=== PATIENT | male | born 1955 | race Caucasian/White ===

== ENCOUNTER 2021-10-17 08:17 | Outpatient (CLI) | payer OTHER, SELFPAY ==
[2021-10-17 12:11] LABS: Chloride* 107 mmol/L (96-114)
[2021-10-17 12:12] LABS: Albumin* 4.2 g/dL (3.3-5.0); Creatinine Urine 236.2 mg/dL
[2021-10-17 12:13] LABS: Sodium* 137 mmol/L (135-149)
[2021-10-17 12:15] LABS: Alkaline Phosphatase* 124 U/L (40-150); Aspartate Amino Transferase* 25 U/L (12-35); Bilirubin Total* 0.5 mg/dL (0.1-1.5); Blood Urea Nitrogen* 38 mg/dL (7-30); Carbon Dioxide* 22 mmol/L (20-32); Cholesterol* 171 mg/dL (90-199); Creatinine* 1.9 mg/dL (0.5-1.5); Estimated Glomerular Filt Rate 38 ml/min; Glucose* 172 mg/dL (60-115); Total Protein* 7.1 g/dL (6.0-8.3)
[2021-10-17 12:16] LABS: Alanine Aminotransferase* 24 U/L (4-50); Calcium* 9.3 mg/dL (8.4-10.6); HDL Cholesterol* 30 mg/dL (>=40); LDL Cholesterol Calculated 95 mg/dL (<100); Triglycerides* 229 mg/dL (40-149)
[2021-10-17 12:36] LABS: Microalbumin Creatinine Ratio 170 mg/g (0-30); Microalbumin Urine 41 mg/dL
[2021-10-17 12:47] LABS: PSA Screen* 0.58 ng/mL (0.10-4.00)
[2021-10-17 13:16] LABS: Potassium* 7.1 mmol/L (3.6-5.1)
[2021-10-17 15:16] LABS: Potassium* 6.3 mmol/L (3.6-5.1)
== END 2021-10-17 08:18 | disposition home or self-care (01) ==
PROVIDERS: Family Medicine; PCP Internal Medicine; Visit Provider Internal Medicine
DX: E11.9 Type 2 diabetes mellitus without complications (principal); E87.5 Hyperkalemia; I10 Essential (primary) hypertension; N18.9 Chronic kidney disease, unspecified; Z12.5 Encounter for screening for malignant neoplasm of prostate; Z13.9 Encounter for screening, unspecified
CPT/HCPCS: 80053; 80061; 82043; 82570; 84132; 84153

== ENCOUNTER 2021-10-18 14:21 | Outpatient (CLI) | payer OTHER, SELFPAY ==
[2021-10-18 17:59] LABS: PSA Screen* 0.57 ng/mL (0.10-4.00)
[2021-10-22 03:38] LABS: C-Peptide, Serum or Plasma 9.3 ng/mL (0.5-3.3)
== END 2021-10-18 14:22 | disposition home or self-care (01) ==
PROVIDERS: PCP Internal Medicine; Visit Provider Family Medicine
DX: E11.65 Type 2 diabetes mellitus with hyperglycemia (principal); N18.9 Chronic kidney disease, unspecified; E87.5 Hyperkalemia; Z12.5 Encounter for screening for malignant neoplasm of prostate; E11.40 Type 2 diabetes mellitus with diabetic neuropathy, unspecified; Z79.4 Long term (current) use of insulin; Z79.84 Long term (current) use of oral hypoglycemic drugs; I12.9 Hypertensive chronic kidney disease with stage 1 through stage 4 chronic kidney disease, or unspecified chronic kidney disease; E11.22 Type 2 diabetes mellitus with diabetic chronic kidney disease; E11.319 Type 2 diabetes mellitus with unspecified diabetic retinopathy without macular edema
CPT/HCPCS: 84153; 84681

== ENCOUNTER 2021-10-23 13:32 | Outpatient (CLI) | payer MEDICARE, SELFPAY ==
[2021-10-23 16:38] LABS: Chloride* 111 mmol/L (96-114); Sodium* 141 mmol/L (135-149)
[2021-10-23 16:41] LABS: Creatinine* 1.8 mg/dL (0.5-1.5); Estimated Glomerular Filt Rate 41 ml/min
[2021-10-23 16:42] LABS: Blood Urea Nitrogen* 42 mg/dL (7-30); Calcium* 9.5 mg/dL (8.4-10.6); Carbon Dioxide* 24 mmol/L (20-32); Glucose* 115 mg/dL (60-115)
[2021-10-23 17:52] LABS: Potassium* 6.5 mmol/L (3.6-5.1)
== END 2021-10-23 13:33 | disposition home or self-care (01) ==
LOC: NFLDREF 13:33
PROVIDERS: PCP Internal Medicine; Visit Provider Internal Medicine
DX: Z00.00 Encounter for general adult medical examination without abnormal findings (principal); E13.9 Other specified diabetes mellitus without complications; N18.9 Chronic kidney disease, unspecified; E87.5 Hyperkalemia; I10 Essential (primary) hypertension; E78.5 Hyperlipidemia, unspecified
CPT/HCPCS: 80048

== ENCOUNTER 2021-12-04 13:23 | Outpatient (CLI) | payer OTHER, SELFPAY ==
--- OUTSIDE RECORDS SUMMARY | 2021-12-04 13:26 | XMS_ITS | Encounter Summary ---
:1955 Author Organization [facility] Address [address] [address] Support Name Relationship Address Phone Andria Stephens Unavailable Unavailable 03/19 Pt Decline Unavailable Unavailable Unavailable Care Team Providers Name Role Phone Anoop Adam MD Primary Care Provider Reason for Visit Reason Comments Prior Authorization For Medication Encounter Details Date Type Department Care Team Description 06/08/2018 Telephone [facility] Found, No Pcp, Prior Authorization For Medicine [address] Medication [address] [place] [address] Social History Tobacco Use Types Packs/Day Years Used Date Smoking Tobacco: Never Smokeless Tobacco: Never Alcohol Use Standard Drinks/Week Comments No 0 (1 standard drink = 0.6 oz pure alcoho l) Sex Assigned at Date Recorded Not on file documented as of this encounter Nursing Notes Nuria Lay RN - 06/19/2018 10:19 AM CDT Closing encounter Ita Estevez RN - 06/09/2018 9:55 AM CDT Yes, patient is taking 1.8mg daily 27ml for 90day supply (9 pens for 90day supply) OT Nuria Lay RN - 06/08/2018 9:51 AM CDT [facility] calling to follow up on PA for Victoza. They report medication was approved for 6 pens/45 days or 12 pens for 90 days. Advised appears patient is taking 1.8mL daily which would be 3 pens monthly/9 pens for 90 days, so should be sufficient. They state that it appears new PA may have been submitted for larger quantity - routing to endocrinology DA to resubmit if needing quantity larger than 12 pens for 90 days. documented in this encounter Plan of Treatment Not on filedocumented as of this encounter Visit Diagnoses Not on filedocumented in this encounter Care Teams Chief Compliance Officer Relationship Specialty Start Date End Date Anoop Adam MD PCP - General 03/03/181999 [place] [address] documented as of this encounter
--- OUTSIDE RECORDS SUMMARY | 2021-12-04 13:26 | XMS_ITS | Encounter Summary ---
:1955 Author Organization [facility] Address [address], [place] [address] Support Name Relationship Address Phone Andria Stephens Unavailable Unavailable 03/19 Pt Decline Unavailable Unavailable Unavailable Care Team Providers Name Role Phone Needs Pcp, Assignment Primary Care Provider Reason for Visit Reason Comments Medication Questions Encounter Details Date Type Department Care Team Description 11/04/2017 Telephone [facility] [address], Med ication Questions Endocrinology PA-C [address] [place] [address] [phone] (Wo rk) Social History Tobacco Use Types Packs/Day Years Used Date Smoking Tobacco: Never Smokeless Tobacco: Never Alcohol Use Standard Drinks/Week Comments No 0 (1 standard drink = 0.6 oz pure alcoho l) Sex Assigned at Date Recorded Not on file documented as of this encounter Nursing Notes Jessie Santiago RN - 11/04/2017 3:55 PM CDT Called Pt. And Left detailed VM regarding message below. Left call back number if Pt. Has any further questions or concerns. Jessie Santiago RN - 11/04/2017 3:27 PM CDT Pt.calling requesting specific dosing on his B6, B12, and D. Pt. States he buys over the counter andthrew bottle away and now is unsure of what to purchase. Unable to locate dosage in previous visits. Please advise, thank you. documented in this encounter Plan of Treatment Not on filedocumented as of this encounter Visit Diagnoses Not on filedocumented in this encounter Care Teams Shrink Pit Operator Relationship Specialty Start Date End Date Needs Pcp, Assignment PCP - General 05/20/17 03/02/18 [place] [address] documented as of this encounter
--- OUTSIDE RECORDS SUMMARY | 2021-12-04 13:26 | XMS_ITS | Encounter Summary ---
:1955 Author Organization [facility] Address [address], [place] [address] Support Name Relationship Address Phone Andria Stephens Unavailable Unavailable 03/19 Pt Decline Unavailable Unavailable Unavailable Care Team Providers Name Role Phone Needs Pcp, Assignment Primary Care Provider Reason for Visit Reason Comments Follow-up DM2 Encounter Details Date Type Department Care Team Description 01/12/2018 Office Visit Shama Ramirez Type 2 diab etes mellitus with proliferative retinopathy, with long-term current use of insulin, macular edema presence unspecified, unspecified laterality, unspecified proliferative retinopathy* (HRC) (Primary Dx); Endocrinology M, MBBS Essential hypertension; [address] Dyslipidemia; [place] [address] BLVD Vitamin D deficiency; [phone] [place], [place] Need for p rophylactic vaccination and inoculation against influenza [id number] Social History Tobacco Use Types Packs/Day Years Used Date Smoking Tobacco: Never Smokeless Tobacco: Never Alcohol Use Standard Drinks/Week Comments No 0 (1 standard drink = 0.6 oz pure alcoho l) Sex Assigned at Date Recorded Not on file documented as of this encounter Last Filed Vital Signs Vital Sign Reading Time Taken Comments Blood Pressure 114/60 01/12/2018 10:45 AM CDT Pulse 60 01/12/2018 10:45 AM CDT Temperature - - Respiratory Rate - - Oxygen Saturation - - Inhaled Oxygen Concentration - - Weight 84.8 kg (187 lb) 01/12/2018 10:45 AM CDT Height 188 cm (6' 2) 01/12/2018 10:45 AM CDT Body Mass Index 24.01 01/12/2018 10:45 AM CDT documented in this encounter Progress Notes Marivel Ya RN - 01/12/2018 10:45 AM CDT Images from the original note were not included. Shama Sutton MBBS - 01/12/2018 10:45 AM CDT [facility] Department of Endocrinology, Diabetes and Metabolism Clinic Note Name: Rolf Heaton Date: 05/20/2017 Cc: Follow up for diabetes management. He came with his Andria. HPI: Rolf Heaton is a 62 y.o. male #1 T2DM: Diagnosed at age of 50, on insulin since February/2017, historically with poor control. He is currently using metformin 1000 mg In the AM and 100 mg in the PM, insulin Glargine 30 units QHS, he stopped the Victoza 2 weeks ago due to nausea and vomiting. He is having diarrhea from metformin. He is feeling better, nausea and vomiting has resolved. He checks his FSBG once daily in the AM and that is running in the 150-175 range, A1C today was 6.6%. He has painful neuropathy on the right foot. Vitamin B12, B6 and D were low, he is on replacement hethinks the vitamins are causing the nausea. Eye exam from 05/2017 showed retinopathy and he following up with opthalmology. He takes lisinopril 20 mg daily, BP today was 114/60. He takes ASA 81 mg daily and simvastatin 20 mg QHS. He has a family history of insulin requiring DM in his brother and mother. ROS: A 3 point ROS was done, and is negative unless specified otherwise in the HPI. Medications: medication list was reviewed and updated on the EMR. PMHx: Past Medical History: Diagnosis Date ??? Diabetes mellitus type II, controlled (HRC) ??? Dyslipidemia (HRC) 05/20/2017 ??? Essential hypertension (HRC) 05/20/2017 FHx: No family history on file. SHx: Social History Substance Use Topics ??? Smoking status: Never Smoker ??? Smokeless tobacco: Never Used ??? Alcohol use No Physical Examination: Vitals: BP 114/60 (BP Location: Left Arm, BP Cuff Size: Adult Regular) Pulse 60 Ht 6' 2 (1.88 m) Wt 187 lb (84.8 kg) BMI 24.01 kg/m2 General: The patient is alert and oriented, no acute distress. Labs: Reviewed and summarized in the HPI. Assessment and Plan: Rolf Heaton is a 62 y.o. male: #1 T2DM: better controlled, complicated by neuropathy and retinopathy. A1C 6.4%. Counseled him about diet and exercise. Change metformin to ER metformin 1 gm BID. Continue glargine insulin 30 units QHS. Restart Victoza 0.6 mg daily, report response in 1 week, if tolerated that, increase that back to 1.2 mg daily, if not tolerated, consider long acting GLP-1a. RTC in 3 months with Francy. #2 Peripheral neuropathy: Stop all vitamins for now, restart vitamin D1000 units daily after he is back on Victoza. #3 HTN: controlled, continue lisinopril. #4 Dyslipidemia: Continue ASA and Simvastatin. DENISE Otto Irrigation Installation Specialist documented in this encounter Plan of Treatment Not on filedocumented as of this encounter Procedures Procedure Name Priority Date/Time Associated Diagnosis Comme nts POCT GLYCOSYLATED Routine 01/12/2018 10:42 Type 2 diabetes Res ults for this HEMOGLOBIN (HGB A1C) AM CDT mellitus with proced ure are in proliferative the results retinopathy, with section. long-term current use of insulin, macular edema presence unspecified, unspecified laterality, unspecified proliferative retinopathy* (HR C) Essential hypertension Dyslipidemia Vitamin D deficiency documented in this encounter Results (ABNORMAL) POCT glycosylated hemoglobin (Hb A1C) (01/12/2018 10:42 AM CDT) P athologist Signature Hemoglobin A1C, 6.6 (A) 4 - 5.6 % PN POCT POC Cartridge Lot# [id number] PN POCT Specimen (Source) Anatomical Collection Method Collection Time Re ceived Time Location / / Volume Laterality Blood specimen 01/12/2018 10:42 (specimen) AM CDT Shama WALKER PN POINT OF CARE TESTS Performing Organization Address City/State/ZIP Code Phon e Number POCT PN POCT documented in this encounter Visit Diagnoses Diagnosis Type 2 diabetes mellitus with proliferat yin retinopathy, with long-term current use of insulin, macular edema presence unspe cified, unspecified laterality, unspecified proliferative retinopathy* (HRC) - Prima ry Essential hypertension (HRC) Unspecified essential hypertension Dyslipidemia (HRC) Other and unspecified hyperlipidemia Vitamin D deficiency (HRC) Unspecified vitamin D deficiency Need for prophylactic vaccination and in oculation against influenza documented in this encounter Care Teams State Archivist Relationship Specialty Start Date End Date Needs Pcp, Assignment PCP - General 05/20/17 03/02/18 [place] [address] documented as of this encounter
--- OUTSIDE RECORDS SUMMARY | 2021-12-04 13:26 | XMS_ITS | Encounter Summary ---
:1955 Author Organization [employer] Address [address], [place] [address] Support Name Relationship Address Phone Andria Stephens Unavailable Unavailable 03/19 Pt Decline Unavailable Unavailable Unavailable Care Team Providers Name Role Phone Needs Pcp, Assignment Primary Care Provider Reason for Visit Reason Comments Diabetes Encounter Details Date Type Department Care Team Description 07/22/2017 Office Visit Eric Shama Sutton Controlled type 2 diabetes mellitus with proliferative retinopathy of both eyes, with long-term current use of insulin, macular edema presence unspecified, unspecified proliferative retinopathy* (HRC) (Primary Dx); Endocrinology M, MBBS Vitamin D deficiency; [address] Vitamin B6 deficiency; [place] [address] BLVD Vitamin B12 deficiency; [phone] [place], [place] Essential hypertension; [address] Dyslipidemia; [phone] Controlled type 2 diabetes with neuropathy (HRC) (Work) Social History Tobacco Use Types Packs/Day Years Used Date Smoking Tobacco: Never Smokeless Tobacco: Never Alcohol Use Standard Drinks/Week Comments No 0 (1 standard drink = 0.6 oz pure alcoho l) Sex Assigned at Date Recorded Not on file documented as of this encounter Last Filed Vital Signs Vital Sign Reading Time Taken Comments Blood Pressure 108/64 07/22/2017 11:38 AM CDT Pulse 72 07/22/2017 11:38 AM CDT Temperature - - Respiratory Rate - - Oxygen Saturation - - Inhaled Oxygen Concentration - - Weight 84.2 kg (185 lb 11.2 oz) 07/22/2017 11:38 AM CDT Height 188 cm (6' 2) 07/22/2017 11:38 AM CDT Body Mass Index 23.84 07/22/2017 11:38 AM CDT documented in this encounter Progress Notes Shama Sutton MBBS - 07/22/2017 11:45 AM CDT [facility] Department of Endocrinology, Diabetes and Metabolism Clinic [...] in the PM, insulin Glargine 30 units QHS and victoza 1.2 mg daily. He is physically active and he tries to limit carbohydrate intake. Tolerating Victoza well. He checks his FSBG once daily in the AM and that is running in the 103-160 range, A1C today was 7% (down from 9.6%). He has painful neuropathy on the right foot. Vitamin B12, B6 and D were low, he is on replacement but do not feel better. Eye exam from 05/2017 showed retinopathy and he following up with opthalmology. He takes lisinopril 20 mg daily, BP today was 108/64. He takes ASA 81 mg daily and [...] Alcohol use No Physical Examination: Vitals: BP 108/64 (BP Location: Left Arm, BP Cuff Size: Adult Large) Pulse 72 Ht 6' 2 (1.88 m) Wt 185 lb 11.2 oz (84.2 kg) BMI 23.84 kg/m2 General: The patient is alert and oriented, no acute distress. Labs: Reviewed and summarized in the HPI. Assessment and Plan: Rolf Heaton is a 62 y.o. male: #1 T2DM: better controlled, complicated by neuropathy and retinopathy. A1C 7%. Counseled him about diet and exercise. Continue metformin to 1 gm BID. Continue glargine insulin 30 units QHS. Increase Victoza to 1.8 mg daily. RTC in 2 months. #2 Peripheral neuropathy: Have vitamin B12, vitamin B6 and vitamin D deficiency. Improve DM control. Continue current supplements, repeat levels today. #3 HTN: controlled, continue lisinopril. #4 Dyslipidemia: Continue ASA and Simvastatin. DENISE Otto General Maintenance Mechanic documented in this encounter Plan of Treatment Not on filedocumented as of this encounter Procedures Procedure Name Priority Date/Time Associated Comments Diagnosis POCT GLYCOSYLATED Routine 07/22/2017 3:14 PM Vitamin D Resu lts for this HEMOGLOBIN (HGB A1C) CDT deficiency procedure are in Vitamin B6 the results deficiency section. Vitamin B12 deficiency documented in this encounter Results (ABNORMAL) POCT glycosylated hemoglobin (Hb A1C) (07/22/2017 3:14 PM CDT) P athologist Signature Hemoglobin A1C, 7.0 (A) 4 - 5.6 % PN POCT POC Cartridge Lot# [id number] PN POCT Specimen (Source) Anatomical Collection Method Collection Time Re ceived Time Location / / Volume Laterality Blood specimen 07/22/2017 3:14 PM (specimen) CDT Shama WALKER PN POINT OF CARE TESTS Performing Organization Address City/State/ZIP Code Phon e Number POCT PN POCT (ABNORMAL) Vitamin B6 (8Hr Fast Recommended) (07/22/2017 12:28 PM CDT) P athologist Signature Vitamin B6 239.4 (H) 20.0 - PN SOFT 125.0 nmol/L Comment: INTERPRETIVE INFORMATION: Vitamin B6 (Py ridoxal 5-Phosphate) Pyridoxal 5'-phosphate measured in a spe cimen collected following an 8-hour or overnight fast ac curately indicates vitamin B6 nutritional status. Non-fasti ng specimen concentration reflects recent vitamin in take. Test developed and characteristics deter mined by [facility]. See Compliance Statement B : [employer] Performed by [facility], [address] [place] [id number] [email or web address], Yosi Cabral MD - Lab . Director Specimen Anatomical Collection Method Collection Time Receive d Time (Source) Location / / Volume Laterality 07/22/2017 12:28 07/22/2017 3:48 PM CDT PM CDT Narrative PN SOFT - 07/24/2017 4:56 PM CDT Performed at [facility] [address] [place] [address] CLIA number [id number] Shama KINNEY LAB_1 Performing Organization Address [facility] Phon e Number PN SOFT [address] [place] [address] Vitamin B-12 (07/22/2017 12:28 PM CDT) athologist Signature Vitamin B12 511 213 - 816 PN SOFT pg/dL Specimen Anatomical Collection Method Collection Time Receive d Time (Source) Location / / Volume Laterality 07/22/2017 12:28 07/22/2017 3:41 PM CDT PM CDT Narrative PN SOFT - 07/22/2017 5:48 PM CDT Performed at [facility] [address] [place] [address] CLIA number [id number] Shama WALKER LAB_1 Performing Organization Address [facility] Phon e Number PN SOFT [address] [place] [address] Vitamin D (In house) (07/22/2017 12:28 PM CDT) athologist Signature Vitamin D 25 Oh 34 20 - 80 PN SOFT ng/mL Comment: Deficiency = <20 Adequate ??= 20-29 Preferred = 30-50 Uncertain safety = 51-80 High = >80 Specimen Anatomical Collection Method Collection Time Receive d Time (Source) Location / / Volume Laterality 07/22/2017 12:28 07/22/2017 3:41 PM CDT PM CDT Narrative KARLEY MAE - 07/22/2017 5:11 PM CDT Performed at [facility], [address] [place] [address] CLIA number [id number] Shama WALKER LAB_1 Performing Organization Address City/State/ZIP Code Phon e Number PN CARMELITA [address] [place] [address] documented in this encounter Visit Diagnoses Diagnosis Controlled type 2 diabetes mellitus with proliferative retinopathy of both eyes, with long-term current use of insulin, macula r edema presence unspecified, unspecified proliferative retinopathy* (HRC) - Prima ry Vitamin D deficiency (HRC) Unspecified vitamin D deficiency Vitamin B6 deficiency (HRC) Vitamin B6 deficiency Vitamin B12 deficiency (HRC) Other B-complex deficiencies Essential hypertension (HRC) Unspecified essential hypertension Dyslipidemia (HRC) Other and unspecified hyperlipidemia Vitamin D deficiency (HRC) Unspecified vitamin D deficiency Vitamin B6 deficiency (HRC) Vitamin B6 deficiency Vitamin B12 deficiency (HRC) Other B-complex deficiencies documented in this encounter Care Teams Golf Club Manager Relationship Specialty Start Date End Date Needs Pcp, Assignment PCP - General 05/20/17 03/02/18 [place] [address] documented as of this encounter
--- OUTSIDE RECORDS SUMMARY | 2021-12-04 13:26 | XMS_ITS | Encounter Summary ---
:1955 Author Organization [facility] Address [address] [place] [address] Support Name Relationship Address Phone Andria Stephens Unavailable Unavailable 03/19 Pt Decline Unavailable Unavailable Unavailable Care Team Providers Name Role Phone Anoop Adam MD Primary Care Provider Reason for Visit Reason Onset Date Comments Refill 08/12/2019 insulin pen needle ( BD PEN NEEDLE DARSHANA U/F) 32G X 4 MM Encounter Details Date Type Department Care Team Description 08/12/[address] [facility] [address], Re fill (insulin pen Endocrinology MBBS needle (BD PEN NEEDLE [address] [facility] [address] U/F) 32G X 4 MM) [place] [address] [phone] Social History Tobacco Use Types Packs/Day Years Used Date Smoking Tobacco: Never Smokeless Tobacco: Never Alcohol Use Standard Drinks/Week Comments No 0 (1 standard drink = 0.6 oz pure alcoho l) Sex Assigned at Date Recorded Not on file documented as of this encounter Nursing Notes Suki Barragan, RN - 08/17/2019 4:11 PM CDT Requested Prescriptions Refused Prescriptions Disp Refills ??? insulin pen needle (BD PEN NEEDLE DARSHANA U/F) 32G X 4 MM 1 Each 3 Sig: Inject 1 Each subcutaneously two times a day. Refused By: SUKI BARRAGAN Reason for Refusal: Patient no longer under Provider care Nataly Valentino - 08/17/2019 10:41 AM CDT Pt said that Dr Luciano would like pt to see PCP. Prescription should go thru his PCP and not Endo. Kary Hathaway RN - 08/15/2019 10:34 AM CDT Pt is due for a follow up appt. Please call and assist in scheduling an appt. Route back to nursing once appt is made. Interface, Out [employer] [facility] Prov Query - 08/12/2019 11:42 AM CDT insulin pen needle (BD PEN NEEDLE DARSHANA U/F) 32G X 4 MM Endocrinology: Diabetes Non-DME Supplies -> Refill x 12 months, qty: 1, refills: 3 (maximum allowed) Last qualifying visit: 01/12/2018 (in [facility]) Next scheduled visit: None Last ordered by MIA SUTTON M: 03/08/2018 (522 days ago) QTY: 200, Refills: 3, Sig: inject 1 each subcutaneously two times a day. (unchanged) Powered by [employer], Reference: [id number], 08/12/2019 11:42:15 AM CDT, Pool: ENDO PN REFILL ([id number]) Suki Barragan, RN - 08/12/2019 11:41 AM CDT Images from the original note were not included. documented in this encounter Plan of Treatment Not on filedocumented as of this encounter Visit Diagnoses Not on filedocumented in this encounter Care Teams Dimensional Inspector Relationship Specialty Start Date End Date Anoop Adam MD PCP - General 03/03/181999 [place] [address] documented as of this encounter
--- OUTSIDE RECORDS SUMMARY | 2021-12-04 13:26 | XMS_ITS | Encounter Summary ---
:1955 Author Organization [employer] Address [address], [place] [address] Support Name Relationship Address Phone Andria Stephens Unavailable Unavailable 03/19 Pt Decline Unavailable Unavailable Unavailable Care Team Providers Name Role Phone Needs Pcp, Assignment Primary Care Provider Reason for Visit Reason Onset Date Comments Refill 05/25/2017 Encounter Details Date Type Department Care Team Description 05/25/2017 Refill [facility] [address] MBBS Refill Endocrinology [address] [place] [address] [place] [address] [phone] Social History Tobacco Use Types Packs/Day Years Used Date Smoking Tobacco: Never Smokeless Tobacco: Never Alcohol Use Standard Drinks/Week Comments No 0 (1 standard drink = 0.6 oz pure alcoho l) Sex Assigned at Date Recorded Not on file documented as of this encounter Nursing Notes Kary Hathaway RN - 05/25/2017 1:58 PM CST Pharmacy updated on this. Will fill rx. Shama Brady MBBS - 05/25/2017 1:40 PM CST Victoza is a daily medication and they are wrong. No change in prescription needed. They need to be notified about that. Kary Sy RN - 05/25/2017 1:30 PM CST Requested Prescriptions Pending Prescriptions Disp Refills ??? liraglutide (,,VICTOZA) 18 MG/3ML SOPN injection 6 mL 6 Si.6 mg each week for 1 week, then 1.2 mg each week after that. Pharmacy calling about the rx they received. States that it was sent as give daily for 1 week and then increase. Per the pharmacy, this is a weekly injection only. They are requesting a new updated rx to reflect this. Please review and sign pending rx if approved. ER PACKER documented in this encounter Plan of Treatment Not on filedocumented as of this encounter Visit Diagnoses Not on filedocumented in this encounter Care Teams Collections Professional Relationship Specialty Start Date End Date Needs Pcp, Assignment PCP - General 05/20/17 03/02/18 [place] [address] documented as of this encounter
--- OUTSIDE RECORDS SUMMARY | 2021-12-04 13:26 | XMS_ITS | Encounter Summary ---
:1955 Author Organization [facility] Address [address] [address] Support Name Relationship Address Phone Andria Stephens Unavailable Unavailable 03/19 Pt Decline Unavailable Unavailable Unavailable Care Team Providers Name Role Phone Anoop Adam MD Primary Care Provider Reason for Visit Reason Onset Date Comments Refill 03/08/2018 Encounter Details Date Type Department Care Team Description 03/08/[address] [facility] [address] MBBS Refill Endocrinology [address] [place] [address] [place] [address] [phone] Social History Tobacco Use Types Packs/Day Years Used Date Smoking Tobacco: Never Smokeless Tobacco: Never Alcohol Use Standard Drinks/Week Comments No 0 (1 standard drink = 0.6 oz pure alcoho l) Sex Assigned at Date Recorded Not on file documented as of this encounter Nursing Notes Kary Hathaway RN - 03/08/2018 1:24 PM CST Renewed medication per medication refill protocol. Requested Prescriptions Signed Prescriptions Disp Refills ??? insulin pen needle (BD PEN NEEDLE DARSHANA U/F) 32G X 4 MM 200 Each 3 Sig: Inject 1 Each subcutaneously two times a day. Authorizing Provider: MIA SUTTON Ordering User: KARY HATHAWAY LV: 01/12/18 FV: 04/27/18 MAN documented in this encounter Plan of Treatment Not on filedocumented as of this encounter Visit Diagnoses Not on filedocumented in this encounter Care Teams Director Of Analytics Relationship Specialty Start Date End Date Anoop Adam MD PCP - General 03/03/181999 [place] [address] documented as of this encounter
--- OUTSIDE RECORDS SUMMARY | 2021-12-04 13:26 | XMS_ITS | Encounter Summary ---
:1955 Author Organization [facility] Address [address], [place] [address] Support Name Relationship Address Phone Andria Stephens Unavailable Unavailable 03/19 Pt Decline Unavailable Unavailable Unavailable Care Team Providers Name Role Phone Needs Pcp, Assignment Primary Care Provider Reason for Visit Reason Comments Medication Questions Encounter Details Date Type Department Care Team Description 12/21/2017 Telephone [facility] [address] Co dication Questions Endocrinology [facility] [address] [place] [address] [phone] Social History Tobacco Use Types Packs/Day Years Used Date Smoking Tobacco: Never Smokeless Tobacco: Never Alcohol Use Standard Drinks/Week Comments No 0 (1 standard drink = 0.6 oz pure alcoho l) Sex Assigned at Date Recorded Not on file documented as of this encounter Nursing Notes Jessie Santiago RN - 12/21/2017 1:59 PM CDT Called Pt. And relayed message below. Patient verbalized understanding, is agreeable with plan, and no further questions. Shama Sutton MBBS - 12/21/2017 1:36 PM CDT He can stop the vitamin B until nausea has resolved. Jessie Santiago RN - 12/21/2017 1:27 PM CDT Called Pt. And relayed message below. Pt. Clarified that he was having symptoms as stated below on Vitamin B. Not vitamin D. Please advise if Vit B OTC is appropriate. Thank you! Shama Sutton MBBS - 12/21/2017 12:36 PM CDT He can be off Victoza until nausea goes away then restart taking only 0.6 mg daily once the nausea resolves. He can try OTC chewable vitamin D (Viactive) taking 2 tabs daily. Jessie Santiago RN - 12/21/2017 10:52 AM CDT Pt. Calling stating that he stopped taking Victoza two days ago due to persistent nausea even after decreasing dose to 1.2 mg for 10 days. Pt. States that he is having electrical shock in his right big toe. Pt. States he Vit. D had decreased this pain, however, he had to stop the Vit. D two weeks ago due to persistent emesis related to Vit D. Consumption. Pt. States he does take the Vit. D with food and still had episodes of emesis. Please advise on medication recommendations. Thank you! documented in this encounter Plan of Treatment Not on filedocumented as of this encounter Visit Diagnoses Not on filedocumented in this encounter Care Teams Optical Lab Technician Relationship Specialty Start Date End Date Needs Pcp, Assignment PCP - General 05/20/17 03/02/18 [place] [address] documented as of this encounter
--- OUTSIDE RECORDS SUMMARY | 2021-12-04 13:26 | XMS_ITS | Clinical Summary ---
:1955 Author Organization [employer] Address [address], [place] [address] Support Name Relationship Address Phone Andria Stephens Unavailable Unavailable 03/19 Pt Decline Unavailable Unavailable Unavailable Care Team Providers Name Role Phone Anoop Adam MD Primary Care Provider Source Comments You are receiving this document as you are listed as the primary care provider,follow-up provider, or the patient has been referred to you for consultation.This is in compliance with the Medicare and Medicaid EHR Incentive Program,which states Providers who transition their patient to another setting of careor provider of care or refers their patient to another provider of care shouldprovide summarycare record for each transition of care or referral. [employer] Allergies No known active allergies Medications Medication Sig Dispensed Refills Start Date End Date Status aspirin 81 MG Take 81 mg by mouth 0 Active tabletIndications: daily. DM type 2, uncontrolled, with neuropathy, Essential hypertension (HRC), Dyslipidemia (HRC), Vitamin D deficiency (HRC) naproxen sodium Take 220 mg by mouth 0 Active (ANAPROX) 220 MG two times a day with tabletIndications: meals. DM type 2, uncontrolled, with neuropathy, Essential hypertension (HRC), Dyslipidemia (HRC), Vitamin D deficiency (HRC) simvastatin (ZOCOR) Take 20 mg by mouth 0 Active 20 MG daily at bedtime. tabletIndications: DM type 2, uncontrolled, with neuropathy, Essential hypertension (HRC), Dyslipidemia (HRC), Vitamin D deficiency (HRC) lisinopril Take 20 mg by mouth 0 Active (ZESTRIL) 20 MG daily. tabletIndications: DM type 2, uncontrolled, with neuropathy, Essential hypertension (HRC), Dyslipidemia (HRC), Vitamin D deficiency (HRC) blood glucose (ONE Use to test daily. 0 Active TOUCH TEST STRIPS) Use as directed. test Pharmacy dispense stripIndications: brand based on DM type 2, insurance. uncontrolled, with neuropathy, Essential hypertension (HRC), Dyslipidemia (HRC), Vitamin D deficiency (HRC) insulin glargine Inject 30 Units 30 mL 3 05/22/2017 Active (LANTUS) 100 subcutaneously every UNIT/ML evening. Pharmacy injectionIndication may substitute s: DM type 2, Basaglar as needed uncontrolled, with based on insurance neuropathy, Essential hypertension (HRC), Dyslipidemia (HRC), Vitamin D deficiency (HRC) liraglutide 1.8 mg daily 27 mL 3 01/12/2018 Acti ve (,,VICTOZA) 18 MG/3ML SOPN injectionIndication s: Type 2 diabetes mellitus with proliferative retinopathy, with long-term current use of insulin, macular edema presence unspecified, unspecified laterality, unspecified proliferative retinopathy* (HRC), Essential hypertension (HRC), Dyslipidemia (HRC), Vitamin D deficiency (HRC) metFORMIN XR Take 2 Tablets by 360 Tablet 3 01/12/2018 Active (GLUCOPHAGE XR) 500 mouth two times a MG 24 hour release day. tabletIndications: Type 2 diabetes mellitus with proliferative retinopathy, with long-term current use of insulin, macular edema presence unspecified, unspecified laterality, unspecified proliferative retinopathy* (HRC), Essential hypertension (HRC), Dyslipidemia (HRC), Vitamin D deficiency (HRC) insulin pen needle Inject 1 Each 200 Each 3 03/08/2018 Active (BD PEN NEEDLE DARSHANA subcutaneously two U/F) 32G X 4 MM times a day. Active Problems Problem Noted Date Controlled type 2 diabetes mellitus with proliferative retinopathy of both 07/22/2017 eyes, with long-term current use of insulin Type 2 diabetes mellitus with proliferative retinopath y, with long-term 07/22/2017 current use of insulin Essential hypertension 05/20/2017 Dyslipidemia 05/20/2017 Vitamin D deficiency 05/20/2017 Resolved Problems Problem Noted Date Resolved Date DM type 2, uncontrolled, with neuropathy 05/20/2017 07/22/2017 Immunizations Name Administration Dates Next Due Influenza IIV4 (Quadrivalent) 0.5mL (23295) 01/12/2018 Social History Tobacco Use Types Packs/Day Years Used Date Smoking Tobacco: Never Smokeless Tobacco: Never Alcohol Use Standard Drinks/Week Comments No 0 (1 standard drink = 0.6 oz pure alcoho l) Sex Assigned at Date Recorded Not on file Last Filed Vital Signs Vital Sign Reading [...] Mass Index 24.01 01/12/2018 10:45 AM CDT Plan of Treatment Health Maintenance Due Date Last Done Comments Colon Cancer Screening Plan 1955 Due Diabetes: Eye Exam 1955 Diabetes: Foot Exam 1955 Diabetes: Lipid Panel 1955 Diabetes: Urine 1955 Microalbumin Hep C Screening (Preventive 1955 Services) COVID-19 Vaccine (#1) 1955 Adult Preventive Visit 1973 Pneumococcal 65+ Yrs (2 - 01/04/2011 01/04/2010 PCV) Zoster/Shingles (2 of 3) 06/12/2016 04/17/2016 Diabetes: HGBA1C 04/14/2018 01/12/2018, 09/23/2017, 07/22/2017, Additional history exists Diabetes: Creatinine 05/20/2018 05/20/2017 DTaP/Tdap/Td (2 - Tdap) 12/08/2019 12/07/2009 Influenza (#1) 2021 03/01/2020, 03/11/2019, 01/12/2018, Additional history exists HepA Aged Out No longer eligib le based on patient 's age to complete this topic HepB Aged Out No longer eligib le based on patient 's age to complete this topic Hib Aged Out No longer eligib le based on patient 's age to complete this topic IPV (Polio) Aged Out No longer eligib le based on patient 's age to complete this topic MCV4 Aged Out No longer eligib le based on patient 's age to complete this topic Care Teams Field Representative/Health Education Relationship Specialty Start Date End Date Anoop Adam MD PCP - General 03/03/181999 [place] [address]
--- OUTSIDE RECORDS SUMMARY | 2021-12-04 13:26 | XMS_ITS | Encounter Summary ---
:1955 Author Organization [facility] Address [address] [address] Support Name Relationship Address Phone Andria Stephens Unavailable Unavailable 03/19 Pt Decline Unavailable Unavailable Unavailable Care Team Providers Name Role Phone Needs Pcp, Assignment Primary Care Provider Encounter Details Date Type Department Care Team Description 08/10/2017 Notes/Orders [facility] [address], Endocrinology DENISE [address] [place] [address] [place] [address] [phone] Social History Tobacco Use Types Packs/Day Years Used Date Smoking Tobacco: Never Smokeless Tobacco: Never Alcohol Use Standard Drinks/Week Comments No 0 (1 standard drink = 0.6 oz pure alcoho l) Sex Assigned at Date Recorded Not on file documented as of this encounter Progress Notes Shama Sutton MBBS - 08/10/2017 7:38 AM CDT Unread message: The vitamin B6 is up, B12 and D are normal. You can reduce the vitamin B6 to once weekly, continue vitamin D and B12 the same. Interface, In Conv Problem List - 08/10/2017 7:38 AM CDT Acute Otitis Media; Unspecified otitis media documented in this encounter Plan of Treatment Not on filedocumented as of this encounter Visit Diagnoses Not on filedocumented in this encounter Care Teams Telephone Maintainer Relationship Specialty Start Date End Date Needs Pcp, Assignment PCP - General 05/20/17 03/02/18 [place] [address] documented as of this encounter
--- OUTSIDE RECORDS SUMMARY | 2021-12-04 13:26 | XMS_ITS | Encounter Summary ---
:1955 Author Organization [employer] Address [address] [place] [address] Support Name Relationship Address Phone Andria Stephens Unavailable Unavailable 03/19 Pt Decline Unavailable Unavailable Unavailable Care Team Providers Name Role Phone Needs Pcp, Assignment Primary Care Provider Reason for Visit Reason Comments Diabetes Encounter Details Date Type Department Care Team Description 05/20/2017 Initial Consult Shama Ramirez DM type 2, uncontrolled, with neuropathy (HRC) (Primary Dx); Endocrinology DENISE Fox Essential hypertension; [address] [address] [address] ROSA ZAYAS Dyslipidemia; [place] [address] [address] Vitamin D deficiency [phone] [place], [place] [address] Social History Tobacco Use Types Packs/Day Years Used Date Smoking Tobacco: Never Smokeless Tobacco: Never Alcohol Use Standard Drinks/Week Comments No 0 (1 standard drink = 0.6 oz pure alcoho l) Sex Assigned at Date Recorded Not on file documented as of this encounter Last Filed Vital Signs Vital Sign Reading Time Taken Comments Blood Pressure 112/58 05/20/2017 11:34 AM BLEACHING SUPERVISOR Pulse 76 05/20/2017 11:34 AM BLEACHING SUPERVISOR Temperature - - Respiratory Rate - - Oxygen Saturation - - Inhaled Oxygen Concentration - - Weight 89.8 kg (198 lb) 05/20/2017 11:34 AM BLEACHING SUPERVISOR Height 188 cm (6' 2) 05/20/2017 11:34 AM BLEACHING SUPERVISOR Body Mass Index 25.42 05/20/2017 11:34 AM BLEACHING SUPERVISOR documented in this encounter Progress Notes Shama Sutton MBBS - 05/20/2017 11:30 AM CST Ana Rosa Zaays [facility] Department of Endocrinology, Diabetes and Metabolism Clinic Note Name: Rolf Heaton Date: 05/20/2017 Cc: The patient was referred for diabetes management. He came with his Andria. HPI: Rolf Heaton is a 62 y.o. male #1 T2DM: Diagnosed at age of 50, on insulin since February/2017, historically with poor control. He is currently using metformin 1000 mg In the AM and 1500 mg in the PM, glyburide 5 mg BID and insulin Lantus 22 units QHS. He is physically active and he tried to limit carbohydrate intake. He checks his FSBG once daily in the AM and that is running in the 200-280 range, A1C today was 9.6%. He has painful neuropathy on the right foot. Eye exam from 01/2016 was reported with no DM changes. He takes lisinopril 20 mg daily, BP today was 112/58. He takes ASA 81 mg daily and simvastatin 20 mg QHS. He has a family history of insulin requiring DM in his brother and mother. ROS: A 10 point ROS was done, and is negative unless specified otherwise in the HPI. Medications: medication list was reviewed and updated on the EMR. PMHx: Past Medical History: Diagnosis Date ??? Dyslipidemia (HRC) 05/20/2017 ??? Essential hypertension (HRC) 05/20/2017 ??? Vitamin D deficiency (HRC) 05/20/2017 FHx: No family history on file. SHx: Social History Substance Use Topics ??? Smoking status: Never Smoker ??? Smokeless tobacco: Never Used ??? Alcohol use No Physical Examination: Vitals: BP 112/58 Pulse 76 Ht 6' 2 (1.88 m) Wt 198 lb (89.8 kg) BMI 25.42 kg/m2 General: The patient is alert and oriented, no acute distress. Lower extremity: No visible ulcers, no signs of infection, normal temperature and normal dorsalis pedis and posterior tibial pulses. Has impaired vibration sensation Labs: Reviewed and summarized in the HPI. Assessment and Plan: Rolf Heaton is a 62 y.o. male: #1 DM: This is mostly from T2DM or ELROY, uncontrolled, complicated by neuropathy. Counseled the patient about the importance of DM control. Counseled him about diet and exercise. I recommend checking his Cpeptide and SOILA, and if this suggests GERRY, then I would recommend changing him to MDI insulin regimen, otherwise, we can introduce GLP1 analogue to his regimen. Meanwhile, he can stop the glyburide, and reduce the metformin to 1 gm BID and increase the insulin to 30 units QHS. Further recommendations will be made once these results are back. RTC in 2 months. #2 Peripheral neuropathy: Check TSH, vitamin B12, vitamin B6 and vitamin D. Improve DM control. #3 HTN: controlled, continue lisinopril. #4 Dyslipidemia: Continue ASA and Simvastatin. I have spent 60 minutes with the patient, >50% was spent on counseling. DENISE Otto Director Of Marketing [employer] CHING SUPERVISOR documented in this encounter Plan of Treatment Not on filedocumented as of this encounter Procedures Procedure Name Priority Date/Time Associated Comments Diagnosis POCT GLYCOSYLATED Routine 05/20/2017 3:35 PM DM type 2, Resu lts for this HEMOGLOBIN (HGB A1C) BLEACHING SUPERVISOR uncontrolled, with p rocedure are in neuropathy (HRC) the results Essential section. hypertension Dyslipidemia Vitamin D deficiency documented in this encounter Results (ABNORMAL) POCT glycosylated hemoglobin (Hb A1C) (05/20/2017 3:35 PM BLEACHING SUPERVISOR) P athologist Signature Hemoglobin A1C, 9.6 (A) 4 - 5.6 % PN POCT POC Cartridge Lot# [id number] PN POCT Specimen (Source) Anatomical Collection Method Collection Time Re ceived Time Location / / Volume Laterality Blood specimen 05/20/2017 3:35 PM (specimen) BLEACHING SUPERVISOR Shama WALKER PN POINT OF CARE TESTS Performing Organization Address City/State/ZIP Code Phon e Number POCT PN POCT (ABNORMAL) Vitamin D (In house) (05/20/2017 12:29 PM BLEACHING SUPERVISOR) P athologist Signature Vitamin D 25 Oh 18 (L) 20 - 80 PN SOFT ng/mL Comment: Deficiency = <20 Adequate ??= 20-29 Preferred = 30-50 Uncertain safety = 51-80 High = >80 Specimen Anatomical Collection Method Collection Time Receive d Time (Source) Location / / Volume Laterality 05/20/2017 12:29 05/20/2017 3:50 PM BLEACHING SUPERVISOR PM BLEACHING SUPERVISOR Narrative PN SOFT - 05/20/2017 6:25 PM BLEACHING SUPERVISOR Performed at [facility] [address] [place] [address] CLIA number [id number] Shama Sutton DENISE LAB_1 Performing Organization Address City/[facility]/ZIP Code Phon e Number PN SOFT [address] [place] [address] (ABNORMAL) Vitamin B6 (8Hr Fast Recommended) (05/20/2017 12:29 PM BLEACHING SUPERVISOR) athologist Signature Vitamin B6 19.4 (L) 20.0 - PN SOFT 125.0 nmol/L Comment: INTERPRETIVE INFORMATION: Vitamin B6 (Py ridoxal 5-Phosphate) Pyridoxal 5'-phosphate measured in a spe cimen collected following an 8-hour or overnight fast ac curately indicates vitamin B6 nutritional status. Non-fasti ng specimen concentration reflects recent vitamin in take. Test developed and characteristics deter mined by [facility]. See Compliance Statement B : [employer] Performed by [facility], [address] [place] [id number] www.[employer], Yosi Cabral MD - Lab . Director Specimen Anatomical Collection Method Collection Time Receive d Time (Source) Location / / Volume Laterality 05/20/2017 12:29 05/20/2017 3:49 PM BLEACHING SUPERVISOR PM BLEACHING SUPERVISOR Narrative PN SOFT - 05/23/2017 12:33 AM BLEACHING SUPERVISOR Performed at [facility] [address] [place] [address] CLIA number [id number] Shama Jorgeavi WALKER LAB_1 Performing Organization Address City/[facility]/ZIP Code Phon e Number PN SOFT [address] [place] [address] (ABNORMAL) Vitamin B-12 (05/20/2017 12:29 PM BLEACHING SUPERVISOR) athologist Signature Vitamin B12 168 (L) 213 - 816 PN SOFT pg/dL Specimen Anatomical Collection Method Collection Time Receive d Time (Source) Location / / Volume Laterality 05/20/2017 12:29 05/20/2017 3:50 PM BLEACHING SUPERVISOR PM BLEACHING SUPERVISOR Narrative PN SOFT - 05/20/2017 6:56 PM BLEACHING SUPERVISOR Performed at [facility] [address] [place] [address] CLIA number [id number] Shama Sutton NIRMAL LAB_1 Performing Organization Address [facility] Phon e Number PN SOFT [address] [place] [address] (ABNORMAL) C-Peptide, Serum (05/20/2017 12:29 PM BLEACHING SUPERVISOR) P athologist Signature C-Peptide 5.4 (H) 0.8 - 3.5 PN SOFT ng/mL Comment: INTERPRETIVE INFORMATION: C-Peptide, Ser um or Plasma Reference Interval applies to fasting sp ecimens. To convert to nmol/L, multiply by 0.33 Performed by [facility], [address] [place] [id number] www.[employer], Yosi Cabral MD - Lab . Director Specimen Anatomical Collection Method Collection Time Receive d Time (Source) Location / / Volume Laterality 05/20/2017 12:29 05/20/2017 3:50 PM BLEACHING SUPERVISOR PM BLEACHING SUPERVISOR Narrative PN SOFT - 05/21/2017 5:14 PM BLEACHING SUPERVISOR Performed at [facility] [address] [place] [address] CLIA number [id number] Shama Samal WALKER LAB_1 Performing Organization Address [facility] Phon e Number PN SOFT [address] [place] [address] (ABNORMAL) Glucose (05/20/2017 12:29 PM BLEACHING SUPERVISOR) athologist Signature Lab Glucose 183 (H) 70 - 100 PN SOFT mg/dL Comment: The stated glucose range is for the fast ing state. Non-fasting glucose range is 70-180 mg/d L Specimen Anatomical Collection Method Collection Time Receive d Time (Source) Location / / Volume Laterality 05/20/2017 12:29 05/20/2017 PM BLEACHING SUPERVISOR 12:29 PM BLEACHING SUPERVISOR Narrative PN SOFT - 05/20/2017 2:39 PM BLEACHING SUPERVISOR Performed at [facility], [address] [place] [address] CLIA number [id number] Shama Miltonmike [facility] LAB_1 Performing Organization Address [facility] Phon e Number PN SOFT [address] [place] [address] Glutamic Acid Decarboxylase Antibody (05/20/2017 12:29 PM BLEACHING SUPERVISOR) Analysis Performed At [facility] Time Signature Glutamic Acid <5.0 0.0 - 5.0 PN SOFT Decarboxylase IU/mL Antibody Comment: INTERPRETIVE INFORMATION: ??Glutamic Aci d Decarboxylase Antibody A value greater than 5.0 Kronus Units/mL is considered positive for Glutamic Acid Decarboxylase Antibody (SOILA Ab). Kronus units are arbitrary. Kronus Units = U/mL. This assay is intended for the semi-quantitative de termination of the SOILA Ab in human serum. Results should be interpreted within the context of clinical symptoms. Performed by [facility], [address] [place] [id number] www.[employer], Yosi Cabral MD - Lab . Director Specimen Anatomical Collection Method Collection Time Receive d Time (Source) Location / / Volume Laterality 05/20/2017 12:29 05/20/2017 3:50 PM BLEACHING SUPERVISOR PM BLEACHING SUPERVISOR Narrative PN SOFT - 05/22/2017 7:09 PM BLEACHING SUPERVISOR Performed at [facility] [address] [place] [address] CLIA number [id number] Shama Fox Lesley [facility] LAB_1 Performing Organization Address [facility] Phon e Number PN SOFT [address] [place] [address] [phone] TSH (05/20/2017 12:29 PM BLEACHING SUPERVISOR) P athologist Signature Thyroid 1.51 0.30 - PN SOFT Stimulating 4.50 Hormone uIU/mL Specimen Anatomical Collection Method Collection Time Receive d Time (Source) Location / / Volume Laterality 05/20/2017 12:29 05/20/2017 3:50 PM BLEACHING SUPERVISOR PM BLEACHING SUPERVISOR Narrative PN SOFT - 05/20/2017 5:12 PM BLEACHING SUPERVISOR Performed at [facility], [address] [place] [address] CLIA number [id number] Shama Fox Lesley WALKER LAB_1 Performing Organization Address [facility] Phon e Number PN SOFT [address] [place] [address] (ABNORMAL) Creatinine (05/20/2017 12:29 PM BLEACHING SUPERVISOR) Analysis Performed At [facility] Time Signature Creatinine 1.20 (H) 0.73 - PN SOFT Serum 1.18 mg/dL Est GFR >60 >60 PN SOFT Am mL/min/1.7 3m2 Est GFR Non-Afr >60 >60 PN SOFT Am mL/min/1.7 3m2 Comment: Normal>60, moderate decrease 30 - 59, se ian decrease 15 - 29, renal failure <15 mL/min/1.73 m2 NOTE: ??Choose the eGFR result above sophia ropriate for the race of the patient. Specimen Anatomical Collection Method Collection Time Receive d Time (Source) Location / / Volume Laterality 05/20/2017 12:29 05/20/2017 PM BLEACHING SUPERVISOR 12:29 PM BLEACHING SUPERVISOR Narrative PN SOFT - 05/20/2017 2:39 PM BLEACHING SUPERVISOR Performed at [facility], [address] [place], [place] [id number] CLIA number [id number] Shama Fox Lesley WALKER LAB_1 Performing Organization Address [facility] Phon e Number PN SOFT [address] [place] [address] documented in this encounter Visit Diagnoses Diagnosis DM type 2, uncontrolled, with neuropathy - Primary Type II or unspecified type diabetes pennie litus with neurological manifestations, uncontrolled Essential hypertension (HRC) Unspecified essential hypertension Dyslipidemia (HRC) Other and unspecified hyperlipidemia Vitamin D deficiency (HRC) Unspecified vitamin D deficiency DM type 2, uncontrolled, with neuropathy Type II or unspecified type diabetes pennie litus with neurological manifestations, uncontrolled Essential hypertension (HRC) Unspecified essential hypertension Dyslipidemia (HRC) Other and unspecified hyperlipidemia Vitamin D deficiency (HRC) Unspecified vitamin D deficiency documented in this encounter Care Teams Paper Bags Sewing Machine Operator Relationship Specialty Start Date End Date Needs Pcp, Assignment PCP - General 05/20/17 03/02/18 [place] [address] documented as of this encounter
--- OUTSIDE RECORDS SUMMARY | 2021-12-04 13:26 | XMS_ITS | Encounter Summary ---
:1955 Author Organization [employer] Address [address] [address] Support Name Relationship Address Phone Andria Stephens Unavailable Unavailable 03/19 Pt Decline Unavailable Unavailable Unavailable Care Team Providers Name Role Phone Needs Pcp, Assignment Primary Care Provider Encounter Details Date Type Department Care Team Description 05/25/2017 Notes/Orders [facility] [address] Shama Sutton, Endocrinology MBBS [address] [place] [facility] [address] [place] [address] [place] [address] [phone] Social History Tobacco Use Types Packs/Day Years Used Date Smoking Tobacco: Never Smokeless Tobacco: Never Alcohol Use Standard Drinks/Week Comments No 0 (1 standard drink = 0.6 oz pure alcoho l) Sex Assigned at Date Recorded Not on file documented as of this encounter Progress Notes Shama Sutton MBBS - 05/25/2017 1:07 PM CST Labs are back and it shows: #1 He has type 2 diabetes and his pancrease is working. #2 Vitamin B12, B6 and D were low.. I recommend: #1 Start Victoza 0.6 mg daily for 1 week then 1.2 mg daily after that, this is a non insulin injection to stimulate his pancrease to work better so it can reduce the post meals levels. Continue using insulin Lantus at 30 units QHS, and continue metformin 1000 mg BID. Continue to hold off on using the glyburide. The Victoza might reduce his appetite and cause nausea and that is why we are starting low and slow. I want him to check glucose levels 2 times daily and report the numbers to me in 2 weeks, earlier ifhad low glucose level (<70). #2 Start Vitamin B12 1000 mcg daily (over the counter). #3 Start Vitamin B6 100 mg daily (OTC). #4 Start vitamin D3 2000 units daily (OTC). DENISE Otto GER STRATE[employer]IC MARKETING Wang Chatman - 05/25/2017 1:07 PM CST Called patient, no answer. Left message to call back. GER [employer]ETING Ita Estevez, LEO - 05/25/2017 1:07 PM CST Pt called back and relayed info below. Patient verbalized understanding, is agreeable with plan, andno further questions. GER [employer]ATE[employer] MARKETING documented in this encounter Plan of Treatment Not on filedocumented as of this encounter Visit Diagnoses Not on filedocumented in this encounter Care Teams Care Management Associate Relationship Specialty Start Date End Date Needs Pcp, Assignment PCP - General 05/20/17 03/02/18 [place] [address] documented as of this encounter
--- OUTSIDE RECORDS SUMMARY | 2021-12-04 13:26 | XMS_ITS | Encounter Summary ---
:1955 Author Organization [facility] Address [address] [place] [address] Support Name Relationship Address Phone Andria Stephens Unavailable Unavailable 03/19 Pt Decline Unavailable Unavailable Unavailable Care Team Providers Name Role Phone Anoop Adam MD Primary Care Provider Reason for Visit Reason Onset Date Comments Refill 05/10/2020 insulin pen needle ( BD PEN NEEDLE DARSHANA U/F) 32G X 4 MM Encounter Details Date Type Department Care Team Description 05/10/2020 Refill [facility] [address] Mia Sutton, Re fill (insulin pen Endocrinology MBBS needle (BD PEN NEEDLE [address] [place] [address] U/F) 32G X 4 MM) [facility] [place] [address] [phone] Social History Tobacco Use Types Packs/Day Years Used Date Smoking Tobacco: Never Smokeless Tobacco: Never Alcohol Use Standard Drinks/Week Comments No 0 (1 standard drink = 0.6 oz pure alcoho l) Sex Assigned at Date Recorded Not on file documented as of this encounter Nursing Notes Kary Hathaway, RN - 05/14/2020 7:39 AM CST Requested Prescriptions Refused Prescriptions Disp Refills ??? insulin pen needle (BD PEN NEEDLE DARSHANA U/F) 32G X 4 MM 200 Each Sig: Inject 1 Each subcutaneously two times a day. Refused By: KARY HATHAWAY Reason for Refusal: Patient Needs An Appointment EMS REQUIREMENTS PLANNER Interface, Out Surescripts Prov Query - 05/10/2020 12:45 PM CST insulin pen needle (BD PEN NEEDLE DARSHANA U/F) 32G X 4 MM Endocrinology: Diabetes Non-DME Supplies -> The most recent order on 02/26/2020. -> A qualifying visit was not found within the last 2 years. Last qualifying visit: None Next scheduled visit: None Last ordered by MIA SUTTON M: 03/08/2018 (794 days ago) QTY: 200, Refills: 3, Sig: inject 1 each subcutaneously two times a day. (unchanged) Powered by [employer], Reference: [id number], 05/10/2020 12:45:05 PM SYSTEMS REQUIREMENTS PLANNER, Pool: ENDO PN NURSING TEAM 1 ([id number]) EMS REQUIREMENTS PLANNER documented in this encounter Plan of Treatment Not on filedocumented as of this encounter Visit Diagnoses Not on filedocumented in this encounter Care Teams Ultimate Hoops Trainer Relationship Specialty Start Date End Date Anoop Adam MD PCP - General 03/03/181999 [place] [address] documented as of this encounter
--- OUTSIDE RECORDS SUMMARY | 2021-12-04 13:26 | XMS_ITS | Encounter Summary ---
:1955 Author Organization [facility] Address [address], [place] [address] Support Name Relationship Address Phone Andria Stephens Unavailable Unavailable 03/19 Pt Decline Unavailable Unavailable Unavailable Care Team Providers Name Role Phone Needs Pcp, Assignment Primary Care Provider Reason for Visit Reason Comments Appt. Needed Faxed referral rec from Dr.G uma Marcano from [facility] Dx: DM2 Encounter Details Date Type Department Care Team Description 03/19/2017 Telephone [facility] 3800 Nurse, [id number] End Appt. Needed (Faxed Endocrinology 3800 [facility] referral rec from [address] [facility] [address]Gail Marcano from [facility]. [facility] Dx: DM2) [place] [address] [id number] Social History Tobacco Use Types Packs/Day Years Used Date Smoking Tobacco: Never Assessed Sex Assigned at Date Recorded Not on file documented as of this encounter Nursing Notes Ghulam Abdalla - 03/19/2017 3:15 PM CST Faxed referral rec from Dr.Gail Marcano from [facility] Dx: DM2 UTER PROJECT MANAGER documented in this encounter Plan of Treatment Not on filedocumented as of this encounter Visit Diagnoses Not on filedocumented in this encounter Care Teams Assistant Shift Supervisor Relationship Specialty Start Date End Date Needs Pcp, Assignment PCP - General 05/20/17 03/02/18 [place], [place] [address] documented as of this encounter
--- OUTSIDE RECORDS SUMMARY | 2021-12-04 13:26 | XMS_ITS | Encounter Summary ---
:1955 Author Organization [employer] Address [address] [address] Support Name Relationship Address Phone Andria Stephens Unavailable Unavailable 03/19 Pt Decline Unavailable Unavailable Unavailable Care Team Providers Name Role Phone Needs Pcp, Assignment Primary Care Provider Encounter Details Date Type Department Care Team Description 07/22/2017 Lab Visit [facility] Vitamin D deficiency; [address] [employer] Vitamin B6 deficiency; [place] [address] Vitamin B12 deficiency [phone] Social History Tobacco Use Types Packs/Day Years Used Date Smoking Tobacco: Never Smokeless Tobacco: Never Alcohol Use Standard Drinks/Week Comments No 0 (1 standard drink = 0.6 oz pure alcoho l) Sex Assigned at Date Recorded Not on file documented as of this encounter Plan of Treatment Not on filedocumented as of this encounter Procedures Procedure Name Priority Date/Time Associated Diagnosis Comme nts VITAMIN B6 (8HR Routine 07/22/2017 12:28 PM Vitamin D de ficiency Results for this FAST RECOMMENDED) CDT Vitamin B6 procedure are in deficiency the results Vitamin B12 section. deficiency VITAMIN D Routine 07/22/2017 12:28 PM Vitamin D de ficiency Results for this 25-HYDROXY, TOTAL CDT Vitamin B6 procedure are in deficiency the results Vitamin B12 section. deficiency VITAMIN B12 ONLY Routine 07/22/2017 12:28 PM Vitamin D d eficiency Results for this CDT Vitamin B6 procedure are i n deficiency the results Vitamin B12 section. deficiency documented in this encounter Results (ABNORMAL) Vitamin B6 (8Hr Fast Recommended) (07/22/2017 [...] Test developed and characteristics deter mined by [facility]. See Compliance Statement B : [facility] Performed by [facility], [address] [place] [id number] [email or web address], Yosi Cabral MD - Lab . Director Specimen Anatomical Collection Method Collection Time Receive d Time (Source) Location / / Volume Laterality 07/22/2017 12:28 07/22/2017 3:48 PM CDT PM CDT Narrative PN SOFT - 07/24/2017 4:56 PM CDT Performed at [facility] [address] [place] [address] CLIA number [id number] Shama Sutton [facility] Performing Organization Address City/[facility]/ZIP Code Phon e Number PN SOFT [address] [place] [address] Vitamin B-12 (07/22/2017 12:28 PM CDT) athologist Signature Vitamin B12 [phone] PN SOFT pg/dL Specimen Anatomical Collection Method Collection Time Receive d Time (Source) Location / / Volume Laterality 07/22/2017 12:28 07/22/2017 3:41 PM CDT PM CDT Narrative PN SOFT - 07/22/2017 5:48 PM CDT Performed at [place] [address] [place] [address] CLIA number [id number] Shama Fox Lesley [facility] Performing Organization Address [facility] Phon e Number PN SOFT [address] [place] [address] Vitamin D (In house) (07/22/2017 12:28 PM [...] PM CDT Narrative PN SOFT - 07/22/2017 5:11 PM CDT Performed at [facility], [address] [place] [address] CLIA number [id number] Shama [facility] Performing Organization Address City/State/ZIP Code Phon e Number PN SOFT [address] [place] [address] [phone] documented in this encounter Visit Diagnoses Diagnosis Vitamin D deficiency (HRC) Unspecified vitamin D deficiency Vitamin B6 deficiency (HRC) Vitamin B6 deficiency Vitamin B12 deficiency (HRC) Other B-complex deficiencies documented in this encounter Care Teams Er Registrar Relationship Specialty Start Date End Date Needs Pcp, Assignment PCP - General 05/20/17 03/02/18 [place] [address] documented as of this encounter
--- OUTSIDE RECORDS SUMMARY | 2021-12-04 13:26 | XMS_ITS | Encounter Summary ---
:1955 Author Organization [email or web address] Address [address] [address] Support Name Relationship Address Phone Andria Stephens Unavailable Unavailable 03/19 Pt Decline Unavailable Unavailable Unavailable Care Team Providers Name Role Phone Needs Pcp, Assignment Primary Care Provider Reason for Visit Reason Comments Medication Side Effects Encounter Details Date Type Department Care Team Description 10/26/[address] [facility] [address] Shama Sutton, Ca dication Side Endocrinology MBBS Effects [address] [facility] [address] [facility] [place] [address] [phone] Social History Tobacco Use Types Packs/Day Years Used Date Smoking Tobacco: Never Smokeless Tobacco: Never Alcohol Use Standard Drinks/Week Comments No 0 (1 standard drink = 0.6 oz pure alcoho l) Sex Assigned at Date Recorded Not on file documented as of this encounter Nursing Notes Shakira Gill, LEO - 10/27/2017 3:51 PM CDT Pt called back, relayed note below. He understands, has been on the 1.8 mg dose so he intends to reduce down to the 1.2 mg for now and notify out office how it is working per plan below. Has no further questions at this time. Ita Estevez RN - 10/27/2017 3:47 PM CDT Called patient left a message on voice mail to call back Francy Boyd - 10/27/2017 3:39 PM CDT I would recommend decreasing to the lower dose. Is that the 1.2 mg or the 0.6 mg? We can have him onthe highest dose that he can tolerate and can adjust the insulin dose as needed. BG targets are: 70-120 fasting and pre-meal, 70-180 2 hour post meal, so if he is running outside of that on the lower dose, please ask him to call and report BGs and I will recommend insulin changes. We can consider trying an alternate medication from the victoza class at next visit. Thanks! Jessie Santiago RN - 10/27/2017 3:14 PM CDT Pt. Calling requesting further recommendation, regarding note below. Francy, Please advise thank you! Harpal Van, LEO - 10/26/2017 11:35 AM CDT Pt calling to say is on victoza 1.8 Over last month is very nauseated and has vomiting. Chandler better at lower dose, wonders if he should reduced dose or get anti nausea medication. Pt at home #, can leave message documented in this encounter Plan of Treatment Not on filedocumented as of this encounter Visit Diagnoses Not on filedocumented in this encounter Care Teams Solar Design Engineer Relationship Specialty Start Date End Date Needs Pcp, Assignment PCP - General 05/20/17 03/02/18 [place] [address] documented as of this encounter
--- OUTSIDE RECORDS SUMMARY | 2021-12-04 13:26 | XMS_ITS | Encounter Summary ---
:1955 Author Organization [employer] Address [address], [place] [address] Support Name Relationship Address Phone Andria Stephens Unavailable Unavailable 03/19 Pt Decline Unavailable Unavailable Unavailable Care Team Providers Name Role Phone Needs Pcp, Assignment Primary Care Provider Reason for Visit Reason Onset Date Comments Refill 05/22/2017 Encounter Details Date Type Department Care Team Description 05/22/2017 Refill [facility] [address] Magaly Sutton MBBS Refill Endocrinology [address] [place] [address] [place] [address] [phone] Social History Tobacco Use Types Packs/Day Years Used Date Smoking Tobacco: Never Smokeless Tobacco: Never Alcohol Use Standard Drinks/Week Comments No 0 (1 standard drink = 0.6 oz pure alcoho l) Sex Assigned at Date Recorded Not on file documented as of this encounter Nursing Notes Suki Knight RN - 05/22/2017 9:37 AM CST Pharmacy calling and stated per pt, saw you 05/20 and Lantus was supposed to be sent to pharmacy, unable to send per protocol as rx is entered as historical Please review and sign if appropriate. Requested Prescriptions Pending Prescriptions Disp Refills ??? insulin glargine (LANTUS) 100 UNIT/ML injection 30 mL 3 Sig: Inject 22 Units subcutaneously every evening. Pharmacy may substitute Basaglar as needed basedon insurance L CONSULTANT documented in this encounter Plan of Treatment Not on filedocumented as of this encounter Visit Diagnoses Diagnosis DM type 2, uncontrolled, with neuropathy Type II or unspecified type diabetes pennie litus with neurological manifestations, uncontrolled Essential hypertension (HRC) Unspecified essential hypertension Dyslipidemia (HRC) Other and unspecified hyperlipidemia Vitamin D deficiency (HRC) Unspecified vitamin D deficiency documented in this encounter Care Teams Gamewell Operator Relationship Specialty Start Date End Date Needs Pcp, Assignment PCP - General 05/20/17 03/02/18 [place] [address] documented as of this encounter
--- OUTSIDE RECORDS SUMMARY | 2021-12-04 13:26 | XMS_ITS | Encounter Summary ---
:1955 Author Organization [facility] Address [address], [place] [address] Support Name Relationship Address Phone Andria Stephens Unavailable Unavailable 03/19 Pt Decline Unavailable Unavailable Unavailable Care Team Providers Name Role Phone Needs Pcp, Assignment Primary Care Provider Encounter Details Date Type Department Care Team Description 05/20/2017 Lab Visit Eric [facility] y DM type 2, uncontrolled, wit h neuropathy (HRC); [address] Essential hypertension; [place] [address] Dyslipidemia; [phone] Vitamin D defic iency Social History Tobacco Use Types Packs/Day Years Used Date Smoking Tobacco: Never Smokeless Tobacco: Never Alcohol Use Standard Drinks/Week Comments No 0 (1 standard drink = 0.6 oz pure alcoho l) Sex Assigned at Date Recorded Not on file documented as of this encounter Plan of Treatment Not on filedocumented as of this encounter Procedures Procedure Name Priority Date/Time Associated Comments Diagnosis VITAMIN B6 (8HR FAST Routine 05/20/2017 12:29 DM type 2, Res ults for this RECOMMENDED) PM CONDOMINIUM MANAGER uncontrolled, with procedure are in neuropathy (HRC) the results Essential section. hypertension Dyslipidemia Vitamin D deficiency GLUTAMIC ACID Routine 05/20/2017 12:29 DM type 2, Results fo r this DECARBOXYLASE ANTIBODY PM CONDOMINIUM MANAGER uncontrolled, with procedure are in neuropathy (HRC) the results Essential section. hypertension Dyslipidemia Vitamin D deficiency C-PEPTIDE, SERUM Routine 05/20/2017 12:29 DM type 2, Results for this PM CONDOMINIUM MANAGER uncontrolled, with procedure are in neuropathy (HRC) the results Essential section. hypertension Dyslipidemia Vitamin D deficiency VITAMIN D 25-HYDROXY, Routine 05/20/2017 12:29 DM type 2, Re sults for this TOTAL PM CONDOMINIUM MANAGER uncontrolled, with procedure are in neuropathy (HRC) the results Essential section. hypertension Dyslipidemia Vitamin D deficiency CREATININE / GFR Routine 05/20/2017 12:29 DM type 2, Results for this PM CONDOMINIUM MANAGER uncontrolled, with procedure are in neuropathy (HRC) the results Essential section. hypertension Dyslipidemia Vitamin D deficiency TSH, SENSITIVE Routine 05/20/2017 12:29 DM type 2, Results f or this PM CONDOMINIUM MANAGER uncontrolled, with procedure are in neuropathy (HRC) the results Essential section. hypertension Dyslipidemia Vitamin D deficiency VITAMIN B12 ONLY Routine 05/20/2017 12:29 DM type 2, Results for this PM CONDOMINIUM MANAGER uncontrolled, with procedure are in neuropathy (HRC) the results Essential section. hypertension Dyslipidemia Vitamin D deficiency GLUCOSE - FASTING > 8 Routine 05/20/2017 12:29 DM type 2, Re sults for this HRS FASTING PM CONDOMINIUM MANAGER uncontrolled, with procedure are in neuropathy (HRC) the results Essential section. hypertension Dyslipidemia Vitamin D deficiency documented in this encounter Results (ABNORMAL) Vitamin D (In house) (05/20/2017 12:29 PM CONDOMINIUM MANAGER) athologist Signature Vitamin D 25 Oh 18 (L) 20 - 80 PN SOFT ng/mL Comment: Deficiency = <20 Adequate ??= 20-29 Preferred = 30-50 Uncertain safety = 51-80 High = >80 Specimen Anatomical Collection Method Collection Time Receive d Time (Source) Location / / Volume Laterality 05/20/2017 12:29 05/20/2017 3:50 PM CONDOMINIUM MANAGER PM CONDOMINIUM MANAGER Narrative PN SOFT - 05/20/2017 6:25 PM CONDOMINIUM MANAGER Performed at [facility] [address] [place] [address] CLIA number [id number] Shama [facility]_1 Performing Organization Address City/State/ZIP Code Phon e Number PN SOFT [address] [place] [address] (ABNORMAL) Vitamin B6 (8Hr Fast Recommended) (05/20/2017 12:29 PM CONDOMINIUM MANAGER) athologist Signature Vitamin B6 19.4 (L) 20.0 - PN SOFT 125.0 nmol/L Comment: INTERPRETIVE INFORMATION: Vitamin B6 (Py ridoxal 5-Phosphate) Pyridoxal 5'-phosphate measured in a spe cimen collected following an 8-hour or overnight fast ac curately indicates vitamin B6 nutritional status. Non-fasti ng specimen concentration reflects recent vitamin in take. Test developed and characteristics deter mined by [facility]. See Compliance Statement B : [employer]/[facility] Performed by [facility], [address] [place] [id number] www.[employer], Yosi Cbaral MD - Lab . Director Specimen Anatomical Collection Method Collection Time Receive d Time (Source) Location / / Volume Laterality 05/20/2017 12:29 05/20/2017 3:49 PM CONDOMINIUM MANAGER PM CONDOMINIUM MANAGER Narrative PN SOFT - 05/23/2017 12:33 AM CONDOMINIUM MANAGER Performed at [facility] [address] [address] CLIA number [id number] Shama Fox Lesley K[facility]_1 Performing Organization Address City/[facility] Phon e Number PN SOFT [address] [place] [address] (ABNORMAL) Vitamin B-12 (05/20/2017 12:29 PM CONDOMINIUM MANAGER) athologist Signature Vitamin B12 168 (L) 213 - 816 PN SOFT pg/dL Specimen Anatomical Collection Method Collection Time Receive d Time (Source) Location / / Volume Laterality 05/20/2017 12:29 05/20/2017 3:50 PM CONDOMINIUM MANAGER PM CONDOMINIUM MANAGER Narrative PN SOFT - 05/20/2017 6:56 PM CONDOMINIUM MANAGER Performed at [address] [address] CLIA number [id number] Shama Fox Lesley [facility] Performing Organization Address [facility] Phon e Number PN SOFT [address] [place] [address] (ABNORMAL) C-Peptide, Serum (05/20/2017 12:29 PM CONDOMINIUM MANAGER) athologist Signature C-Peptide 5.4 (H) 0.8 - 3.5 PN SOFT ng/mL Comment: INTERPRETIVE INFORMATION: C-Peptide, Ser um or Plasma Reference Interval applies to fasting sp ecimens. To convert to nmol/L, multiply by 0.33 Performed by [facility], [address] [place] [id number] www.[employer], Yosi Cabral MD - Lab . Director Specimen Anatomical Collection Method Collection Time Receive d Time (Source) Location / / Volume Laterality 05/20/2017 12:29 05/20/2017 3:50 PM CONDOMINIUM MANAGER PM CONDOMINIUM MANAGER Narrative PN SOFT - 05/21/2017 5:14 PM CONDOMINIUM MANAGER Performed at [facility] [address] [place] [address] CLIA number [id number] Shama Sutton [facility] Performing Organization Address City/[facility]/ZIP Code Phon e Number PN SOFT [address] [place] [address] (ABNORMAL) Glucose (05/20/2017 12:29 PM CONDOMINIUM MANAGER) athologist Signature Lab Glucose 183 (H) 70 - 100 PN SOFT mg/dL Comment: The stated glucose range is for the fast ing state. Non-fasting glucose range is 70-180 mg/d L Specimen Anatomical Collection Method Collection Time Receive d Time (Source) Location / / Volume Laterality 05/20/2017 12:29 05/20/2017 PM CONDOMINIUM MANAGER 12:29 PM CONDOMINIUM MANAGER Narrative PN SOFT - 05/20/2017 2:39 PM CONDOMINIUM MANAGER Performed at [facility], [address] [place] [address] CLIA number [id number] Shama Sutton [facility] Performing Organization Address [facility] Phon e Number PN SOFT [address] [place] [address] Glutamic Acid Decarboxylase Antibody (05/20/2017 12:29 PM CONDOMINIUM MANAGER) Analysis Performed At Patho logist Time Signature [...] the context of clinical symptoms. Performed by [facility], [address] [place] [address] www.[employer], Yosi Cabral MD - Lab . Director Specimen Anatomical Collection Method Collection Time Receive d Time (Source) Location / / Volume Laterality 05/20/2017 12:29 05/20/2017 3:50 PM CONDOMINIUM MANAGER PM CONDOMINIUM MANAGER Narrative PN SOFT - 05/22/2017 7:09 PM CONDOMINIUM MANAGER Performed at [facility] [address] [place] [address] CLIA number [id number] Shama Fox Lesley [facility]_1 Performing Organization Address [facility] Phon e Number PN SOFT [address] [place] [address] TSH (05/20/2017 12:29 PM CONDOMINIUM MANAGER) athologist Signature Thyroid 1.51 0.30 - PN SOFT Stimulating 4.50 Hormone uIU/mL Specimen Anatomical Collection Method Collection Time Receive d Time (Source) Location / / Volume Laterality 05/20/2017 12:29 05/20/2017 3:50 PM CONDOMINIUM MANAGER PM CONDOMINIUM MANAGER Narrative PN SOFT - 05/20/2017 5:12 PM CONDOMINIUM MANAGER Performed at [address] [address] CLIA number [id number] Shama Fox Lesley [facility] Performing Organization Address [facility] Phon e Number PN SOFT [address] [place] [address] (ABNORMAL) Creatinine (05/20/2017 12:29 PM CONDOMINIUM MANAGER) Analysis Performed At Patho logist Time Signature Creatinine 1.20 (H) 0.73 - [...] / Volume Laterality 05/20/2017 12:29 05/20/2017 PM CONDOMINIUM MANAGER 12:29 PM CONDOMINIUM MANAGER Narrative PN SOFT - 05/20/2017 2:39 PM CONDOMINIUM MANAGER Performed at [facility], [address] [place] [address] CLIA number [id number] Shama WALKER [facility]_1 Performing Organization Address City/State/ZIP Code Phon e Number PN CARMELITA [address] [place] [address] documented in this encounter Visit Diagnoses Diagnosis DM type 2, uncontrolled, with neuropathy Type II or unspecified type diabetes pennie litus with neurological manifestations, uncontrolled Essential hypertension (HRC) Unspecified essential hypertension Dyslipidemia (HRC) Other and unspecified hyperlipidemia Vitamin D deficiency (HRC) Unspecified vitamin D deficiency documented in this encounter Care Teams Screen Stretcher Relationship Specialty Start Date End Date Needs Pcp, Assignment PCP - General 05/20/17 03/02/18 [place] [address] documented as of this encounter
--- OUTSIDE RECORDS SUMMARY | 2021-12-04 13:26 | XMS_ITS | Encounter Summary ---
:1955 Author Organization [facility] Address [address], [place] [address] Support Name Relationship Address Phone Andria Stephens Unavailable Unavailable 03/19 Pt Decline Unavailable Unavailable Unavailable Care Team Providers Name Role Phone Anoop Adam MD Primary Care Provider Reason for Visit Reason Comments MEDICATION REACTION Encounter Details Date Type Department Care Team Description 01/22/2018 Telephone [facility] [address] [place] DICATION REACTION Endocrinology MBBS [address] [facility] [address] [place] [address] [phone] Social History Tobacco Use Types Packs/Day Years Used Date Smoking Tobacco: Never Smokeless Tobacco: Never Alcohol Use Standard Drinks/Week Comments No 0 (1 standard drink = 0.6 oz pure alcoho l) Sex Assigned at Date Recorded Not on file documented as of this encounter Nursing Notes Ita Estevez RN - 03/24/2018 9:17 AM CST Talked to patient via phone and relayed info below. .Patient verbalized understanding, is agreeable with plan, and no further questions. [facility] Shama Sutton MBBS - 03/24/2018 9:06 AM CST Lets increase the Lantus to 40 units QHS and work on the diet part, keep Victoza the same. [facility] Ita Estevez RN - 03/24/2018 8:59 AM CST Patient called and reported that his BGs are averaging around 200s. Yesterday it was 237 but he saidbecause it was the holidays. Patient did not have meter/'records with him. Lantus 35 units HS Victoza 1.2 mg daily Shakira Munoz RN - 02/08/2018 9:53 AM CST Called pt, agrees to plan of Lantus 35 units HS. Reports he went up to Victoza 1.2 mg dose this weekend and tolerating well. He agrees to call back in one week with BGs. Shama Brady MBBS - 02/07/2018 4:35 PM CST Increase insulin Lantus to 35 units QHS and report again in 1 week. Suki Del Angel RN - 02/05/2018 2:54 PM CST Called pt and he agrees to plan. Pt states his BS has been in the 200's in the am since stopping metformin, wanting to know how to proceed. Please advise Shama Brady MBBS - 02/05/2018 10:56 AM CST Keep the dose the he could tolerate (0.6 mg daily). Suki Del Angle RN - 02/05/2018 10:36 AM CST Pt calling back, states he kept having symptoms (nausea, vomiting, and diarrhea) so he stopped both medications. He then started taking Victoza 0.6 mg daily and symptoms have since improved. He is continuing the 0.6 mg dose for now. Pt can be reached at [phone], Ok to . [facility] Marivel Ya RN - 01/25/2018 9:44 AM CDT Pt returned call, gave him the recommendations below. Pt agreeable to trying Metformin 1 daily and increasing Victoza. Ita Estevez RN - 01/25/2018 9:29 AM CDT Called patient left a message on voice mail to call back Shama Sutton MBBS - 01/24/2018 2:58 PM CDT He can try 1 tablet of metformin daily only, if he had tried that, then he can DC taking it. Is tolerating the Victoza at 0.6 daily, if he is, then increase that to 1.2 mg daily. Ita Estevez RN - 01/22/2018 11:05 AM CDT Patient called and reported that his metformin prescription was changed to extended release to checkif diarrhea would improve. He reports that he has tried extended release now for about a week but diarrhea is the same. Patient is discontinuing medication today. Last visit 01/12/18 future visit 04/27/[address] is not in the office today. documented in this encounter Plan of Treatment Not on filedocumented as of this encounter Visit Diagnoses Not on filedocumented in this encounter Care Teams Consumer Banker Relationship Specialty Start Date End Date Anoop Adam MD PCP - General 03/03/181999 [place] [address] documented as of this encounter
--- OUTSIDE RECORDS SUMMARY | 2021-12-04 13:26 | XMS_ITS | Encounter Summary ---
:1955 Author Organization [facility] Address [address], [place] [address] Support Name Relationship Address Phone Andria Stephens Unavailable Unavailable 03/19 Pt Decline Unavailable Unavailable Unavailable Care Team Providers Name Role Phone Anoop Adam MD Primary Care Provider Reason for Visit Reason Comments Clinician Finder Team Encounter Details Date Type Department Care Team Description 03/03/[address] [facility] [address] [facility] Pcp, Clinician Finder Team Family Medicine Assignment [address] [facility] [place] [address] [phone] Social History Tobacco Use Types Packs/Day Years [...] on filedocumented in this encounter Care Teams Freelance Art Director Relationship Specialty Start Date End Date Anoop Adam MD PCP - General 03/03/181999 [place] [address] documented as of this encounter
--- OUTSIDE RECORDS SUMMARY | 2021-12-04 13:26 | XMS_ITS | Encounter Summary ---
:1955 Author Organization [facility] Address [address] [place] [address] Support Name Relationship Address Phone Andria Stephens Unavailable Unavailable 03/19 Pt Decline Unavailable Unavailable Unavailable Care Team Providers Name Role Phone Needs Pcp, Assignment Primary Care Provider Reason for Visit Reason Comments Diabetes Encounter Details Date Type Department Care Team Description 09/23/2017 Office Visit Francy Ramirez Type 2 diabe danitza mellitus with proliferative retinopathy, with long-term current use of insulin, macular edema presence unspecified, unspecified laterality, unspecified proliferative retinopathy* ([facility]) (Primary Dx); Endocrinology L, PA-C Essential hypertension; [address] Dyslipidemia; [place], [place] [id number] [place] [address] Vitamin D deficiency; [phone] [address] Vitamin B6 deficiency; [phone] Vitamin B12 def iciency (Work) Social History Tobacco Use Types Packs/Day Years Used Date Smoking Tobacco: Never Smokeless Tobacco: Never Alcohol Use Standard Drinks/Week Comments No 0 (1 standard drink = 0.6 oz pure alcoho l) Sex Assigned at Date Recorded Not on file documented as of this encounter Last Filed Vital Signs Vital Sign Reading Time Taken Comments Blood Pressure 124/60 09/23/2017 10:13 AM CDT Pulse 72 09/23/2017 10:13 AM CDT Temperature - - Respiratory Rate - - Oxygen Saturation - - Inhaled Oxygen Concentration - - Weight 80.4 kg (177 lb 3.2 oz) 09/23/2017 10:13 AM CDT Height 188 cm (6' 2) 09/23/2017 10:13 AM CDT Body Mass Index 22.75 09/23/2017 10:13 AM CDT documented in this encounter Patient Instructions Patient InstructionsFrancy Boyd - 09/23/2017 10:00 AM CDT Your A1c today is: 6.4% - this is at goal! Instructions: 1) No change in diabetes meds 2) Focus on balanced diet - small meals through the day is fine. Call if feeling appetite is too suppressed or losing too much weight 3) Decrease B6 to once weekly, continue B12 and vit D as you are 4) BG targets: 70-120 fasting and pre-meal, 70-180 2 hour post meal. Call with out of target numbersbetween visits. Follow up in [address] Luciano. If you need to schedule or have questions about your appointment, please call [phone]. If you have medical questions or concerns, please contact the triage nurse at [phone]. Thanks for visiting today! documented in this encounter Progress Notes Francy Boyd - 09/23/2017 10:00 AM CDT Images from the original note were not included. [facility]: [address] [place] [address] Clinic: [address] [place] [address] [phone], Nurse Line: [phone] Diabetes Progress Note September 23, 2017 Subjective: Chief complaint: Rolf Heaton is a 62 y.o. male here for management of type 2 diabetes. Diagnosed: age 50, on insulin since 02/2017 Complications: neuropathy, proliferative diabetic retinopathy Co-morbidites/Pertinent past medical history: hypertension, hyperlipidemia Last visit: 07/22/[address] Sutton HPI: Today's A1c: 6.4% Last A1c: 7% in 06/2017 Blood glucose data: Tests infrequently- 5 times in past 2 weeks, average 157, range 128-192. No low symptoms, lowest number they recall is 103. ROS: Tolerating victoza without nausea, vomiting, diarrhea. Noticeable appetite suppression. He is not sick when eating, but just doesn't have the hunger drive he used to. Tends to be drawn to processed foods, doesn't eat much fruits/veggies. He is losing weight, BMI in the normal range. Mostly eats one meal a day, which isn't new, with munching through the day. Neuropathy in foot (always was just inright foot) has resolved. Has had some bleeding in the back of the eye, following closely with opthalmology. Social Hx: to Adnria, who is with him today. No tobacco. Current Medications: 1. Lantus 30 u qhs 2. Victoza 1.8 mg daily 3. Metformin 1 g bid 4. B6, B12 and Vit D daily (did not get note to decrease B6 dose) 5. Aspirin 81 mg 6. Lisinopril 20 mg 7. Simvastatin 20 mg All medications reviewed and updated in Epic today. Last foot exam: 04/2017 Last eye exam: 05/2017 Objective: Physical Exam: BP 124/60 (BP Location: Right Arm, BP Cuff Size: Adult Large) Pulse 72 Ht 6' 2 (1.88 m) Wt 177 lb 3.2 oz (80.4 kg) BMI 22.75 kg/m2, Estimated body mass index is 22.75 kg/(m^2) as calculated from the following: Height as of this encounter: 6' 2 (1.88 m). Weight as of this encounter: 177 lb 3.2 oz (80.4 kg). General: NAD. Further physical exam deferred for time spent in counseling. Labs: See below for recent lab results. Labs were reviewed and any labs due were placed on order. Assessment: 1. Type 2 diabetes, good control 2. Hypertension, BP in target on medications 3. Hyperlipidemia, on statin 4. Neuropathy, resolved on vitamin supplementation Plan: Medical decision making: No change in medications. He will monitor closely for it he is losing more weight, we might have to decrease the victoza and increase insulin if hyperglycemia occurs. Discussedimportance of balanced diet, can eat hailey meals through the day. Advised decrease in B6. Continue other medications. Written patient instruction: 1) No change in diabetes meds 2) Focus on balanced diet - small meals through the day is fine. Call if feeling appetite is too suppressed or losing too much weight 3) Decrease B6 to once weekly, continue B12 and vit D as you are 4) BG targets: 70-120 fasting and pre-meal, 70-180 2 hour post meal. Call with out of target numbersbetween visits. Follow up in [address] Philippe Provided triage nurse line and asked patient to call with any questions or concerns. Spent 25 minutes with the patient in review of the diagnoses, treatment plan, potential outcomes andside effects of medications indicated. Answered questions in detail. Greater than 50% of time was spent counseling the patient. Francy Boyd PA-C Adult Endocrinology Labs: Creatinine Serum Date Value Ref Range Status 05/20/2017 1.20 (H) 0.73 - 1.18 mg/dL Final Est GFR Am Date Value Ref Range Status 05/20/2017 >60 >60 mL/min/1.73m2 Final Est GFR Non-Afr Am Date Value Ref Range Status 05/20/2017 >60 >60 mL/min/1.73m2 Final Comment: Normal>60, moderate decrease 30 - 59, severe decrease 15 - 29, renal failure <15 mL/min/1.73 m2 NOTE: Choose the eGFR result above appropriate for the race of the patient. No results found for: UMICROALB, UMALP, UMICROALBUM No results found for: POTASSIUM, POCK, K, K No results found for: SODIUM, SODIUM, SODIUM, SODIUM No results found for: CHOL, CHOL, HDL, TRI, TRIGPOC, LDL, LDLPOC No results found for: AST, ALT Thyroid Stimulating Hormone Date Value Ref Range Status 05/20/2017 1.51 0.30 - 4.50 uIU/mL Final PMHx: Past Medical History: Diagnosis Date ??? Diabetes mellitus type II, controlled (HRC) ??? Dyslipidemia (HRC) 05/20/2017 ??? Essential hypertension (HRC) 05/20/2017 No past surgical history on file. No Known Allergies FHx: No family history on file. documented in this encounter Plan of Treatment Not on filedocumented as of this encounter Procedures Procedure Name Priority Date/Time Associated Diagnosis Comme nts POCT GLYCOSYLATED Routine 09/23/2017 10:29 Type 2 diabetes Res ults for this HEMOGLOBIN (HGB A1C) AM CDT mellitus with proced ure are in proliferative the results retinopathy, with section. long-term current use of insulin, macular edema presence unspecified, unspecified laterality, unspecified proliferative retinopathy* (HRC) documented in this encounter Results (ABNORMAL) POCT glycosylated hemoglobin (Hb A1C) (09/23/2017 10:29 AM CDT) P athologist Signature Hemoglobin A1C, 6.4 (A) 4 - 5.6 % PN POCT POC Cartridge Lot# [id number] PN POCT Specimen (Source) Anatomical Collection Method Collection Time Re ceived Time Location / / Volume Laterality Blood specimen 09/23/2017 10:29 (specimen) AM CDT Francy Boyd PA-C PN POINT OF CARE TESTS Performing Organization [...] deficiencies documented in this encounter Care Teams Recovery Engineer Relationship Specialty Start Date End Date Needs Pcp, Assignment PCP - General 05/20/17 03/02/18 [place] [address] documented as of this encounter
[2021-12-04 15:18] LABS: Chloride* 107 mmol/L (96-114); Sodium* 138 mmol/L (135-149)
[2021-12-04 15:21] LABS: Blood Urea Nitrogen* 43 mg/dL (7-30); Carbon Dioxide* 21 mmol/L (20-32); Creatinine* 1.9 mg/dL (0.5-1.5); Estimated Glomerular Filt Rate 38 ml/min; Glucose* 159 mg/dL (60-115)
[2021-12-04 15:43] LABS: Potassium* 6.9 mmol/L (3.6-5.1)
== END 2021-12-04 13:24 | disposition home or self-care (01) ==
LOC: NFLDREF 13:24
PROVIDERS: PCP Internal Medicine; Visit Provider Internal Medicine
DX: E87.5 Hyperkalemia (principal); E11.40 Type 2 diabetes mellitus with diabetic neuropathy, unspecified
CPT/HCPCS: 80048

== ENCOUNTER 2021-12-06 07:47 | Outpatient (CLI) | payer OTHER, SELFPAY ==
--- OUTSIDE RECORDS SUMMARY | 2021-12-06 07:50 | XMS_ITS | Encounter Summary ---
:1955 Author [facility] Address [address] [address] Support Name Relationship Address Phone Andria Stephens Unavailable Unavailable 03/19 Pt Decline Unavailable Unavailable Unavailable Care Team Providers Name Role Phone Needs Pcp, Assignment Primary Care Provider Reason for Visit Reason Comments Medication Questions Encounter Details Date Type Department Care Team Description 11/04/2017 Telephone [facility] [address] Francy Boyd, Med ication Questions Endocrinology PA-C [address] [place] [address] [phone] (Wo rk) Social History Tobacco Use Types [...] on filedocumented in this encounter Care Teams Network Intelligence Analyst Relationship Specialty Start Date End Date Needs Pcp, Assignment PCP - General 05/20/17 03/02/18 [place] [address] documented as of this encounter
--- OUTSIDE RECORDS SUMMARY | 2021-12-06 07:50 | XMS_ITS | Encounter Summary ---
:1955 Author Organization [facility] Address [address], [place] [address] Support Name Relationship Address Phone Andria Stephens Unavailable Unavailable 03/19 Pt Decline Unavailable Unavailable Unavailable Care Team Providers Name Role Phone Anoop Adam MD Primary Care Provider Reason for Visit Reason Comments Prior Authorization For Medication Encounter Details Date Type Department Care Team Description 06/08/2018 Telephone [facility] Found, No Pcp, Prior Authorization For Medicine [address] Medication [address] [place] [address] Social History Tobacco Use Types Packs/Day Years [...] on filedocumented in this encounter Care Teams Explosion Welder Relationship Specialty Start Date End Date Anoop Adam MD PCP - General 03/03/181999 [place] [address] documented as of this encounter
--- OUTSIDE RECORDS SUMMARY | 2021-12-06 07:50 | XMS_ITS | Encounter Summary ---
:1955 Author Organization [employer] Address [address], [place] [address] Support Name Relationship Address Phone Andria Stephens Unavailable Unavailable 03/19 Pt Decline Unavailable Unavailable Unavailable Care Team Providers Name Role Phone Needs Pcp, Assignment Primary Care Provider Reason for Visit Reason Onset Date Comments Refill 05/25/2017 Encounter Details Date Type Department Care Team Description 05/25/2017 Refill [facility] [address] MBBS Refill Endocrinology [address] [address] [place] [address] [phone] Social History Tobacco Use Types Packs/Day Years [...] review and sign pending rx if approved. SPA MANAGER documented in this encounter Plan of Treatment Not on filedocumented as of this encounter Visit Diagnoses Not on filedocumented in this encounter Care Teams Office Machine Embossograph Operator Relationship Specialty Start Date End Date Needs Pcp, Assignment PCP - General 05/20/17 03/02/18 [place] [address] documented as of this encounter
--- OUTSIDE RECORDS SUMMARY | 2021-12-06 07:50 | XMS_ITS | Encounter Summary ---
:1955 Author Organization [employer] Address [address] [address] Support Name Relationship Address Phone Andria Stephens Unavailable Unavailable 03/19 Pt Decline Unavailable Unavailable Unavailable Care Team Providers Name Role Phone Needs Pcp, Assignment Primary Care Provider Encounter Details Date Type Department Care Team Description 05/20/2017 Lab Visit [facility] DM type 2, uncontrolled, wit h neuropathy (HRC); [address] Essential hypertension; [place] [address] Dyslipidemia; [phone] Vitamin D defic iency Social History Tobacco [...] 2, Res ults for this RECOMMENDED) PM GASTROENTEROLOGY TEACHER uncontrolled, with procedure are in neuropathy (HRC) the results Essential section. hypertension Dyslipidemia Vitamin D deficiency GLUTAMIC ACID Routine 05/20/2017 12:29 DM type 2, Results fo r this DECARBOXYLASE ANTIBODY PM GASTROENTEROLOGY TEACHER uncontrolled, with procedure are in neuropathy (HRC) the results Essential section. hypertension Dyslipidemia Vitamin D deficiency C-PEPTIDE, SERUM Routine 05/20/2017 12:29 DM type 2, Results for this PM GASTROENTEROLOGY TEACHER uncontrolled, with procedure are in neuropathy (HRC) the results Essential section. hypertension Dyslipidemia Vitamin D deficiency VITAMIN D 25-HYDROXY, Routine 05/20/2017 12:29 DM type 2, Re sults for this TOTAL PM GASTROENTEROLOGY TEACHER uncontrolled, with procedure are in neuropathy (HRC) the results Essential section. hypertension Dyslipidemia Vitamin D deficiency CREATININE / GFR Routine 05/20/2017 12:29 DM type 2, Results for this PM GASTROENTEROLOGY TEACHER uncontrolled, with procedure are in neuropathy (HRC) the results Essential section. hypertension Dyslipidemia Vitamin D deficiency TSH, SENSITIVE Routine 05/20/2017 12:29 DM type 2, Results f or this PM GASTROENTEROLOGY TEACHER uncontrolled, with procedure are in neuropathy (HRC) the results Essential section. hypertension Dyslipidemia Vitamin D deficiency VITAMIN B12 ONLY Routine 05/20/2017 12:29 DM type 2, Results for this PM GASTROENTEROLOGY TEACHER uncontrolled, with procedure are in neuropathy (HRC) the results Essential section. hypertension Dyslipidemia Vitamin D deficiency GLUCOSE - FASTING > 8 Routine 05/20/2017 12:29 DM type 2, Re sults for this HRS FASTING PM GASTROENTEROLOGY TEACHER uncontrolled, with procedure are in neuropathy (HRC) the results Essential section. hypertension Dyslipidemia Vitamin D deficiency documented in this encounter Results (ABNORMAL) Vitamin D (In house) (05/20/2017 12:29 PM GASTROENTEROLOGY TEACHER) athologist Signature Vitamin D 25 Oh 18 (L) 20 - 80 PN SOFT ng/mL Comment: Deficiency = <20 Adequate ??= 20-29 Preferred = 30-50 Uncertain safety = 51-80 High = >80 Specimen Anatomical Collection Method Collection Time Receive d Time (Source) Location / / Volume Laterality 05/20/2017 12:29 05/20/2017 3:50 PM GASTROENTEROLOGY TEACHER PM GASTROENTEROLOGY TEACHER Narrative PN SOFT - 05/20/2017 6:25 PM GASTROENTEROLOGY TEACHER Performed at [facility] [address] [place] [address] CLIA number [id number] Shama WALKER LAB_1 Performing Organization Address City/State/ZIP Code Phon e Number PN SOFT [address] [place] [address] [phone] (ABNORMAL) Vitamin B6 (8Hr Fast Recommended) (05/20/2017 12:29 PM GASTROENTEROLOGY TEACHER) athologist Signature Vitamin B6 19.4 (L) 20.0 - PN SOFT 125.0 nmol/L Comment: INTERPRETIVE INFORMATION: Vitamin B6 (Py ridoxal 5-Phosphate) Pyridoxal 5'-phosphate measured in a spe cimen collected following an 8-hour or overnight fast ac curately indicates vitamin B6 nutritional status. Non-fasti ng specimen concentration reflects recent vitamin in take. Test developed and characteristics deter mined by [facility]. See Compliance Statement B : [employer]/CS Performed by [facility], [address] [place] [address] [email or web address], Yosi Cabral MD - Lab . Director Specimen Anatomical Collection Method Collection Time Receive d Time (Source) Location / / Volume Laterality 05/20/2017 12:29 05/20/2017 3:49 PM GASTROENTEROLOGY TEACHER PM GASTROENTEROLOGY TEACHER Narrative PN SOFT - 05/23/2017 12:33 AM GASTROENTEROLOGY TEACHER Performed at [facility] [address] [address] CLIA number [id number] Shama Fox Lesley [facility]_1 Performing Organization Address City/[facility] Phon e Number PN SOFT [address] [place] [address] (ABNORMAL) Vitamin B-12 (05/20/2017 12:29 PM GASTROENTEROLOGY TEACHER) athologist Signature Vitamin B12 168 (L) 213 - 816 PN SOFT pg/dL Specimen Anatomical Collection Method Collection Time Receive d Time (Source) Location / / Volume Laterality 05/20/2017 12:29 05/20/2017 3:50 PM GASTROENTEROLOGY TEACHER PM GASTROENTEROLOGY TEACHER Narrative PN SOFT - 05/20/2017 6:56 PM GASTROENTEROLOGY TEACHER Performed at [address] [address] CLIA number [id number] Shama Fox Lesley [facility]_1 Performing Organization Address [facility] Phon e Number PN SOFT [address] [place] [address] (ABNORMAL) C-Peptide, Serum (05/20/2017 12:29 PM GASTROENTEROLOGY TEACHER) athologist Signature C-Peptide 5.4 (H) 0.8 - 3.5 PN SOFT ng/mL Comment: INTERPRETIVE INFORMATION: C-Peptide, Ser um or Plasma Reference Interval applies to fasting sp ecimens. To convert to nmol/L, multiply by 0.33 Performed by [facility], [address] [place] [address] [email or web address], Yosi Cabral MD - Lab . Director Specimen Anatomical Collection Method Collection Time Receive d Time (Source) Location / / Volume Laterality 05/20/2017 12:29 05/20/2017 3:50 PM GASTROENTEROLOGY TEACHER PM GASTROENTEROLOGY TEACHER Narrative PN SOFT - 05/21/2017 5:14 PM GASTROENTEROLOGY TEACHER Performed at [facility] [address] [place] [address] CLIA number [id number] Shama Sutton [facility]_1 Performing Organization Address City/[facility]/ZIP Code Phon e Number PN SOFT [address] [place] [address] (ABNORMAL) Glucose (05/20/2017 12:29 PM GASTROENTEROLOGY TEACHER) athologist Signature Lab Glucose 183 (H) 70 - 100 PN SOFT mg/dL Comment: The stated glucose range is for the fast ing state. Non-fasting glucose range is 70-180 mg/d L Specimen Anatomical Collection Method Collection Time Receive d Time (Source) Location / / Volume Laterality 05/20/2017 12:29 05/20/2017 PM GASTROENTEROLOGY TEACHER 12:29 PM GASTROENTEROLOGY TEACHER Narrative PN SOFT - 05/20/2017 2:39 PM GASTROENTEROLOGY TEACHER Performed at [facility], [address] [place] [address] CLIA number [id number] Shama Sutton [facility]_1 Performing Organization Address [facility] Phon e Number PN SOFT [address] [place] [address] Glutamic Acid Decarboxylase Antibody (05/20/2017 12:29 PM GASTROENTEROLOGY TEACHER) Analysis Performed At Patho logist Time Signature [...] the context of clinical symptoms. Performed by [facility], [address] [place] [address] [email or web address], Yosi Cabrla MD - Lab . Director Specimen Anatomical Collection Method Collection Time Receive d Time (Source) Location / / Volume Laterality 05/20/2017 12:29 05/20/2017 3:50 PM GASTROENTEROLOGY TEACHER PM GASTROENTEROLOGY TEACHER Narrative PN SOFT - 05/22/2017 7:09 PM GASTROENTEROLOGY TEACHER Performed at [facility] [address] [place] [address] CLIA number [id number] Shama Fox Lesley [facility]_1 Performing Organization Address [facility] Phon e Number PN SOFT [address] [place] [address] TSH (05/20/2017 12:29 PM GASTROENTEROLOGY TEACHER) athologist Signature Thyroid 1.51 0.30 - PN SOFT Stimulating 4.50 Hormone uIU/mL Specimen Anatomical Collection Method Collection Time Receive d Time (Source) Location / / Volume Laterality 05/20/2017 12:29 05/20/2017 3:50 PM GASTROENTEROLOGY TEACHER PM GASTROENTEROLOGY TEACHER Narrative PN SOFT - 05/20/2017 5:12 PM GASTROENTEROLOGY TEACHER Performed at [address] [address] CLIA number [id number] Shama Fox Lesley [facility]_1 Performing Organization Address [facility] Phon e Number PN SOFT [address] [place] [address] (ABNORMAL) Creatinine (05/20/2017 12:29 PM GASTROENTEROLOGY TEACHER) Analysis Performed At Patho logist Time Signature [...] / Volume Laterality 05/20/2017 12:29 05/20/2017 PM GASTROENTEROLOGY TEACHER 12:29 PM GASTROENTEROLOGY TEACHER Narrative PN SOFT - 05/20/2017 2:39 PM GASTROENTEROLOGY TEACHER Performed at [facility], [address] [place] [address] CLIA number [id number] Shama WALKER LAB_1 Performing Organization Address City/State/ZIP Code Phon e Number PN CARMELITA [address] [place] [address] documented in this encounter Visit Diagnoses Diagnosis DM type 2, uncontrolled, with neuropathy Type II or unspecified type diabetes pennie litus with neurological manifestations, uncontrolled Essential hypertension (HRC) Unspecified essential hypertension Dyslipidemia (HRC) Other and unspecified hyperlipidemia Vitamin D deficiency (HRC) Unspecified vitamin D deficiency documented in this encounter Care Teams Cemetery Warden Relationship Specialty Start Date End Date Needs Pcp, Assignment PCP - General 05/20/17 03/02/18 [place] [address] documented as of this encounter
--- OUTSIDE RECORDS SUMMARY | 2021-12-06 07:50 | XMS_ITS | Encounter Summary ---
:1955 Author Organization [employer] Address [address], [place] [address] Support Name Relationship Address Phone Andria Stephens [...] (Primary Dx); Endocrinology M, MBBS Essential hypertension; [address] [place] [address] Dyslipidemia; [place] [address] BLVD Vitamin D deficiency; [phone] [place], [place] Need for p rophylactic vaccination and inoculation against influenza [id number] Social History Tobacco Use Types Packs/Day Years [...] Sutton MBBS - 01/12/2018 10:45 AM CDT [facility] Department of Endocrinology, Diabetes and Metabolism Clinic [...] Dyslipidemia: Continue ASA and Simvastatin. DENISE Otto Resource Development Manager documented in this encounter Plan of Treatment [...] influenza documented in this encounter Care Teams E Business Consultant Relationship Specialty Start Date End Date Needs Pcp, Assignment PCP - General 05/20/17 03/02/18 [place] [address] documented as of this encounter
--- OUTSIDE RECORDS SUMMARY | 2021-12-06 07:50 | XMS_ITS | Encounter Summary ---
:1955 Author Organization [employer] Address [address], [place] [address] Support Name Relationship Address Phone Andria Stephens Unavailable Unavailable 03/19 Pt Decline Unavailable Unavailable Unavailable Care Team Providers Name Role Phone Needs Pcp, Assignment Primary Care Provider Encounter Details Date Type Department Care Team Description 07/22/2017 Lab Visit [facility] Vitamin D deficiency; [address] Vitamin B6 deficiency; [place] [address] Vitamin B12 deficiency [phone] Social History Tobacco Use Types Packs/Day Years [...] Test developed and characteristics deter mined by [employer]. See Compliance Statement B : [employer]/CS Performed by [facility], [address] [place] [address] [email or web address], Yosi Cabral MD - Lab . Director Specimen Anatomical Collection Method Collection Time Receive d Time (Source) Location / / Volume Laterality 07/22/2017 12:28 07/22/2017 3:48 PM CDT PM CDT Narrative PN SOFT - 07/24/2017 4:56 PM CDT Performed at [facility] [address] [place] [address] CLIA number [id number] Shama Sutton [facility] Performing Organization Address City/[facility]/ZIP Code Phon e Number PN SOFT [address] [place] [address] Vitamin B-12 (07/22/2017 12:28 PM CDT) athologist Signature Vitamin B12 511 213 - 816 PN SOFT pg/dL Specimen Anatomical Collection Method Collection Time Receive d Time (Source) Location / / Volume Laterality 07/22/2017 12:28 07/22/2017 3:41 PM CDT PM CDT Narrative PN SOFT - 07/22/2017 5:48 PM CDT Performed at [place] [address] [place] [address] CLIA number [id number] Shama Fox Lesley [facility] Performing Organization Address [facility] Phon e Number PN SOFT [address] [place] [address] Vitamin D (In house) (07/22/2017 12:28 PM [...] - 07/22/2017 5:11 PM CDT Performed at [facility], [address] [place] [address] CLIA number [id number] Shama WALKER LAB_1 Performing Organization Address City/State/ZIP Code Phon e Number PN SOFT [address] [place] [address] [phone] documented in this encounter Visit Diagnoses Diagnosis Vitamin D deficiency (HRC) Unspecified vitamin D deficiency Vitamin B6 deficiency (HRC) Vitamin B6 deficiency Vitamin B12 deficiency (HRC) Other B-complex deficiencies documented in this encounter Care Teams Chemical Processor Relationship Specialty Start Date End Date Needs Pcp, Assignment PCP - General 05/20/17 03/02/18 [place] [address] documented as of this encounter
--- OUTSIDE RECORDS SUMMARY | 2021-12-06 07:50 | XMS_ITS | Encounter Summary ---
:1955 Author Organization [facility] Address [address], [place] [address] Support Name Relationship Address Phone Andria Stephens Unavailable Unavailable 03/19 Pt Decline Unavailable Unavailable Unavailable Care Team Providers Name Role Phone Anoop Adam MD Primary Care Provider Reason for Visit Reason Comments Clinician Finder Team Encounter Details Date Type Department Care Team Description 03/03/2018 Telephone [facility] [address] [facility] Pcp, Clinician Finder Team Family Medicine Assignment [address] [facility] [place] [address] [phone] Social History Tobacco Use Types Packs/Day Years [...] on filedocumented in this encounter Care Teams Candy Separator Enrobing Relationship Specialty Start Date End Date Anoop Adam MD PCP - General 03/03/181999 [place] [address] documented as of this encounter
--- OUTSIDE RECORDS SUMMARY | 2021-12-06 07:50 | XMS_ITS | Encounter Summary ---
:1955 Author Organization [facility] Address [address], [place] [address] Support Name Relationship Address Phone Andria Stephens Unavailable Unavailable 03/19 Pt Decline Unavailable Unavailable Unavailable Care Team Providers Name Role Phone Anoop Adam MD Primary Care Provider Reason for Visit Reason Onset Date Comments Refill 03/08/2018 Encounter Details Date Type Department Care Team Description 03/08/2018 Refill [facility] [address] MBBS Refill Endocrinology [address] [place] [address] [place] [address] [phone] Social History Tobacco Use Types Packs/Day Years [...] User: KARY HATHAWAY LV: 01/12/18 FV: 04/27/18 ER CHAINSTITCH documented in this encounter Plan of Treatment Not on filedocumented as of this encounter Visit Diagnoses Not on filedocumented in this encounter Care Teams Ceramics Technician Relationship Specialty Start Date End Date Anoop Adam MD PCP - General 03/03/181999 [place] [address] documented as of this encounter
--- OUTSIDE RECORDS SUMMARY | 2021-12-06 07:50 | XMS_ITS | Encounter Summary ---
:1955 Author Organization [facility] Address [address] [address] Support Name Relationship Address Phone Andria Stephens Unavailable Unavailable 03/19 Pt Decline Unavailable Unavailable Unavailable Care Team Providers Name Role Phone Needs Pcp, Assignment Primary Care Provider Encounter Details Date Type Department Care Team Description 08/10/2017 Notes/Orders [facility] [address], Endocrinology DENISE [address] [place] [address] [place] [address] [phone] Social History Tobacco Use Types Packs/Day Years [...] on filedocumented in this encounter Care Teams Rate Marker Relationship Specialty Start Date End Date Needs Pcp, Assignment PCP - General 05/20/17 03/02/18 [place] [address] documented as of this encounter
--- OUTSIDE RECORDS SUMMARY | 2021-12-06 07:50 | XMS_ITS | Encounter Summary ---
:1955 Author Organization [employer] Address [address], [place] [address] Support Name Relationship Address Phone Andria Stephens Unavailable Unavailable 03/19 Pt Decline Unavailable Unavailable Unavailable Care Team Providers Name Role Phone Anoop Adam MD Primary Care Provider Reason for Visit Reason Comments MEDICATION REACTION Encounter Details Date Type Department Care Team Description 01/22/2018 Telephone [facility] [address] [place] DICATION REACTION Endocrinology MBBS [address] [facility] [address] [place] [address] [phone] Social History Tobacco Use Types Packs/Day Years [...] agreeable with plan, and no further questions. NTORY CONTROL CLERK Shama Sutton MBBS - 03/24/2018 9:06 AM CST Lets increase the Lantus to 40 units QHS and work on the diet part, keep Victoza the same. NTORY CONTROL CLERK Ita Estevez RN - 03/24/2018 8:59 AM [...] could tolerate (0.6 mg daily). Suki Del Angel RN - 02/05/2018 10:36 AM CST Pt calling back, states he kept having symptoms (nausea, vomiting, and diarrhea) so he stopped both medications. He then started taking Victoza 0.6 mg daily and symptoms have since improved. He is continuing the 0.6 mg dose for now. Pt can be reached at [phone], Ok to . NTORY CONTROL CLERK Marivel Ya RN - 01/25/2018 9:44 AM [...] on filedocumented in this encounter Care Teams Address Change Clerk Relationship Specialty Start Date End Date Anoop Adam MD PCP - General 03/03/181999 [place] [address] documented as of this encounter
--- OUTSIDE RECORDS SUMMARY | 2021-12-06 07:50 | XMS_ITS | Encounter Summary ---
:1955 Author Organization [employer] Address [address] [address] Support Name Relationship Address Phone Andria Stephens Unavailable Unavailable 03/19 Pt Decline Unavailable Unavailable Unavailable Care Team Providers Name Role Phone Needs Pcp, Assignment Primary Care Provider Reason for Visit Reason Onset Date Comments Refill 05/22/2017 Encounter Details Date Type Department Care Team Description 05/22/2017 Refill [facility] [address] MBBS Refill Endocrinology [address] [place] [address] [place] [address] [phone] Social History Tobacco Use Types Packs/Day Years [...] may substitute Basaglar as needed basedon insurance OTION SPECIALIST documented in this encounter Plan of Treatment Not on filedocumented as of this encounter Visit Diagnoses Diagnosis DM type 2, uncontrolled, with neuropathy Type II or unspecified type diabetes pennie litus with neurological manifestations, uncontrolled Essential hypertension (HRC) Unspecified essential hypertension Dyslipidemia (HRC) Other and unspecified hyperlipidemia Vitamin D deficiency (HRC) Unspecified vitamin D deficiency documented in this encounter Care Teams Loom Fixer Helper Relationship Specialty Start Date End Date Needs Pcp, Assignment PCP - General 05/20/17 03/02/18 [place] [address] documented as of this encounter
--- OUTSIDE RECORDS SUMMARY | 2021-12-06 07:50 | XMS_ITS | Encounter Summary ---
:1955 Author Organization [facility] Address [address], [place] [address] Support Name Relationship Address Phone Andria Stephens Unavailable Unavailable 03/19 Pt Decline Unavailable Unavailable Unavailable Care Team Providers Name Role Phone Needs Pcp, Assignment Primary Care Provider Reason for Visit Reason Comments Medication Questions Encounter Details Date Type Department Care Team Description 12/21/2017 Telephone [facility] [address] Md dication Questions Endocrinology [facility] [address] [place] [id number] [facility] [place] [address] [phone] Social History Tobacco Use Types Packs/Day Years [...] on filedocumented in this encounter Care Teams A And P Mechanic Relationship Specialty Start Date End Date Needs Pcp, Assignment PCP - General 05/20/17 03/02/18 [place] [address] documented as of this encounter
--- OUTSIDE RECORDS SUMMARY | 2021-12-06 07:50 | XMS_ITS | Encounter Summary ---
:1955 Author Organization [facility] Address [address], [place] [address] Support Name Relationship Address Phone Andria Stephens Unavailable Unavailable 03/19 Pt Decline Unavailable Unavailable Unavailable Care Team Providers Name Role Phone Needs Pcp, Assignment Primary Care Provider Reason for Visit Reason Comments Appt. Needed Faxed referral rec from Dr.G uma Marcano from [facility] Dx: DM2 Encounter Details Date Type Department Care Team Description 03/19/2017 Telephone [facility] 3800 Nurse, P3800 End Appt. Needed (Faxed Endocrinology 3800 [facility] referral rec from [address] [facility] [address]Gail Marcano from [facility]. [facility] Dx: DM2) [place] [address] [phone] Social History Tobacco Use Types Packs/Day Years Used Date Smoking Tobacco: Never Assessed Sex Assigned at Date Recorded Not on file documented as of this encounter Nursing Notes Ghulam Abdalla - 03/19/2017 3:15 PM CST Faxed referral rec from Dr.Gail Marcano from [facility] Dx: DM2 [employer] MANAGEMENT documented in this encounter Plan of Treatment Not on filedocumented as of this encounter Visit Diagnoses Not on filedocumented in this encounter Care Teams Cartographic Designer Relationship Specialty Start Date End Date Needs Pcp, Assignment PCP - General 05/20/17 03/02/18 [place], [place] 9[address] documented as of this encounter
--- OUTSIDE RECORDS SUMMARY | 2021-12-06 07:50 | XMS_ITS | Encounter Summary ---
:1955 Author Organization [facility] Address [address] [place] [address] Support Name Relationship Address Phone Andria Stephens Unavailable Unavailable 03/19 Pt Decline Unavailable Unavailable Unavailable Care Team Providers Name Role Phone Anoop Adam MD Primary Care Provider Reason for Visit Reason Onset Date Comments Refill 08/12/2019 insulin pen needle ( BD PEN NEEDLE DARSHANA U/F) 32G X 4 MM Encounter Details Date Type Department Care Team Description 08/12/2019 Refill [facility] 38[address] Mia Sutton, Re fill (insulin pen Endocrinology MBBS needle (BD PEN NEEDLE [address] [place] [address] [place] U/F) 32G X 4 MM) [place] [address] [phone] Social History Tobacco Use Types Packs/Day Years [...] nursing once appt is made. Interface, Out Cordium Links Prov Query - 08/12/2019 11:42 AM CDT [...] two times a day. (unchanged) Powered by [employer], Reference: [id number], 08/12/2019 11:42:15 AM CDT, Pool: ENDO PN REFILL ([id number]) Suki Barragan, RN - 08/12/2019 11:41 AM CDT Images from the original note were not included. documented in this encounter Plan of Treatment Not on filedocumented as of this encounter Visit Diagnoses Not on filedocumented in this encounter Care Teams Blanket Winder Helper Relationship Specialty Start Date End Date Anoop Adam MD PCP - General 03/03/181999 [place] [address] documented as of this encounter
--- OUTSIDE RECORDS SUMMARY | 2021-12-06 07:50 | XMS_ITS | Encounter Summary ---
:1955 Author Organization [employer] Address [address] [address] Support Name Relationship Address Phone Andria Stephens Unavailable Unavailable 03/19 Pt Decline Unavailable Unavailable Unavailable Care Team Providers Name Role Phone Needs Pcp, Assignment Primary Care Provider Reason for Visit Reason Comments Medication Side Effects Encounter Details Date Type Department Care Team Description 10/26/2017 Telephone [facility] [address] Shama [address], [place] dication Side Endocrinology MBBS Effects 3800 [facility] [address] [place] [address] [phone] Social History Tobacco Use Types Packs/Day Years [...] month is very nauseated and has vomiting. [place] better at lower dose, wonders if he should reduced dose or get anti nausea medication. Pt at home #, can leave message documented in this encounter Plan of Treatment Not on filedocumented as of this encounter Visit Diagnoses Not on filedocumented in this encounter Care Teams Culture Manager Relationship Specialty Start Date End Date Needs Pcp, Assignment PCP - General 05/20/17 03/02/18 [place] [address] documented as of this encounter
--- OUTSIDE RECORDS SUMMARY | 2021-12-06 07:50 | XMS_ITS | Encounter Summary ---
:1955 Author Organization [employer] Address [address] [place] [address] Support Name Relationship Address Phone Andria Stephens Unavailable Unavailable 03/19 Pt Decline Unavailable Unavailable Unavailable Care Team Providers Name Role Phone Needs Pcp, Assignment Primary Care Provider Reason for Visit Reason Comments Diabetes Encounter Details Date Type Department Care Team Description 05/20/2017 Initial Consult Shama Ramirez DM type 2, uncontrolled, with neuropathy (HRC) (Primary Dx); Endocrinology DENISE Fox Essential hypertension; [address] [address] [address] ROS[address] ZAYAS Dyslipidemia; [place] [address] BLVD Vitamin D deficiency [phone] [place], [place] [address] Social History Tobacco Use Types Packs/Day Years Used Date Smoking Tobacco: Never Smokeless Tobacco: Never Alcohol Use Standard Drinks/Week Comments No 0 (1 standard drink = 0.6 oz pure alcoho l) Sex Assigned at Date Recorded Not on file documented as of this encounter Last Filed Vital Signs Vital Sign Reading Time Taken Comments Blood Pressure 112/58 05/20/2017 11:34 AM MERCHANDISING STOCK ASSOCIATE Pulse 76 05/20/2017 11:34 AM MERCHANDISING STOCK ASSOCIATE Temperature - - Respiratory Rate - - Oxygen Saturation - - Inhaled Oxygen Concentration - - Weight 89.8 kg (198 lb) 05/20/2017 11:34 AM MERCHANDISING STOCK ASSOCIATE Height 188 cm (6' 2) 05/20/2017 11:34 AM MERCHANDISING STOCK ASSOCIATE Body Mass Index 25.42 05/20/2017 11:34 AM MERCHANDISING STOCK ASSOCIATE documented in this encounter Progress Notes Shama Sutton MBBS - 05/20/2017 11:30 AM CST Ana Rosa Zayas [facility] Department of Endocrinology, Diabetes and [...] >50% was spent on counseling. DENISE Otto Tree Girdler HANDISING STOCK ASSOCIATE documented in this encounter Plan of Treatment Not on filedocumented as of this encounter Procedures Procedure Name Priority Date/Time Associated Comments Diagnosis POCT GLYCOSYLATED Routine 05/20/2017 3:35 PM DM type 2, Resu lts for this HEMOGLOBIN (HGB A1C) MERCHANDISING STOCK ASSOCIATE uncontrolled, with p rocedure are in neuropathy (HRC) the results Essential section. hypertension Dyslipidemia Vitamin D deficiency documented in this encounter Results (ABNORMAL) POCT glycosylated hemoglobin (Hb A1C) (05/20/2017 3:35 PM MERCHANDISING STOCK ASSOCIATE) P athologist Signature Hemoglobin A1C, 9.6 (A) 4 - 5.6 % PN POCT POC Cartridge Lot# [id number] PN POCT Specimen (Source) Anatomical Collection Method Collection Time Re ceived Time Location / / Volume Laterality Blood specimen 05/20/2017 3:35 PM (specimen) MERCHANDISING STOCK ASSOCIATE Shama WALKER PN POINT OF CARE TESTS Performing Organization Address City/State/ZIP Code Phon e Number POCT PN POCT (ABNORMAL) Vitamin D (In house) (05/20/2017 12:29 PM MERCHANDISING STOCK ASSOCIATE) P athologist Signature Vitamin D 25 Oh 18 (L) 20 - 80 PN SOFT ng/mL Comment: Deficiency = <20 Adequate ??= 20-29 Preferred = 30-50 Uncertain safety = 51-80 High = >80 Specimen Anatomical Collection Method Collection Time Receive d Time (Source) Location / / Volume Laterality 05/20/2017 12:29 05/20/2017 3:50 PM MERCHANDISING STOCK ASSOCIATE PM MERCHANDISING STOCK ASSOCIATE Narrative PN SOFT - 05/20/2017 6:25 PM MERCHANDISING STOCK ASSOCIATE Performed at [facility] [address] [place] [address] CLIA number [id number] Shama Sutton DENISE LAB_1 Performing Organization Address City/[facility]/ZIP Code Phon e Number PN SOFT [address] [place] [address] (ABNORMAL) Vitamin B6 (8Hr Fast Recommended) (05/20/2017 12:29 PM MERCHANDISING STOCK ASSOCIATE) athologist Signature Vitamin B6 19.4 (L) 20.0 - PN SOFT 125.0 nmol/L Comment: INTERPRETIVE INFORMATION: Vitamin B6 (Py ridoxal 5-Phosphate) Pyridoxal 5'-phosphate measured in a spe cimen collected following an 8-hour or overnight fast ac curately indicates vitamin B6 nutritional status. Non-fasti ng specimen concentration reflects recent vitamin in take. Test developed and characteristics deter mined by [facility]. See Compliance Statement B : [employer]/CS Performed by [facility], [address] [place] [id number] [email or web address], Yosi Cabral MD - Lab . Director Specimen Anatomical Collection Method Collection Time Receive d Time (Source) Location / / Volume Laterality 05/20/2017 12:29 05/20/2017 3:49 PM MERCHANDISING STOCK ASSOCIATE PM MERCHANDISING STOCK ASSOCIATE Narrative PN SOFT - 05/23/2017 12:33 AM MERCHANDISING STOCK ASSOCIATE Performed at [facility] [address] [place] [address] CLIA number [id number] Shama Jorgeavi WALKER LAB_1 Performing Organization Address City/[facility]/ZIP Code Phon e Number PN SOFT [address] [place] [address] (ABNORMAL) Vitamin B-12 (05/20/2017 12:29 PM MERCHANDISING STOCK ASSOCIATE) athologist Signature Vitamin B12 168 (L) 213 - 816 PN SOFT pg/dL Specimen Anatomical Collection Method Collection Time Receive d Time (Source) Location / / Volume Laterality 05/20/2017 12:29 05/20/2017 3:50 PM MERCHANDISING STOCK ASSOCIATE PM MERCHANDISING STOCK ASSOCIATE Narrative PN SOFT - 05/20/2017 6:56 PM MERCHANDISING STOCK ASSOCIATE Performed at [facility] [address] [place] [address] CLIA number [id number] Shama Sutton NIRMAL LAB_1 Performing Organization Address [facility] Phon e Number PN SOFT [address] [place] [address] (ABNORMAL) C-Peptide, Serum (05/20/2017 12:29 PM MERCHANDISING STOCK ASSOCIATE) P athologist Signature C-Peptide 5.4 (H) 0.8 - 3.5 PN SOFT ng/mL Comment: INTERPRETIVE INFORMATION: C-Peptide, Ser um or Plasma Reference Interval applies to fasting sp ecimens. To convert to nmol/L, multiply by 0.33 Performed by [facility], [address] [place] [id number] [email or web address], Yosi Cabral MD - Lab . Director Specimen Anatomical Collection Method Collection Time Receive d Time (Source) Location / / Volume Laterality 05/20/2017 12:29 05/20/2017 3:50 PM MERCHANDISING STOCK ASSOCIATE PM MERCHANDISING STOCK ASSOCIATE Narrative PN SOFT - 05/21/2017 5:14 PM MERCHANDISING STOCK ASSOCIATE Performed at [facility] [address] [place] [address] CLIA number [id number] Shama Samal WALKER LAB_1 Performing Organization Address [facility] Phon e Number PN SOFT [address] [place] [address] (ABNORMAL) Glucose (05/20/2017 12:29 PM MERCHANDISING STOCK ASSOCIATE) athologist Signature Lab Glucose 183 (H) 70 - 100 PN SOFT mg/dL Comment: The stated glucose range is for the fast ing state. Non-fasting glucose range is 70-180 mg/d L Specimen Anatomical Collection Method Collection Time Receive d Time (Source) Location / / Volume Laterality 05/20/2017 12:29 05/20/2017 PM MERCHANDISING STOCK ASSOCIATE 12:29 PM MERCHANDISING STOCK ASSOCIATE Narrative PN SOFT - 05/20/2017 2:39 PM MERCHANDISING STOCK ASSOCIATE Performed at [facility], [address] [place] [address] CLIA number [id number] Shama Miltonmike [facility] LAB_1 Performing Organization Address [facility] Phon e Number PN SOFT [address] [place] [address] Glutamic Acid Decarboxylase Antibody (05/20/2017 12:29 PM MERCHANDISING STOCK ASSOCIATE) Analysis Performed At Patho logist Time Signature [...] the context of clinical symptoms. Performed by [facility], [address] [place] [address] [email or web address], Yosi Cabral MD - Lab . Director Specimen Anatomical Collection Method Collection Time Receive d Time (Source) Location / / Volume Laterality 05/20/2017 12:29 05/20/2017 3:50 PM MERCHANDISING STOCK ASSOCIATE PM MERCHANDISING STOCK ASSOCIATE Narrative PN SOFT - 05/22/2017 7:09 PM MERCHANDISING STOCK ASSOCIATE Performed at [facility] [address] [place] [address] CLIA number [id number] Shama Fox Lesley [facility] LAB_1 Performing Organization Address [facility] Phon e Number PN SOFT [address] [place] [address] TSH (05/20/2017 12:29 PM MERCHANDISING STOCK ASSOCIATE) P athologist Signature Thyroid 1.51 0.30 - PN SOFT Stimulating 4.50 Hormone uIU/mL Specimen Anatomical Collection Method Collection Time Receive d Time (Source) Location / / Volume Laterality 05/20/2017 12:29 05/20/2017 3:50 PM MERCHANDISING STOCK ASSOCIATE PM MERCHANDISING STOCK ASSOCIATE Narrative PN SOFT - 05/20/2017 5:12 PM MERCHANDISING STOCK ASSOCIATE Performed at [facility], [address] [place] [address] CLIA number [id number] Shama Fox Lesley WALKER LAB_1 Performing Organization Address [facility] Phon e Number PN SOFT [address] [place] [address] [phone] (ABNORMAL) Creatinine (05/20/2017 12:29 PM MERCHANDISING STOCK ASSOCIATE) Analysis Performed At [facility] Time Signature Creatinine 1.20 (H) 0.73 - [...] / Volume Laterality 05/20/2017 12:29 05/20/2017 PM MERCHANDISING STOCK ASSOCIATE 12:29 PM MERCHANDISING STOCK ASSOCIATE Narrative PN SOFT - 05/20/2017 2:39 PM MERCHANDISING STOCK ASSOCIATE Performed at [facility], [address] [place], [place] [id number] CLIA number [id number] Shama Fox Lesley WALKER LAB_1 Performing Organization Address [facility] Phon e Number PN SOFT [address] [place] [address] [phone] documented in this encounter Visit Diagnoses Diagnosis [...] deficiency documented in this encounter Care Teams Business Performance Manager Relationship Specialty Start Date End Date Needs Pcp, Assignment PCP - General 05/20/17 03/02/18 [place] [address] documented as of this encounter
--- OUTSIDE RECORDS SUMMARY | 2021-12-06 07:50 | XMS_ITS | Clinical Summary ---
:1955 Author Organization [facility] Address [address], [place] [address] Support Name Relationship Address Phone Andria Stephens [...] for each transition of care or referral. [facility] Allergies No known active allergies Medications Medication [...] Dates Next Due Influenza IIV4 (Quadrivalent) 0.5mL (99011) 01/12/2018 Social History Tobacco Use Types Packs/Day [...] age to complete this topic Care Teams Model Artists' Relationship Specialty Start Date End Date Anoop Adam MD PCP - General 03/03/181999 [place] [address]
--- OUTSIDE RECORDS SUMMARY | 2021-12-06 07:50 | XMS_ITS | Encounter Summary ---
:1955 Author Organization [facility] Address [address] [place] [address] Support Name Relationship Address Phone Andria Stephens Unavailable Unavailable 03/19 Pt Decline Unavailable Unavailable Unavailable Care Team Providers Name Role Phone Anoop Adam MD Primary Care Provider Reason for Visit Reason Onset Date Comments Refill 05/10/2020 insulin pen needle ( BD PEN NEEDLE DARSHANA U/F) 32G X 4 MM Encounter Details Date Type Department Care Team Description 05/10/2020 Refill [facility] [address], Re fill (insulin pen Endocrinology MBBS needle (BD PEN NEEDLE [address] [place] [address] U/F) 32G X 4 MM) [facility] [place] [address] [phone] Social History Tobacco Use Types Packs/Day Years [...] Reason for Refusal: Patient Needs An Appointment RVATION AGENT Interface, Out Surescripts Prov Query - 05/10/2020 [...] two times a day. (unchanged) Powered by [employer], Reference: [id number], 05/10/2020 12:45:05 PM RESERVATION AGENT, Pool: ENDO PN NURSING TEAM 1 ([id number]) RVATION AGENT documented in this encounter Plan of Treatment Not on filedocumented as of this encounter Visit Diagnoses Not on filedocumented in this encounter Care Teams Tire Maintenance Technician Relationship Specialty Start Date End Date Anoop Adam MD PCP - General 03/03/181999 [place] [address] documented as of this encounter
--- OUTSIDE RECORDS SUMMARY | 2021-12-06 07:50 | XMS_ITS | Encounter Summary ---
:1955 Author Organization [employer] Address [address] [place] [address] Support Name Relationship Address Phone Andria Stephens [...] presence unspecified, unspecified laterality, unspecified proliferative retinopathy* ([facility]) (Primary Dx); Endocrinology L, PA-C Essential hypertension; [address] Dyslipidemia; [place], [place] [address] [place] [address] Vitamin D deficiency; [phone] Vitamin B6 deficiency; [phone] Vitamin B12 def iciency (Work) Social History [...] have questions about your appointment, please call [phone]. If you have medical questions or concerns, please contact the triage nurse at [phone]. Thanks for visiting today! documented in this encounter Progress Notes Francy Boyd - 09/23/2017 10:00 AM CDT Images from the original note were not included. [facility]: [address] [place] [address] Clinic: [address] [place] [address] [phone], Nurse Line: [phone] Diabetes Progress Note September 23, 2017 Subjective: [...] following closely with opthalmology. Social Hx: to Andria, who is with him today. No tobacco. [...] deficiencies documented in this encounter Care Teams Bulk System Operator Relationship Specialty Start Date End Date Needs Pcp, Assignment PCP - General 05/20/17 03/02/18 [place] [address] documented as of this encounter
--- OUTSIDE RECORDS SUMMARY | 2021-12-06 07:50 | XMS_ITS | Encounter Summary ---
:1955 Author Organization [employer] Address [address] [address] Support Name Relationship Address Phone Andria Stephens Unavailable Unavailable 03/19 Pt Decline Unavailable Unavailable Unavailable Care Team Providers Name Role Phone Needs Pcp, Assignment Primary Care Provider Encounter Details Date Type Department Care Team Description 05/25/2017 Notes/Orders [facility] [address], Endocrinology MBBS [address] [place] [facility] [address] [place] [address] [place] [address] [phone] Social History Tobacco Use Types Packs/Day Years [...] D3 2000 units daily (OTC). DENISE Otto NDARY EDUCATION PROFESSOR Wang Chatman - 05/25/2017 1:07 PM CST Called patient, no answer. Left message to call back. NDARY EDUCATION PROFESSOR Ita Estevez, LEO - 05/25/2017 1:07 PM CST Pt called back and relayed info below. Patient verbalized understanding, is agreeable with plan, andno further questions. NDARY EDUCATION PROFESSOR documented in this encounter Plan of Treatment Not on filedocumented as of this encounter Visit Diagnoses Not on filedocumented in this encounter Care Teams Manager Operational Relationship Specialty Start Date End Date Needs Pcp, Assignment PCP - General 05/20/17 03/02/18 [place] [address] documented as of this encounter
--- OUTSIDE RECORDS SUMMARY | 2021-12-06 07:50 | XMS_ITS | Encounter Summary ---
:1955 Author Organization [employer] Address [address] [address] Support Name Relationship Address Phone Andria Stephens [...] Dx); Endocrinology M, MBBS Vitamin D deficiency; [address] Vitamin B6 deficiency; [place] [address] BLVD Vitamin B12 deficiency; [phone] [place], [place] Essential hypertension; [address] Dyslipidemia; [phone] Controlled type 2 diabetes with neuropathy (HRC) [...] Sutton MBBS - 07/22/2017 11:45 AM CDT [facility] Department of Endocrinology, Diabetes and Metabolism [...] Dyslipidemia: Continue ASA and Simvastatin. DENISE Otto Writing Manager documented in this encounter Plan of [...] Test developed and characteristics deter mined by [facility]. See Compliance Statement B : [facility]/CS Performed by [facility], [address] [place] [address] www.[email or web address], Yosi Cabral MD - Lab . Director Specimen Anatomical Collection Method Collection Time Receive d Time (Source) Location / / Volume Laterality 07/22/2017 12:28 07/22/2017 3:48 PM CDT PM CDT Narrative PN SOFT - 07/24/2017 4:56 PM CDT Performed at [facility] [address] [place] [address] CLIA number [id number] Shama KINNEY LAB_1 Performing Organization Address [facility] Phon e Number PN SOFT [address] [place] [address] Vitamin B-12 (07/22/2017 12:28 PM CDT) athologist Signature Vitamin B12 511 213 - 816 PN SOFT pg/dL Specimen Anatomical Collection Method Collection Time Receive d Time (Source) Location / / Volume Laterality 07/22/2017 12:28 07/22/2017 3:41 PM CDT PM CDT Narrative PN SOFT - 07/22/2017 5:48 PM CDT Performed at [facility] [address] [place] [address] CLIA number [id number] Shama WALKER LAB_1 Performing Organization Address [facility] Phon e Number PN SOFT [address] [place] [address] Vitamin D (In house) (07/22/2017 12:28 PM [...] - 07/22/2017 5:11 PM CDT Performed at [facility], [address] [place] [address] CLIA number [id number] Shama WALKER LAB_1 Performing Organization Address City/State/ZIP Code Phon e Number PN CARMELITA [address] [place] [address] documented in this encounter Visit Diagnoses Diagnosis [...] deficiencies documented in this encounter Care Teams Acquisition Specialist Relationship Specialty Start Date End Date Needs Pcp, Assignment PCP - General 05/20/17 03/02/18 [place] [address] documented as of this encounter
[2021-12-06 08:38] LABS: Chloride* 105 mmol/L (96-114)
[2021-12-06 08:39] LABS: Albumin* 4.6 g/dL (3.3-5.0); Sodium* 139 mmol/L (135-149)
[2021-12-06 08:42] LABS: Alanine Aminotransferase* 19 U/L (4-50); Alkaline Phosphatase* 104 U/L (40-150); Aspartate Amino Transferase* 23 U/L (12-35); Bilirubin Total* 0.5 mg/dL (0.1-1.5); Blood Urea Nitrogen* 43 mg/dL (7-30); Calcium* 9.2 mg/dL (8.4-10.6); Carbon Dioxide* 24 mmol/L (20-32); Creatinine* 2.1 mg/dL (0.5-1.5); Estimated Glomerular Filt Rate 34 ml/min; Glucose* 162 mg/dL (60-115); Total Protein* 7.6 g/dL (6.0-8.3)
[2021-12-06 08:45] LABS: Potassium* 6.6 mmol/L (3.6-5.1)
== END 2021-12-06 07:48 | disposition home or self-care (01) ==
LOC: NFLDREF 07:48
PROVIDERS: PCP Internal Medicine; Visit Provider Internal Medicine
DX: E87.5 Hyperkalemia (principal)
CPT/HCPCS: 80053

== ENCOUNTER 2021-12-17 13:30 | Outpatient (CLI) | payer OTHER, SELFPAY ==
--- OUTSIDE RECORDS SUMMARY | 2021-12-27 10:14 | XMS_ITS | Encounter Summary ---
:1955 Author Organization [facility] Address [address], [place] [address] Support Name Relationship Address Phone Andria Stephens Unavailable Unavailable 03/19 Pt Decline Unavailable Unavailable Unavailable Care Team Providers Name Role Phone Anoop Adam MD Primary Care Provider Reason for Visit Reason Comments Clinician Finder Team Encounter Details Date Type Department Care Team Description 03/03/2018 Telephone [facility] [address] [facility] Pcp, Clinician Finder Team Family Medicine Assignment [address] [facility] [place] [address] [phone] Social History Tobacco Use Types Packs/Day Years [...] on filedocumented in this encounter Care Teams Vein Access Technician Relationship Specialty Start Date End Date Anoop Adam MD PCP - General 03/03/181999 [place] [address] documented as of this encounter
--- OUTSIDE RECORDS SUMMARY | 2021-12-27 10:14 | XMS_ITS | Encounter Summary ---
:1955 Author Organization [facility] Address [address] [place] [address] Support Name Relationship Address Phone Andria Stephens Unavailable Unavailable 03/19 Pt Decline Unavailable Unavailable Unavailable Care Team Providers Name Role Phone Anoop Adam MD Primary Care Provider Reason for Visit Reason Onset Date Comments Refill 05/10/2020 insulin pen needle ( BD PEN NEEDLE DARSHANA U/F) 32G X 4 MM Encounter Details Date Type Department Care Team Description 05/10/2020 Refill [facility] [address], Re fill (insulin pen Endocrinology MBBS needle (BD PEN NEEDLE [address] U/F) 32G X 4 MM) [facility] [place] [address] [phone] Social History Tobacco Use Types Packs/Day Years [...] Reason for Refusal: Patient Needs An Appointment K HOLDER Interface, Out Surescripts Prov Query - 05/10/2020 [...] two times a day. (unchanged) Powered by [employer] Reference: [id number], 05/10/2020 12:45:05 PM STOCK HOLDER, Pool: ENDO PN NURSING TEAM 1 ([id number]) K HOLDER documented in this encounter Plan of Treatment Not on filedocumented as of this encounter Visit Diagnoses Not on filedocumented in this encounter Care Teams Commanding Officer Homicide Squad Relationship Specialty Start Date End Date Anoop Adam MD PCP - General 03/03/18[address] [place] [address] documented as of this encounter
--- OUTSIDE RECORDS SUMMARY | 2021-12-27 10:14 | XMS_ITS | Clinical Summary ---
:1955 Author Organization [employer] Address [address] [address] Support Name Relationship Address Phone Andria Stephens [...] for each transition of care or referral. [facility] Allergies No known active allergies Medications Medication [...] Dates Next Due Influenza IIV4 (Quadrivalent) 0.5mL (11206) 01/12/2018 Social History Tobacco Use Types Packs/Day [...] age to complete this topic Care Teams Broodmare Barn Groom Relationship Specialty Start Date End Date Anoop Adam MD PCP - General 03/03/181999 [place] [address]
--- OUTSIDE RECORDS SUMMARY | 2021-12-27 10:14 | XMS_ITS | Encounter Summary ---
:1955 Author Organization [facility] Address [address], [place] [address] Support Name Relationship Address Phone Andria Stephens Unavailable Unavailable 03/19 Pt Decline Unavailable Unavailable Unavailable Care Team Providers Name Role Phone Anoop Adam MD Primary Care Provider Reason for Visit Reason Onset Date Comments Refill 03/08/2018 Encounter Details Date Type Department Care Team Description 03/08/2018 Refill [facility] [address] MBBS Refill Endocrinology [address] [place] [address] [place] [address] [phone] Social History Tobacco Use Types Packs/Day Years [...] User: KARY HATHAWAY LV: 01/12/18 FV: 04/27/18 E BUSINESS PROJECT MANAGER documented in this encounter Plan of Treatment Not on filedocumented as of this encounter Visit Diagnoses Not on filedocumented in this encounter Care Teams Seismic Engineer Relationship Specialty Start Date End Date Anoop Adam MD PCP - General 03/03/181999 [place] [address] documented as of this encounter
--- OUTSIDE RECORDS SUMMARY | 2021-12-27 10:14 | XMS_ITS | Encounter Summary ---
:1955 Author Organization [facility] Address [address], [place] [address] Support Name Relationship Address Phone Andria Stephens Unavailable Unavailable 03/19 Pt Decline Unavailable Unavailable Unavailable Care Team Providers Name Role Phone Needs Pcp, Assignment Primary Care Provider Reason for Visit Reason Comments Medication Questions Encounter Details Date Type Department Care Team Description 12/21/2017 Telephone [facility] [address] [place] dication Questions Endocrinology [facility] [address] [facility] [place] [address] [phone] Social History Tobacco Use Types Packs/Day Years [...] on filedocumented in this encounter Care Teams Licensed Pharmacist Relationship Specialty Start Date End Date Needs Pcp, Assignment PCP - General 05/20/17 03/02/18 [place] [address] documented as of this encounter
--- OUTSIDE RECORDS SUMMARY | 2021-12-27 10:14 | XMS_ITS | Encounter Summary ---
:1955 Author Organization [employer] Address [address], [place] [address] Support Name Relationship Address Phone Andria Stephens Unavailable Unavailable 03/19 Pt Decline Unavailable Unavailable Unavailable Care Team Providers Name Role Phone Anoop Adam MD Primary Care Provider Reason for Visit Reason Comments MEDICATION REACTION Encounter Details Date Type Department Care Team Description 01/22/2018 Telephone [facility] [address] PA DICATION REACTION Endocrinology MBBS [address] [facility] [address] [place] [address] [phone] Social History Tobacco Use Types Packs/Day Years [...] agreeable with plan, and no further questions. NG DEALER Shama Sutton MBBS - 03/24/2018 9:06 AM CST Lets increase the Lantus to 40 units QHS and work on the diet part, keep Victoza the same. NG DEALER Ita Estevez RN - 03/24/2018 8:59 AM [...] for now. Pt can be reached at [phone], Ok to . NG DEALER Marivel Ya RN - 01/25/2018 9:44 AM [...] on filedocumented in this encounter Care Teams Hat Block Maker Relationship Specialty Start Date End Date Anoop Adam MD PCP - General 03/03/181999 [place] [address] documented as of this encounter
--- OUTSIDE RECORDS SUMMARY | 2021-12-27 10:14 | XMS_ITS | Encounter Summary ---
:1955 Author Organization [facility] Address [address] [place] [address] Support Name Relationship Address Phone Andria Stephens Unavailable Unavailable 03/19 Pt Decline Unavailable Unavailable Unavailable Care Team Providers Name Role Phone Anoop Adam MD Primary Care Provider Reason for Visit Reason Onset Date Comments Refill 08/12/2019 insulin pen needle ( BD PEN NEEDLE DARSHANA U/F) 32G X 4 MM Encounter Details Date Type Department Care Team Description 08/12/2019 Refill [facility] [address], Re fill (insulin pen Endocrinology MBBS needle (BD PEN NEEDLE [address] U/F) 32G X 4 MM) [place] [address] [phone] Social History Tobacco Use Types Packs/Day Years [...] nursing once appt is made. Interface, Out Operax Prov Query - 08/12/2019 11:42 AM CDT [...] two times a day. (unchanged) Powered by [employer], Reference: [id number], 08/12/2019 11:42:15 AM CDT, Pool: ENDO PN REFILL ([id number]) Suki Barragan, RN - 08/12/2019 11:41 AM CDT Images from the original note were not included. documented in this encounter Plan of Treatment Not on filedocumented as of this encounter Visit Diagnoses Not on filedocumented in this encounter Care Teams Plastic Sheeting Cutter Relationship Specialty Start Date End Date Anoop Adam MD PCP - General 03/03/181999 [place] [address] documented as of this encounter
--- OUTSIDE RECORDS SUMMARY | 2021-12-27 10:15 | XMS_ITS | Encounter Summary ---
:1955 Author Organization [employer] Address [address] [place] [address] Support Name Relationship Address Phone Andria Stephens Unavailable Unavailable 03/19 Pt Decline Unavailable Unavailable Unavailable Care Team Providers Name Role Phone Needs Pcp, Assignment Primary Care Provider Reason for Visit Reason Comments Diabetes Encounter Details Date Type Department Care Team Description 05/20/2017 Initial Consult Shama Ramirez DM type 2, uncontrolled, with neuropathy (HRC) (Primary Dx); Endocrinology DENISE Fox Essential hypertension; [address] [address] ANA ROSA ZAYAS Dyslipidemia; [place] [address] [address]VD Vitamin D deficiency [phone] [place], [place] [address] Social History Tobacco Use Types Packs/Day Years Used Date Smoking Tobacco: Never Smokeless Tobacco: Never Alcohol Use Standard Drinks/Week Comments No 0 (1 standard drink = 0.6 oz pure alcoho l) Sex Assigned at Date Recorded Not on file documented as of this encounter Last Filed Vital Signs Vital Sign Reading Time Taken Comments Blood Pressure 112/58 05/20/2017 11:34 AM PAINTER BARREL Pulse 76 05/20/2017 11:34 AM PAINTER BARREL Temperature - - Respiratory Rate - - Oxygen Saturation - - Inhaled Oxygen Concentration - - Weight 89.8 kg (198 lb) 05/20/2017 11:34 AM PAINTER BARREL Height 188 cm (6' 2) 05/20/2017 11:34 AM PAINTER BARREL Body Mass Index 25.42 05/20/2017 11:34 AM PAINTER BARREL documented in this encounter Progress Notes Shama Sutton MBBS - 05/20/2017 11:30 AM CST Ana Rosa Zayas [facility] Department of Endocrinology, Diabetes and Metabolism [...] >50% was spent on counseling. DENISE Otto Circuit Clerk TER BARREL documented in this encounter Plan of Treatment Not on filedocumented as of this encounter Procedures Procedure Name Priority Date/Time Associated Comments Diagnosis POCT GLYCOSYLATED Routine 05/20/2017 3:35 PM DM type 2, Resu lts for this HEMOGLOBIN (HGB A1C) PAINTER BARREL uncontrolled, with p rocedure are in neuropathy (HRC) the results Essential section. hypertension Dyslipidemia Vitamin D deficiency documented in this encounter Results (ABNORMAL) POCT glycosylated hemoglobin (Hb A1C) (05/20/2017 3:35 PM PAINTER BARREL) P athologist Signature Hemoglobin A1C, 9.6 (A) 4 - 5.6 % PN POCT POC Cartridge Lot# [id number] PN POCT Specimen (Source) Anatomical Collection Method Collection Time Re ceived Time Location / / Volume Laterality Blood specimen 05/20/2017 3:35 PM (specimen) PAINTER BARREL Shama WALKER PN POINT OF CARE TESTS Performing Organization Address City/State/ZIP Code Phon e Number POCT PN POCT (ABNORMAL) Vitamin D (In house) (05/20/2017 12:29 PM PAINTER BARREL) P athologist Signature Vitamin D 25 Oh 18 (L) 20 - 80 PN SOFT ng/mL Comment: Deficiency = <20 Adequate ??= 20-29 Preferred = 30-50 Uncertain safety = 51-80 High = >80 Specimen Anatomical Collection Method Collection Time Receive d Time (Source) Location / / Volume Laterality 05/20/2017 12:29 05/20/2017 3:50 PM PAINTER BARREL PM PAINTER BARREL Narrative PN SOFT - 05/20/2017 6:25 PM PAINTER BARREL Performed at [facility] [address] [place] [address] CLIA number [id number] Shama Sutton DENISE LAB_1 Performing Organization Address City/[facility]/ZIP Code Phon e Number PN SOFT [address] [place] [address] (ABNORMAL) Vitamin B6 (8Hr Fast Recommended) (05/20/2017 12:29 PM PAINTER BARREL) athologist Signature Vitamin B6 19.4 (L) 20.0 - PN SOFT 125.0 nmol/L Comment: INTERPRETIVE INFORMATION: Vitamin B6 (Py ridoxal 5-Phosphate) Pyridoxal 5'-phosphate measured in a spe cimen collected following an 8-hour or overnight fast ac curately indicates vitamin B6 nutritional status. Non-fasti ng specimen concentration reflects recent vitamin in take. Test developed and characteristics deter mined by [email or web address]. See Compliance Statement B : Bl[facility]/CS Performed by [email or web address], [address] [place] [address] www.[email or web address], Yosi Cabral MD - Lab . Director Specimen Anatomical Collection Method Collection Time Receive d Time (Source) Location / / Volume Laterality 05/20/2017 12:29 05/20/2017 3:49 PM PAINTER BARREL PM PAINTER BARREL Narrative PN SOFT - 05/23/2017 12:33 AM PAINTER BARREL Performed at [email or web address] [address] [place] [address] CLIA number [id number] Shama Jorgeavi WALKER LAB_1 Performing Organization Address City/[facility]/ZIP Code Phon e Number PN SOFT [address] [place] [address] (ABNORMAL) Vitamin B-12 (05/20/2017 12:29 PM PAINTER BARREL) athologist Signature Vitamin B12 168 (L) 213 - 816 PN SOFT pg/dL Specimen Anatomical Collection Method Collection Time Receive d Time (Source) Location / / Volume Laterality 05/20/2017 12:29 05/20/2017 3:50 PM PAINTER BARREL PM PAINTER BARREL Narrative PN SOFT - 05/20/2017 6:56 PM PAINTER BARREL Performed at [facility] [address] [place] [address] CLIA number [id number] Shama Sutton NIRMAL LAB_1 Performing Organization Address [facility] Phon e Number PN SOFT [address] [place] [address] (ABNORMAL) C-Peptide, Serum (05/20/2017 12:29 PM PAINTER BARREL) P athologist Signature C-Peptide 5.4 (H) 0.8 - 3.5 PN SOFT ng/mL Comment: INTERPRETIVE INFORMATION: C-Peptide, Ser um or Plasma Reference Interval applies to fasting sp ecimens. To convert to nmol/L, multiply by 0.33 Performed by [email or web address], [address] [place] [address] www.[facility], Yosi Cabral MD - Lab . Director Specimen Anatomical Collection Method Collection Time Receive d Time (Source) Location / / Volume Laterality 05/20/2017 12:29 05/20/2017 3:50 PM PAINTER BARREL PM PAINTER BARREL Narrative PN SOFT - 05/21/2017 5:14 PM PAINTER BARREL Performed at [email or web address] [address] [place] [address] CLIA number [id number] Shama Samal WALKER LAB_1 Performing Organization Address [facility] Phon e Number PN SOFT [address] [place] [address] (ABNORMAL) Glucose (05/20/2017 12:29 PM PAINTER BARREL) athologist Signature Lab Glucose 183 (H) 70 - 100 PN SOFT mg/dL Comment: The stated glucose range is for the fast ing state. Non-fasting glucose range is 70-180 mg/d L Specimen Anatomical Collection Method Collection Time Receive d Time (Source) Location / / Volume Laterality 05/20/2017 12:29 05/20/2017 PM PAINTER BARREL 12:29 PM PAINTER BARREL Narrative PN SOFT - 05/20/2017 2:39 PM PAINTER BARREL Performed at [facility]3], [address] [place] [address] CLIA number [id number] Shama Miltonmike [facility] LAB_1 Performing Organization Address [facility] Phon e Number PN SOFT [address] [place] [address] Glutamic Acid Decarboxylase Antibody (05/20/2017 12:29 PM PAINTER BARREL) Analysis Performed At Patho logist Time Signature [...] the context of clinical symptoms. Performed by [email or web address], [address] [place] [address] www.[facility], Yosi Cabral MD - Lab . Director Specimen Anatomical Collection Method Collection Time Receive d Time (Source) Location / / Volume Laterality 05/20/2017 12:29 05/20/2017 3:50 PM PAINTER BARREL PM PAINTER BARREL Narrative PN SOFT - 05/22/2017 7:09 PM PAINTER BARREL Performed at [email or web address] [address] [place] [address] CLIA number [id number] Shama Fox Lesley [facility] LAB_1 Performing Organization Address [facility] Phon e Number PN SOFT [address] [place] [address] TSH (05/20/2017 12:29 PM PAINTER BARREL) P athologist Signature Thyroid 1.51 0.30 - PN SOFT Stimulating 4.50 Hormone uIU/mL Specimen Anatomical Collection Method Collection Time Receive d Time (Source) Location / / Volume Laterality 05/20/2017 12:29 05/20/2017 3:50 PM PAINTER BARREL PM PAINTER BARREL Narrative PN SOFT - 05/20/2017 5:12 PM PAINTER BARREL Performed at [facility], [address] [place] [address] CLIA number [id number] Shama Fox Lesley WALKER LAB_1 Performing Organization Address [facility] Phon e Number PN SOFT [address] [place] [address] (ABNORMAL) Creatinine (05/20/2017 12:29 PM PAINTER BARREL) Analysis Performed At [facility] Time Signature Creatinine 1.20 (H) 0.73 [...] / Volume Laterality 05/20/2017 12:29 05/20/2017 PM PAINTER BARREL 12:29 PM PAINTER BARREL Narrative PN SOFT - 05/20/2017 2:39 PM PAINTER BARREL Performed at [facility]3], [address] [place], [place] [id number] CLIA number [id number] Shama Fox Lesley WALKER LAB_1 Performing Organization Address [facility] Phon e Number PN SOFT [address] [place] [address] documented in this encounter Visit Diagnoses Diagnosis [...] deficiency documented in this encounter Care Teams Pre Sales Architect Relationship Specialty Start Date End Date Needs Pcp, Assignment PCP - General 05/20/17 03/02/18 [place] [address] documented as of this encounter
--- OUTSIDE RECORDS SUMMARY | 2021-12-27 10:15 | XMS_ITS | Encounter Summary ---
:1955 Author Organization [facility] Address [address] [place] [address] Care Team Providers Name Role Phone Unavailable Primary Care Provider Unavailable Reason for Visit Appointment Request (Routine) - Closed Specialty Diagnoses / Procedures Referred By Contact Refer red To Contact Nephrology and Anoop Adam Hypertension M.D. [address] [place] [address] Referral ID Status Reason Start Date Expiration Date Visits Requ ested Visits Authorized [id number] Closed 12/06/2021 12/06/2022 1 Encounter Details Date Type Department Care Team Description 12/10/2021 External Outreach Division of Kleber Gallardo, Linda franco (Primary Dx); Nephrology and Albert Ramírez, Chronic Kidne y Disease (CKD), Stage 3b Glomerular Filtration Rate (GFR) 30 To 44 (HCC); Hypertension in Ph.D. Hypertension Essential Primary [place], [place] [address] [facility] [address] [place] [address] [phone] Social History Tobacco Use Types Packs/Day Years [...] Gallardo M.D., Ph.D. CT CT Job ID: [id number]/[id number] documented in this encounter Plan of Treatment Not on filedocumented as of this encounter Visit Diagnoses Diagnosis Hyperkalemia - Primary Chronic Kidney Disease (CKD), Stage 3b G lomerular Filtration Rate (GFR) 30 To 44 (HCC) Hypertension Essential Primary documented in this encounter
--- OUTSIDE RECORDS SUMMARY | 2021-12-27 10:15 | XMS_ITS | Clinical Summary ---
:1955 Author Organization [facility] Address [address] [place] [address] Care Team Providers Name Role Phone Unavailable Primary Care Provider Unavailable Source Comments Patient records contain information from all sites at [facility]. For routine questions regarding patient records, call [phone] during business hours, M-F 8:00 AM - 5:00 PM Central Time. Record requests for emergency care only can be directed to [phone] at any time.[facility] Medications Medication Sig Dispensed Refills Start Date End Date Status furosemide (LASIX) Take 1 90 tablet 3 12/10/2021 Active 20 mg tablet tablet (20 3 mg total) by mouth daily. amLODIPine Take 1 90 tablet 3 12/27/2021 Active (NORVASC) 10 mg tablet (10 3 tablet mg total) by mouth daily. sodium zirconium Take 10 g by 12 packet 11 12/27/2021 Active cyclosilicate mouth 3 3 (LOKELMA) 10 gram (three) powder in packet times a packet week. sodium zirconium Take 10 g by 30 [...] Reorder) tablet mg total) by mouth daily. sodium zirconium Take 10 g by 30 packet 11 12/10/2021 Discontinued cyclosilicate mouth daily. 2 (Re order) (LOKELMA) 10 gram powder in packet packet amLODIPine Take 1 90 tablet 3 12/12/2021 Disconti nued (NORVASC) 2.5 mg tablet (2.5 2 ( Reorder) tablet mg total) by mouth daily. amLODIPine Take 1 90 tablet 3 12/18/2021 Disconti nued (NORVASC) 5 mg tablet (5 mg 2 (R eorder) tablet total) by mouth daily. Encounters Date Type Specialty Care Team Description 12/27/2021 Clinical Nephrology and Kleber Communication Hypertension Desiree Gallardo M.D., Ph.D. 12/27/2021 Orders Only Nephrology and Kleber Hypertension Desiree Gallardo M.D., Ph.D. 12/18/2021 Orders Only Nephrology and Kleber Hypertension [...] Dates Phone Addre ss Type Group [employer] ARE FOR [id number] 2020-Present [phone] [address] [place] [address] ([place]) [address] [address]
--- OUTSIDE RECORDS SUMMARY | 2021-12-27 10:15 | XMS_ITS | Encounter Summary ---
:1955 Author Organization [employer] Address [address], [place] [address] Support Name Relationship Address Phone Andria Stephens Unavailable Unavailable 03/19 Pt Decline Unavailable Unavailable Unavailable Care Team Providers Name Role Phone Needs Pcp, Assignment Primary Care Provider Reason for Visit Reason Onset Date Comments Refill 05/22/2017 Encounter Details Date Type Department Care Team Description 05/22/[address] [facility] [address] Magaly Sutton MBBS Refill Endocrinology [address] [place] [address] [place] [address] [phone] Social History Tobacco Use Types Packs/Day Years [...] may substitute Basaglar as needed basedon insurance AL TECHNICIAN documented in this encounter Plan of Treatment Not on filedocumented as of this encounter Visit Diagnoses Diagnosis DM type 2, uncontrolled, with neuropathy Type II or unspecified type diabetes pennie litus with neurological manifestations, uncontrolled Essential hypertension (HRC) Unspecified essential hypertension Dyslipidemia (HRC) Other and unspecified hyperlipidemia Vitamin D deficiency (HRC) Unspecified vitamin D deficiency documented in this encounter Care Teams Carbide Operator Relationship Specialty Start Date End Date Needs Pcp, Assignment PCP - General 05/20/17 03/02/18 [place] [address] documented as of this encounter
--- OUTSIDE RECORDS SUMMARY | 2021-12-27 10:15 | XMS_ITS | Encounter Summary ---
:1955 Author Organization [employer] Address [address], [place] [address] Support Name Relationship Address Phone Andria Stephens Unavailable Unavailable 03/19 Pt Decline Unavailable Unavailable Unavailable Care Team Providers Name Role Phone Needs Pcp, Assignment Primary Care Provider Reason for Visit Reason Comments Medication Side Effects Encounter Details Date Type Department Care Team Description 10/26/2017 Telephone [facility] [address] Shama Sutton, [place] dication Side Endocrinology MBBS Effects [address] [facility] [address] [facility] [place] [address] [phone] Social History Tobacco Use Types Packs/Day Years [...] month is very nauseated and has vomiting. Kanona better at lower dose, wonders if he should reduced dose or get anti nausea medication. Pt at home #, can leave message documented in this encounter Plan of Treatment Not on filedocumented as of this encounter Visit Diagnoses Not on filedocumented in this encounter Care Teams Launderer Hand Relationship Specialty Start Date End Date Needs Pcp, Assignment PCP - General 05/20/17 03/02/18 [place] [address] documented as of this encounter
--- OUTSIDE RECORDS SUMMARY | 2021-12-27 10:15 | XMS_ITS | Encounter Summary ---
:1955 Author Organization [employer] Address [address], [place] [address] Support Name Relationship Address Phone Andria Stephens Unavailable Unavailable 03/19 Pt Decline Unavailable Unavailable Unavailable Care Team Providers Name Role Phone Needs Pcp, Assignment Primary Care Provider Encounter Details Date Type Department Care Team Description 05/25/2017 Notes/Orders [facility] [address] Shama Sutton, Endocrinology MBBS [address] [place] [facility] [facility] [address] [place] [address] [place] [address] [phone] Social History Tobacco Use Types Packs/Day Years [...] D3 2000 units daily (OTC). DENISE Otto ICES DELIVERY DRIVER Wang Chatman - 05/25/2017 1:07 PM CST Called patient, no answer. Left message to call back. ICES DELIVERY DRIVER Ita Estevez, LEO - 05/25/2017 1:07 PM CST Pt called back and relayed info below. Patient verbalized understanding, is agreeable with plan, andno further questions. ICES DELIVERY DRIVER documented in this encounter Plan of Treatment Not on filedocumented as of this encounter Visit Diagnoses Not on filedocumented in this encounter Care Teams Health Policy Nurse Relationship Specialty Start Date End Date Needs Pcp, Assignment PCP - General 05/20/17 03/02/18 [place] [address] documented as of this encounter
--- OUTSIDE RECORDS SUMMARY | 2021-12-27 10:15 | XMS_ITS | Encounter Summary ---
:1955 Author Organization [facility] Address [address], [place] [address] Support Name Relationship Address Phone Andria Stephens Unavailable Unavailable 03/19 Pt Decline Unavailable Unavailable Unavailable Care Team Providers Name Role Phone Needs Pcp, Assignment Primary Care Provider Reason for Visit Reason Comments Appt. Needed Faxed referral rec from Dr.G uma Marcano from [facility] Dx: DM2 Encounter Details Date Type Department Care Team Description 03/19/2017 Telephone [facility] 3800 Nurse, [id number] End Appt. Needed (Faxed Endocrinology 38[address] [facility] referral rec from [address] [facility] [address]Gail Marcano from [facility] Dx: DM2) [place] [id number] Social History Tobacco Use Types Packs/Day Years Used Date Smoking Tobacco: Never Assessed Sex Assigned at Date Recorded Not on file documented as of this encounter Nursing Notes Ghulam Abdalla - 03/19/2017 3:15 PM CST Faxed referral rec from Dr.Gail Marcano from [facility] Dx: DM2 ESSIVE MUSIC THERAPIST documented in this encounter Plan of Treatment Not on filedocumented as of this encounter Visit Diagnoses Not on filedocumented in this encounter Care Teams Hiv Cts Specialist Relationship Specialty Start Date End Date Needs Pcp, Assignment PCP - General 05/20/17 03/02/18 [place], [place] [address] documented as of this encounter
--- OUTSIDE RECORDS SUMMARY | 2021-12-27 10:15 | XMS_ITS | Encounter Summary ---
:1955 Author Organization [employer] Address [address], [place] [address] Support Name Relationship Address Phone Andria Stephens Unavailable Unavailable 03/19 Pt Decline Unavailable Unavailable Unavailable Care Team Providers Name Role Phone Needs Pcp, Assignment Primary Care Provider Reason for Visit Reason Onset Date Comments Refill 05/25/2017 Encounter Details Date Type Department Care Team Description 05/25/2017 Refill [facility] [address] Magaly Sutton MBBS Refill Endocrinology [address] [place] [address] [place] [address] [phone] Social History Tobacco Use Types Packs/Day Years [...] review and sign pending rx if approved. MATIC PAD MAKING MACHINE OPERATOR documented in this encounter Plan of Treatment Not on filedocumented as of this encounter Visit Diagnoses Not on filedocumented in this encounter Care Teams Claim Review Medical Director Relationship Specialty Start Date End Date Needs Pcp, Assignment PCP - General 05/20/17 03/02/18 [place] [address] documented as of this encounter
--- OUTSIDE RECORDS SUMMARY | 2021-12-27 10:15 | XMS_ITS | Encounter Summary ---
:[address] [facility] Address [address], [place] [address] Support Name Relationship Address Phone Andria Stephens Unavailable Unavailable 03/19 Pt Decline Unavailable Unavailable Unavailable Care Team Providers Name Role Phone Needs Pcp, Assignment Primary Care Provider Encounter Details Date Type Department Care Team Description 08/10/2017 Notes/Orders [facility] [address] Shama Sutton, Endocrinology DENISE [address] [place] [address] [place] [address] [phone] Social History Tobacco Use Types Packs/Day Years [...] on filedocumented in this encounter Care Teams Real Estate Executive Assistant Relationship Specialty Start Date End Date Needs Pcp, Assignment PCP - General 05/20/17 03/02/18 [place] [address] documented as of this encounter
--- OUTSIDE RECORDS SUMMARY | 2021-12-27 10:15 | XMS_ITS | Encounter Summary ---
:1955 Author Organization [facility] Address [address] [place] [address] Care Team Providers Name Role Phone Unavailable Primary Care Provider Unavailable Encounter Details Date Type Department Care Team Description 12/27/2021 Orders Only Division of Nephrology and Desiree Vann, Hypertension in [place], Ph.D. [address] [place] [address] [phone] (Wo rk) Social History Tobacco Use Types Packs/Day Years Used Date Smoking Tobacco: Never Assessed Sex Assigned at Date Recorded Not on file documented as of this encounter Plan of Treatment Not on filedocumented as of this encounter Visit Diagnoses Not on filedocumented in this encounter
--- OUTSIDE RECORDS SUMMARY | 2021-12-27 10:15 | XMS_ITS | Encounter Summary ---
:1955 Author Organization [employer] Address [address] [address] Support Name Relationship Address Phone Andria Stephens Unavailable Unavailable 03/19 Pt Decline Unavailable Unavailable Unavailable Care Team Providers Name Role Phone Needs Pcp, Assignment Primary Care Provider Encounter Details Date Type Department Care Team Description 07/22/2017 Lab Visit [facility] Vitamin D deficiency; [address] [address] Vitamin B6 deficiency; [place] [address] Vitamin B12 deficiency [phone] Social History Tobacco Use Types Packs/Day Years [...] Test developed and characteristics deter mined by [employer]. See Compliance Statement B : [employer]/CS Performed by [employer], [address] [place] [address] www.[employer], Yosi Cabral MD - Lab . Director Specimen Anatomical Collection Method Collection Time Receive d Time (Source) Location / / Volume Laterality 07/22/2017 12:28 07/22/2017 3:48 PM CDT PM CDT Narrative PN SOFT - 07/24/2017 4:56 PM CDT Performed at [employer] [address] [place] [address] CLIA number [id number] Shama Sutton [facility] Performing Organization Address City/[facility]/ZIP Code Phon e Number PN SOFT [address] [place] [address] Vitamin B-12 (07/22/2017 12:28 PM CDT) athologist Signature Vitamin B12 511 213 - 816 PN SOFT pg/dL Specimen Anatomical Collection Method Collection Time Receive d Time (Source) Location / / Volume Laterality 07/22/2017 12:28 07/22/2017 3:41 PM CDT PM CDT Narrative PN SOFT - 07/22/2017 5:48 PM CDT Performed at [facility] [address] [place] [address] CLIA number [id number] Shama Fox Lesley [facility] Performing Organization Address [facility] Phon e Number PN SOFT [address] [place] [address] Vitamin D (In house) (07/22/2017 12:28 PM [...] - 07/22/2017 5:11 PM CDT Performed at [facility], [address] [place] [address] CLIA number [id number] Shama WALKER LAB_1 Performing Organization Address City/State/ZIP Code Phon e Number PN SOFT [address] [place] [address] documented in this encounter Visit Diagnoses Diagnosis Vitamin D deficiency (HRC) Unspecified vitamin D deficiency Vitamin B6 deficiency (HRC) Vitamin B6 deficiency Vitamin B12 deficiency (HRC) Other B-complex deficiencies documented in this encounter Care Teams Traveling Phlebotomist Relationship Specialty Start Date End Date Needs Pcp, Assignment PCP - General 05/20/17 03/02/18 [place] [address] documented as of this encounter
--- OUTSIDE RECORDS SUMMARY | 2021-12-27 10:15 | XMS_ITS | Encounter Summary ---
:1955 Author Organization [employer] Address [address] [address] Support Name Relationship Address Phone Andria Stephens Unavailable Unavailable 03/19 Pt Decline Unavailable Unavailable Unavailable Care Team Providers Name Role Phone Needs Pcp, Assignment Primary Care Provider Encounter Details Date Type Department Care Team Description 05/20/2017 Lab Visit [facility] DM type 2, uncontrolled, wit h neuropathy (HRC); [address] [address] Essential hypertension; [place] [address] Dyslipidemia; [phone] Vitamin D defic iency Social History Tobacco [...] 2, Res ults for this RECOMMENDED) PM AIRPLANE PATROL PILOT uncontrolled, with procedure are in neuropathy (HRC) the results Essential section. hypertension Dyslipidemia Vitamin D deficiency GLUTAMIC ACID Routine 05/20/2017 12:29 DM type 2, Results fo r this DECARBOXYLASE ANTIBODY PM AIRPLANE PATROL PILOT uncontrolled, with procedure are in neuropathy (HRC) the results Essential section. hypertension Dyslipidemia Vitamin D deficiency C-PEPTIDE, SERUM Routine 05/20/2017 12:29 DM type 2, Results for this PM AIRPLANE PATROL PILOT uncontrolled, with procedure are in neuropathy (HRC) the results Essential section. hypertension Dyslipidemia Vitamin D deficiency VITAMIN D 25-HYDROXY, Routine 05/20/2017 12:29 DM type 2, Re sults for this TOTAL PM AIRPLANE PATROL PILOT uncontrolled, with procedure are in neuropathy (HRC) the results Essential section. hypertension Dyslipidemia Vitamin D deficiency CREATININE / GFR Routine 05/20/2017 12:29 DM type 2, Results for this PM AIRPLANE PATROL PILOT uncontrolled, with procedure are in neuropathy (HRC) the results Essential section. hypertension Dyslipidemia Vitamin D deficiency TSH, SENSITIVE Routine 05/20/2017 12:29 DM type 2, Results f or this PM AIRPLANE PATROL PILOT uncontrolled, with procedure are in neuropathy (HRC) the results Essential section. hypertension Dyslipidemia Vitamin D deficiency VITAMIN B12 ONLY Routine 05/20/2017 12:29 DM type 2, Results for this PM AIRPLANE PATROL PILOT uncontrolled, with procedure are in neuropathy (HRC) the results Essential section. hypertension Dyslipidemia Vitamin D deficiency GLUCOSE - FASTING > 8 Routine 05/20/2017 12:29 DM type 2, Re sults for this HRS FASTING PM AIRPLANE PATROL PILOT uncontrolled, with procedure are in neuropathy (HRC) the results Essential section. hypertension Dyslipidemia Vitamin D deficiency documented in this encounter Results (ABNORMAL) Vitamin D (In house) (05/20/2017 12:29 PM AIRPLANE PATROL PILOT) athologist Signature Vitamin D 25 Oh 18 (L) 20 - 80 PN SOFT ng/mL Comment: Deficiency = <20 Adequate ??= 20-29 Preferred = 30-50 Uncertain safety = 51-80 High = >80 Specimen Anatomical Collection Method Collection Time Receive d Time (Source) Location / / Volume Laterality 05/20/2017 12:29 05/20/2017 3:50 PM AIRPLANE PATROL PILOT PM AIRPLANE PATROL PILOT Narrative PN SOFT - 05/20/2017 6:25 PM AIRPLANE PATROL PILOT Performed at [facility] [address] [place] [address] CLIA number [id number] Shama WALKER [facility]_1 Performing Organization Address City/State/ZIP Code Phon e Number PN SOFT [address] [place] [address] (ABNORMAL) Vitamin B6 (8Hr Fast Recommended) (05/20/2017 12:29 PM AIRPLANE PATROL PILOT) athologist Signature Vitamin B6 19.4 (L) 20.0 - PN SOFT 125.0 nmol/L Comment: INTERPRETIVE INFORMATION: Vitamin B6 (Py ridoxal 5-Phosphate) Pyridoxal 5'-phosphate measured in a spe cimen collected following an 8-hour or overnight fast ac curately indicates vitamin B6 nutritional status. Non-fasti ng specimen concentration reflects recent vitamin in take. Test developed and characteristics deter mined by [employer]. See Compliance Statement B : [employer]/CS Performed by [employer], [address] [place] [address] [email or web address], Yosi Cabral MD - Lab . Director Specimen Anatomical Collection Method Collection Time Receive d Time (Source) Location / / Volume Laterality 05/20/2017 12:29 05/20/2017 3:49 PM AIRPLANE PATROL PILOT PM AIRPLANE PATROL PILOT Narrative PN SOFT - 05/23/2017 12:33 AM AIRPLANE PATROL PILOT Performed at [facility] [address] [address] CLIA number [id number] Shama Fox Lesley [facility]_1 Performing Organization Address City/[facility] Phon e Number PN SOFT [address] [place] [address] (ABNORMAL) Vitamin B-12 (05/20/2017 12:29 PM AIRPLANE PATROL PILOT) athologist Signature Vitamin B12 168 (L) 213 - 816 PN SOFT pg/dL Specimen Anatomical Collection Method Collection Time Receive d Time (Source) Location / / Volume Laterality 05/20/2017 12:29 05/20/2017 3:50 PM AIRPLANE PATROL PILOT PM AIRPLANE PATROL PILOT Narrative PN SOFT - 05/20/2017 6:56 PM AIRPLANE PATROL PILOT Performed at [address] [address] CLIA number [id number] Shama Fox Lesley [facility]_1 Performing Organization Address [facility] Phon e Number PN SOFT [address] [place] [address] (ABNORMAL) C-Peptide, Serum (05/20/2017 12:29 PM AIRPLANE PATROL PILOT) athologist Signature C-Peptide 5.4 (H) 0.8 - 3.5 PN SOFT ng/mL Comment: INTERPRETIVE INFORMATION: C-Peptide, Ser um or Plasma Reference Interval applies to fasting sp ecimens. To convert to nmol/L, multiply by 0.33 Performed by [employer], [address] [place] [address] [email or web address], Yosi Cabral MD - Lab . Director Specimen Anatomical Collection Method Collection Time Receive d Time (Source) Location / / Volume Laterality 05/20/2017 12:29 05/20/2017 3:50 PM AIRPLANE PATROL PILOT PM AIRPLANE PATROL PILOT Narrative PN SOFT - 05/21/2017 5:14 PM AIRPLANE PATROL PILOT Performed at [facility] [address] [place] [address] CLIA number [id number] Shama Sutton [facility]_1 Performing Organization Address City/[facility]/ZIP Code Phon e Number PN SOFT [address] [place] [address] (ABNORMAL) Glucose (05/20/2017 12:29 PM AIRPLANE PATROL PILOT) athologist Signature Lab Glucose 183 (H) 70 - 100 PN SOFT mg/dL Comment: The stated glucose range is for the fast ing state. Non-fasting glucose range is 70-180 mg/d L Specimen Anatomical Collection Method Collection Time Receive d Time (Source) Location / / Volume Laterality 05/20/2017 12:29 05/20/2017 PM AIRPLANE PATROL PILOT 12:29 PM AIRPLANE PATROL PILOT Narrative PN SOFT - 05/20/2017 2:39 PM AIRPLANE PATROL PILOT Performed at [facility], [address] [place] [address] CLIA number [id number] Shama Sutton [facility]_1 Performing Organization Address [facility] Phon e Number PN SOFT [address] [place] [address] Glutamic Acid Decarboxylase Antibody (05/20/2017 12:29 PM AIRPLANE PATROL PILOT) Analysis Performed At Patho logist Time Signature [...] the context of clinical symptoms. Performed by [employer], [address] [place] [address] [email or web address], Yosi Cabral MD - Lab . Director Specimen Anatomical Collection Method Collection Time Receive d Time (Source) Location / / Volume Laterality 05/20/2017 12:29 05/20/2017 3:50 PM AIRPLANE PATROL PILOT PM AIRPLANE PATROL PILOT Narrative PN SOFT - 05/22/2017 7:09 PM AIRPLANE PATROL PILOT Performed at [facility] [address] [place] [address] CLIA number [id number] Shama Fox Lesley [facility]_1 Performing Organization Address [facility] Phon e Number PN SOFT [address] [place] [address] TSH (05/20/2017 12:29 PM AIRPLANE PATROL PILOT) athologist Signature Thyroid 1.51 0.30 - PN SOFT Stimulating 4.50 Hormone uIU/mL Specimen Anatomical Collection Method Collection Time Receive d Time (Source) Location / / Volume Laterality 05/20/2017 12:29 05/20/2017 3:50 PM AIRPLANE PATROL PILOT PM AIRPLANE PATROL PILOT Narrative PN SOFT - 05/20/2017 5:12 PM AIRPLANE PATROL PILOT Performed at [address] [address] CLIA number [id number] Shama Fox Lesley [facility]_1 Performing Organization Address [facility] Phon e Number PN SOFT [address] [place] [address] (ABNORMAL) Creatinine (05/20/2017 12:29 PM AIRPLANE PATROL PILOT) Analysis Performed At Patho logist Time Signature [...] / Volume Laterality 05/20/2017 12:29 05/20/2017 PM AIRPLANE PATROL PILOT 12:29 PM AIRPLANE PATROL PILOT Narrative PN SOFT - 05/20/2017 2:39 PM AIRPLANE PATROL PILOT Performed at [facility], [address] [place] [address] CLIA number [id number] Shama WALKER LAB_1 Performing Organization Address City/State/ZIP Code Phon e Number PN CARMELITA [address] [place] [address] documented in this encounter Visit Diagnoses Diagnosis DM type 2, uncontrolled, with neuropathy Type II or unspecified type diabetes pennie litus with neurological manifestations, uncontrolled Essential hypertension (HRC) Unspecified essential hypertension Dyslipidemia (HRC) Other and unspecified hyperlipidemia Vitamin D deficiency (HRC) Unspecified vitamin D deficiency documented in this encounter Care Teams Executor Of Estate Relationship Specialty Start Date End Date Needs Pcp, Assignment PCP - General 05/20/17 03/02/18 [place] [address] documented as of this encounter
--- OUTSIDE RECORDS SUMMARY | 2021-12-27 10:15 | XMS_ITS | Encounter Summary ---
:1955 Author Organization [facility] Address [address] [place] [address] Care Team Providers Name Role Phone Unavailable Primary Care Provider Unavailable Encounter Details Date Type Department Care Team Description 12/27/2021 Clinical Communication Division of Nephrology Kleber Gallardo, and Hypertension in Albert Ramírez, [place], [place] Ph.D. [address] [facility] [address] [place] [address] [phone] Social History Tobacco Use Types Packs/Day Years Used Date Smoking Tobacco: Never Assessed Sex Assigned at Date Recorded Not on file documented as of this encounter Miscellaneous Notes Telephone Encounter - Desiree Phillips M.D., Ph.D. - 12/27/2021 8:47 AM CDT I have contacted patient regarding his lab test done on 12/25/2021. His K+ is 3.9, he has been on lokelma 10 g every other day. He took Lokelma prior to drawing blood for lab test. I have asked him to decrease it to 3 times per week (Thursday, Thursday, Thursday). I have asked him tocontinue on a low potassium diet. His BP is in the 160s/80s. I will increase amlodipine to 10 mg daily. He continues on lasix 20 mg daily. We will recheck labs in 2 weeks. Carmen Gallardo M.D., Ph.D. documented in this encounter Plan of Treatment Not on filedocumented as of this encounter Visit Diagnoses Not on filedocumented in this encounter
--- OUTSIDE RECORDS SUMMARY | 2021-12-27 10:15 | XMS_ITS | Encounter Summary ---
:1955 Author Organization [facility] Address [address] [address] Support Name Relationship Address Phone Andria Stephens Unavailable Unavailable 03/19 Pt Decline Unavailable Unavailable Unavailable Care Team Providers Name Role Phone Needs Pcp, Assignment Primary Care Provider Reason for Visit Reason Comments Medication Questions Encounter Details Date Type Department Care Team Description 11/04/2017 Telephone [facility] [address] Francy Boyd, Med ication Questions Endocrinology PA-C [address] [place] [address] [phone] (Wo rk) Social History Tobacco Use Types [...] on filedocumented in this encounter Care Teams Utility Plant Operative Relationship Specialty Start Date End Date Needs Pcp, Assignment PCP - General 05/20/17 03/02/18 [place] [address] documented as of this encounter
--- OUTSIDE RECORDS SUMMARY | 2021-12-27 10:15 | XMS_ITS | Encounter Summary ---
:1955 Author Organization [employer] Address [address] [place] [address] Support Name Relationship Address Phone Andria Stephens [...] presence unspecified, unspecified laterality, unspecified proliferative retinopathy* ([facility]) (Primary Dx); Endocrinology L, PA-C Essential hypertension; [address] Dyslipidemia; [place], [place] [address] [place] [address] Vitamin D deficiency; [phone] [address] Vitamin B6 deficiency; [phone] Vitamin B12 def iciency (Work) Social History [...] have questions about your appointment, please call [phone]. If you have medical questions or concerns, please contact the triage nurse at [phone]. Thanks for visiting today! documented in this encounter Progress Notes Francy Boyd - 09/23/2017 10:00 AM CDT Images from the original note were not included. [facility]: [address] [place] [address] Clinic: [address] [place] [address] [phone], Nurse Line: [phone] Diabetes Progress Note September 23, 2017 Subjective: [...] deficiencies documented in this encounter Care Teams Transfusion Nurse Relationship Specialty Start Date End Date Needs Pcp, Assignment PCP - General 05/20/17 03/02/18 [place] [address] documented as of this encounter
--- OUTSIDE RECORDS SUMMARY | 2021-12-27 10:15 | XMS_ITS | Encounter Summary ---
:1955 Author Organization [facility] Address [address] [place] [address] Care Team Providers Name Role Phone Unavailable Primary Care Provider Unavailable Encounter Details Date Type Department Care Team Description 12/18/2021 Orders Only Division of Nephrology and Desiree Vann, Hypertension in [place], Ph.D. [address] [place] [address] [phone] (Wo rk) Social History Tobacco Use Types Packs/Day Years Used Date Smoking Tobacco: Never Assessed Sex Assigned at Date Recorded Not on file documented as of this encounter Plan of Treatment Not on filedocumented as of this encounter Visit Diagnoses Not on filedocumented in this encounter
== END 2021-12-17 13:31 | disposition home or self-care (01) ==
LOC: NFLDREF 12-27 10:07
PROVIDERS: PCP Internal Medicine; Visit Provider Internal Medicine Nephrology
DX: N18.9 Chronic kidney disease, unspecified (principal); N25.89 Other disorders resulting from impaired renal tubular function; E11.9 Type 2 diabetes mellitus without complications
CPT/HCPCS: 80069; 87086

== ENCOUNTER 2021-12-25 14:49 | Outpatient (CLI) | payer OTHER, SELFPAY ==
--- OUTSIDE RECORDS SUMMARY | 2021-12-25 13:31 | XMS_ITS | Clinical Summary ---
:1955 Author Organization [facility] Address [address], [place] [address] Support Name Relationship Address Phone Andria Stephens [...] for each transition of care or referral. [facility] Allergies No known active allergies Medications Medication [...] Dates Next Due Influenza IIV4 (Quadrivalent) 0.5mL (26281) 01/12/2018 Social History Tobacco Use Types Packs/Day [...] Microalbumin Hep C Screening (Preventive 1955 Services) PSA Screening Discussion 1955 COVID-19 Vaccine (#1) 1955 Adult Preventive Visit [...] age to complete this topic Care Teams Mother Repairer Relationship Specialty Start Date End Date Anoop Adam MD PCP - General 03/03/181999 [place] [address]
--- OUTSIDE RECORDS SUMMARY | 2021-12-25 13:31 | XMS_ITS | Encounter Summary ---
:1955 Author Organization [facility] Address [address], [place] [address] Support Name Relationship Address Phone Andria Stephens Unavailable Unavailable 03/19 Pt Decline Unavailable Unavailable Unavailable Care Team Providers Name Role Phone Anoop Adam MD Primary Care Provider Reason for Visit Reason Onset Date Comments Refill 03/08/2018 Encounter Details Date Type Department Care Team Description 03/08/[address] [facility] [address] MBBS Refill Endocrinology [address] [facility] [place] [address] [place] [address] [phone] Social History Tobacco Use Types Packs/Day Years [...] User: KARY HATHAWAY LV: 01/12/18 FV: 04/27/18 RVISOR VENEER documented in this encounter Plan of Treatment Not on filedocumented as of this encounter Visit Diagnoses Not on filedocumented in this encounter Care Teams Teleservices Representative Relationship Specialty Start Date End Date Anoop Adam MD PCP - General 03/03/181999 [place] [address] documented as of this encounter
--- OUTSIDE RECORDS SUMMARY | 2021-12-25 13:31 | XMS_ITS | Encounter Summary ---
:1955 Author Organization [facility] Address [address], [place] [address] Support Name Relationship Address Phone Andria Stephens Unavailable Unavailable 03/19 Pt Decline Unavailable Unavailable Unavailable Care Team Providers Name Role Phone Needs Pcp, Assignment Primary Care Provider Encounter Details Date Type Department Care Team Description 07/22/2017 Lab Visit [facility] Vitamin D deficiency; [address] [employer] Vitamin B6 deficiency; [place] [address] Vitamin B12 deficiency [phone] Social History Tobacco Use Types Packs/Day Years [...] Test developed and characteristics deter mined by [facility]. See Compliance Statement B : [facility]/CS Performed by [facility], [address] [place] [id number] [email or web address], Yosi Cabral MD - Lab . Director Specimen Anatomical Collection Method Collection Time Receive d Time (Source) Location / / Volume Laterality 07/22/2017 12:28 07/22/2017 3:48 PM CDT PM CDT Narrative PN SOFT - 07/24/2017 4:56 PM CDT Performed at [facility] [address] [place] [address] CLIA number [id number] Shama Sutton [facility] Performing Organization Address City/[facility]/ZIP Code Phon e Number PN SOFT [address] [place] [address] Vitamin B-12 (07/22/2017 12:28 PM CDT) athologist Signature Vitamin B12 [phone] PN SOFT pg/dL Specimen Anatomical Collection Method Collection Time Receive d Time (Source) Location / / Volume Laterality 07/22/2017 12:28 07/22/2017 3:41 PM CDT PM CDT Narrative PN SOFT - 07/22/2017 5:48 PM CDT Performed at [place] [address] [place] [address] CLIA number [id number] Shama Fox Lesley [facility] Performing Organization Address [facility] Phon e Number PN SOFT [address] [place] [address] Vitamin D (In house) (07/22/2017 12:28 PM [...] - 07/22/2017 5:11 PM CDT Performed at [facility], [address] [place] [address] CLIA number [id number] Shama [facility] Performing Organization Address City/State/ZIP Code Phon e Number PN SOFT [address] [place] [address] [phone] documented in this encounter Visit Diagnoses Diagnosis Vitamin D deficiency (HRC) Unspecified vitamin D deficiency Vitamin B6 deficiency (HRC) Vitamin B6 deficiency Vitamin B12 deficiency (HRC) Other B-complex deficiencies documented in this encounter Care Teams Plateman Relationship Specialty Start Date End Date Needs Pcp, Assignment PCP - General 05/20/17 03/02/18 [place] [address] documented as of this encounter
--- OUTSIDE RECORDS SUMMARY | 2021-12-25 13:31 | XMS_ITS | Encounter Summary ---
:1955 Author Organization [facility] Address [address], [place] [address] Support Name Relationship Address Phone Andria Stephens Unavailable Unavailable 03/19 Pt Decline Unavailable Unavailable Unavailable Care Team Providers Name Role Phone Needs Pcp, Assignment Primary Care Provider Reason for Visit Reason Onset Date Comments Refill 05/22/2017 Encounter Details Date Type Department Care Team Description 05/22/2017 Refill [facility] [address] MBBS Refill Endocrinology [address] [place] [address] [place] [address] [phone] Social History Tobacco Use Types Packs/Day Years [...] may substitute Basaglar as needed basedon insurance RER SYRUP MACHINE documented in this encounter Plan of Treatment Not on filedocumented as of this encounter Visit Diagnoses Diagnosis DM type 2, uncontrolled, with neuropathy Type II or unspecified type diabetes pennie litus with neurological manifestations, uncontrolled Essential hypertension (HRC) Unspecified essential hypertension Dyslipidemia (HRC) Other and unspecified hyperlipidemia Vitamin D deficiency (HRC) Unspecified vitamin D deficiency documented in this encounter Care Teams Multimedia Producer Relationship Specialty Start Date End Date Needs Pcp, Assignment PCP - General 05/20/17 03/02/18 [place] [address] documented as of this encounter
--- OUTSIDE RECORDS SUMMARY | 2021-12-25 13:31 | XMS_ITS | Encounter Summary ---
:1955 Author Organization [facility] Address [address] [place] [address] Support Name Relationship Address Phone Andria Stephens [...] presence unspecified, unspecified laterality, unspecified proliferative retinopathy* ([facility]) (Primary Dx); Endocrinology L, PA-C Essential hypertension; [address] Dyslipidemia; [place], [place] [id number] [place] [address] Vitamin D deficiency; [phone] Vitamin B6 deficiency; [phone] Vitamin B12 def iciency (Work) Social History [...] have questions about your appointment, please call [phone]. If you have medical questions or concerns, please contact the triage nurse at [phone]. Thanks for visiting today! documented in this encounter Progress Notes Francy Boyd - 09/23/2017 10:00 AM CDT Images from the original note were not included. [facility]: [address] [place] [address] Clinic: [address] [place] [address] [phone], Nurse Line: [phone] Diabetes Progress Note September 23, 2017 Subjective: [...] deficiencies documented in this encounter Care Teams Die Repairer Forging Relationship Specialty Start Date End Date Needs Pcp, Assignment PCP - General 05/20/17 03/02/18 [place] [address] documented as of this encounter
--- OUTSIDE RECORDS SUMMARY | 2021-12-25 13:31 | XMS_ITS | Encounter Summary ---
:1955 Author Organization [facility] Address [address] [place] [address] Support Name Relationship Address Phone Andria Stephens Unavailable Unavailable 03/19 Pt Decline Unavailable Unavailable Unavailable Care Team Providers Name Role Phone Anoop Adam MD Primary Care Provider Reason for Visit Reason Onset Date Comments Refill 08/12/2019 insulin pen needle ( BD PEN NEEDLE DARSHANA U/F) 32G X 4 MM Encounter Details Date Type Department Care Team Description 08/12/2019 Refill [facility] [address], Re fill (insulin pen Endocrinology MBBS needle (BD PEN NEEDLE [address] [place] [address] U/F) 32G X 4 MM) [place] [address] [phone] Social History Tobacco Use Types Packs/Day Years [...] nursing once appt is made. Interface, Out Cigital Prov Query - 08/12/2019 11:42 AM CDT [...] two times a day. (unchanged) Powered by [employer], Reference: [id number], 08/12/2019 11:42:15 AM CDT, Pool: ENDO PN REFILL ([id number]) Suki Barragan, RN - 08/12/2019 11:41 AM CDT Images from the original note were not included. documented in this encounter Plan of Treatment Not on filedocumented as of this encounter Visit Diagnoses Not on filedocumented in this encounter Care Teams Filler Wiper Relationship Specialty Start Date End Date Anoop Adam MD PCP - General 03/03/181999 [place] [address] documented as of this encounter
--- OUTSIDE RECORDS SUMMARY | 2021-12-25 13:31 | XMS_ITS | Encounter Summary ---
:1955 Author Organization [facility] Address [address] [place] [address] Support Name Relationship Address Phone Andria Stephens Unavailable Unavailable 03/19 Pt Decline Unavailable Unavailable Unavailable Care Team Providers Name Role Phone Anoop Adam MD Primary Care Provider Reason for Visit Reason Onset Date Comments Refill 05/10/2020 insulin pen needle ( BD PEN NEEDLE DARSHANA U/F) 32G X 4 MM Encounter Details Date Type Department Care Team Description 05/10/2020 Refill [facility] [address], Re fill (insulin pen Endocrinology MBBS needle (BD PEN NEEDLE [address] [place] [address] [place] U/F) 32G X 4 MM) [place] [address] [phone] Social History Tobacco Use Types Packs/Day Years [...] Reason for Refusal: Patient Needs An Appointment ENERGY RATER Interface, Out Surescripts Prov Query - 05/10/2020 [...] two times a day. (unchanged) Powered by [employer], Reference: [id number], 05/10/2020 12:45:05 PM HOME ENERGY RATER, Pool: ENDO PN NURSING TEAM 1 ([id number]) ENERGY RATER documented in this encounter Plan of Treatment Not on filedocumented as of this encounter Visit Diagnoses Not on filedocumented in this encounter Care Teams Shuffle Board Operator Relationship Specialty Start Date End Date Anoop Adam MD PCP - General 03/03/181999 [place] [address] documented as of this encounter
--- OUTSIDE RECORDS SUMMARY | 2021-12-25 13:31 | XMS_ITS | Encounter Summary ---
:1955 Author Organization [facility] Address [address], [place] [address] Support Name Relationship Address Phone Andria Stephens Unavailable Unavailable 03/19 Pt Decline Unavailable Unavailable Unavailable Care Team Providers Name Role Phone Anoop Adam MD Primary Care Provider Reason for Visit Reason Comments Clinician Finder Team Encounter Details Date Type Department Care Team Description 03/03/2018 Telephone [facility] [address] [facility] Pcp, Clinician Finder Team Family Medicine Assignment [address] [facility] [place] [address] [phone] Social History Tobacco Use Types Packs/Day Years [...] on filedocumented in this encounter Care Teams Wellfield Technician Relationship Specialty Start Date End Date Anoop Adam MD PCP - General 03/03/181999 [place] [address] documented as of this encounter
--- OUTSIDE RECORDS SUMMARY | 2021-12-25 13:31 | XMS_ITS | Encounter Summary ---
:1955 Author Organization [facility] Address [address], [place] [address] Support Name Relationship Address Phone Andria Stephens Unavailable Unavailable 03/19 Pt Decline Unavailable Unavailable Unavailable Care Team Providers Name Role Phone Needs Pcp, Assignment Primary Care Provider Reason for Visit Reason Comments Medication Questions Encounter Details Date Type Department Care Team Description 11/04/2017 Telephone [facility] [address] Francy Boyd, Med ication Questions Endocrinology PA-C [address] [place] [address] [phone] (Wo rk) Social History Tobacco Use Types [...] on filedocumented in this encounter Care Teams Concrete Block Layer Relationship Specialty Start Date End Date Needs Pcp, Assignment PCP - General 05/20/17 03/02/18 [place] [address] documented as of this encounter
--- OUTSIDE RECORDS SUMMARY | 2021-12-25 13:31 | XMS_ITS | Encounter Summary ---
:1955 Author Organization [facility] Address [address] [address] Support Name Relationship Address Phone Andria Stephens Unavailable Unavailable 03/19 Pt Decline Unavailable Unavailable Unavailable Care Team Providers Name Role Phone Needs Pcp, Assignment Primary Care Provider Reason for Visit Reason Onset Date Comments Refill 05/25/2017 Encounter Details Date Type Department Care Team Description 05/25/2017 Refill [facility] [address] MBBS Refill Endocrinology [address] [place] [address] [place] [address] [phone] Social History Tobacco Use Types Packs/Day Years [...] review and sign pending rx if approved. 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
--- OUTSIDE RECORDS SUMMARY | 2021-12-25 13:31 | XMS_ITS | Encounter Summary ---
:1955 Author Organization [facility] Address [address] [address] Support Name Relationship Address Phone Andria Stephens Unavailable Unavailable 03/19 Pt Decline Unavailable Unavailable Unavailable Care Team Providers Name Role Phone Needs Pcp, Assignment Primary Care Provider Reason for Visit Reason Comments Medication Questions Encounter Details Date Type Department Care Team Description 12/21/2017 Telephone [facility] [address] Pr dication Questions Endocrinology [facility] [address] [place] [address] [facility] [place] [address] [phone] Social History Tobacco Use Types Packs/Day Years [...] on filedocumented in this encounter Care Teams Station Tender Relationship Specialty Start Date End Date Needs Pcp, Assignment PCP - General 05/20/17 03/02/18 [place] [address] documented as of this encounter
--- OUTSIDE RECORDS SUMMARY | 2021-12-25 13:31 | XMS_ITS | Encounter Summary ---
:1955 Author Organization [facility] Address [address] [address] Support Name Relationship Address Phone Andria Stephens Unavailable Unavailable 03/19 Pt Decline Unavailable Unavailable Unavailable Care Team Providers Name Role Phone Anoop Adam MD Primary Care Provider Reason for Visit Reason Comments MEDICATION REACTION Encounter Details Date Type Department Care Team Description 01/22/2018 Telephone [facility] [address] [place] DICATION REACTION Endocrinology MBBS [address] [facility] [address] [place] [address] [phone] Social History Tobacco Use Types Packs/Day Years [...] agreeable with plan, and no further questions. MOTIVE PRODUCTION WORKER Shama Sutton MBBS - 03/24/2018 9:06 AM CST Lets increase the Lantus to 40 units QHS and work on the diet part, keep Victoza the same. MOTIVE PRODUCTION WORKER Ita Estevez RN - 03/24/2018 8:59 AM [...] for now. Pt can be reached at [phone], Ok to . MOTIVE PRODUCTION WORKER Marivel Ya RN - 01/25/2018 9:44 AM [...] on filedocumented in this encounter Care Teams Cigar Maker Relationship Specialty Start Date End Date Anoop Adam MD PCP - General 03/03/181999 [place] [address] documented as of this encounter
--- OUTSIDE RECORDS SUMMARY | 2021-12-25 13:31 | XMS_ITS | Encounter Summary ---
:1955 Author Organization [facility] Address [address], [place] [address] Support Name Relationship Address Phone Andria Stephens Unavailable Unavailable 03/19 Pt Decline Unavailable Unavailable Unavailable Care Team Providers Name Role Phone Needs Pcp, Assignment Primary Care Provider Encounter Details Date Type Department Care Team Description 08/10/2017 Notes/Orders [facility] [address], Endocrinology [place] [address] [place] [address] [place] [address] [place] [address] [phone] Social History Tobacco Use Types Packs/Day Years [...] on filedocumented in this encounter Care Teams Backend Tester Relationship Specialty Start Date End Date Needs Pcp, Assignment PCP - General 05/20/17 03/02/18 [place] [address] documented as of this encounter
--- OUTSIDE RECORDS SUMMARY | 2021-12-25 13:31 | XMS_ITS | Encounter Summary ---
:1955 Author Organization [facility] Address [address] [address] Support Name Relationship Address Phone Andria Stephens Unavailable Unavailable 03/19 Pt Decline Unavailable Unavailable Unavailable Care Team Providers Name Role Phone Needs Pcp, Assignment Primary Care Provider Reason for Visit Reason Comments Medication Side Effects Encounter Details Date Type Department Care Team Description 10/26/2017 Telephone [facility] [address], Pr dication Side Endocrinology MBBS Effects [address] [facility] [address] [facility] [place] [address] [phone] Social History Tobacco Use Types Packs/Day Years [...] month is very nauseated and has vomiting. [place] better at lower dose, wonders if he should reduced dose or get anti nausea medication. Pt at home #, can leave message documented in this encounter Plan of Treatment Not on filedocumented as of this encounter Visit Diagnoses Not on filedocumented in this encounter Care Teams Seconds Grader Relationship Specialty Start Date End Date Needs Pcp, Assignment PCP - General 05/20/17 03/02/18 [place] [address] documented as of this encounter
--- OUTSIDE RECORDS SUMMARY | 2021-12-25 13:31 | XMS_ITS | Encounter Summary ---
:1955 Author Organization [facility] Address [address], [place] [address] Support Name Relationship Address Phone Andria Stephens Unavailable Unavailable 03/19 Pt Decline Unavailable Unavailable Unavailable Care Team Providers Name Role Phone Needs Pcp, Assignment Primary Care Provider Encounter Details Date Type Department Care Team Description 05/20/2017 Lab Visit Eric Laborator y DM type 2, uncontrolled, wit h neuropathy (HRC); [address] [address] Essential hypertension; [place] [address] Dyslipidemia; [phone] Vitamin D defic iency Social History Tobacco [...] 2, Res ults for this RECOMMENDED) PM BIODIESEL PRODUCTION ASSOCIATE uncontrolled, with procedure are in neuropathy (HRC) the results Essential section. hypertension Dyslipidemia Vitamin D deficiency GLUTAMIC ACID Routine 05/20/2017 12:29 DM type 2, Results fo r this DECARBOXYLASE ANTIBODY PM BIODIESEL PRODUCTION ASSOCIATE uncontrolled, with procedure are in neuropathy (HRC) the results Essential section. hypertension Dyslipidemia Vitamin D deficiency C-PEPTIDE, SERUM Routine 05/20/2017 12:29 DM type 2, Results for this PM BIODIESEL PRODUCTION ASSOCIATE uncontrolled, with procedure are in neuropathy (HRC) the results Essential section. hypertension Dyslipidemia Vitamin D deficiency VITAMIN D 25-HYDROXY, Routine 05/20/2017 12:29 DM type 2, Re sults for this TOTAL PM BIODIESEL PRODUCTION ASSOCIATE uncontrolled, with procedure are in neuropathy (HRC) the results Essential section. hypertension Dyslipidemia Vitamin D deficiency CREATININE / GFR Routine 05/20/2017 12:29 DM type 2, Results for this PM BIODIESEL PRODUCTION ASSOCIATE uncontrolled, with procedure are in neuropathy (HRC) the results Essential section. hypertension Dyslipidemia Vitamin D deficiency TSH, SENSITIVE Routine 05/20/2017 12:29 DM type 2, Results f or this PM BIODIESEL PRODUCTION ASSOCIATE uncontrolled, with procedure are in neuropathy (HRC) the results Essential section. hypertension Dyslipidemia Vitamin D deficiency VITAMIN B12 ONLY Routine 05/20/2017 12:29 DM type 2, Results for this PM BIODIESEL PRODUCTION ASSOCIATE uncontrolled, with procedure are in neuropathy (HRC) the results Essential section. hypertension Dyslipidemia Vitamin D deficiency GLUCOSE - FASTING > 8 Routine 05/20/2017 12:29 DM type 2, Re sults for this HRS FASTING PM BIODIESEL PRODUCTION ASSOCIATE uncontrolled, with procedure are in neuropathy (HRC) the results Essential section. hypertension Dyslipidemia Vitamin D deficiency documented in this encounter Results (ABNORMAL) Vitamin D (In house) (05/20/2017 12:29 PM BIODIESEL PRODUCTION ASSOCIATE) athologist Signature Vitamin D 25 Oh 18 (L) 20 - 80 PN SOFT ng/mL Comment: Deficiency = <20 Adequate ??= 20-29 Preferred = 30-50 Uncertain safety = 51-80 High = >80 Specimen Anatomical Collection Method Collection Time Receive d Time (Source) Location / / Volume Laterality 05/20/2017 12:29 05/20/2017 3:50 PM BIODIESEL PRODUCTION ASSOCIATE PM BIODIESEL PRODUCTION ASSOCIATE Narrative PN SOFT - 05/20/2017 6:25 PM BIODIESEL PRODUCTION ASSOCIATE Performed at [facility] [address] [place] [address] CLIA number [id number] [facility]_1 Performing Organization Address City/State/ZIP Code Phon e Number PN SOFT [address] [place] [address] [phone] (ABNORMAL) Vitamin B6 (8Hr Fast Recommended) (05/20/2017 12:29 PM BIODIESEL PRODUCTION ASSOCIATE) athologist Signature Vitamin B6 19.4 (L) 20.0 - PN SOFT 125.0 nmol/L Comment: INTERPRETIVE INFORMATION: Vitamin B6 (Py ridoxal 5-Phosphate) Pyridoxal 5'-phosphate measured in a spe cimen collected following an 8-hour or overnight fast ac curately indicates vitamin B6 nutritional status. Non-fasti ng specimen concentration reflects recent vitamin in take. Test developed and characteristics deter mined by [facility]. See Compliance Statement B : [facility]/CS Performed by [facility], [address] [place] [address] [email or web address], Yosi Cabral MD - Lab . Director Specimen Anatomical Collection Method Collection Time Receive d Time (Source) Location / / Volume Laterality 05/20/2017 12:29 05/20/2017 3:49 PM BIODIESEL PRODUCTION ASSOCIATE PM BIODIESEL PRODUCTION ASSOCIATE Narrative PN SOFT - 05/23/2017 12:33 AM BIODIESEL PRODUCTION ASSOCIATE Performed at [facility] [address] [address] CLIA number [id number] Shama Fox Lesley [facility]_1 Performing Organization Address City/[facility] Phon e Number PN SOFT [address] [place] [address] (ABNORMAL) Vitamin B-12 (05/20/2017 12:29 PM BIODIESEL PRODUCTION ASSOCIATE) athologist Signature Vitamin B12 168 (L) 213 - 816 PN SOFT pg/dL Specimen Anatomical Collection Method Collection Time Receive d Time (Source) Location / / Volume Laterality 05/20/2017 12:29 05/20/2017 3:50 PM BIODIESEL PRODUCTION ASSOCIATE PM BIODIESEL PRODUCTION ASSOCIATE Narrative PN SOFT - 05/20/2017 6:56 PM BIODIESEL PRODUCTION ASSOCIATE Performed at [address] [address] CLIA number [id number] Shama Fox Lesley [facility] LAB_1 Performing Organization Address [facility] Phon e Number PN SOFT [address] [place] [address] (ABNORMAL) C-Peptide, Serum (05/20/2017 12:29 PM BIODIESEL PRODUCTION ASSOCIATE) athologist Signature C-Peptide 5.4 (H) 0.8 - 3.5 PN SOFT ng/mL Comment: INTERPRETIVE INFORMATION: C-Peptide, Ser um or Plasma Reference Interval applies to fasting sp ecimens. To convert to nmol/L, multiply by 0.33 Performed by [facility], [address] [place] [address] [email or web address], Yosi Cabral MD - Lab . Director Specimen Anatomical Collection Method Collection Time Receive d Time (Source) Location / / Volume Laterality 05/20/2017 12:29 05/20/2017 3:50 PM BIODIESEL PRODUCTION ASSOCIATE PM BIODIESEL PRODUCTION ASSOCIATE Narrative PN SOFT - 05/21/2017 5:14 PM BIODIESEL PRODUCTION ASSOCIATE Performed at [facility] [address] [place] [address] CLIA number [id number] Shama Sutton [facility] LAB_1 Performing Organization Address City/[facility]/ZIP Code Phon e Number PN SOFT [address] [place] [address] (ABNORMAL) Glucose (05/20/2017 12:29 PM BIODIESEL PRODUCTION ASSOCIATE) athologist Signature Lab Glucose 183 (H) 70 - 100 PN SOFT mg/dL Comment: The stated glucose range is for the fast ing state. Non-fasting glucose range is 70-180 mg/d L Specimen Anatomical Collection Method Collection Time Receive d Time (Source) Location / / Volume Laterality 05/20/2017 12:29 05/20/2017 PM BIODIESEL PRODUCTION ASSOCIATE 12:29 PM BIODIESEL PRODUCTION ASSOCIATE Narrative PN SOFT - 05/20/2017 2:39 PM BIODIESEL PRODUCTION ASSOCIATE Performed at [facility], [address] [place] [address] CLIA number [id number] Shama Sutton [facility] LAB_1 Performing Organization Address [facility] Phon e Number PN SOFT [address] [place] [address] Glutamic Acid Decarboxylase Antibody (05/20/2017 12:29 PM BIODIESEL PRODUCTION ASSOCIATE) Analysis Performed At Patho logist Time [...] the context of clinical symptoms. Performed by [facility], [address] [place] [address] [email or web address], Yosi Cabral MD - Lab . Director Specimen Anatomical Collection Method Collection Time Receive d Time (Source) Location / / Volume Laterality 05/20/2017 12:29 05/20/2017 3:50 PM BIODIESEL PRODUCTION ASSOCIATE PM BIODIESEL PRODUCTION ASSOCIATE Narrative PN SOFT - 05/22/2017 7:09 PM BIODIESEL PRODUCTION ASSOCIATE Performed at [facility] [address] [place] [address] CLIA number [id number] Shama Fox Lesley [facility]_1 Performing Organization Address [facility] Phon e Number PN SOFT [address] [place] [address] TSH (05/20/2017 12:29 PM BIODIESEL PRODUCTION ASSOCIATE) athologist Signature Thyroid 1.51 0.30 - PN SOFT Stimulating 4.50 Hormone uIU/mL Specimen Anatomical Collection Method Collection Time Receive d Time (Source) Location / / Volume Laterality 05/20/2017 12:29 05/20/2017 3:50 PM BIODIESEL PRODUCTION ASSOCIATE PM BIODIESEL PRODUCTION ASSOCIATE Narrative PN SOFT - 05/20/2017 5:12 PM BIODIESEL PRODUCTION ASSOCIATE Performed at [address] [address] CLIA number [id number] Shama Fox Lesley [facility] LAB_1 Performing Organization Address [facility] Phon e Number PN SOFT [address] [place] [address] (ABNORMAL) Creatinine (05/20/2017 12:29 PM BIODIESEL PRODUCTION ASSOCIATE) Analysis Performed At Patho logist Time [...] / Volume Laterality 05/20/2017 12:29 05/20/2017 PM BIODIESEL PRODUCTION ASSOCIATE 12:29 PM BIODIESEL PRODUCTION ASSOCIATE Narrative PN SOFT - 05/20/2017 2:39 PM BIODIESEL PRODUCTION ASSOCIATE Performed at [facility], [address] [place] [address] CLIA number [id number] [facility]_1 Performing Organization Address City/State/ZIP Code Phon e Number PN CARMELITA [address] [place] [address] documented in this encounter Visit Diagnoses Diagnosis DM type 2, uncontrolled, with neuropathy Type II or unspecified type diabetes pennie litus with neurological manifestations, uncontrolled Essential hypertension (HRC) Unspecified essential hypertension Dyslipidemia (HRC) Other and unspecified hyperlipidemia Vitamin D deficiency (HRC) Unspecified vitamin D deficiency documented in this encounter Care Teams Credit Underwriter Relationship Specialty Start Date End Date Needs Pcp, Assignment PCP - General 05/20/17 03/02/18 [place] [address] documented as of this encounter
--- OUTSIDE RECORDS SUMMARY | 2021-12-25 13:31 | XMS_ITS | Encounter Summary ---
:1955 Author Organization [facility] Address [address], [place] [address] Support Name Relationship Address Phone Andria Stephens [...] Dx); Endocrinology M, MBBS Vitamin D deficiency; [address] Vitamin B6 deficiency; [place] [address] BLVD Vitamin B12 deficiency; [phone] [place], [place] Essential hypertension; [address] Dyslipidemia; [phone] Controlled type 2 diabetes with neuropathy (HRC) [...] Sutton MBBS - 07/22/2017 11:45 AM CDT [facility] Department of Endocrinology, Diabetes and [...] in the HPI. Assessment and Plan: Rolf Haeton is a 62 y.o. male: #1 T2DM: [...] Dyslipidemia: Continue ASA and Simvastatin. DENISE Otto Hatch Supervisor documented in this encounter Plan of Treatment [...] Test developed and characteristics deter mined by [facility]. See Compliance Statement B : [facility]/CS Performed by [facility], [address] [place] [address] [email or web address], Yosi Cabral MD - Lab . Director Specimen Anatomical Collection Method Collection Time Receive d Time (Source) Location / / Volume Laterality 07/22/2017 12:28 07/22/2017 3:48 PM CDT PM CDT Narrative PN SOFT - 07/24/2017 4:56 PM CDT Performed at [facility] [address] [place] [address] CLIA number [id number] Shama KINNEY [facility]_1 Performing Organization Address [facility] Phon e Number PN SOFT [address] [place] [address] Vitamin B-12 (07/22/2017 12:28 PM CDT) athologist Signature Vitamin B12 511 213 - 816 PN SOFT pg/dL Specimen Anatomical Collection Method Collection Time Receive d Time (Source) Location / / Volume Laterality 07/22/2017 12:28 07/22/2017 3:41 PM CDT PM CDT Narrative PN SOFT - 07/22/2017 5:48 PM CDT Performed at [facility] [address] [place] [address] CLIA number [id number] Sh[facility]_1 Performing Organization Address [facility] Phon e Number PN SOFT [address] [place] [address] Vitamin D (In house) (07/22/2017 12:28 PM [...] - 07/22/2017 5:11 PM CDT Performed at [facility], [address] [place] [address] CLIA number [id number] Sh[facility] WALK[facility]_1 Performing Organization Address City/State/ZIP Code Phon e Number PN CARMELITA [address] [place] [address] documented in this encounter Visit Diagnoses Diagnosis [...] deficiencies documented in this encounter Care Teams Mock Up Assembler Relationship Specialty Start Date End Date Needs Pcp, Assignment PCP - General 05/20/17 03/02/18 [place] [address] documented as of this encounter
--- OUTSIDE RECORDS SUMMARY | 2021-12-25 13:32 | XMS_ITS | Clinical Summary ---
:1955 Author Organization [facility] Address [address] [place] [address] Care Team Providers Name Role Phone Unavailable Primary Care Provider Unavailable Source Comments Patient records contain information from all sites at [facility]. For routine questions regarding patient records, call [phone] during business hours, M-F 8:00 AM - 5:00 PM Central Time. Record requests for emergency care only can be directed to [phone] at any time.[facility] Medications Medication Sig Dispensed Refills Start Date End Date Status furosemide (LASIX) Take 1 90 tablet 3 12/10/2021 Active 20 mg tablet tablet (20 3 mg total) by mouth daily. sodium zirconium Take 10 g by 30 packet 11 12/10/2021 Active cyclosilicate mouth daily. 3 (LOKELMA) 10 gram powder in packet packet amLODIPine Take 1 90 tablet 3 12/18/2021 Active (NORVASC) 5 mg tablet (5 mg 3 tablet total) by mouth daily. sodium zirconium Take 10 g by 30 packet 11 12/10/2021 Discontinued cyclosilicate mouth daily. 2 (Re order) (LOKELMA) 10 gram powder in packet packet furosemide (LASIX) Take 1 90 tablet 3 12/10/2021 Discontinued 20 mg tablet tablet (20 2 (Reord er) mg total) by mouth daily. amLODIPine Take 1 90 tablet 3 12/10/2021 Disconti nued (NORVASC) 2.5 mg tablet (2.5 2 ( Reorder) tablet mg total) by mouth daily. amLODIPine Take 1 90 tablet 3 12/12/2021 Disconti nued (NORVASC) 2.5 mg tablet (2.5 2 ( Reorder) tablet mg total) by mouth daily. Encounters Date Type Specialty Care Team Description 12/18/2021 Orders Only Nephrology and [place] Hypertension Desiree Gallardo M.D., Ph.D. 12/18/2021 Clinical Nephrology and Kle[place] Abnormal Pota ssium Communication Hypertension Desiree Gallardo M.D., Ph.D. 12/10/2021 External Outreach Nephrology and Kleber Hyperkal emia (Primary Dx); Hypertension Desiree Gallardo, Chronic Kidne y Disease (CKD), Stage 3b Glomerular Filtration Rate (GFR) 30 To 44 (HCC); Albert, Ph.D. Hypertension Es sential Primary from Last 3 Months Social History Tobacco Use Types Packs/Day Years Used Date Smoking Tobacco: Never Assessed Sex Assigned at Date Recorded Not on file Plan of Treatment Health Maintenance Due Date Last Done Comments CT Colonography 1955 Cologuard 1955 Colonoscopy 1955 Colorectal Cancer Screening 1955 Creatinine Level 1955 FIT 1955 Fasting Glucose for Diabetes 1955 Screening Hepatitis C Screening 1955 Potassium Level 1955 Sodium Level 1955 Pneumococcal vaccine (65+ years) 01/04/2011 01/04/2010 (2 - PCV) Zoster Vaccines (2 of 3) 06/12/2016 04/17/2016 DTaP,Tdap,and Td Vaccines (2 - Td 12/08/2019 12/07/2009 or Tdap) COVID-19 Vaccine (4 - Booster for 03/29/2021 02/01/2021, , Pfizer series) 06/12/2020 Depression Screening (Annual 03/30/2021 PHQ-2) Fall Risk Screen (Annual) 03/30/2021 Influenza Vaccine (#1) 2021 02/13/2021, 03/01/2020, 03/11/2019, Additional history exists Insurance Payer Benefit Plan / Subscriber ID Effective Dates Phone Addre ss Type Group UCARE UCARE FOR [id number] 2020-Present [phone] [address] [place] [address] ([place]) [address] [address]
--- OUTSIDE RECORDS SUMMARY | 2021-12-25 13:32 | XMS_ITS | Encounter Summary ---
:1955 Author Organization [facility] Address [address] [place] [address] Care Team Providers Name Role Phone Unavailable Primary Care Provider Unavailable Reason for Visit Reason Comments Abnormal Potassium Encounter Details Date Type Department Care Team Description 12/18/2021 Clinical Division of [facility] Communication Nephrology and Desiree Gallardo, Hypertension in [place] Ph.D. [place], [place] [address] [facility] [address] [place] [address] [phone] Social History Tobacco Use Types Packs/Day Years Used Date Smoking Tobacco: Never Assessed Sex Assigned at Date Recorded Not on file documented as of this encounter Miscellaneous Notes Telephone Encounter - Desiree Phillips M.D., Ph.D. - 12/18/2021 3:55 PM CDT I have reviewed labs from today and called patient with results. His potassium has normalized, and it is down to 4.1. I have asked him to change his frequency of lokelma to every other day. We will repeat labs in 1 week. Patient to discontinue taking lasix. He will increase amlodipine to 5 mg daily. Carmen Gallardo M.D., Ph.D. Telephone Encounter - AraceliSharita - 12/18/2021 3:42 PM CDT Caller is: patient Preferred Communication Method: [phone] Reason for call: Lab/Test Results: What results are they looking for? potassium When was the test completed? Dec 17 Where was the testing completed? [facility] Patient is wondering what the potassium was and if any recommendations? documented in this encounter Plan of Treatment Not on filedocumented as of this encounter Visit Diagnoses Not on filedocumented in this encounter
--- OUTSIDE RECORDS SUMMARY | 2021-12-25 13:32 | XMS_ITS | Encounter Summary ---
:1955 Author [facility] Address [address] [address] Support Name Relationship Address Phone Andria Stephens Unavailable Unavailable 03/19 Pt Decline Unavailable Unavailable Unavailable Care Team Providers Name Role Phone Needs Pcp, Assignment Primary Care Provider Reason for Visit Reason Comments Appt. Needed Faxed referral rec from Dr.G uma Marcano from [facility] Dx: DM2 Encounter Details Date Type Department Care Team Description 03/19/2017 Telephone [facility] [address] Nurse, [id number] End Appt. Needed (Faxed Endocrinology [address] [facility] referral rec from [address] [facility] [address]Gail Marcano from [facility]. 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
--- OUTSIDE RECORDS SUMMARY | 2021-12-25 13:32 | XMS_ITS | Encounter Summary ---
:1955 Author Organization [employer] Address [address] [place] [address] Support Name Relationship Address Phone Andria Stephens Unavailable Unavailable 03/19 Pt Decline Unavailable Unavailable Unavailable Care Team Providers Name Role Phone Needs Pcp, Assignment Primary Care Provider Reason for Visit Reason Comments Diabetes Encounter Details Date Type Department Care Team Description 05/20/2017 Initial Consult Shama Ramirez DM type 2, uncontrolled, with neuropathy (HRC) (Primary Dx); Endocrinology DENISE Fox Essential hypertension; [address] [address] ANA ROSA ZAYAS Dyslipidemia; [place] [address] BLVD Vitamin D deficiency [phone] [place], [place] [address] Social History Tobacco Use Types Packs/Day Years Used Date Smoking Tobacco: Never Smokeless Tobacco: Never Alcohol Use Standard Drinks/Week Comments No 0 (1 standard drink = 0.6 oz pure alcoho l) Sex Assigned at Date Recorded Not on file documented as of this encounter Last Filed Vital Signs Vital Sign Reading Time Taken Comments Blood Pressure 112/58 05/20/2017 11:34 AM TAX APPRAISER Pulse 76 05/20/2017 11:34 AM TAX APPRAISER Temperature - - Respiratory Rate - - Oxygen Saturation - - Inhaled Oxygen Concentration - - Weight 89.8 kg (198 lb) 05/20/2017 11:34 AM TAX APPRAISER Height 188 cm (6' 2) 05/20/2017 11:34 AM TAX APPRAISER Body Mass Index 25.42 05/20/2017 11:34 AM TAX APPRAISER documented in this encounter Progress Notes Shama Sutton MBBS - 05/20/2017 11:30 AM CST Ana Rosa Zayas [facility] Department of Endocrinology, Diabetes and Metabolism Clinic [...] >50% was spent on counseling. DENISE Otto Chisel Trimmer APPRAISER documented in this encounter Plan of Treatment Not on filedocumented as of this encounter Procedures Procedure Name Priority Date/Time Associated Comments Diagnosis POCT GLYCOSYLATED Routine 05/20/2017 3:35 PM DM type 2, Resu lts for this HEMOGLOBIN (HGB A1C) TAX APPRAISER uncontrolled, with p rocedure are in neuropathy (HRC) the results Essential section. hypertension Dyslipidemia Vitamin D deficiency documented in this encounter Results (ABNORMAL) POCT glycosylated hemoglobin (Hb A1C) (05/20/2017 3:35 PM TAX APPRAISER) P athologist Signature Hemoglobin A1C, 9.6 (A) 4 - 5.6 % PN POCT POC Cartridge Lot# [id number] PN POCT Specimen (Source) Anatomical Collection Method Collection Time Re ceived Time Location / / Volume Laterality Blood specimen 05/20/2017 3:35 PM (specimen) TAX APPRAISER Shama WALKER PN POINT OF CARE TESTS Performing Organization Address City/State/ZIP Code Phon e Number POCT PN POCT (ABNORMAL) Vitamin D (In house) (05/20/2017 12:29 PM TAX APPRAISER) P athologist Signature Vitamin D 25 Oh 18 (L) 20 - 80 PN SOFT ng/mL Comment: Deficiency = <20 Adequate ??= 20-29 Preferred = 30-50 Uncertain safety = 51-80 High = >80 Specimen Anatomical Collection Method Collection Time Receive d Time (Source) Location / / Volume Laterality 05/20/2017 12:29 05/20/2017 3:50 PM TAX APPRAISER PM TAX APPRAISER Narrative PN SOFT - 05/20/2017 6:25 PM TAX APPRAISER Performed at [facility] [address] [place] [address] CLIA number [id number] Shama Sutton DENISE LAB_1 Performing Organization Address City/[facility]/ZIP Code Phon e Number PN SOFT [address] [place] [address] (ABNORMAL) Vitamin B6 (8Hr Fast Recommended) (05/20/2017 12:29 PM TAX APPRAISER) athologist Signature Vitamin B6 19.4 (L) 20.0 - PN SOFT 125.0 nmol/L Comment: INTERPRETIVE INFORMATION: Vitamin B6 (Py ridoxal 5-Phosphate) Pyridoxal 5'-phosphate measured in a spe cimen collected following an 8-hour or overnight fast ac curately indicates vitamin B6 nutritional status. Non-fasti ng specimen concentration reflects recent vitamin in take. Test developed and characteristics deter mined by [employer]. See Compliance Statement B : [facility] Performed by [employer], [address] [place] [address] www.[facility], Yosi Cabral MD - Lab . Director Specimen Anatomical Collection Method Collection Time Receive d Time (Source) Location / / Volume Laterality 05/20/2017 12:29 05/20/2017 3:49 PM TAX APPRAISER PM TAX APPRAISER Narrative PN SOFT - 05/23/2017 12:33 AM TAX APPRAISER Performed at [facility] [facility] [address] [place] [address] CLIA number [id number] Shama Jorgeavi WALKER LAB_1 Performing Organization Address City/[facility]/ZIP Code Phon e Number PN SOFT [address] [place] [address] (ABNORMAL) Vitamin B-12 (05/20/2017 12:29 PM TAX APPRAISER) athologist Signature Vitamin B12 168 (L) 213 - 816 PN SOFT pg/dL Specimen Anatomical Collection Method Collection Time Receive d Time (Source) Location / / Volume Laterality 05/20/2017 12:29 05/20/2017 3:50 PM TAX APPRAISER PM TAX APPRAISER Narrative PN SOFT - 05/20/2017 6:56 PM TAX APPRAISER Performed at [facility] [address] [place] [address] CLIA number [id number] Shama Sutton NIRMAL LAB_1 Performing Organization Address [facility] Phon e Number PN SOFT [address] [place] [address] (ABNORMAL) C-Peptide, Serum (05/20/2017 12:29 PM TAX APPRAISER) P athologist Signature C-Peptide 5.4 (H) 0.8 - 3.5 PN SOFT ng/mL Comment: INTERPRETIVE INFORMATION: C-Peptide, Ser um or Plasma Reference Interval applies to fasting sp ecimens. To convert to nmol/L, multiply by 0.33 Performed by [employer], [address] [place] [address] www.[facility], Yosi Cabral MD - Lab . Director Specimen Anatomical Collection Method Collection Time Receive d Time (Source) Location / / Volume Laterality 05/20/2017 12:29 05/20/2017 3:50 PM TAX APPRAISER PM TAX APPRAISER Narrative PN SOFT - 05/21/2017 5:14 PM TAX APPRAISER Performed at [facility] [facility] [address] [place] [address] CLIA number [id number] Shama Samal WALKER LAB_1 Performing Organization Address [facility] Phon e Number PN SOFT [address] [place] [address] (ABNORMAL) Glucose (05/20/2017 12:29 PM TAX APPRAISER) athologist Signature Lab Glucose 183 (H) 70 - 100 PN SOFT mg/dL Comment: The stated glucose range is for the fast ing state. Non-fasting glucose range is 70-180 mg/d L Specimen Anatomical Collection Method Collection Time Receive d Time (Source) Location / / Volume Laterality 05/20/2017 12:29 05/20/2017 PM TAX APPRAISER 12:29 PM TAX APPRAISER Narrative PN SOFT - 05/20/2017 2:39 PM TAX APPRAISER Performed at [facility], [address] [place] [address] CLIA number [id number] Shama [place]mike [facility]_1 Performing Organization Address [facility] Phon e Number PN SOFT [address] [place] [address] Glutamic Acid Decarboxylase Antibody (05/20/2017 12:29 PM TAX APPRAISER) Analysis Performed At Patho logist Time Signature [...] the context of clinical symptoms. Performed by [employer], [address] [place] [address] www.[facility], Yosi Cabral MD - Lab . Director Specimen Anatomical Collection Method Collection Time Receive d Time (Source) Location / / Volume Laterality 05/20/2017 12:29 05/20/2017 3:50 PM TAX APPRAISER PM TAX APPRAISER Narrative PN SOFT - 05/22/2017 7:09 PM TAX APPRAISER Performed at [facility] [facility] [address] [place] [address] CLIA number [id number] Shama Fox Lesley [facility]_1 Performing Organization Address [facility] Phon e Number PN SOFT [address] [place] [address] TSH (05/20/2017 12:29 PM TAX APPRAISER) P athologist Signature Thyroid 1.51 0.30 - PN SOFT Stimulating 4.50 Hormone uIU/mL Specimen Anatomical Collection Method Collection Time Receive d Time (Source) Location / / Volume Laterality 05/20/2017 12:29 05/20/2017 3:50 PM TAX APPRAISER PM TAX APPRAISER Narrative PN SOFT - 05/20/2017 5:12 PM TAX APPRAISER Performed at [facility], [address] [place] [address] CLIA number [id number] Shama Fox Leslye WALKER LAB_1 Performing Organization Address [facility] Phon e Number PN SOFT [address] [place] [address] [phone] (ABNORMAL) Creatinine (05/20/2017 12:29 PM TAX APPRAISER) Analysis Performed At [facility] Time Signature Creatinine 1.20 (H) 0.73 [...] / Volume Laterality 05/20/2017 12:29 05/20/2017 PM TAX APPRAISER 12:29 PM TAX APPRAISER Narrative PN SOFT - 05/20/2017 2:39 PM TAX APPRAISER Performed at [facility], [address] [place], [place] [address] CLIA number [id number] Shama Fox Lesley WALKER LAB_1 Performing Organization Address [facility] Phon e Number PN SOFT [address] [place] [address] documented in this encounter Visit Diagnoses Diagnosis [...] deficiency documented in this encounter Care Teams Employment Assistant Relationship Specialty Start Date End Date Needs Pcp, Assignment PCP - General 05/20/17 03/02/18 [place] [address] documented as of this encounter
--- OUTSIDE RECORDS SUMMARY | 2021-12-25 13:32 | XMS_ITS | Encounter Summary ---
:1955 Author Organization [facility] Address [address] [place] [address] Care Team Providers Name Role Phone Unavailable Primary Care Provider Unavailable Reason for Visit Appointment Request (Routine) - Closed Specialty Diagnoses / Procedures Referred By Contact Refer red To Contact Nephrology and Anoop Adam Hypertension M.D. [address] [place] [address] Referral ID Status Reason Start Date Expiration Date Visits Requ ested Visits Authorized [id number] Closed 12/06/2021 12/06/2022 1 Encounter Details Date Type Department Care Team Description 12/10/2021 External Outreach Division of Kleber Gallardo, Linda franco (Primary Dx); Nephrology and Albert Ramírez, Chronic Kidne y Disease (CKD), Stage 3b Glomerular Filtration Rate (GFR) 30 To 44 (HCC); Hypertension in Ph.D. Hypertension Essential Primary [place], [place] [address] [facility] [address] [place] [address] [phone] Social History Tobacco Use Types Packs/Day Years Used Date Smoking Tobacco: Never Assessed Sex Assigned at Date Recorded Not on file documented as of this encounter Consult Notes Desiree Phillips M.D., Ph.D. - 12/10/2021 2:00 PM CDT Referring Provider: Anoop Adam M.D. SUBJECTIVE REASON FOR CONSULT CKD and hyperkalemia management. HISTORY OF PRESENT ILLNESS Mr. Heaton is a 66-year-old gentleman with long-standing history of diabetes diagnosed about 10-12 years ago, originally treated with metformin. More recently this has been discontinued due to his CKD. He is currently managing it with insulin. He has been found to have hyperkalemia as high as 7.1. At that time his lisinopril was discontinued (he was taking lisinopril 20 mg on a daily basis). He was also recommended to start Lasix every other day. He had close monitoring of his potassium, and it is currently down to 6.6. He follows a low salt diet. He checks his blood pressure regularly at home, and it has been ranging in the 140s/70s. He has beenrecommended to limit his fruits and vegetables intake, especially those on foods that have a high content in potassium. Due to his diabetes, his diet has become very restrictive. He usually does not drink plenty of fluids. He used to drink Gatorade. Overall, he feels well and does not have any current concerns. Patient has not noticed any lightheadedness, dizziness, vision changes, diaphoresis, chest pain, difficulty breathing, or edema. Patient has not noticed any changes in urinary habits. No hesitancy to urinate, no difficulty to urinate. Past Surgical History: Procedure Laterality Date OTHER CONVERTED SHX (SEE COMMENT) N/A 08/13/1995 >Bilateral partial vasectomy in the office Active Home Medications Medication Sig Taking amLODIPine (NORVASC) 2.5 mg tablet Take 1 tablet (2.5 mg total) by mouth daily. furosemide (LASIX) 20 mg tablet Take 1 tablet (20 mg total) by mouth daily. sodium zirconium cyclosilicate (LOKELMA) 10 gram powder in packet packet Take 10 g by mouth daily. Social History Tobacco Use Smoking status: Not on file Smokeless tobacco: Not on file Substance Use Topics Alcohol use: Not on file No family history on file. REVIEW OF SYSTEMS All other systems were reviewed and are negative, rest as per HPI. OBJECTIVE VITAL SIGNS Blood pressure 132/64. Pulse 81. PHYSICAL EXAMINATION General: No acute distress, breathing comfortably. Heart: Regular rate and rhythm. No murmurs, rubs or gallops. Respiratory: Regular inspiratory effort. No wheezes, no rhonchi. Abdomen: Soft, not tender, not distended. Present bowel sounds. Extremities: Full range of motion. Normal gait. No edema in lower extremities Neuro: No focal deficits. Alert and oriented X 4. Skin: Warm. No rashes. Psych: Answers questions appropriately. No signs of anxiety or depression noted. DIAGNOSTICS Labs: I have reviewed available labs in detail with patient. ASSESSMENT / PLAN #1 CKD stage 3 in the setting of diabetes #2 Hypertension management #3 Hyperkalemia management The patient was referred to Nephrology for evaluation of his hyperkalemia. 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 His potassium is trending down slowly. However, it remains elevated. Recentlyhe has increased his insulin use by 5 units, and he continues on a sliding scale for short-acting insulin. He is on Lasix 20 mg every other day. I will add Lokelma 10 g daily for a week and continue tocheck his laboratory workup monitoring on a weekly basis. Once potassium has reached normal levels, we may decrease the use of Lokelma to every other day. I will see him back in 1 month for further evaluation. CKD is likely associated with long-standing diabetes and hypertension. We discussed about the importance of controlling his blood pressure. He will continue on treatment with Lasix, and I will add amlodipine 5 mg daily to his current regimen for blood pressure control as his lisinopril continues to be held. BP goal is systolic readings between 100-130 mmHg and diastolic readings between 60-80 mmHg. I have recommended patient to check BP regularly at home, to keep a record of blood pressure readings. If BPis still not at goal, medications should be adjusted. We discussed about salt intake and our recommendation to limit sodium intake, to less than 2000 mg per day. Carmen Gallardo M.D., Ph.D. CT CT Job ID: [id number]/brandon documented in this encounter Plan of Treatment Not on filedocumented as of this encounter Visit Diagnoses Diagnosis Hyperkalemia - Primary Chronic Kidney Disease (CKD), Stage 3b G lomerular Filtration Rate (GFR) 30 To 44 (HCC) Hypertension Essential Primary documented in this encounter
[2021-12-25 16:09] LABS: Albumin* 4.1 g/dL (3.3-5.0); Chloride* 102 mmol/L (96-114); Sodium* 138 mmol/L (135-149)
[2021-12-25 16:10] LABS: Potassium* 3.9 mmol/L (3.6-5.1)
[2021-12-25 16:12] LABS: Carbon Dioxide* 26 mmol/L (20-32); Creatinine* 1.5 mg/dL (0.5-1.5); Estimated Glomerular Filt Rate 51 ml/min
[2021-12-25 16:13] LABS: Blood Urea Nitrogen* 37 mg/dL (7-30); Calcium* 8.7 mg/dL (8.4-10.6); Glucose* 162 mg/dL (60-115); Phosphorus* 3.5 mg/dL (2.5-4.5)
[2021-12-25 16:30] LABS: Creatinine Urine 74.5 mg/dL
[2021-12-25 18:02] LABS: Microalbumin Creatinine Ratio 510 mg/g (0-30); Microalbumin Urine 38 mg/dL
== END 2021-12-25 14:50 | disposition home or self-care (01) ==
PROVIDERS: PCP Internal Medicine; Visit Provider Internal Medicine Nephrology
DX: E87.5 Hyperkalemia (principal); I10 Essential (primary) hypertension; N18.9 Chronic kidney disease, unspecified
CPT/HCPCS: 80069; 82043; 82570

== ENCOUNTER 2022-01-09 08:58 | Outpatient (CLI) | payer MEDICARE, SELFPAY ==
--- OUTSIDE RECORDS SUMMARY | 2022-01-09 09:01 | XMS_ITS | Encounter Summary ---
:1955 Author Organization [facility] Address [address], [place] [address] Support Name Relationship Address Phone Andria Stephens Unavailable Unavailable 03/19 Pt Decline Unavailable Unavailable Unavailable Care Team Providers Name Role Phone Anoop Adam MD Primary Care Provider Reason for Visit Reason Comments Clinician Finder Team Encounter Details Date Type Department Care Team Description 03/03/2018 Telephone [facility] [address] [facility] Pcp, Clinician Finder Team Family Medicine Assignment [address] [facility] [place] [address] [phone] Social History Tobacco Use Types Packs/Day Years [...] on filedocumented in this encounter Care Teams Record Clerk Salesperson Relationship Specialty Start Date End Date Anoop Adam MD PCP - General 03/03/181999 [place] [address] documented as of this encounter
--- OUTSIDE RECORDS SUMMARY | 2022-01-09 09:01 | XMS_ITS | Encounter Summary ---
:1955 Author Organization [employer] Address [address], [place] [address] Support Name Relationship Address Phone Andria Stephens Unavailable Unavailable 03/19 Pt Decline Unavailable Unavailable Unavailable Care Team Providers Name Role Phone Needs Pcp, Assignment Primary Care Provider Reason for Visit Reason Onset Date Comments Refill 05/22/2017 Encounter Details Date Type Department Care Team Description 05/22/2017 Refill [facility] [address] Magaly Sutton MBBS Refill Endocrinology [address] [place] [address] [place] [address] [phone] Social History Tobacco Use Types Packs/Day Years [...] may substitute Basaglar as needed basedon insurance F LIBRARIAN [place] OR DEPARTMENT documented in this encounter Plan of Treatment Not on filedocumented as of this encounter Visit Diagnoses Diagnosis DM type 2, uncontrolled, with neuropathy Type II or unspecified type diabetes pennie litus with neurological manifestations, uncontrolled Essential hypertension (HRC) Unspecified essential hypertension Dyslipidemia (HRC) Other and unspecified hyperlipidemia Vitamin D deficiency (HRC) Unspecified vitamin D deficiency documented in this encounter Care Teams Peanut Picker Relationship Specialty Start Date End Date Needs Pcp, Assignment PCP - General 05/20/17 03/02/18 [place] [address] documented as of this encounter
--- OUTSIDE RECORDS SUMMARY | 2022-01-09 09:01 | XMS_ITS | Encounter Summary ---
:1955 Author Organization [facility] Address [address], [place] [address] Support Name Relationship Address Phone Andria Stephens Unavailable Unavailable 03/19 Pt Decline Unavailable Unavailable Unavailable Care Team Providers Name Role Phone Needs Pcp, Assignment Primary Care Provider Reason for Visit Reason Comments Medication Questions Encounter Details Date Type Department Care Team Description 12/21/2017 Telephone [facility] [address] Shama Sutton Dc dication Questions Endocrinology [facility] [address] [place] [place] [address] [phone] Social History Tobacco Use Types Packs/Day Years [...] on filedocumented in this encounter Care Teams Gas Station Supervisor Relationship Specialty Start Date End Date Needs Pcp, Assignment PCP - General 05/20/17 03/02/18 [place] [address] documented as of this encounter
--- OUTSIDE RECORDS SUMMARY | 2022-01-09 09:01 | XMS_ITS | Encounter Summary ---
:1955 Author Organization [employer] Address [address], [place] [address] Support Name Relationship Address Phone Andria Stephens Unavailable Unavailable 03/19 Pt Decline Unavailable Unavailable Unavailable Care Team Providers Name Role Phone Needs Pcp, Assignment Primary Care Provider Reason for Visit Reason Onset Date Comments Refill 05/25/2017 Encounter Details Date Type Department Care Team Description 05/25/2017 Refill [facility] [address] Magaly Sutton MBBS Refill Endocrinology [address] [address] [place] [address] [phone] Social History Tobacco Use Types Packs/Day Years [...] review and sign pending rx if approved. ING MANAGER documented in this encounter Plan of Treatment Not on filedocumented as of this encounter Visit Diagnoses Not on filedocumented in this encounter Care Teams Electrical And Instrument Engineer Relationship Specialty Start Date End Date Needs Pcp, Assignment PCP - General 05/20/17 03/02/18 [place] [address] documented as of this encounter
--- OUTSIDE RECORDS SUMMARY | 2022-01-09 09:01 | XMS_ITS | Encounter Summary ---
:1955 Author Organization [facility] Address [address] [address] Support Name Relationship Address Phone Andria Stephens Unavailable Unavailable 03/19 Pt Decline Unavailable Unavailable Unavailable Care Team Providers Name Role Phone Needs Pcp, Assignment Primary Care Provider Reason for Visit Reason Comments Appt. Needed Faxed referral rec from Dr.G uma Marcano from [facility] Dx: DM2 Encounter Details Date Type Department Care Team Description 03/19/2017 Telephone [facility] 3800 Nurse, P3800 End Appt. Needed (Faxed Endocrinology 3800 [facility] referral rec from [address] [facility] [address]Gail Marcano from [facility] Dx: DM2) [place] [id number] Social History Tobacco Use Types Packs/Day Years Used Date Smoking Tobacco: Never Assessed Sex Assigned at Date Recorded Not on file documented as of this encounter Nursing Notes Ghulam Abdalla - 03/19/2017 3:15 PM CST Faxed referral rec from Dr.Gail Marcano from [facility] Dx: DM2 GE SAW OPERATOR documented in this encounter Plan of Treatment Not on filedocumented as of this encounter Visit Diagnoses Not on filedocumented in this encounter Care Teams Portable Router Operator Relationship Specialty Start Date End Date Needs Pcp, Assignment PCP - General 05/20/17 03/02/18 [place], [place] [address] documented as of this encounter
--- OUTSIDE RECORDS SUMMARY | 2022-01-09 09:01 | XMS_ITS | Encounter Summary ---
:1955 Author Organization [facility] Address [address] [place] [address] Care Team Providers Name Role Phone Unavailable Primary Care Provider Unavailable Encounter Details Date Type Department Care Team Description 12/27/2021 Orders Only Division of Nephrology and Desiree Vann, [place], Ph.D. [address] [place] [address] [phone] (Wo rk) Social History Tobacco Use Types Packs/Day Years Used Date Smoking Tobacco: Never Assessed Sex Assigned at Date Recorded Not on file documented as of this encounter Plan of Treatment Not on filedocumented as of this encounter Visit Diagnoses Not on filedocumented in this encounter
--- OUTSIDE RECORDS SUMMARY | 2022-01-09 09:01 | XMS_ITS | Encounter Summary ---
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 Department of Endocrinology, Diabetes and Metabolism [...] Dyslipidemia: Continue ASA and Simvastatin. DENISE Otto Voice Instructor documented in this encounter Plan of Treatment [...] Test developed and characteristics deter mined by [facility]. See Compliance Statement B : [employer]/CS Performed by [facility], [address] [place] [address] [email or web address], Yosi Cabral MD - Lab . Director Specimen Anatomical Collection Method Collection Time Receive d Time (Source) Location / / Volume Laterality 07/22/2017 12:28 07/22/2017 3:48 PM CDT PM CDT Narrative PN SOFT - 07/24/2017 4:56 PM CDT Performed at [facility] [address] [place] [address] CLIA number [id number] Shama KINNEY LAB_1 Performing Organization Address [facility] Phon e Number PN SOFT [address] [place] [address] Vitamin B-12 (07/22/2017 12:28 PM CDT) athologist Signature Vitamin B12 511 213 - 816 PN SOFT pg/dL Specimen Anatomical Collection Method Collection Time Receive d Time (Source) Location / / Volume Laterality 07/22/2017 12:28 07/22/2017 3:41 PM CDT PM CDT Narrative PN SOFT - 07/22/2017 5:48 PM CDT Performed at [facility] [address] [place] [address] CLIA number [id number] Shama WALKER LAB_1 Performing Organization Address [facility] Phon e Number PN SOFT [address] [place] [address] Vitamin D (In house) (07/22/2017 12:28 PM [...] - 07/22/2017 5:11 PM CDT Performed at [facility], [address] [place] [address] CLIA number [id number] Shama WALKER LAB_1 Performing Organization Address City/State/ZIP Code Phon e Number PN CARMELITA [address] [place] [address] documented in this encounter Visit Diagnoses Diagnosis [...] documented in this encounter Care Teams Die Keeper Relationship Specialty Start Date End Date Needs Pcp, Assignment PCP - General 05/20/17 03/02/18 [place] [address] documented as of this encounter
--- OUTSIDE RECORDS SUMMARY | 2022-01-09 09:01 | XMS_ITS | Encounter Summary ---
:1955 Author Organization [employer] Address [address], [place] [address] Support Name Relationship Address Phone Andria Stephens Unavailable Unavailable 03/19 Pt Decline Unavailable Unavailable Unavailable Care Team Providers Name Role Phone Needs Pcp, Assignment Primary Care Provider Reason for Visit Reason Comments Medication Side Effects Encounter Details Date Type Department Care Team Description 10/26/2017 Telephone [facility] [address] Shama Sutton, [place] dication Side Endocrinology MBBS Effects [address] [facility] [address] [facility] [address] [phone] Social History Tobacco Use Types Packs/Day Years [...] month is very nauseated and has vomiting. [place] better at lower dose, wonders if he should reduced dose or get anti nausea medication. Pt at home #, can leave message documented in this encounter Plan of Treatment Not on filedocumented as of this encounter Visit Diagnoses Not on filedocumented in this encounter Care Teams Shipper Relationship Specialty Start Date End Date Needs Pcp, Assignment PCP - General 05/20/17 03/02/18 [place] [address] documented as of this encounter
--- OUTSIDE RECORDS SUMMARY | 2022-01-09 09:01 | XMS_ITS | Encounter Summary ---
:1955 Author Organization [employer] Address [address], [place] [address] Support Name Relationship Address Phone Andria Stephens Unavailable Unavailable 03/19 Pt Decline Unavailable Unavailable Unavailable Care Team Providers Name Role Phone Needs Pcp, Assignment Primary Care Provider Encounter Details Date Type Department Care Team Description 05/20/2017 Lab Visit [facility] DM type 2, uncontrolled, wit h neuropathy (HRC); [address] [facility] Essential hypertension; [place] [address] Dyslipidemia; [phone] Vitamin D defic iency Social History Tobacco [...] 2, Res ults for this RECOMMENDED) PM ELECTRONIC PREPRESS OPERATOR uncontrolled, with procedure are in neuropathy (HRC) the results Essential section. hypertension Dyslipidemia Vitamin D deficiency GLUTAMIC ACID Routine 05/20/2017 12:29 DM type 2, Results fo r this DECARBOXYLASE ANTIBODY PM ELECTRONIC PREPRESS OPERATOR uncontrolled, with procedure are in neuropathy (HRC) the results Essential section. hypertension Dyslipidemia Vitamin D deficiency C-PEPTIDE, SERUM Routine 05/20/2017 12:29 DM type 2, Results for this PM ELECTRONIC PREPRESS OPERATOR uncontrolled, with procedure are in neuropathy (HRC) the results Essential section. hypertension Dyslipidemia Vitamin D deficiency VITAMIN D 25-HYDROXY, Routine 05/20/2017 12:29 DM type 2, Re sults for this TOTAL PM ELECTRONIC PREPRESS OPERATOR uncontrolled, with procedure are in neuropathy (HRC) the results Essential section. hypertension Dyslipidemia Vitamin D deficiency CREATININE / GFR Routine 05/20/2017 12:29 DM type 2, Results for this PM ELECTRONIC PREPRESS OPERATOR uncontrolled, with procedure are in neuropathy (HRC) the results Essential section. hypertension Dyslipidemia Vitamin D deficiency TSH, SENSITIVE Routine 05/20/2017 12:29 DM type 2, Results f or this PM ELECTRONIC PREPRESS OPERATOR uncontrolled, with procedure are in neuropathy (HRC) the results Essential section. hypertension Dyslipidemia Vitamin D deficiency VITAMIN B12 ONLY Routine 05/20/2017 12:29 DM type 2, Results for this PM ELECTRONIC PREPRESS OPERATOR uncontrolled, with procedure are in neuropathy (HRC) the results Essential section. hypertension Dyslipidemia Vitamin D deficiency GLUCOSE - FASTING > 8 Routine 05/20/2017 12:29 DM type 2, Re sults for this HRS FASTING PM ELECTRONIC PREPRESS OPERATOR uncontrolled, with procedure are in neuropathy (HRC) the results Essential section. hypertension Dyslipidemia Vitamin D deficiency documented in this encounter Results (ABNORMAL) Vitamin D (In house) (05/20/2017 12:29 PM ELECTRONIC PREPRESS OPERATOR) athologist Signature Vitamin D 25 Oh 18 (L) 20 - 80 PN SOFT ng/mL Comment: Deficiency = <20 Adequate ??= 20-29 Preferred = 30-50 Uncertain safety = 51-80 High = >80 Specimen Anatomical Collection Method Collection Time Receive d Time (Source) Location / / Volume Laterality 05/20/2017 12:29 05/20/2017 3:50 PM ELECTRONIC PREPRESS OPERATOR PM ELECTRONIC PREPRESS OPERATOR Narrative PN SOFT - 05/20/2017 6:25 PM ELECTRONIC PREPRESS OPERATOR Performed at [facility] [address] [place] [address] CLIA number [id number] Shama WALKER LAB_1 Performing Organization Address City/State/ZIP Code Phon e Number PN SOFT [address] [place] [address] (ABNORMAL) Vitamin B6 (8Hr Fast Recommended) (05/20/2017 12:29 PM ELECTRONIC PREPRESS OPERATOR) athologist Signature Vitamin B6 19.4 (L) 20.0 - PN SOFT 125.0 nmol/L Comment: INTERPRETIVE INFORMATION: Vitamin B6 (Py ridoxal 5-Phosphate) Pyridoxal 5'-phosphate measured in a spe cimen collected following an 8-hour or overnight fast ac curately indicates vitamin B6 nutritional status. Non-fasti ng specimen concentration reflects recent vitamin in take. Test developed and characteristics deter mined by [facility]. See Compliance Statement B : [email or web address]/CS Performed by [facility], [address] [place] [address] [email or web address], Yosi Cabral MD - Lab . Director Specimen Anatomical Collection Method Collection Time Receive d Time (Source) Location / / Volume Laterality 05/20/2017 12:29 05/20/2017 3:49 PM ELECTRONIC PREPRESS OPERATOR PM ELECTRONIC PREPRESS OPERATOR Narrative PN SOFT - 05/23/2017 12:33 AM ELECTRONIC PREPRESS OPERATOR Performed at [facility] [address] [address] CLIA number [id number] Shama Fox Lesley KINNEY LAB_1 Performing Organization Address City/[facility] Phon e Number PN SOFT [address] [place] [address] (ABNORMAL) Vitamin B-12 (05/20/2017 12:29 PM ELECTRONIC PREPRESS OPERATOR) athologist Signature Vitamin B12 168 (L) 213 - 816 PN SOFT pg/dL Specimen Anatomical Collection Method Collection Time Receive d Time (Source) Location / / Volume Laterality 05/20/2017 12:29 05/20/2017 3:50 PM ELECTRONIC PREPRESS OPERATOR PM ELECTRONIC PREPRESS OPERATOR Narrative PN SOFT - 05/20/2017 6:56 PM ELECTRONIC PREPRESS OPERATOR Performed at [address] [address] CLIA number [id number] Shama Fox Lesley [facility]_1 Performing Organization Address [facility] Phon e Number PN SOFT [address] [place] [address] (ABNORMAL) C-Peptide, Serum (05/20/2017 12:29 PM ELECTRONIC PREPRESS OPERATOR) athologist Signature C-Peptide 5.4 (H) 0.8 - 3.5 PN SOFT ng/mL Comment: INTERPRETIVE INFORMATION: C-Peptide, Ser um or Plasma Reference Interval applies to fasting sp ecimens. To convert to nmol/L, multiply by 0.33 Performed by [facility], [address] [place] [id number] [email or web address], Yosi Cabral MD - Lab . Director Specimen Anatomical Collection Method Collection Time Receive d Time (Source) Location / / Volume Laterality 05/20/2017 12:29 05/20/2017 3:50 PM ELECTRONIC PREPRESS OPERATOR PM ELECTRONIC PREPRESS OPERATOR Narrative PN SOFT - 05/21/2017 5:14 PM ELECTRONIC PREPRESS OPERATOR Performed at [facility] [address] [place] [address] CLIA number [id number] Shama Sutton [facility]_1 Performing Organization Address City/[facility]/ZIP Code Phon e Number PN SOFT [address] [place] [address] (ABNORMAL) Glucose (05/20/2017 12:29 PM ELECTRONIC PREPRESS OPERATOR) athologist Signature Lab Glucose 183 (H) 70 - 100 PN SOFT mg/dL Comment: The stated glucose range is for the fast ing state. Non-fasting glucose range is 70-180 mg/d L Specimen Anatomical Collection Method Collection Time Receive d Time (Source) Location / / Volume Laterality 05/20/2017 12:29 05/20/2017 PM ELECTRONIC PREPRESS OPERATOR 12:29 PM ELECTRONIC PREPRESS OPERATOR Narrative PN SOFT - 05/20/2017 2:39 PM ELECTRONIC PREPRESS OPERATOR Performed at [facility], [address] [place] [address] CLIA number [id number] Shama Sutton [facility]_1 Performing Organization Address [facility] Phon e Number PN SOFT [address] [place] [address] Glutamic Acid Decarboxylase Antibody (05/20/2017 12:29 PM ELECTRONIC PREPRESS OPERATOR) Analysis Performed At Patho logist Time Signature [...] the context of clinical symptoms. Performed by [facility], [address] [place] [address] [email or web address], Yosi Cabral MD - Lab . Director Specimen Anatomical Collection Method Collection Time Receive d Time (Source) Location / / Volume Laterality 05/20/2017 12:29 05/20/2017 3:50 PM ELECTRONIC PREPRESS OPERATOR PM ELECTRONIC PREPRESS OPERATOR Narrative PN SOFT - 05/22/2017 7:09 PM ELECTRONIC PREPRESS OPERATOR Performed at [facility] [address] [place] [address] CLIA number [id number] Shama Fox Lesley KINNEY LAB_1 Performing Organization Address [facility] Phon e Number PN SOFT [address] [place] [address] TSH (05/20/2017 12:29 PM ELECTRONIC PREPRESS OPERATOR) athologist Signature Thyroid 1.51 0.30 - PN SOFT Stimulating 4.50 Hormone uIU/mL Specimen Anatomical Collection Method Collection Time Receive d Time (Source) Location / / Volume Laterality 05/20/2017 12:29 05/20/2017 3:50 PM ELECTRONIC PREPRESS OPERATOR PM ELECTRONIC PREPRESS OPERATOR Narrative PN SOFT - 05/20/2017 5:12 PM ELECTRONIC PREPRESS OPERATOR Performed at [address] [address] CLIA number [id number] Shama Fox Lesley [facility]_1 Performing Organization Address [facility] Phon e Number PN SOFT [address] [place] [address] (ABNORMAL) Creatinine (05/20/2017 12:29 PM ELECTRONIC PREPRESS OPERATOR) Analysis Performed At Patho logist Time Signature [...] / Volume Laterality 05/20/2017 12:29 05/20/2017 PM ELECTRONIC PREPRESS OPERATOR 12:29 PM ELECTRONIC PREPRESS OPERATOR Narrative PN SOFT - 05/20/2017 2:39 PM ELECTRONIC PREPRESS OPERATOR Performed at [facility], [address] [place] [address] CLIA number [id number] Shama WALKER LAB_1 Performing Organization Address City/State/ZIP Code Phon e Number PN CARMELITA [address] [place] [address] [phone] documented in this encounter Visit Diagnoses Diagnosis DM type 2, uncontrolled, with neuropathy Type II or unspecified type diabetes pennie litus with neurological manifestations, uncontrolled Essential hypertension (HRC) Unspecified essential hypertension Dyslipidemia (HRC) Other and unspecified hyperlipidemia Vitamin D deficiency (HRC) Unspecified vitamin D deficiency documented in this encounter Care Teams A And P Mechanic Relationship Specialty Start Date End Date Needs Pcp, Assignment PCP - General 05/20/17 03/02/18 [place] [address] documented as of this encounter
--- OUTSIDE RECORDS SUMMARY | 2022-01-09 09:01 | XMS_ITS | Clinical Summary ---
:1955 Author Organization [employer] Address [address], [place] [address] Support Name Relationship Address Phone Andria Stephens [...] for each transition of care or referral. [employer] Allergies No known active allergies Medications Medication [...] Dates Next Due Influenza IIV4 (Quadrivalent) 0.5mL (07204) 01/12/2018 Social History Tobacco Use Types Packs/Day [...] age to complete this topic Care Teams Fish Technologist Relationship Specialty Start Date End Date Anoop Adam MD PCP - General 03/03/181999 [place] [address]
--- OUTSIDE RECORDS SUMMARY | 2022-01-09 09:01 | XMS_ITS | Encounter Summary ---
:1955 Author Organization [email or web address] Address [address], [place] [address] Support Name Relationship Address Phone Andria Stephens Unavailable Unavailable 03/19 Pt Decline Unavailable Unavailable Unavailable Care Team Providers Name Role Phone Needs Pcp, Assignment Primary Care Provider Encounter Details Date Type Department Care Team Description 08/10/2017 Notes/Orders [facility] [address] Sutton, Endocrinology DENISE [address] [place] [address] [place] [address] [phone] Social History Tobacco Use Types Packs/Day Years [...] on filedocumented in this encounter Care Teams Lamp Shade Sewer Relationship Specialty Start Date End Date Needs Pcp, Assignment PCP - General 05/20/17 03/02/18 [place] [address] documented as of this encounter
--- OUTSIDE RECORDS SUMMARY | 2022-01-09 09:01 | XMS_ITS | Encounter Summary ---
:1955 Author Organization [employer] Address [address], [place] [address] Support Name Relationship Address Phone Andria Stephens Unavailable Unavailable 03/19 Pt Decline Unavailable Unavailable Unavailable Care Team Providers Name Role Phone Needs Pcp, Assignment Primary Care Provider Encounter Details Date Type Department Care Team Description 05/25/2017 Notes/Orders [facility] [address] Shama Sutton, Endocrinology MBBS [address] [place] [address] [facility] [address] [place] [address] [place] [address] [phone] Social History Tobacco Use Types Packs/Day Years [...] D3 2000 units daily (OTC). DENISE Otto RALTY LAWYER Wang Chatman - 05/25/2017 1:07 PM CST Called patient, no answer. Left message to call back. RALTY LAWYER Ita Estevez, LEO - 05/25/2017 1:07 PM CST Pt called back and relayed info below. Patient verbalized understanding, is agreeable with plan, andno further questions. RALTY LAWYER documented in this encounter Plan of Treatment Not on filedocumented as of this encounter Visit Diagnoses Not on filedocumented in this encounter Care Teams Assistant Offset Press Operator Relationship Specialty Start Date End Date Needs Pcp, Assignment PCP - General 05/20/17 03/02/18 [place] [address] documented as of this encounter
--- OUTSIDE RECORDS SUMMARY | 2022-01-09 09:01 | XMS_ITS | Encounter Summary ---
:1955 Author Organization [facility] Address [address] [place] [address] Care Team Providers Name Role Phone Unavailable Primary Care Provider Unavailable Encounter Details Date Type Department Care Team Description 12/30/2021 Orders Only Division of Nephrology and Desiree Vann, Hypertension in [place], Ph.D. [address] [place] [address] [phone] (Wo rk) Social History Tobacco Use Types Packs/Day Years Used Date Smoking Tobacco: Never Assessed Sex Assigned at Date Recorded Not on file documented as of this encounter Plan of Treatment Not on filedocumented as of this encounter Visit Diagnoses Not on filedocumented in this encounter
--- OUTSIDE RECORDS SUMMARY | 2022-01-09 09:01 | XMS_ITS | Encounter Summary ---
:1955 Author Organization [facility] Address [address] [place] [address] Care Team Providers Name Role Phone Unavailable Primary Care Provider Unavailable Encounter Details Date Type Department Care Team Description 12/30/2021 Clinical Communication Division of Nephrology Kleber Gallardo, and Hypertension in Albert Ramírez, [place], [place] Ph.D. [address] [facility] [address] [place] [address] [phone] Social History Tobacco Use Types Packs/Day Years Used Date Smoking Tobacco: Never Assessed Sex Assigned at Date Recorded Not on file documented as of this encounter Miscellaneous Notes Telephone Encounter - Desiree Phillips M.D., Ph.D. - 12/30/2021 2:01 PM CDT Patient stopped taking amlodipine 10 mg daily due to swelling. His BP is in the 160s/90s. I have recommended him to restart lasix 20 mg daily, and to decrease dose of amlodipine to 2.5 mg daily. I will add terazosin 2 mg at bedtime. I will see him in clinic on 01/22. documented in this encounter Plan of Treatment Not on filedocumented as of this encounter Visit Diagnoses Not on filedocumented in this encounter
--- OUTSIDE RECORDS SUMMARY | 2022-01-09 09:01 | XMS_ITS | Encounter Summary ---
:1955 Author Organization [employer] Address [address] [address] Support Name Relationship Address Phone Andria Stephens [...] (Primary Dx); Endocrinology M, MBBS Essential hypertension; [address] Dyslipidemia; [place] [address] BLVD Vitamin D deficiency; [phone] [place], [place] Need for p rophylactic vaccination and inoculation against influenza 063056 Social History Tobacco Use Types Packs/Day Years [...] Sutton MBBS - 01/12/2018 10:45 AM CDT [facility] Department of Endocrinology, Diabetes and Metabolism [...] Dyslipidemia: Continue ASA and Simvastatin. DENISE Otto Piece Work Checker documented in this encounter Plan of Treatment [...] influenza documented in this encounter Care Teams Lean Leader Relationship Specialty Start Date End Date Needs Pcp, Assignment PCP - General 05/20/17 03/02/18 [place] [address] documented as of this encounter
--- OUTSIDE RECORDS SUMMARY | 2022-01-09 09:01 | XMS_ITS | Encounter Summary ---
:1955 Author Organization [employer] Address [address] [place] [address] Support Name Relationship Address Phone Andria Stephens Unavailable Unavailable 03/19 Pt Decline Unavailable Unavailable Unavailable Care Team Providers Name Role Phone Needs Pcp, Assignment Primary Care Provider Reason for Visit Reason Comments Diabetes Encounter Details Date Type Department Care Team Description 05/20/2017 Initial Consult Shama Ramirez DM type 2, uncontrolled, with neuropathy (HRC) (Primary Dx); Endocrinology DENISE Fox Essential hypertension; [address] [address] ANA ROSA ZAYAS Dyslipidemia; [place] [address] BLVD Vitamin D deficiency [phone] [place], [place] [address] Social History Tobacco Use Types Packs/Day Years Used Date Smoking Tobacco: Never Smokeless Tobacco: Never Alcohol Use Standard Drinks/Week Comments No 0 (1 standard drink = 0.6 oz pure alcoho l) Sex Assigned at Date Recorded Not on file documented as of this encounter Last Filed Vital Signs Vital Sign Reading Time Taken Comments Blood Pressure 112/58 05/20/2017 11:34 AM [employer] Pulse 76 05/20/2017 11:34 AM [employer] Temperature - - Respiratory Rate - - Oxygen Saturation - - Inhaled Oxygen Concentration - - Weight 89.8 kg (198 lb) 05/20/2017 11:34 AM [employer] Height 188 cm (6' 2) 05/20/2017 11:34 AM [employer] Body Mass Index 25.42 05/20/2017 11:34 AM [employer] documented in this encounter Progress Notes Shama Sutton MBBS - 05/20/2017 11:30 AM CST Ana Rosa Zayas [facility] Department of Endocrinology, Diabetes [...] >50% was spent on counseling. DENISE Otto Gambling Monitor [employer] documented in this encounter Plan of Treatment Not on filedocumented as of this encounter Procedures Procedure Name Priority Date/Time Associated Comments Diagnosis POCT GLYCOSYLATED Routine 05/20/2017 3:35 PM DM type 2, Resu lts for this HEMOGLOBIN (HGB A1C) [employer] uncontrolled, with p rocedure are in neuropathy (HRC) the results Essential section. hypertension Dyslipidemia Vitamin D deficiency documented in this encounter Results (ABNORMAL) POCT glycosylated hemoglobin (Hb A1C) (05/20/2017 3:35 PM [employer]) P athologist Signature Hemoglobin A1C, 9.6 (A) 4 - 5.6 % PN POCT POC Cartridge Lot# [id number] PN POCT Specimen (Source) Anatomical Collection Method Collection Time Re ceived Time Location / / Volume Laterality Blood specimen 05/20/2017 3:35 PM (specimen) [employer] Shama WALKER PN POINT OF CARE TESTS Performing Organization Address City/State/ZIP Code Phon e Number POCT PN POCT (ABNORMAL) Vitamin D (In house) (05/20/2017 12:29 PM [employer]) P athologist Signature Vitamin D 25 Oh 18 (L) 20 - 80 PN SOFT ng/mL Comment: Deficiency = <20 Adequate ??= 20-29 Preferred = 30-50 Uncertain safety = 51-80 High = >80 Specimen Anatomical Collection Method Collection Time Receive d Time (Source) Location / / Volume Laterality 05/20/2017 12:29 05/20/2017 3:50 PM [employer] PM [employer] Narrative PN SOFT - 05/20/2017 6:25 PM [employer] Performed at [facility] [address] [place] [address] CLIA number [id number] Shama Sutton DENISE LAB_1 Performing Organization Address City/[facility]/ZIP Code Phon e Number PN SOFT [address] [place] [address] (ABNORMAL) Vitamin B6 (8Hr Fast Recommended) (05/20/2017 12:29 PM [employer]) athologist Signature Vitamin B6 19.4 (L) 20.0 - PN SOFT 125.0 nmol/L Comment: INTERPRETIVE INFORMATION: Vitamin B6 (Py ridoxal 5-Phosphate) Pyridoxal 5'-phosphate measured in a spe cimen collected following an 8-hour or overnight fast ac curately indicates vitamin B6 nutritional status. Non-fasti ng specimen concentration reflects recent vitamin in take. Test developed and characteristics deter mined by [facility]. See Compliance Statement B : [employer]/CS Performed by [facility], [address] [place] [address] www.[employer], Yosi Cabral MD - Lab . Director Specimen Anatomical Collection Method Collection Time Receive d Time (Source) Location / / Volume Laterality 05/20/2017 12:29 05/20/2017 3:49 PM [employer] PM [employer] Narrative PN SOFT - 05/23/2017 12:33 AM [employer] Performed at [facility] [address] [place] [address] CLIA number [id number] Shama Jorgeavi WALKER LAB_1 Performing Organization Address City/[facility]/ZIP Code Phon e Number PN SOFT [address] [place] [address] (ABNORMAL) Vitamin B-12 (05/20/2017 12:29 PM [employer]) athologist Signature Vitamin B12 168 (L) 213 - 816 PN SOFT pg/dL Specimen Anatomical Collection Method Collection Time Receive d Time (Source) Location / / Volume Laterality 05/20/2017 12:29 05/20/2017 3:50 PM [employer] PM [employer] Narrative PN SOFT - 05/20/2017 6:56 PM [employer] Performed at [facility] [address] [place] [address] CLIA number [id number] Shama Sutton NIRMAL LAB_1 Performing Organization Address [facility] Phon e Number PN SOFT [address] [place] [address] (ABNORMAL) C-Peptide, Serum (05/20/2017 12:29 PM [employer]) P athologist Signature C-Peptide 5.4 (H) 0.8 - 3.5 PN SOFT ng/mL Comment: INTERPRETIVE INFORMATION: C-Peptide, Ser um or Plasma Reference Interval applies to fasting sp ecimens. To convert to nmol/L, multiply by 0.33 Performed by [facility], [address] [place] [address] www.[employer], Yosi Cabral MD - Lab . Director Specimen Anatomical Collection Method Collection Time Receive d Time (Source) Location / / Volume Laterality 05/20/2017 12:29 05/20/2017 3:50 PM [employer] PM [employer] Narrative PN SOFT - 05/21/2017 5:14 PM [employer] Performed at [facility] [address] [place] [address] CLIA number [id number] Shama Samal WALKER LAB_1 Performing Organization Address [facility] Phon e Number PN SOFT [address] [place] [address] (ABNORMAL) Glucose (05/20/2017 12:29 PM [employer]) athologist Signature Lab Glucose 183 (H) 70 - 100 PN SOFT mg/dL Comment: The stated glucose range is for the fast ing state. Non-fasting glucose range is 70-180 mg/d L Specimen Anatomical Collection Method Collection Time Receive d Time (Source) Location / / Volume Laterality 05/20/2017 12:29 05/20/2017 PM [employer] 12:29 PM [employer] Narrative PN SOFT - 05/20/2017 2:39 PM [employer] Performed at [facility], [address] [place] [address] CLIA number [id number] Shama Miltonmike [facility] LAB_1 Performing Organization Address [facility] Phon e Number PN SOFT [address] [place] [address] Glutamic Acid Decarboxylase Antibody (05/20/2017 12:29 PM [employer]) Analysis Performed At Patho logist Time Signature [...] the context of clinical symptoms. Performed by [facility], [address] [place] [address] www.[employer], Yosi Cabral MD - Lab . Director Specimen Anatomical Collection Method Collection Time Receive d Time (Source) Location / / Volume Laterality 05/20/2017 12:29 05/20/2017 3:50 PM [employer] PM [employer] Narrative PN SOFT - 05/22/2017 7:09 PM [employer] Performed at [facility] [address] [place] [address] CLIA number [id number] Shama Fox Lesley [facility] LAB_1 Performing Organization Address [facility] Phon e Number PN SOFT [address] [place] [address] [phone] TSH (05/20/2017 12:29 PM [employer]) P athologist Signature Thyroid 1.51 0.30 - PN SOFT Stimulating 4.50 Hormone uIU/mL Specimen Anatomical Collection Method Collection Time Receive d Time (Source) Location / / Volume Laterality 05/20/2017 12:29 05/20/2017 3:50 PM [employer] PM [employer] Narrative PN SOFT - 05/20/2017 5:12 PM [employer] Performed at [facility], [address] [place] [address] CLIA number [id number] Shama Fox Lesley WALKER LAB_1 Performing Organization Address [facility] Phon e Number PN SOFT [address] [place] [address] [phone] (ABNORMAL) Creatinine (05/20/2017 12:29 PM [employer]) Analysis Performed At [facility] Time Signature Creatinine 1.20 (H) 0.73 - [...] / Volume Laterality 05/20/2017 12:29 05/20/2017 PM [employer] 12:29 PM [employer] Narrative PN SOFT - 05/20/2017 2:39 PM [employer] Performed at [facility], [address] [place], [place] [address] CLIA number [id number] Shama Fox Lesley WALKER LAB_1 Performing Organization Address [facility] Phon e Number PN SOFT [address] [place] [address] [phone] documented in this encounter Visit Diagnoses Diagnosis [...] deficiency documented in this encounter Care Teams Lyft Driver Relationship Specialty Start Date End Date Needs Pcp, Assignment PCP - General 05/20/17 03/02/18 [place] [address] documented as of this encounter
--- OUTSIDE RECORDS SUMMARY | 2022-01-09 09:01 | XMS_ITS | Encounter Summary ---
:1955 Author Organization [employer] Address [address] [place] [address] Support Name Relationship Address Phone Andria Stephens [...] presence unspecified, unspecified laterality, unspecified proliferative retinopathy* ([facility]) (Primary Dx); Endocrinology L, PA-C Essential hypertension; [address] Dyslipidemia; [place], [place] [address] [place] [address] Vitamin D deficiency; [phone] Vitamin B6 deficiency; [phone] Vitamin B12 def iciency (Work) Social History [...] have questions about your appointment, please call [phone]. If you have medical questions or concerns, please contact the triage nurse at [phone]. Thanks for visiting today! documented in this encounter Progress Notes Francy Boyd - 09/23/2017 10:00 AM CDT Images from the original note were not included. [facility]: [address] [place] [address] Clinic: [address] [place] [address] [phone], Nurse Line: [phone] Diabetes Progress Note September 23, 2017 Subjective: [...] deficiencies documented in this encounter Care Teams Link Machine Operator Relationship Specialty Start Date End Date Needs Pcp, Assignment PCP - General 05/20/17 03/02/18 [place] [address] documented as of this encounter
--- OUTSIDE RECORDS SUMMARY | 2022-01-09 09:01 | XMS_ITS | Encounter Summary ---
:1955 Author Organization [employer] Address [address], [place] [address] Support Name Relationship Address Phone Andria Stephens Unavailable Unavailable 03/19 Pt Decline Unavailable Unavailable Unavailable Care Team Providers Name Role Phone Anoop Adam MD Primary Care Provider Reason for Visit Reason Comments MEDICATION REACTION Encounter Details Date Type Department Care Team Description 01/22/2018 Telephone [facility] [address] Shama Sutton MD DICATION REACTION Endocrinology MBBS [address] [facility] [address] [facility] [place] [address] [phone] Social History Tobacco Use Types Packs/Day Years [...] agreeable with plan, and no further questions. ASS OPERATOR Shama Sutton MBBS - 03/24/2018 9:06 AM CST Lets increase the Lantus to 40 units QHS and work on the diet part, keep Victoza the same. ASS OPERATOR Ita Estevez RN - 03/24/2018 8:59 AM [...] for now. Pt can be reached at [phone], Ok to . ASS OPERATOR Marivel Ya RN - 01/25/2018 9:44 AM [...] on filedocumented in this encounter Care Teams Marketing Research Intern Relationship Specialty Start Date End Date Anoop Adam MD PCP - General 03/03/181999 [place] [address] documented as of this encounter
--- OUTSIDE RECORDS SUMMARY | 2022-01-09 09:01 | XMS_ITS | Encounter Summary ---
:1955 Author Organization [email or web address] Address [address] [place] [address] Support Name Relationship Address Phone Andria Stephens Unavailable Unavailable 03/19 Pt Decline Unavailable Unavailable Unavailable Care Team Providers Name Role Phone Anoop Adam MD Primary Care Provider Reason for Visit Reason Onset Date Comments Refill 08/12/2019 insulin pen needle ( BD PEN NEEDLE DARSHANA U/F) 32G X 4 MM Encounter Details Date Type Department Care Team Description 08/12/2019 Refill [facility] 3800 Mia Sutton, Re fill (insulin pen Endocrinology MBBS needle (BD PEN NEEDLE [address] [place] [address] [place] N[place] U/F) 32G X 4 MM) [place] [address] [phone] Social History Tobacco Use Types Packs/Day Years [...] nursing once appt is made. Interface, Out Hone and Strop Prov Query - 08/12/2019 11:42 AM CDT [...] two times a day. (unchanged) Powered by [employer], Reference: [id number], 08/12/2019 11:42:15 AM CDT, Pool: ENDO PN REFILL ([id number]) Electronically signed by Interface, Out [employer] Systems[employer] Prov Query at 08/17/2019 4:12 PM CDT Suki Barragan, RN - 08/12/2019 11:41 AM CDT Images from the original note were not included. documented in this encounter Plan of Treatment Not on filedocumented as of this encounter Visit Diagnoses Not on filedocumented in this encounter Care Teams Cryptologic Technician Operator/Analyst Relationship Specialty Start Date End Date Anoop Adam MD PCP - General 03/03/181999 [place] [address] documented as of this encounter
--- OUTSIDE RECORDS SUMMARY | 2022-01-09 09:01 | XMS_ITS | Encounter Summary ---
:1955 Author Organization [employer] Address [address] [address] Support Name Relationship Address Phone Andria Stephens Unavailable Unavailable 03/19 Pt Decline Unavailable Unavailable Unavailable Care Team Providers Name Role Phone Needs Pcp, Assignment Primary Care Provider Encounter Details Date Type Department Care Team Description 07/22/2017 Lab Visit [facility] Vitamin D deficiency; [address] [facility] Vitamin B6 deficiency; [place] [address] Vitamin B12 deficiency [phone] Social History Tobacco Use Types Packs/Day Years [...] Test developed and characteristics deter mined by [facility]. See Compliance Statement B : [employer]/CS Performed by [facility], [address] [place] [address] www.[email or web address], Ysoi Cabral MD - Lab . Director Specimen Anatomical Collection Method Collection Time Receive d Time (Source) Location / / Volume Laterality 07/22/2017 12:28 07/22/2017 3:48 PM CDT PM CDT Narrative PN SOFT - 07/24/2017 4:56 PM CDT Performed at [facility] [address] [place] [address] CLIA number [id number] Shama Sutton [facility] LAB_1 Performing Organization Address City/[facility]/ZIP Code Phon e Number PN SOFT [address] [place] [address] Vitamin B-12 (07/22/2017 12:28 PM CDT) athologist Signature Vitamin B12 511 213 - 816 PN SOFT pg/dL Specimen Anatomical Collection Method Collection Time Receive d Time (Source) Location / / Volume Laterality 07/22/2017 12:28 07/22/2017 3:41 PM CDT PM CDT Narrative PN SOFT - 07/22/2017 5:48 PM CDT Performed at [place] [address] [place] [address] CLIA number [id number] Shama Fox Lesley [facility] LAB_1 Performing Organization Address [facility] Phon e Number PN SOFT [address] [place] [address] Vitamin D (In house) (07/22/2017 12:28 PM [...] - 07/22/2017 5:11 PM CDT Performed at [facility], [address] [place] [address] CLIA number [id number] Shama WALKER LAB_1 Performing Organization Address City/State/ZIP Code Phon e Number PN SOFT [address] [place] [address] [phone] documented in this encounter Visit Diagnoses Diagnosis Vitamin D deficiency (HRC) Unspecified vitamin D deficiency Vitamin B6 deficiency (HRC) Vitamin B6 deficiency Vitamin B12 deficiency (HRC) Other B-complex deficiencies documented in this encounter Care Teams Well Driller Relationship Specialty Start Date End Date Needs Pcp, Assignment PCP - General 05/20/17 03/02/18 [place] [address] documented as of this encounter
--- OUTSIDE RECORDS SUMMARY | 2022-01-09 09:01 | XMS_ITS | Encounter Summary ---
:1955 Author Organization [facility] Address [address] [place] [address] Care Team Providers Name Role Phone Unavailable Primary Care Provider Unavailable Encounter Details Date Type Department Care Team Description 12/27/2021 Clinical Communication Division of Nephrology Kleber Gallardo, and Hypertension in Albert Ramírez, [place], [place] Ph.D. [address] [facility] [address] [place] [address] [phone] Social History Tobacco Use Types Packs/Day Years [...]
--- OUTSIDE RECORDS SUMMARY | 2022-01-09 09:01 | XMS_ITS | Encounter Summary ---
:1955 Author Organization [facility] Address [address] [address] Support Name Relationship Address Phone Andria Stephens Unavailable Unavailable 03/19 Pt Decline Unavailable Unavailable Unavailable Care Team Providers Name Role Phone Anoop Adam MD Primary Care Provider Reason for Visit Reason Comments Prior Authorization For Medication Encounter Details Date Type Department Care Team Description 06/08/2018 Telephone [facility] Found, No Pcp, Prior Authorization For Medicine [address] Medication [address] [place] [address] Social History Tobacco Use Types Packs/Day Years [...] on filedocumented in this encounter Care Teams Flare Maker Relationship Specialty Start Date End Date Anoop Adam MD PCP - General 03/03/181999 [place] [address] documented as of this encounter
--- OUTSIDE RECORDS SUMMARY | 2022-01-09 09:02 | XMS_ITS | Encounter Summary ---
:1955 Author Organization [facility] Address [address] [place] [address] Care Team Providers Name Role Phone Unavailable Primary Care Provider Unavailable Reason for Visit Reason Comments Abnormal Potassium Encounter Details Date Type Department Care Team Description 12/18/2021 Clinical Division of [facility] Communication Nephrology and eDsiree Gallardo, Hypertension in [place] Ph.D. [place], [place] [address] [facility] [address] [place] [address] [phone] Social History Tobacco Use Types Packs/Day Years [...] CDT Caller is: patient Preferred Communication Method: [phone] Reason for call: Lab/Test Results: What results are they looking for? potassium When was the test completed? Dec 17 Where was the testing completed? [facility] Patient is wondering what the potassium was and if any recommendations? documented in this encounter Plan of Treatment Not on filedocumented as of this encounter Visit Diagnoses Not on filedocumented in this encounter
--- OUTSIDE RECORDS SUMMARY | 2022-01-09 09:02 | XMS_ITS | Encounter Summary ---
:1955 Author Organization [facility] Address [address] [place] [address] Care Team Providers Name Role Phone Unavailable Primary Care Provider Unavailable Reason for Visit Appointment Request (Routine) - Closed Specialty Diagnoses / Procedures Referred By Contact Refer red To Contact Nephrology and Anoop Adam Hypertension M.D. [address] [place] [address] Referral ID Status Reason Start Date Expiration Date Visits Requ ested Visits Authorized [id number] Closed 12/06/2021 12/06/2022 1 Encounter Details Date Type Department Care Team Description 12/10/2021 External Outreach Division of Kleber Gallardo, Linda franco (Primary Dx); Nephrology and Albert Ramírez, Chronic Kidne y Disease (CKD), Stage 3b Glomerular Filtration Rate (GFR) 30 To 44 (HCC); Hypertension in Ph.D. Hypertension Essential Primary [place], [place] [address] [facility] [address] [place] [address] [phone] Social History Tobacco Use Types Packs/Day Years [...] Gallardo M.D., Ph.D. CT CT Job ID: [id number]/brandon documented in this encounter Plan of Treatment Not on filedocumented as of this encounter Visit Diagnoses Diagnosis Hyperkalemia - Primary Chronic Kidney Disease (CKD), Stage 3b G lomerular Filtration Rate (GFR) 30 To 44 (HCC) Hypertension Essential Primary documented in this encounter
--- OUTSIDE RECORDS SUMMARY | 2022-01-09 09:02 | XMS_ITS | Encounter Summary ---
:1955 Author Organization [facility] Address [address] [place] [address] Care Team Providers Name Role Phone Unavailable Primary Care Provider Unavailable Encounter Details Date Type Department Care Team Description 12/18/2021 Orders Only Division of Nephrology and Desiree Vann, Hypertension in [place], Ph.D. [address] [place] [address] [phone] (Wo rk) Social History Tobacco Use Types Packs/Day Years Used Date Smoking Tobacco: Never Assessed Sex Assigned at Date Recorded Not on file documented as of this encounter Plan of Treatment Not on filedocumented as of this encounter Visit Diagnoses Not on filedocumented in this encounter
[2022-01-09 14:49] LABS: Albumin* 4.1 g/dL (3.3-5.0); Chloride* 103 mmol/L (96-114); Sodium* 140 mmol/L (135-149)
[2022-01-09 14:50] LABS: Potassium* 4.3 mmol/L (3.6-5.1)
[2022-01-09 14:52] LABS: Carbon Dioxide* 27 mmol/L (20-32); Creatinine* 1.6 mg/dL (0.5-1.5); Estimated Glomerular Filt Rate 47 ml/min
[2022-01-09 14:53] LABS: Blood Urea Nitrogen* 28 mg/dL (7-30); Calcium* 8.8 mg/dL (8.4-10.6); Glucose* 157 mg/dL (60-115); Phosphorus* 4.3 mg/dL (2.5-4.5)
== END 2022-01-09 08:59 | disposition home or self-care (01) ==
PROVIDERS: PCP Internal Medicine; Visit Provider Internal Medicine Nephrology
DX: E87.5 Hyperkalemia (principal); N18.9 Chronic kidney disease, unspecified
CPT/HCPCS: 80069

== ENCOUNTER 2022-01-20 13:23 | Outpatient (CLI) | payer MEDICARE, SELFPAY ==
--- OUTSIDE RECORDS SUMMARY | 2022-01-20 13:32 | XMS_ITS | Encounter Summary ---
:1955 Author Organization [employer] Address [address], [place] [address] Support Name Relationship Address Phone Andria Stephens [...] Dx); Endocrinology M, MBBS Vitamin D deficiency; [address] Vitamin B6 deficiency; [place] [address] BLVD Vitamin B12 deficiency; [phone] [place], [place] Essential hypertension; [address] Dyslipidemia; [phone] Controlled type 2 diabetes with neuropathy (HRC) [...] Sutton MBBS - 07/22/2017 11:45 AM CDT [facility] Department of Endocrinology, Diabetes and [...] Dyslipidemia: Continue ASA and Simvastatin. DENISE Otto Medical Transcriber documented in this encounter Plan of Treatment [...] Test developed and characteristics deter mined by [facility] [employer]. See Compliance Statement B : [employer]/CS Performed by [facility] [employer], [address] [place] [address] [email or web address], Yosi Cabral MD - Lab . Director Specimen Anatomical Collection Method Collection Time Receive d Time (Source) Location / / Volume Laterality 07/22/2017 12:28 07/22/2017 3:48 PM CDT PM CDT Narrative PN SOFT - 07/24/2017 4:56 PM CDT Performed at [facility] [address] [place] [address] CLIA number [id number] Shama KINNEY LAB_1 Performing Organization Address [facility] Phon e Number PN SOFT [address] [place] [address] Vitamin B-12 (07/22/2017 12:28 PM CDT) athologist Signature Vitamin B12 [phone] 816 PN SOFT pg/dL Specimen Anatomical Collection Method Collection Time Receive d Time (Source) Location / / Volume Laterality 07/22/2017 12:28 07/22/2017 3:41 PM CDT PM CDT Narrative PN SOFT - 07/22/2017 5:48 PM CDT Performed at [facility] [address] [place] [address] CLIA number [id number] Shama WALKER LAB_1 Performing Organization Address [facility] Phon e Number PN SOFT [address] [place] [address] Vitamin D (In house) (07/22/2017 12:28 PM [...] - 07/22/2017 5:11 PM CDT Performed at [facility], [address] [place] [address] CLIA number [id number] Shama WALKER LAB_1 Performing Organization Address City/State/ZIP Code Phon e Number PN CARMELITA [address] [place] [address] [phone] documented in this encounter Visit Diagnoses Diagnosis [...] deficiencies documented in this encounter Care Teams Garden Consultant Relationship Specialty Start Date End Date Needs Pcp, Assignment PCP - General 05/20/17 03/02/18 [place] [address] documented as of this encounter
--- OUTSIDE RECORDS SUMMARY | 2022-01-20 13:32 | XMS_ITS | Encounter Summary ---
:1955 Author Organization [facility] Address [address] [place] [address] Support Name Relationship Address Phone Andria Stephens Unavailable Unavailable 03/19 Pt Decline Unavailable Unavailable Unavailable Care Team Providers Name Role Phone Anoop Adam MD Primary Care Provider Reason for Visit Reason Onset Date Comments Refill 05/10/2020 insulin pen needle ( BD PEN NEEDLE DARSHANA U/F) 32G X 4 MM Encounter Details Date Type Department Care Team Description 05/10/2020 Refill [facility] [address], Re fill (insulin pen Endocrinology MBBS needle (BD PEN NEEDLE [address] [place] [address] [place] U/F) 32G X 4 MM) [facility] [place] [address] [phone] Social History Tobacco Use Types Packs/Day Years [...] Reason for Refusal: Patient Needs An Appointment RECOVERY SPECIALIST Interface, Out Surescripts Prov Query - 05/10/2020 [...] two times a day. (unchanged) Powered by [employer], Reference: [id number], 05/10/2020 12:45:05 PM PIPE RECOVERY SPECIALIST, Pool: ENDO PN NURSING TEAM 1 ([id number]) RECOVERY SPECIALIST documented in this encounter Plan of Treatment Not on filedocumented as of this encounter Visit Diagnoses Not on filedocumented in this encounter Care Teams Curing Oven Tender Relationship Specialty Start Date End Date Anoop Adam MD PCP - General 03/03/181999 [place] [address] documented as of this encounter
--- OUTSIDE RECORDS SUMMARY | 2022-01-20 13:32 | XMS_ITS | Encounter Summary ---
:1955 Author Organization [employer] Address [address] [place] [address] Support Name Relationship Address Phone Andria Stephens [...] presence unspecified, unspecified laterality, unspecified proliferative retinopathy* ([facility]) (Primary Dx); Endocrinology L, PA-C Essential hypertension; [address] Dyslipidemia; [place], [place] [address] [place] [address] Vitamin D deficiency; [phone] [address] Vitamin B6 deficiency; [phone] Vitamin B12 def iciency (Work) Social History [...] have questions about your appointment, please call [phone]. If you have medical questions or concerns, please contact the triage nurse at [phone]. Thanks for visiting today! documented in this encounter Progress Notes Francy Boyd - 09/23/2017 10:00 AM CDT Images from the original note were not included. [facility]: [address] [place] [address] Clinic: [address] [place] [address] [phone], Nurse Line: [phone] Diabetes Progress Note September 23, 2017 Subjective: [...] deficiencies documented in this encounter Care Teams Machine Adjuster Helper Relationship Specialty Start Date End Date Needs Pcp, Assignment PCP - General 05/20/17 03/02/18 [place] [address] documented as of this encounter
--- OUTSIDE RECORDS SUMMARY | 2022-01-20 13:32 | XMS_ITS | Encounter Summary ---
:1955 Author Organization [facility] Address [address], [place] [address] Support Name Relationship Address Phone Andria Stephens Unavailable Unavailable 03/19 Pt Decline Unavailable Unavailable Unavailable Care Team Providers Name Role Phone Anoop Adam MD Primary Care Provider Reason for Visit Reason Onset Date Comments Refill 03/08/2018 Encounter Details Date Type Department Care Team Description 03/08/2018 Refill [facility] [address] Sutton MBBS Refill Endocrinology [address] [place] [address] [place] [address] [phone] Social History Tobacco Use Types Packs/Day Years [...] User: KARY HATHAWAY LV: 01/12/18 FV: 04/27/18 HICS SPECIALIST documented in this encounter Plan of Treatment Not on filedocumented as of this encounter Visit Diagnoses Not on filedocumented in this encounter Care Teams Pile Operator Relationship Specialty Start Date End Date Anoop Adam MD PCP - General 03/03/181999 [place] [address] documented as of this encounter
--- OUTSIDE RECORDS SUMMARY | 2022-01-20 13:32 | XMS_ITS | Encounter Summary ---
:1955 Author Organization [employer] Address [address], [place] [address] Support Name Relationship Address Phone Andria Stephens Unavailable Unavailable 03/19 Pt Decline Unavailable Unavailable Unavailable Care Team Providers Name Role Phone Needs Pcp, Assignment Primary Care Provider Encounter Details Date Type Department Care Team Description 07/22/2017 Lab Visit [facility] Vitamin D deficiency; [address] [employer] Vitamin B6 deficiency; [place] [address] Vitamin B12 deficiency [phone] Social History Tobacco Use Types Packs/Day Years [...] Test developed and characteristics deter mined by [employer]. See Compliance Statement B : [employer]/CS Performed by [employer], [address] [place] [address] [email or web address], Yosi Cabral MD - Lab . Director Specimen Anatomical Collection Method Collection Time Receive d Time (Source) Location / / Volume Laterality 07/22/2017 12:28 07/22/2017 3:48 PM CDT PM CDT Narrative PN SOFT - 07/24/2017 4:56 PM CDT Performed at [facility] [address] [place] [address] CLIA number [id number] Shama Sutton [facility]_1 Performing Organization Address City/[facility]/ZIP Code Phon e Number PN SOFT [address] [place] [address] Vitamin B-12 (07/22/2017 12:28 PM CDT) athologist Signature Vitamin B12 511 213 - 816 PN SOFT pg/dL Specimen Anatomical Collection Method Collection Time Receive d Time (Source) Location / / Volume Laterality 07/22/2017 12:28 07/22/2017 3:41 PM CDT PM CDT Narrative PN SOFT - 07/22/2017 5:48 PM CDT Performed at [place] [address] [place] [address] CLIA number [id number] Shama Fox Lesley [facility]_1 Performing Organization Address [facility] Phon e Number PN SOFT [address] [place] [address] Vitamin D (In house) (07/22/2017 12:28 PM [...] - 07/22/2017 5:11 PM CDT Performed at [facility], [address] [place] [address] CLIA number [id number] Shama WALKER LAB_1 Performing Organization Address City/State/ZIP Code Phon e Number PN SOFT [address] [place] [address] documented in this encounter Visit Diagnoses Diagnosis Vitamin D deficiency (HRC) Unspecified vitamin D deficiency Vitamin B6 deficiency (HRC) Vitamin B6 deficiency Vitamin B12 deficiency (HRC) Other B-complex deficiencies documented in this encounter Care Teams Administrative Medical Director Relationship Specialty Start Date End Date Needs Pcp, Assignment PCP - General 05/20/17 03/02/18 [place] [address] documented as of this encounter
--- OUTSIDE RECORDS SUMMARY | 2022-01-20 13:32 | XMS_ITS | Encounter Summary ---
:1955 Author Organization [employer] Address [address] [address] Support Name Relationship Address Phone Andria Stephens Unavailable Unavailable 03/19 Pt Decline Unavailable Unavailable Unavailable Care Team Providers Name Role Phone Needs Pcp, Assignment Primary Care Provider Reason for Visit Reason Onset Date Comments Refill 05/25/2017 Encounter Details Date Type Department Care Team Description 05/25/2017 Refill [facility] [address] MBBS Refill Endocrinology [address] [place] [address] [place] [address] [phone] Social History Tobacco Use Types Packs/Day Years [...] review and sign pending rx if approved. 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
--- OUTSIDE RECORDS SUMMARY | 2022-01-20 13:32 | XMS_ITS | Encounter Summary ---
:1955 Author Organization [employer] Address [address], [place] [address] Support Name Relationship Address Phone Andria Stephens Unavailable Unavailable 03/19 Pt Decline Unavailable Unavailable Unavailable Care Team Providers Name Role Phone Needs Pcp, Assignment Primary Care Provider Reason for Visit Reason Comments Medication Side Effects Encounter Details Date Type Department Care Team Description 10/26/2017 Telephone [facility] [address] Sh[address] Sutton, De dication Side Endocrinology MBBS Effects [address] [facility] [address] [facility] [place] [address] [phone] Social History Tobacco Use Types Packs/Day Years [...] month is very nauseated and has vomiting. [place] better at lower dose, wonders if he should reduced dose or get anti nausea medication. Pt at home #, can leave message documented in this encounter Plan of Treatment Not on filedocumented as of this encounter Visit Diagnoses Not on filedocumented in this encounter Care Teams Floriculture Teacher Relationship Specialty Start Date End Date Needs Pcp, Assignment PCP - General 05/20/17 03/02/18 [place] [address] documented as of this encounter
--- OUTSIDE RECORDS SUMMARY | 2022-01-20 13:32 | XMS_ITS | Encounter Summary ---
:1955 Author Organization [employer] Address [address], [place] [address] Support Name Relationship Address Phone Andria Stephens Unavailable Unavailable 03/19 Pt Decline Unavailable Unavailable Unavailable Care Team Providers Name Role Phone Needs Pcp, Assignment Primary Care Provider Reason for Visit Reason Onset Date Comments Refill 05/22/2017 Encounter Details Date Type Department Care Team Description 05/22/2017 Refill [facility] [address] MBBS Refill Endocrinology [address] [place] [address] [place] [address] [phone] Social History Tobacco Use Types Packs/Day Years [...] may substitute Basaglar as needed basedon insurance TABOUT HEAD documented in this encounter Plan of Treatment Not on filedocumented as of this encounter Visit Diagnoses Diagnosis DM type 2, uncontrolled, with neuropathy Type II or unspecified type diabetes pennie litus with neurological manifestations, uncontrolled Essential hypertension (HRC) Unspecified essential hypertension Dyslipidemia (HRC) Other and unspecified hyperlipidemia Vitamin D deficiency (HRC) Unspecified vitamin D deficiency documented in this encounter Care Teams Pharmacy Technician Inpatient Relationship Specialty Start Date End Date Needs Pcp, Assignment PCP - General 05/20/17 03/02/18 [place] [address] documented as of this encounter
--- OUTSIDE RECORDS SUMMARY | 2022-01-20 13:32 | XMS_ITS | Encounter Summary ---
:1955 Author Organization [facility] Address [address], [place] [address] Support Name Relationship Address Phone Andria Stephens Unavailable Unavailable 03/19 Pt Decline Unavailable Unavailable Unavailable Care Team Providers Name Role Phone Anoop Adam MD Primary Care Provider Reason for Visit Reason Comments Prior Authorization For Medication Encounter Details Date Type Department Care Team Description 06/08/2018 Telephone [facility] Found, No Pcp, Prior Authorization For Medicine [address] Medication [address] [place] [address] Social History Tobacco Use Types Packs/Day Years [...] on filedocumented in this encounter Care Teams Asphalt Plant Worker Relationship Specialty Start Date End Date Anoop Adam MD PCP - General 03/03/18[address] [place] [address] documented as of this encounter
--- OUTSIDE RECORDS SUMMARY | 2022-01-20 13:32 | XMS_ITS | Encounter Summary ---
:1955 Author Organization [facility] Address [address] [address] Support Name Relationship Address Phone Andria Stephens Unavailable Unavailable 03/19 Pt Decline Unavailable Unavailable Unavailable Care Team Providers Name Role Phone Needs Pcp, Assignment Primary Care Provider Reason for Visit Reason Comments Medication Questions Encounter Details Date Type Department Care Team Description 12/21/[address] [facility] [address] Mi dication Questions Endocrinology [facility] [address] [place] [address] [facility] [place] [address] [phone] Social History Tobacco Use Types Packs/Day Years [...] on filedocumented in this encounter Care Teams Bone Tender Relationship Specialty Start Date End Date Needs Pcp, Assignment PCP - General 05/20/17 03/02/18 [place] [address] documented as of this encounter
--- OUTSIDE RECORDS SUMMARY | 2022-01-20 13:32 | XMS_ITS | Encounter Summary ---
:1955 Author Organization [facility] Address [address] [address] Support Name Relationship Address Phone Andria Stephens Unavailable Unavailable 03/19 Pt Decline Unavailable Unavailable Unavailable Care Team Providers Name Role Phone Anoop Adam MD Primary Care Provider Reason for Visit Reason Comments Clinician Finder Team Encounter Details Date Type Department Care Team Description 03/03/2018 Telephone [facility] 3850 [facility] Pcp, Clinician Finder Team Family Medicine Assignment [address] [facility] [place] [address] [phone] Social History Tobacco Use Types Packs/Day Years [...] on filedocumented in this encounter Care Teams Primary Mill Roller Relationship Specialty Start Date End Date Anoop Adam MD PCP - General 03/03/181999 [place] [address] documented as of this encounter
--- OUTSIDE RECORDS SUMMARY | 2022-01-20 13:32 | XMS_ITS | Encounter Summary ---
:1955 Author Organization [facility] Address [address], [place] [address] Support Name Relationship Address Phone Andria Stephens Unavailable Unavailable 03/19 Pt Decline Unavailable Unavailable Unavailable Care Team Providers Name Role Phone Needs Pcp, Assignment Primary Care Provider Encounter Details Date Type Department Care Team Description 08/10/2017 Notes/Orders [facility] [address], Endocrinology DENISE [address] [place] [address] [place] [address] [place] [address] [phone] Social History Tobacco Use Types Packs/Day Years [...] filedocumented in this encounter Care Teams Manager Visual Relationship Specialty Start Date End Date Needs Pcp, Assignment PCP - General 05/20/17 03/02/18 [place] [address] documented as of this encounter
--- OUTSIDE RECORDS SUMMARY | 2022-01-20 13:32 | XMS_ITS | Encounter Summary ---
:1955 Author Organization [employer] Address [address], [place] [address] Support Name Relationship Address Phone Andria Stephens Unavailable Unavailable 03/19 Pt Decline Unavailable Unavailable Unavailable Care Team Providers Name Role Phone Anoop Adam MD Primary Care Provider Reason for Visit Reason Comments MEDICATION REACTION Encounter Details Date Type Department Care Team Description 01/22/[address] [facility] [address] [place] DICATION REACTION Endocrinology MBBS 38[address] [facility] [address] [place] [address] [phone] Social History Tobacco Use Types Packs/Day Years [...] agreeable with plan, and no further questions. ER HELPER Shama Sutton MBBS - 03/24/2018 9:06 AM CST Lets increase the Lantus to 40 units QHS and work on the diet part, keep Victoza the same. ER HELPER Ita Estevez RN - 03/24/2018 8:59 AM [...] for now. Pt can be reached at [phone], Ok to . ER HELPER Marivel Ya RN - 01/25/2018 9:44 AM [...] on filedocumented in this encounter Care Teams Line Maintainer Relationship Specialty Start Date End Date Anoop Adam MD PCP - General 03/03/181999 [place] [address] documented as of this encounter
--- OUTSIDE RECORDS SUMMARY | 2022-01-20 13:33 | XMS_ITS | Encounter Summary ---
:1955 Author Organization [employer] Address [address] [address] Support Name Relationship Address Phone Andria Stephens Unavailable Unavailable 03/19 Pt Decline Unavailable Unavailable Unavailable Care Team Providers Name Role Phone Needs Pcp, Assignment Primary Care Provider Encounter Details Date Type Department Care Team Description 05/20/2017 Lab Visit Eric [facility]ator y DM type 2, uncontrolled, wit h neuropathy (HRC); [id number] [facility] Essential hypertension; [place] [address] Dyslipidemia; [phone] Vitamin D defic iency Social History Tobacco [...] 2, Res ults for this RECOMMENDED) PM ORNAMENTER HAND uncontrolled, with procedure are in neuropathy (HRC) the results Essential section. hypertension Dyslipidemia Vitamin D deficiency GLUTAMIC ACID Routine 05/20/2017 12:29 DM type 2, Results fo r this DECARBOXYLASE ANTIBODY PM ORNAMENTER HAND uncontrolled, with procedure are in neuropathy (HRC) the results Essential section. hypertension Dyslipidemia Vitamin D deficiency C-PEPTIDE, SERUM Routine 05/20/2017 12:29 DM type 2, Results for this PM ORNAMENTER HAND uncontrolled, with procedure are in neuropathy (HRC) the results Essential section. hypertension Dyslipidemia Vitamin D deficiency VITAMIN D 25-HYDROXY, Routine 05/20/2017 12:29 DM type 2, Re sults for this TOTAL PM ORNAMENTER HAND uncontrolled, with procedure are in neuropathy (HRC) the results Essential section. hypertension Dyslipidemia Vitamin D deficiency CREATININE / GFR Routine 05/20/2017 12:29 DM type 2, Results for this PM ORNAMENTER HAND uncontrolled, with procedure are in neuropathy (HRC) the results Essential section. hypertension Dyslipidemia Vitamin D deficiency TSH, SENSITIVE Routine 05/20/2017 12:29 DM type 2, Results f or this PM ORNAMENTER HAND uncontrolled, with procedure are in neuropathy (HRC) the results Essential section. hypertension Dyslipidemia Vitamin D deficiency VITAMIN B12 ONLY Routine 05/20/2017 12:29 DM type 2, Results for this PM ORNAMENTER HAND uncontrolled, with procedure are in neuropathy (HRC) the results Essential section. hypertension Dyslipidemia Vitamin D deficiency GLUCOSE - FASTING > 8 Routine 05/20/2017 12:29 DM type 2, Re sults for this HRS FASTING PM ORNAMENTER HAND uncontrolled, with procedure are in neuropathy (HRC) the results Essential section. hypertension Dyslipidemia Vitamin D deficiency documented in this encounter Results (ABNORMAL) Vitamin D (In house) (05/20/2017 12:29 PM ORNAMENTER HAND) athologist Signature Vitamin D 25 Oh 18 (L) 20 - 80 PN SOFT ng/mL Comment: Deficiency = <20 Adequate ??= 20-29 Preferred = 30-50 Uncertain safety = 51-80 High = >80 Specimen Anatomical Collection Method Collection Time Receive d Time (Source) Location / / Volume Laterality 05/20/2017 12:29 05/20/2017 3:50 PM ORNAMENTER HAND PM ORNAMENTER HAND Narrative PN SOFT - 05/20/2017 6:25 PM ORNAMENTER HAND Performed at [facility] [address] [place] [address] CLIA number [id number] Shama [facility]ALK[facility]_1 Performing Organization Address City/State/ZIP Code Phon e Number PN SOFT [address] [place] [address] [phone] (ABNORMAL) Vitamin B6 (8Hr Fast Recommended) (05/20/2017 12:29 PM ORNAMENTER HAND) athologist Signature Vitamin B6 19.4 (L) 20.0 - PN SOFT 125.0 nmol/L Comment: INTERPRETIVE INFORMATION: Vitamin B6 (Py ridoxal 5-Phosphate) Pyridoxal 5'-phosphate measured in a spe cimen collected following an 8-hour or overnight fast ac curately indicates vitamin B6 nutritional status. Non-fasti ng specimen concentration reflects recent vitamin in take. Test developed and characteristics deter mined by [facility]. See Compliance Statement B : [employer]/CS Performed by [facility], [address] [place] [address] www.[employer], Yosi Cabral MD - Lab . Director Specimen Anatomical Collection Method Collection Time Receive d Time (Source) Location / / Volume Laterality 05/20/2017 12:29 05/20/2017 3:49 PM ORNAMENTER HAND PM ORNAMENTER HAND Narrative PN SOFT - 05/23/2017 12:33 AM ORNAMENTER HAND Performed at [facility] [address] [address] CLIA number [id number] Shama Fox Lesley KINNEY [facility]_1 Performing Organization Address City/[facility] Phon e Number PN SOFT [address] [place] [address] (ABNORMAL) Vitamin B-12 (05/20/2017 12:29 PM ORNAMENTER HAND) athologist Signature Vitamin B12 168 (L) 213 - 816 PN SOFT pg/dL Specimen Anatomical Collection Method Collection Time Receive d Time (Source) Location / / Volume Laterality 05/20/2017 12:29 05/20/2017 3:50 PM ORNAMENTER HAND PM ORNAMENTER HAND Narrative PN SOFT - 05/20/2017 6:56 PM ORNAMENTER HAND Performed at [address] [address] CLIA number [id number] Shama Fox Lesley [facility]_1 Performing Organization Address [facility] Phon e Number PN SOFT [address] [place] [address] (ABNORMAL) C-Peptide, Serum (05/20/2017 12:29 PM ORNAMENTER HAND) athologist Signature C-Peptide 5.4 (H) 0.8 - 3.5 PN SOFT ng/mL Comment: INTERPRETIVE INFORMATION: C-Peptide, Ser um or Plasma Reference Interval applies to fasting sp ecimens. To convert to nmol/L, multiply by 0.33 Performed by [facility], [address] [place] [address] www.[employer], Yosi Cabral MD - Lab . Director Specimen Anatomical Collection Method Collection Time Receive d Time (Source) Location / / Volume Laterality 05/20/2017 12:29 05/20/2017 3:50 PM ORNAMENTER HAND PM ORNAMENTER HAND Narrative PN SOFT - 05/21/2017 5:14 PM ORNAMENTER HAND Performed at [facility] [address] [place] [address] CLIA number [id number] Shama Sutton [facility]1 Performing Organization Address City/[facility]/ZIP Code Phon e Number PN SOFT [address] [place] [address] (ABNORMAL) Glucose (05/20/2017 12:29 PM ORNAMENTER HAND) athologist Signature Lab Glucose 183 (H) 70 - 100 PN SOFT mg/dL Comment: The stated glucose range is for the fast ing state. Non-fasting glucose range is 70-180 mg/d L Specimen Anatomical Collection Method Collection Time Receive d Time (Source) Location / / Volume Laterality 05/20/2017 12:29 05/20/2017 PM ORNAMENTER HAND 12:29 PM ORNAMENTER HAND Narrative PN SOFT - 05/20/2017 2:39 PM ORNAMENTER HAND Performed at [facility], [address] [place] [address] CLIA number [id number] Shama Sutton [facility]_1 Performing Organization Address [facility] Phon e Number PN SOFT [address] [place] [address] Glutamic Acid Decarboxylase Antibody (05/20/2017 12:29 PM ORNAMENTER HAND) Analysis Performed At Patho logist Time Signature [...] the context of clinical symptoms. Performed by [facility], [address] [place] [address] www.[employer], Yosi Cabral MD - Lab . Director Specimen Anatomical Collection Method Collection Time Receive d Time (Source) Location / / Volume Laterality 05/20/2017 12:29 05/20/2017 3:50 PM ORNAMENTER HAND PM ORNAMENTER HAND Narrative PN SOFT - 05/22/2017 7:09 PM ORNAMENTER HAND Performed at [facility] [address] [place] [address] CLIA number [id number] Shama Fox Lesley [facility]_1 Performing Organization Address [facility] Phon e Number PN SOFT [address] [place] [address] TSH (05/20/2017 12:29 PM ORNAMENTER HAND) athologist Signature Thyroid 1.51 0.30 - PN SOFT Stimulating 4.50 Hormone uIU/mL Specimen Anatomical Collection Method Collection Time Receive d Time (Source) Location / / Volume Laterality 05/20/2017 12:29 05/20/2017 3:50 PM ORNAMENTER HAND PM ORNAMENTER HAND Narrative PN SOFT - 05/20/2017 5:12 PM ORNAMENTER HAND Performed at [address] [address] CLIA number [id number] Shama Fox Lesley [facility]1 Performing Organization Address [facility] Phon e Number PN SOFT [address] [place] [address] (ABNORMAL) Creatinine (05/20/2017 12:29 PM ORNAMENTER HAND) Analysis Performed At Patho logist Time Signature [...] / Volume Laterality 05/20/2017 12:29 05/20/2017 PM ORNAMENTER HAND 12:29 PM ORNAMENTER HAND Narrative PN SOFT - 05/20/2017 2:39 PM ORNAMENTER HAND Performed at [facility], [address] [place] [address] CLIA number [id number] Shama WALKER [facility]_1 Performing Organization Address City/State/ZIP Code Phon e Number PN CARMELITA [address] [place] [address] documented in this encounter Visit Diagnoses Diagnosis DM type 2, uncontrolled, with neuropathy Type II or unspecified type diabetes pennie litus with neurological manifestations, uncontrolled Essential hypertension (HRC) Unspecified essential hypertension Dyslipidemia (HRC) Other and unspecified hyperlipidemia Vitamin D deficiency (HRC) Unspecified vitamin D deficiency documented in this encounter Care Teams Brass Burnisher Relationship Specialty Start Date End Date Needs Pcp, Assignment PCP - General 05/20/17 03/02/18 [place] [address] documented as of this encounter
--- OUTSIDE RECORDS SUMMARY | 2022-01-20 13:33 | XMS_ITS | Encounter Summary ---
:1955 Author Organization [facility] Address [address] [place] [address] Care Team Providers Name Role Phone Unavailable Primary Care Provider Unavailable Encounter Details Date Type Department Care Team Description 12/27/2021 Clinical Communication Division of Nephrology Kleber Gallardo, and Hypertension in Albert Ramírez, [place], [place] Ph.D. [address] [facility] [address] [place] [address] [phone] Social History Tobacco Use Types Packs/Day Years [...]
--- OUTSIDE RECORDS SUMMARY | 2022-01-20 13:33 | XMS_ITS | Encounter Summary ---
:1955 Author Organization [facility] Address [address] [place] [address] Care Team Providers Name Role Phone Unavailable Primary Care Provider Unavailable Reason for Visit Appointment Request (Routine) - Closed Specialty Diagnoses / Procedures Referred By Contact Refer red To Contact Nephrology and Anoop Adam Hypertension M.D. [address] [place] [address] Referral ID Status Reason Start Date Expiration Date Visits Requ ested Visits Authorized [id number] Closed 12/06/2021 12/06/2022 1 Encounter Details Date Type Department Care Team Description 12/10/2021 External Outreach Division of Kleber Gallardo, Linda franco (Primary Dx); Nephrology and Albert Ramírez, Chronic Kidne y Disease (CKD), Stage 3b Glomerular Filtration Rate (GFR) 30 To 44 (HCC); Hypertension in Ph.D. Hypertension Essential Primary [place], [place] [address] [facility] [address] [place] [address] [phone] Social History Tobacco Use Types Packs/Day Years [...] Gallardo M.D., Ph.D. CT CT Job ID: [id number] documented in this encounter Plan of Treatment Not on filedocumented as of this encounter Visit Diagnoses Diagnosis Hyperkalemia - Primary Chronic Kidney Disease (CKD), Stage 3b G lomerular Filtration Rate (GFR) 30 To 44 (HCC) Hypertension Essential Primary documented in this encounter
--- OUTSIDE RECORDS SUMMARY | 2022-01-20 13:33 | XMS_ITS | Encounter Summary ---
:1955 Author [facility] Address [address], [place] [address] Support Name Relationship Address Phone Andria Stephens Unavailable Unavailable 03/19 Pt Decline Unavailable Unavailable Unavailable Care Team Providers Name Role Phone Needs Pcp, Assignment Primary Care Provider Reason for Visit Reason Comments Appt. Needed Faxed referral rec from Dr.G uma Marcano from [facility] Dx: DM2 Encounter Details Date Type Department Care Team Description 03/19/2017 Telephone [facility] 3800 Nurse, [id number] End Appt. Needed (Faxed Endocrinology [address] [facility] referral rec from [address] [facility] [address]Gail Marcano from [facility]. [facility] Dx: DM2) [place] [id number] Social History Tobacco Use Types Packs/Day Years Used Date Smoking Tobacco: Never Assessed Sex Assigned at Date Recorded Not on file documented as of this encounter Nursing Notes Ghulam Abdalla - 03/19/2017 3:15 PM CST Faxed referral rec from Dr.Gail Marcano from [facility] Dx: DM2 UP OPERATOR documented in this encounter Plan of Treatment Not on filedocumented as of this encounter Visit Diagnoses Not on filedocumented in this encounter Care Teams Spray Applicator Relationship Specialty Start Date End Date Needs Pcp, Assignment PCP - General 05/20/17 03/02/18 [place], [place] [address] documented as of this encounter
--- OUTSIDE RECORDS SUMMARY | 2022-01-20 13:33 | XMS_ITS | Encounter Summary ---
:1955 Author Organization [facility] Address [address] [place] [address] Care Team Providers Name Role Phone Unavailable Primary Care Provider Unavailable Encounter Details Date Type Department Care Team Description 12/30/2021 Orders Only Division of Nephrology and Desiree Vann, Hypertension in [place], Albert, Ph.D. [address] [place] [address] [phone] (Wo rk) Social History Tobacco Use Types Packs/Day Years Used Date Smoking Tobacco: Never Assessed Sex Assigned at Date Recorded Not on file documented as of this encounter Plan of Treatment Not on filedocumented as of this encounter Visit Diagnoses Not on filedocumented in this encounter
--- OUTSIDE RECORDS SUMMARY | 2022-01-20 13:33 | XMS_ITS | Encounter Summary ---
:1955 Author Organization [facility] Address [address] [place] [address] Care Team Providers Name Role Phone Unavailable Primary Care Provider Unavailable Reason for Visit Reason Comments Abnormal Potassium Encounter Details Date Type Department Care Team Description 12/18/2021 Clinical Division of Kleber [facility] Communication Nephrology and Desiree Gallardo, Hypertension in M.D., Ph.D. [place], [place] [address] [facility] [address] [place] [address] [phone] Social History Tobacco Use Types Packs/Day Years [...] Carmen Gallardo M.D., Ph.D. Telephone Encounter - ZechariahSharita harrison - 12/18/2021 3:42 PM CDT Caller is: patient Preferred Communication Method: [phone] Reason for call: Lab/Test Results: What results are they looking for? potassium When was the test completed? Dec 17 Where was the testing completed? [facility] Patient is wondering what the potassium was and if any recommendations? documented in this encounter Plan of Treatment Not on filedocumented as of this encounter Visit Diagnoses Not on filedocumented in this encounter
--- OUTSIDE RECORDS SUMMARY | 2022-01-20 13:33 | XMS_ITS | Encounter Summary ---
:1955 Author Organization [facility] Address [address] [place] [address] Care Team Providers Name Role Phone Unavailable Primary Care Provider Unavailable Encounter Details Date Type Department Care Team Description 12/18/2021 Orders Only Division of Nephrology and Desiree Vann, Hypertension in [place], Albert, Ph.D. [address] [place] [address] [phone] (Wo rk) Social History Tobacco Use Types Packs/Day Years Used Date Smoking Tobacco: Never Assessed Sex Assigned at Date Recorded Not on file documented as of this encounter Plan of Treatment Not on filedocumented as of this encounter Visit Diagnoses Not on filedocumented in this encounter
--- OUTSIDE RECORDS SUMMARY | 2022-01-20 13:33 | XMS_ITS | Encounter Summary ---
:1955 Author Organization [facility] Address [address] [place] [address] Care Team Providers Name Role Phone Unavailable Primary Care Provider Unavailable Encounter Details Date Type Department Care Team Description 12/30/2021 Clinical Communication Division of Nephrology Kleber Gallardo, and Hypertension in Albert Ramírez, [place], [place] Ph.D. [address] [facility] [address] [place] [phone] [phone] Social History Tobacco Use Types Packs/Day Years [...]
--- OUTSIDE RECORDS SUMMARY | 2022-01-20 13:33 | XMS_ITS | Encounter Summary ---
:1955 Author Organization [employer] Address [address] [place] [address] Support Name Relationship Address Phone Andria Stephens Unavailable Unavailable 03/19 Pt Decline Unavailable Unavailable Unavailable Care Team Providers Name Role Phone Needs Pcp, Assignment Primary Care Provider Reason for Visit Reason Comments Diabetes Encounter Details Date Type Department Care Team Description 05/20/2017 Initial Consult Shama Ramirez DM type 2, uncontrolled, with neuropathy (HRC) (Primary Dx); Endocrinology DENISE Fox Essential hypertension; [address] [address] ANA ROSA ZAYAS Dyslipidemia; [place] [address] BLVD Vitamin D deficiency [phone] [place], [place] [address] Social History Tobacco Use Types Packs/Day Years Used Date Smoking Tobacco: Never Smokeless Tobacco: Never Alcohol Use Standard Drinks/Week Comments No 0 (1 standard drink = 0.6 oz pure alcoho l) Sex Assigned at Date Recorded Not on file documented as of this encounter Last Filed Vital Signs Vital Sign Reading Time Taken Comments Blood Pressure 112/58 05/20/2017 11:34 AM GROUP HOME WORKER Pulse 76 05/20/2017 11:34 AM GROUP HOME WORKER Temperature - - Respiratory Rate - - Oxygen Saturation - - Inhaled Oxygen Concentration - - Weight 89.8 kg (198 lb) 05/20/2017 11:34 AM GROUP HOME WORKER Height 188 cm (6' 2) 05/20/2017 11:34 AM GROUP HOME WORKER Body Mass Index 25.42 05/20/2017 11:34 AM GROUP HOME WORKER documented in this encounter Progress Notes Shama Sutton MBBS - 05/20/2017 11:30 AM CST Ana Rosa Zayas [facility] Department of Endocrinology, Diabetes and Metabolism Clinic [...] >50% was spent on counseling. DENISE Otto Corporate Statistical Financial Analyst P HOME WORKER documented in this encounter Plan of Treatment Not on filedocumented as of this encounter Procedures Procedure Name Priority Date/Time Associated Comments Diagnosis POCT GLYCOSYLATED Routine 05/20/2017 3:35 PM DM type 2, Resu lts for this HEMOGLOBIN (HGB A1C) GROUP HOME WORKER uncontrolled, with p rocedure are in neuropathy (HRC) the results Essential section. hypertension Dyslipidemia Vitamin D deficiency documented in this encounter Results (ABNORMAL) POCT glycosylated hemoglobin (Hb A1C) (05/20/2017 3:35 PM GROUP HOME WORKER) P athologist Signature Hemoglobin A1C, 9.6 (A) 4 - 5.6 % PN POCT POC Cartridge Lot# [id number] PN POCT Specimen (Source) Anatomical Collection Method Collection Time Re ceived Time Location / / Volume Laterality Blood specimen 05/20/2017 3:35 PM (specimen) GROUP HOME WORKER Shama WALKER PN POINT OF CARE TESTS Performing Organization Address City/State/ZIP Code Phon e Number POCT PN POCT (ABNORMAL) Vitamin D (In house) (05/20/2017 12:29 PM GROUP HOME WORKER) P athologist Signature Vitamin D 25 Oh 18 (L) 20 - 80 PN SOFT ng/mL Comment: Deficiency = <20 Adequate ??= 20-29 Preferred = 30-50 Uncertain safety = 51-80 High = >80 Specimen Anatomical Collection Method Collection Time Receive d Time (Source) Location / / Volume Laterality 05/20/2017 12:29 05/20/2017 3:50 PM GROUP HOME WORKER PM GROUP HOME WORKER Narrative PN SOFT - 05/20/2017 6:25 PM GROUP HOME WORKER Performed at [facility] [address] [place] [address] CLIA number [id number] Shama Sutton DENISE LAB_1 Performing Organization Address City/[facility]/ZIP Code Phon e Number PN SOFT [address] [place] [address] (ABNORMAL) Vitamin B6 (8Hr Fast Recommended) (05/20/2017 12:29 PM GROUP HOME WORKER) athologist Signature Vitamin B6 19.4 (L) 20.0 - PN SOFT 125.0 nmol/L Comment: INTERPRETIVE INFORMATION: Vitamin B6 (Py ridoxal 5-Phosphate) Pyridoxal 5'-phosphate measured in a spe cimen collected following an 8-hour or overnight fast ac curately indicates vitamin B6 nutritional status. Non-fasti ng specimen concentration reflects recent vitamin in take. Test developed and characteristics deter mined by [employer]. See Compliance Statement B : [employer]/CS Performed by [employer], [address] [place] [address] www.[employer], Yosi Cabral MD - Lab . Director Specimen Anatomical Collection Method Collection Time Receive d Time (Source) Location / / Volume Laterality 05/20/2017 12:29 05/20/2017 3:49 PM GROUP HOME WORKER PM GROUP HOME WORKER Narrative PN SOFT - 05/23/2017 12:33 AM GROUP HOME WORKER Performed at [facility] [address] [place] [address] CLIA number [id number] Shama Jorgeavi WALKER LAB_1 Performing Organization Address City/[facility]/ZIP Code Phon e Number PN SOFT [address] [place] [address] [phone] (ABNORMAL) Vitamin B-12 (05/20/2017 12:29 PM GROUP HOME WORKER) athologist Signature Vitamin B12 168 (L) 213 - 816 PN SOFT pg/dL Specimen Anatomical Collection Method Collection Time Receive d Time (Source) Location / / Volume Laterality 05/20/2017 12:29 05/20/2017 3:50 PM GROUP HOME WORKER PM GROUP HOME WORKER Narrative PN SOFT - 05/20/2017 6:56 PM GROUP HOME WORKER Performed at [facility] [address] [place] [address] CLIA number [id number] Shama Sutton NIRMAL LAB_1 Performing Organization Address [facility] Phon e Number PN SOFT [address] [place] [address] (ABNORMAL) C-Peptide, Serum (05/20/2017 12:29 PM GROUP HOME WORKER) P athologist Signature C-Peptide 5.4 (H) 0.8 - 3.5 PN SOFT ng/mL Comment: INTERPRETIVE INFORMATION: C-Peptide, Ser um or Plasma Reference Interval applies to fasting sp ecimens. To convert to nmol/L, multiply by 0.33 Performed by [employer], [address] [place] [address] www.[employer], Yosi Cabral MD - Lab . Director Specimen Anatomical Collection Method Collection Time Receive d Time (Source) Location / / Volume Laterality 05/20/2017 12:29 05/20/2017 3:50 PM GROUP HOME WORKER PM GROUP HOME WORKER Narrative PN SOFT - 05/21/2017 5:14 PM GROUP HOME WORKER Performed at [facility] [address] [place] [address] CLIA number [id number] Shama Samal WALKER LAB_1 Performing Organization Address [facility] Phon e Number PN SOFT [address] [place] [address] (ABNORMAL) Glucose (05/20/2017 12:29 PM GROUP HOME WORKER) athologist Signature Lab Glucose 183 (H) 70 - 100 PN SOFT mg/dL Comment: The stated glucose range is for the fast ing state. Non-fasting glucose range is 70-180 mg/d L Specimen Anatomical Collection Method Collection Time Receive d Time (Source) Location / / Volume Laterality 05/20/2017 12:29 05/20/2017 PM GROUP HOME WORKER 12:29 PM GROUP HOME WORKER Narrative PN SOFT - 05/20/2017 2:39 PM GROUP HOME WORKER Performed at [facility], [address] [place] [address] CLIA number [id number] Shama Miltonmike [facility] LAB_1 Performing Organization Address [facility] Phon e Number PN SOFT [address] [place] [address] Glutamic Acid Decarboxylase Antibody (05/20/2017 12:29 PM GROUP HOME WORKER) Analysis Performed At Patho logist Time Signature [...] the context of clinical symptoms. Performed by [employer], [address] [place] [address] www.[employer], Yosi Cabral MD - Lab . Director Specimen Anatomical Collection Method Collection Time Receive d Time (Source) Location / / Volume Laterality 05/20/2017 12:29 05/20/2017 3:50 PM GROUP HOME WORKER PM GROUP HOME WORKER Narrative PN SOFT - 05/22/2017 7:09 PM GROUP HOME WORKER Performed at [facility] [address] [place] [address] CLIA number [id number] Shama Fox Lesley [facility] LAB_1 Performing Organization Address [facility] Phon e Number PN SOFT [address] [place] [address] TSH (05/20/2017 12:29 PM GROUP HOME WORKER) P athologist Signature Thyroid 1.51 0.30 - PN SOFT Stimulating 4.50 Hormone uIU/mL Specimen Anatomical Collection Method Collection Time Receive d Time (Source) Location / / Volume Laterality 05/20/2017 12:29 05/20/2017 3:50 PM GROUP HOME WORKER PM GROUP HOME WORKER Narrative PN SOFT - 05/20/2017 5:12 PM GROUP HOME WORKER Performed at [facility], [address] [place] [address] CLIA number [id number] Shama Fox Lesley WALKER LAB_1 Performing Organization Address [facility] Phon e Number PN SOFT [address] [place] [address] (ABNORMAL) Creatinine (05/20/2017 12:29 PM GROUP HOME WORKER) Analysis Performed At [facility] Time Signature Creatinine 1.20 (H) 0.73 [...] / Volume Laterality 05/20/2017 12:29 05/20/2017 PM GROUP HOME WORKER 12:29 PM GROUP HOME WORKER Narrative PN SOFT - 05/20/2017 2:39 PM GROUP HOME WORKER Performed at [facility], [address] [place], [place] [address] CLIA number [id number] Shama Fox Lesley WALKER LAB_1 Performing Organization Address [facility] Phon e Number PN SOFT [address] [place] [address] documented in this encounter Visit Diagnoses Diagnosis [...] deficiency documented in this encounter Care Teams Bi Developer Relationship Specialty Start Date End Date Needs Pcp, Assignment PCP - General 05/20/17 03/02/18 [place] [address] documented as of this encounter
--- OUTSIDE RECORDS SUMMARY | 2022-01-20 13:33 | XMS_ITS | Encounter Summary ---
:1955 Author Organization [facility] Address [address] [place] [address] Care Team Providers Name Role Phone Unavailable Primary Care Provider Unavailable Encounter Details Date Type Department Care Team Description 12/27/2021 Orders Only Division of Nephrology and Desiree Vann, Hypertension in [place], Albert, Ph.D. [address] [place] [address] [phone] (Wo rk) Social History Tobacco Use Types Packs/Day Years Used Date Smoking Tobacco: Never Assessed Sex Assigned at Date Recorded Not on file documented as of this encounter Plan of Treatment Not on filedocumented as of this encounter Visit Diagnoses Not on filedocumented in this encounter
[2022-01-20 15:03] LABS: Potassium* 4.3 mmol/L (3.6-5.1)
== END 2022-01-20 13:24 | disposition home or self-care (01) ==
LOC: NFLDREF 13:31
PROVIDERS: PCP Internal Medicine; Visit Provider Internal Medicine Nephrology
DX: E87.5 Hyperkalemia (principal)
CPT/HCPCS: 84132

== ENCOUNTER 2022-02-05 13:31 | Outpatient (CLI) | payer MEDICARE, SELFPAY ==
--- OUTSIDE RECORDS SUMMARY | 2022-02-05 13:39 | XMS_ITS | Encounter Summary ---
:1955 Author Organization [email or web address] Address [address] [place] [address] Support Name Relationship Address Phone Andria Stephens Unavailable Unavailable 03/19 Pt Decline Unavailable Unavailable Unavailable Care Team Providers Name Role Phone Anoop Adam MD Primary Care Provider Reason for Visit Reason Comments MEDICATION REACTION Encounter Details Date Type Department Care Team Description 01/22/2018 Telephone [facility] [address] Shama Sutton DE DICATION REACTION Endocrinology BS [address]60 [facility] [place] [address] [phone] Social History Tobacco Use Types Packs/Day Years [...] agreeable with plan, and no further questions. GER WATER WASTEWATER Shama Sutton MBBS - 03/24/2018 9:06 AM CST Lets increase the Lantus to 40 units QHS and work on the diet part, keep Victoza the same. GER WATER WASTEWATER Ita Estevez RN - 03/24/2018 8:59 AM [...] for now. Pt can be reached at [phone], Ok to . GER WATER WASTEWATER Marivel Ya RN - 01/25/2018 9:44 AM [...] on filedocumented in this encounter Care Teams Hospice Office Coordinator Relationship Specialty Start Date End Date Anoop Adam MD PCP - General 03/03/181999 [place] [address] documented as of this encounter
--- OUTSIDE RECORDS SUMMARY | 2022-02-05 13:39 | XMS_ITS | Clinical Summary ---
:1955 Author Organization [facility] Address [address] [address] Support Name Relationship Address Phone Andria Stephens [...] for each transition of care or referral. [employer] Allergies No known active allergies Medications Medication [...] Dates Next Due Influenza IIV4 (Quadrivalent) 0.5mL (40933) 01/12/2018 Social History Tobacco Use Types Packs/Day [...] age to complete this topic Care Teams Foam Cutting Supervisor Relationship Specialty Start Date End Date Anoop Adam MD PCP - General 03/03/181999 [place] [address]
--- OUTSIDE RECORDS SUMMARY | 2022-02-05 13:39 | XMS_ITS | Encounter Summary ---
:1955 Author Organization [facility] Address [address], [place] [address] Support Name Relationship Address Phone Andria Stephens Unavailable Unavailable 03/19 Pt Decline Unavailable Unavailable Unavailable Care Team Providers Name Role Phone Needs Pcp, Assignment Primary Care Provider Encounter Details Date Type Department Care Team Description 07/22/2017 Lab Visit [facility] Vitamin D deficiency; [address] [address] Vitamin B6 deficiency; [place] [address] Vitamin B12 deficiency [phone] Social History Tobacco Use Types Packs/Day Years [...] Test developed and characteristics deter mined by [employer]. See Compliance Statement B : [employer]/CS Performed by [employer], [facility] [place] [address] www.[employer], Yosi Cabral MD - Lab . Director Specimen Anatomical Collection Method Collection Time Receive d Time (Source) Location / / Volume Laterality 07/22/2017 12:28 07/22/2017 3:48 PM CDT PM CDT Narrative PN SOFT - 07/24/2017 4:56 PM CDT Performed at [facility] [address] [place] [address] CLIA number [id number] Shama Sutton [facility] LAB_1 Performing Organization Address City/[facility]/ZIP Code Phon e Number PN SOFT [address] [place] [address] Vitamin B-12 (07/22/2017 12:28 PM CDT) athologist Signature Vitamin B12 511 213 - 816 PN SOFT pg/dL Specimen Anatomical Collection Method Collection Time Receive d Time (Source) Location / / Volume Laterality 07/22/2017 12:28 07/22/2017 3:41 PM CDT PM CDT Narrative PN SOFT - 07/22/2017 5:48 PM CDT Performed at [address] [address] CLIA number [id number] Shama Sutton [facility] LAB_1 Performing Organization Address [facility]/ZIP [facility] Phon e Number PN SOFT [address] [place] [address] Vitamin D (In house) (07/22/2017 12:28 PM [...] [facility], [address] [place] [address] CLIA number [id number] Shama WALKER LAB_1 Performing Organization Address City/State/ZIP Code Phon e Number PN SOFT [address] [place] [address] documented in this encounter Visit Diagnoses Diagnosis Vitamin D deficiency (HRC) Unspecified vitamin D deficiency Vitamin B6 deficiency (HRC) Vitamin B6 deficiency Vitamin B12 deficiency (HRC) Other B-complex deficiencies documented in this encounter Care Teams Laser Cutter Relationship Specialty Start Date End Date Needs Pcp, Assignment PCP - General 05/20/17 03/02/18 [place] [address] documented as of this encounter
--- OUTSIDE RECORDS SUMMARY | 2022-02-05 13:39 | XMS_ITS | Encounter Summary ---
:1955 Author Organization [employer] 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, with long-term current use of insulin, macular edema presence unspecified, unspecified proliferative retinopathy* (HRC) (Primary Dx); Endocrinology M, MBBS Vitamin D deficiency; [address] Vitamin B6 deficiency; [place] [address] BLVD Vitamin B12 deficiency; [phone] [place], [place] Essential hypertension; [address] Dyslipidemia; [phone] Controlled type 2 diabetes with neuropathy (HRC) [...] CDT documented in this encounter Progress Notes Almokayyad, Rami M, MBBS - 07/22/2017 11:45 AM CDT [facility] Department [...] Dyslipidemia: Continue ASA and Simvastatin. DENISE Otto Gravity Manager documented in this encounter Plan of [...] Test developed and characteristics deter mined by [employer]. See Compliance Statement B : [employer]/CS Performed by [employer], [address] [place] [address] www.[employer], Yosi Cabral MD - Lab . Director Specimen Anatomical Collection Method Collection Time Receive d Time (Source) Location / / Volume Laterality 07/22/2017 12:28 07/22/2017 3:48 PM CDT PM CDT Narrative PN SOFT - 07/24/2017 4:56 PM CDT Performed at [facility] [address] [place] [address] CLIA number [id number] Shama KINNEY LAB_1 Performing Organization Address City/[facility]/ZIP [facility] Phon e Number PN SOFT [address] [place] [address] Vitamin B-12 (07/22/2017 12:28 PM CDT) athologist Signature Vitamin B12 511 213 - 816 PN SOFT pg/dL Specimen Anatomical Collection Method Collection Time Receive d Time (Source) Location / / Volume Laterality 07/22/2017 12:28 07/22/2017 3:41 PM CDT PM CDT Narrative PN SOFT - 07/22/2017 5:48 PM CDT Performed at [place] [address] [place] [address] CLIA number [id number] Shama WALKER LAB_1 Performing Organization Address [facility] Phon e Number PN SOFT [address] [place] [address] Vitamin D (In house) (07/22/2017 12:28 PM [...] - 07/22/2017 5:11 PM CDT Performed at [facility], [address] [place] [address] CLIA number [id number] Shama WALKER LAB_1 Performing Organization Address City/State/ZIP Code Phon e Number PN SOFT [address] [place] [address] documented in this encounter Visit Diagnoses Diagnosis [...] deficiencies documented in this encounter Care Teams Meter And Service Line Inspector Relationship Specialty Start Date End Date Needs Pcp, Assignment PCP - General 05/20/17 03/02/18 [place] [address] documented as of this encounter
--- OUTSIDE RECORDS SUMMARY | 2022-02-05 13:39 | XMS_ITS | Encounter Summary ---
:1955 Author Organization [facility] Address [address], [place] [address] Support Name Relationship Address Phone Andria Stephens Unavailable Unavailable 03/19 Pt Decline Unavailable Unavailable Unavailable Care Team Providers Name Role Phone Needs Pcp, Assignment Primary Care Provider Reason for Visit Reason Comments Medication Questions Encounter Details Date Type Department Care Team Description 12/21/2017 Telephone [facility] [address] Sh[address] Sc dication Questions Endocrinology [facility] 38[address] [facility] [address] [facility] [place] [address] [phone] Social History Tobacco Use Types Packs/Day Years [...] on filedocumented in this encounter Care Teams Medicaid Billing Clerk Relationship Specialty Start Date End Date Needs Pcp, Assignment PCP - General 05/20/17 03/02/18 [place] [address] documented as of this encounter
--- OUTSIDE RECORDS SUMMARY | 2022-02-05 13:39 | XMS_ITS | Encounter Summary ---
:1955 Author Organization [facility] Address [address] [place] [address] Support Name Relationship Address Phone Andria Stephens Unavailable Unavailable 03/19 Pt Decline Unavailable Unavailable Unavailable Care Team Providers Name Role Phone Anoop Adam MD Primary Care Provider Reason for Visit Reason Comments Prior Authorization For Medication Encounter Details Date Type Department Care Team Description 06/08/2018 Telephone [place] Family Found, No PcpMD Prior Authorization For Medicine [address] [facility] Medication [address] [place] [address] Social History Tobacco Use Types Packs/Day Years [...] on filedocumented in this encounter Care Teams Research Instrumentation Technician Relationship Specialty Start Date End Date Anoop Aadm MD PCP - General 03/03/181999 [place] [address] documented as of this encounter
--- OUTSIDE RECORDS SUMMARY | 2022-02-05 13:39 | XMS_ITS | Encounter Summary ---
:1955 Author Organization [employer] Address [address] [place] [address] Support Name Relationship Address Phone Andria Stephens [...] unspecified proliferative retinopathy* (HRC) (Primary Dx); Endocrinology L, PARadhaC Essential hypertension; [address] Dyslipidemia; [place], [place] [address] [place] [address] Vitamin D deficiency; [phone] [address] Vitamin B6 deficiency; [phone] Vitamin B12 def iciency (Work) Social History [...] documented in this encounter Patient Instructions Patient InstructionsMcGovern, Francy L - 09/23/2017 10:00 AM CDT Your A1c [...] have questions about your appointment, please call [phone]. If you have medical questions or concerns, please contact the triage nurse at [phone]. Thanks for visiting today! documented in this encounter Progress Notes Francy Boyd - 09/23/2017 10:00 AM CDT Images from the original note were not included. [facility]: [address] [place] [address] Clinic: [address] [place] [address] [phone], Nurse Line: [phone] Diabetes Progress Note September 23, 2017 Subjective: [...] Follow up in [address] Jose Martin Amin triage nurse line and asked patient to [...] deficiencies documented in this encounter Care Teams Gas Station Operator Relationship Specialty Start Date End Date Needs Pcp, Assignment PCP - General 05/20/17 03/02/18 [place] [address] documented as of this encounter
--- OUTSIDE RECORDS SUMMARY | 2022-02-05 13:39 | XMS_ITS | Encounter Summary ---
:1955 Author Organization [facility] Address [address] [place] [address] Support Name Relationship Address Phone Andria Stephens Unavailable Unavailable 03/19 Pt Decline Unavailable Unavailable Unavailable Care Team Providers Name Role Phone Anoop Adam MD Primary Care Provider Reason for Visit Reason Onset Date Comments Refill 05/10/2020 insulin pen needle ( BD PEN NEEDLE DARSHANA U/F) 32G X 4 MM Encounter Details Date Type Department Care Team Description 05/10/2020 Refill [facility] [address] Mia Sutton, Re fill (insulin pen Endocrinology MBBS needle (BD PEN NEEDLE [address] [place] [address] [place] NAN O U/F) 32G X 4 MM) [facility] [place] [address] [id number] Social History Tobacco Use Types Packs/Day Years [...] Reason for Refusal: Patient Needs An Appointment NG OVEN TENDER Interface, Out Surescripts Prov Query - 05/10/2020 [...] two times a day. (unchanged) Powered by [employer], Reference: [id number], 05/10/2020 12:45:05 PM BLUING OVEN TENDER, Pool: ENDO PN NURSING TEAM 1 ([id number]) NG OVEN TENDER documented in this encounter Plan of Treatment Not on filedocumented as of this encounter Visit Diagnoses Not on filedocumented in this encounter Care Teams Or Director Relationship Specialty Start Date End Date Anoop Adam MD PCP - General 03/03/181999 [place], [place] [address] documented as of this encounter
--- OUTSIDE RECORDS SUMMARY | 2022-02-05 13:39 | XMS_ITS | Encounter Summary ---
:1955 Author Organization [facility] Address [address] [place] [address] Support Name Relationship Address Phone Andria Stephens Unavailable Unavailable 03/19 Pt Decline Unavailable Unavailable Unavailable Care Team Providers Name Role Phone Anoop Adam MD Primary Care Provider Reason for Visit Reason Onset Date Comments Refill 03/08/2018 Encounter Details Date Type Department Care Team Description 03/08/2018 Refill [facility] [address] Magaly Sutton MBBS Refill Endocrinology [address] [facility] [address] [place] [address] [place] [address] [phone] Social History Tobacco Use Types Packs/Day Years [...] User: KARY HATHAWAY LV: 01/12/18 FV: 04/27/18 UE GRADER documented in this encounter Plan of Treatment Not on filedocumented as of this encounter Visit Diagnoses Not on filedocumented in this encounter Care Teams Short Order Cook Relationship Specialty Start Date End Date Anoop Adam MD PCP - General 03/03/181999 [place] [address] documented as of this encounter
--- OUTSIDE RECORDS SUMMARY | 2022-02-05 13:39 | XMS_ITS | Encounter Summary ---
:1955 Author Organization [employer] Address [address] [place] [address] Support Name Relationship Address Phone Andria Stephens Unavailable Unavailable 03/19 Pt Decline Unavailable Unavailable Unavailable Care Team Providers Name Role Phone Needs Pcp, Assignment Primary Care Provider Reason for Visit Reason Onset Date Comments Refill 05/25/2017 Encounter Details Date Type Department Care Team Description 05/25/2017 Refill [facility] [address] Magaly Sutton MBBS Refill Endocrinology [address] [place] [address] [place], [place] [address] [phone] Social History Tobacco Use Types Packs/Day Years Used Date Smoking Tobacco: Never Smokeless Tobacco: Never Alcohol Use Standard Drinks/Week Comments No 0 (1 standard drink = 0.6 oz pure alcoho l) Sex Assigned at Date Recorded Not on file documented as of this encounter Nursing Notes Kary Hathaway RN - 05/25/2017 1:58 PM CST Pharmacy updated on this. Will fill rx. [place] SALES LEAD Shama Sutton MBBS - 05/25/2017 1:40 PM CST Victoza is a daily medication and they are wrong. No change in prescription needed. They need to be notified about that. [place] SALES LEAD Kary Hathaway RN - 05/25/2017 1:30 PM CST Requested [...] review and sign pending rx if approved. [place] SALES LEAD documented in this encounter Plan of Treatment Not on filedocumented as of this encounter Visit Diagnoses Not on filedocumented in this encounter Care Teams Youth Agent Relationship Specialty Start Date End Date Needs Pcp, Assignment PCP - General 05/20/17 03/02/18 [place] [address] documented as of this encounter
--- OUTSIDE RECORDS SUMMARY | 2022-02-05 13:39 | XMS_ITS | Encounter Summary ---
:1955 Author Organization [facility] Address [address] [place] [address] Support Name Relationship Address Phone Andria Stephens Unavailable Unavailable 03/19 Pt Decline Unavailable Unavailable Unavailable Care Team Providers Name Role Phone Anoop Adam MD Primary Care Provider Reason for Visit Reason Onset Date Comments Refill 08/12/2019 insulin pen needle ( BD PEN NEEDLE DARSHANA U/F) 32G X 4 MM Encounter Details Date Type Department Care Team Description 08/12/2019 Refill [facility] 38[address] Mia Sutton, Re fill (insulin pen Endocrinology MBBS needle (BD PEN NEEDLE [address] [place] U/F) 32G X 4 MM) [facility] [place] [address] [phone] Social History Tobacco Use Types Packs/Day Years [...] thru his PCP and not Endo. Kary Hathaway, RN - 08/15/2019 10:34 AM CDT Pt is due for a follow up appt. Please call and assist in scheduling an appt. Route back to nursing once appt is made. Interface, Out SurescriMuseStorm Prov Query - 08/12/2019 11:42 AM CDT [...] two times a day. (unchanged) Powered by [employer], Reference: [id number], 08/12/2019 11:42:15 AM CDT, Pool: ENDO PN REFILL ([id number]) Suki Barragan RN - 08/12/2019 11:41 AM CDT Images from the original note were not included. documented in this encounter Plan of Treatment Not on filedocumented as of this encounter Visit Diagnoses Not on filedocumented in this encounter Care Teams Document Management Analyst Relationship Specialty Start Date End Date Anoop Adam MD PCP - General 03/03/181999 [place] [address] documented as of this encounter
--- OUTSIDE RECORDS SUMMARY | 2022-02-05 13:39 | XMS_ITS | Encounter Summary ---
:1955 Author Organization [facility] Address [address] [place] [address] Support Name Relationship Address Phone Andria Stephens Unavailable Unavailable 03/19 Pt Decline Unavailable Unavailable Unavailable Care Team Providers Name Role Phone Anoop Adam MD Primary Care Provider Reason for Visit Reason Comments Clinician Finder Team Encounter Details Date Type Department Care Team Description 03/03/[address] [facility] 3850 [facility] Pcp, Clinician Finder Team Family Medicine Assignment 3850 [facility] [place] [address] [phone] Social History Tobacco Use Types Packs/Day Years [...] on filedocumented in this encounter Care Teams Fisheries Officer Relationship Specialty Start Date End Date Anoop Adam MD PCP - General 03/03/181999 [place] [address] documented as of this encounter
--- OUTSIDE RECORDS SUMMARY | 2022-02-05 13:39 | XMS_ITS | Encounter Summary ---
:1955 Author Organization [facility] Address [address], [place] [address] Support Name Relationship Address Phone Andria Stephens Unavailable Unavailable 03/19 Pt Decline Unavailable Unavailable Unavailable Care Team Providers Name Role Phone Needs Pcp, Assignment Primary Care Provider Reason for Visit Reason Comments Medication Side Effects Encounter Details Date Type Department Care Team Description 10/26/2017 Telephone [facility] [address] Shama Sutton, [place] dication Side Endocrinology MBBS Effects 3800 [facility] [address] [facility] [address] [phone] Social History Tobacco Use Types Packs/Day Years [...] below. Francy, Please advise thank you! Harpal Van RN - 10/26/2017 11:35 AM CDT Pt calling to say is on victoza 1.8 Over last month is very nauseated and has vomiting. [place] better at lower dose, wonders if he should reduced dose or get anti nausea medication. Pt at home #, can leave message documented in this encounter Plan of Treatment Not on filedocumented as of this encounter Visit Diagnoses Not on filedocumented in this encounter Care Teams Drum Straightener Relationship Specialty Start Date End Date Needs Pcp, Assignment PCP - General 05/20/17 03/02/18 [place] [address] documented as of this encounter
--- OUTSIDE RECORDS SUMMARY | 2022-02-05 13:39 | XMS_ITS | Encounter Summary ---
:1955 Author Organization [facility] Address [address] [place] [address] Support Name Relationship Address Phone Andria Stephens Unavailable Unavailable 03/19 Pt Decline Unavailable Unavailable Unavailable Care Team Providers Name Role Phone Needs Pcp, Assignment Primary Care Provider Reason for Visit Reason Comments Medication Questions Encounter Details Date Type Department Care Team Description 11/04/2017 Telephone [facility] [address] Francy Boyd, Med ication Questions Endocrinology PA-C [address] [place] [address] [place] [address] [phone] (Wo rk) Social History Tobacco Use Types [...] on filedocumented in this encounter Care Teams Exhibitor Sales Relationship Specialty Start Date End Date Needs Pcp, Assignment PCP - General 05/20/17 03/02/18 [place] [address] documented as of this encounter
--- OUTSIDE RECORDS SUMMARY | 2022-02-05 13:39 | XMS_ITS | Encounter Summary ---
:1955 Author Organization [employer] Address [address] [place] [address] Support Name Relationship Address Phone Andria Stephens [...] (Primary Dx); Endocrinology M, MBBS Essential hypertension; [address] Dyslipidemia; [place] [address] BLVD Vitamin D deficiency; [phone] [place], [place] Need for p rophylactic vaccination and inoculation against influenza [id number] Social History Tobacco Use Types Packs/Day Years [...] Sutton MBBS - 01/12/2018 10:45 AM CDT [facility] Department of Endocrinology, Diabetes and [...] Dyslipidemia: Continue ASA and Simvastatin. DENISE Otto Insemination Worker documented in this encounter Plan of Treatment [...] influenza documented in this encounter Care Teams Slide Fasteners Inspector Relationship Specialty Start Date End Date Needs Pcp, Assignment PCP - General 05/20/17 03/02/18 [place] [address] documented as of this encounter
--- OUTSIDE RECORDS SUMMARY | 2022-02-05 13:39 | XMS_ITS | Encounter Summary ---
:1955 Author Organization [facility] Address [address], [place] [address] Support Name Relationship Address Phone Andria Stephens Unavailable Unavailable 03/19 Pt Decline Unavailable Unavailable Unavailable Care Team Providers Name Role Phone Needs Pcp, Assignment Primary Care Provider Encounter Details Date Type Department Care Team Description 08/10/2017 Notes/Orders [facility] [address] Sutton, Endocrinology MBDORIE [address] [place] [address] [place] [address] [place] [address] [phone] Social History Tobacco Use Types Packs/Day Years [...] on filedocumented in this encounter Care Teams Meat Sales And Storage Manager Relationship Specialty Start Date End Date Needs Pcp, Assignment PCP - General 2/21/18 12/4/18 [place], [place] [address] documented as of this encounter
--- OUTSIDE RECORDS SUMMARY | 2022-02-05 13:40 | XMS_ITS | Clinical Summary ---
:1955 Author Organization [facility] Address [address] [place] [address] Care Team Providers Name Role Phone Unavailable Primary Care Provider Unavailable Source Comments Patient records contain information from all sites at [facility]. For routine questions regarding patient records, call [phone] during business hours, M-F 8:00 AM - 5:00 PM Central Time. Record requests for emergency care only can be directed to [phone] at any time.[facility] Medications Medication Sig Dispensed Refills Start Date End Date Status furosemide (LASIX) Take 1 90 tablet 3 12/10/2021 Active 20 mg tablet tablet (20 3 mg total) by mouth daily. sodium zirconium Take 10 g by 8 packet 11 01/23/2022 Active cyclosilicate mouth 2 3 (LOKELMA) 10 gram (two) times powder in packet a week. packet minoxidiL Take 1 30 tablet 11 01/22/2022 Active (LONITEN) 10 mg tablet (10 3 tablet mg total) by mouth daily. sodium zirconium Take 10 g by 12 packet 11 12/27/2021 Discontinued cyclosilicate mouth 3 2 (LOKELMA) 10 gram (three) powder in packet times a packet week. amLODIPine Take 1 90 tablet 3 12/30/2021 Disconti nued (NORVASC) 2.5 mg tablet (2.5 2 ( Therapy tablet mg total) by complet ed) mouth daily. terazosin (HYTRIN) Take 1 30 capsule 11 12/30/2021 Discontinued 2 mg capsule capsule (2 2 (Thera py mg total) by complet ed) mouth at bedtime. Active Problems Problem Noted Date Hypertension Essential Primary 01/22/2022 Hyperkalemia 01/22/2022 Chronic Kidney Disease (CKD), Stage 3b Glomerular Filt ration Rate (GFR) 30 01/22/2022 To 44 Encounters Date Type Specialty Care Team Description 01/22/2022 External Outreach Nephrology and Kle[facility] Hyperten feliz Essential Primary (Primary Dx); Hypertension Desiree Gallardo, Hyperkalemia; Albert, Ph.D. Chronic Kidney Disease (CKD), Stage 3b Glomerular Filtration Rate (GFR) 30 To 44 (HCC) 12/30/2021 Clinical Nephrology and [facility] Communication Hypertension Desiree Gallardo M.D., Ph.D. 12/30/2021 Orders Only Nephrology and [facility] Hypertension Desiree Gallardo M.D., Ph.D. 12/27/2021 Clinical Nephrology and [facility] Communication Desiree An M.D., Ph.D. 12/27/2021 Orders Only Nephrology and [facility] Hypertension Desiree Gallardo M.D., Ph.D. 12/18/2021 Orders Only Nephrology and [facility] Hypertension Desiree Gallardo M.D., Ph.D. 12/18/2021 Clinical Nephrology and [facility] Abnormal Pota ssium Communication Desiree An M.D., Ph.D. 12/10/2021 External Outreach Nephrology and [...] Diabetes 1955 Screening Hepatitis C Screening 1955 Office Visit for Blood Pressure 1955 Check / Re-check Potassium Level 1955 Sodium Level 1955 Pneumococcal vaccine (65+ years) 01/04/2011 01/04/2010 (2 - PCV) Zoster Vaccines (1 of 2) 06/12/2016 04/17/2016 DTaP,Tdap,and Td Vaccines (2 - Td 12/08/2019 12/07/2009 or Tdap) COVID-19 Vaccine (4 - Booster for 03/29/2021 02/01/2021, , Pfizer series) 06/12/2020 Depression Screening (Annual 03/30/2021 PHQ-2) Fall Risk Screen (Annual) 03/30/2021 Influenza Vaccine Completed 01/10/2022, 02/13/2021, 03/01/2020, Additional history exists Insurance Payer Benefit Plan / Subscriber ID Effective Dates Phone Addre ss Type Group UC[employer] ARE FOR [id number] 2020-Present [phone] [address] [place] [address] ([place]) [facility] [address] [place] [address]
--- OUTSIDE RECORDS SUMMARY | 2022-02-05 13:40 | XMS_ITS | Encounter Summary ---
:1955 Author Organization [employer] Address [address], [place] [address] Support Name Relationship Address Phone Andria Stephens Unavailable Unavailable 03/19 Pt Decline Unavailable Unavailable Unavailable Care Team Providers Name Role Phone Needs Pcp, Assignment Primary Care Provider Encounter Details Date Type Department Care Team Description 05/25/2017 Notes/Orders [facility] [address] Shama Sutton, Endocrinology MBBS [address] [place] [address] [place] [address] [place] [address] [phone] Social History Tobacco Use Types Packs/Day Years Used Date Smoking Tobacco: Never Smokeless Tobacco: Never Alcohol Use Standard Drinks/Week Comments No 0 (1 standard drink = 0.6 oz pure alcoho l) Sex Assigned at Date Recorded Not on file documented as of this encounter Progress Notes Shama Sutton, DENISE - 05/25/2017 1:07 PM CST Labs are [...] D3 2000 units daily (OTC). DENISE Otto CAMP OPERATOR Wang Chatman - 05/25/2017 1:07 PM CST Called patient, no answer. Left message to call back. CAMP OPERATOR Ita Estevez, LEO - 05/25/2017 1:07 PM CST Pt called back and relayed info below. Patient verbalized understanding, is agreeable with plan, andno further questions. CAMP OPERATOR documented in this encounter Plan of Treatment Not on filedocumented as of this encounter Visit Diagnoses Not on filedocumented in this encounter Care Teams Assembler Camper Relationship Specialty Start Date End Date Needs Pcp, Assignment PCP - General 05/20/17 03/02/18 [place] [address] documented as of this encounter
--- OUTSIDE RECORDS SUMMARY | 2022-02-05 13:40 | XMS_ITS | Encounter Summary ---
:1955 Author Organization [email or web address] Address [address], [place] [address] Support Name Relationship Address Phone Andria Stephens Unavailable Unavailable 03/19 Pt Decline Unavailable Unavailable Unavailable Care Team Providers Name Role Phone Needs Pcp, Assignment Primary Care Provider Reason for Visit Reason Comments Appt. Needed Faxed referral rec from Dr.G uma Marcano from [facility] Dx: DM2 Encounter Details Date Type Department Care Team Description 03/19/2017 Telephone [facility] 3800 Nurse, P3800 End Appt. Needed (Faxed Endocrinology 3800 [facility] referral rec from 38[address] [facility] [address]Gail Marcano from [facility]. [facility] Dx: DM2) [place] [address] [id number] Social History Tobacco Use Types Packs/Day Years Used Date Smoking Tobacco: Never Assessed Sex Assigned at Date Recorded Not on file documented as of this encounter Nursing Notes Ghulam Abdalla - 03/19/2017 3:15 PM CST Faxed referral rec from Dr.Gail Marcano from [facility] Dx: DM2 LER RADIOACTIVE WASTE documented in this encounter Plan of Treatment Not on filedocumented as of this encounter Visit Diagnoses Not on filedocumented in this encounter Care Teams Manual Arts Therapy Teacher Relationship Specialty Start Date End Date Needs Pcp, Assignment PCP - General 05/20/17 03/02/18 [place], [place] [address] documented as of this encounter
--- OUTSIDE RECORDS SUMMARY | 2022-02-05 13:40 | XMS_ITS | Encounter Summary ---
:1955 Author Organization [facility] Address [address] [place] [address] Care Team Providers Name Role Phone Unavailable Primary Care Provider Unavailable Reason for Visit Appointment Request (Routine) - Closed Specialty Diagnoses / Procedures Referred By Contact Refer red To Contact Nephrology and Anoop Adam Hypertension M.D. [address] [place] [address] Referral ID Status Reason Start Date Expiration Date Visits Requ ested Visits Authorized [id number] Closed 12/06/2021 12/06/2022 1 Encounter Details Date Type Department Care Team Description 12/10/2021 External Outreach Division of [facility] Gallardo, Linda franco (Primary Dx); Nephrology and Albert Ramírez, Chronic Kidne y Disease (CKD), Stage 3b Glomerular Filtration Rate (GFR) 30 To 44 (HCC); Hypertension in Ph.D. Hypertension Essential Primary [place], [place] [address] [facility] [address] [place] [address] [phone] Social History Tobacco Use Types Packs/Day Years [...] Gallardo M.D., Ph.D. CT CT Job ID: [id number]/brandon documented in this encounter Plan of Treatment Not on filedocumented as of this encounter Visit Diagnoses Diagnosis Hyperkalemia - Primary Chronic Kidney Disease (CKD), Stage 3b G lomerular Filtration Rate (GFR) 30 To 44 (HCC) Hypertension Essential Primary documented in this encounter
--- OUTSIDE RECORDS SUMMARY | 2022-02-05 13:40 | XMS_ITS | Encounter Summary ---
:1955 Author Organization [facility] Address [address] [place] [address] Care Team Providers Name Role Phone Unavailable Primary Care Provider Unavailable Encounter Details Date Type Department Care Team Description 12/18/2021 Orders Only Division of Nephrology and Desiree Vann, Hypertension in [place], Albert, Ph.D. [address] [place] [address] [phone] (Wo rk) Social History Tobacco Use Types Packs/Day Years Used Date Smoking Tobacco: Never Assessed Sex Assigned at Date Recorded Not on file documented as of this encounter Plan of Treatment Not on filedocumented as of this encounter Visit Diagnoses Not on filedocumented in this encounter
--- OUTSIDE RECORDS SUMMARY | 2022-02-05 13:40 | XMS_ITS | Encounter Summary ---
:1955 Author Organization [facility] Address [address] [place] [address] Care Team Providers Name Role Phone Unavailable Primary Care Provider Unavailable Reason for Visit Appointment Request (Routine) - Closed Specialty Diagnoses / Procedures Referred By Contact Refer red To Contact Nephrology and Hypertension Referral ID Status Reason Start Date Expiration Date Visits Requ ested Visits Authorized [id number] Closed 12/27/2021 12/27/2022 1 Encounter Details Date Type Department Care Team Description 01/22/2022 External Outreach Division of Kle[facility] Gallardo, Hypert ensjillian Essential Primary (Primary Dx); Nephrology and Albert Ramírez, Hyperkalemia; Hypertension in Ph.D. Chronic Kidney Disease (CKD), Stage 3b G lomerular Filtration Rate (GFR) 30 To 44 ([facility]) [address] [place] [phone] [phone] Social History Tobacco Use Types Packs/Day Years Used Date Smoking Tobacco: Never Assessed Sex Assigned at Date Recorded Not on file documented as of this encounter Progress Notes Desiree Phillips M.D., Ph.D. - 01/22/2022 11:30 AM CDT SUBJECTIVE REASON FOR CONSULT Follow up CKD and hyperkalemia management. Location: [facility] HISTORY OF PRESENT ILLNESS Mr. Heaton is [...] 20 mg on a daily basis). He follows a low salt and low potassium diet. He was started on lokelma 10 mg daily and then transitioned to 3 times per week with good response. He checks his blood pressure regularly at home, and it has been ranging in the 160s/90s. He tried amlodipine but developed lower extremity edema. He was switched to terazosin but he developed severe dizziness with this medication and it was discontinued. Currently off antihypertensive medications. Overall, he feels well and does not have any current concerns. Patient has not noticed any lightheadedness, dizziness, vision changes, diaphoresis, chest pain, difficulty breathing, or edema. Patient has not noticed any changes in urinary habits. No hesitancy to urinate, no difficulty to urinate. OBJECTIVE VITAL SIGNS Blood pressure 160/70. Pulse 82. PHYSICAL EXAMINATION General: No acute distress, breathing [...] diabetes #2 Hypertension management #3 Hyperkalemia management Patient comes for follow up. His hyperkalemia is better controlled with Lokelma. 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 As his potassium has reached normal levels, we will decrease the use ofLokelma to twice per week. We will repeat labs in 2 weeks. CKD is likely associated with long-standing diabetes and hypertension. Currently at baseline. We discussed about the importance of controlling his blood pressure. He will start minoxidil 10 mg daily. BP goal is systolic readings between 100-130 mmHg and diastolic readings between 60-80 mmHg. I have recommended patient to check BP regularly at home, to keep a record of blood pressure readings. If BPis still not at goal, medications should be adjusted. We discussed about salt intake and our recommendation to limit sodium intake to less than 2000 mg per day. Return to clinic in 3 months Carmen Gallardo M.D., Ph.D. documented in this encounter Plan of Treatment Not on filedocumented as of this encounter Visit Diagnoses Diagnosis Hypertension Essential Primary - Primary Hyperkalemia Chronic Kidney Disease (CKD), Stage 3b G lomerular Filtration Rate (GFR) 30 To 44 (HCC) documented in this encounter
--- OUTSIDE RECORDS SUMMARY | 2022-02-05 13:40 | XMS_ITS | Encounter Summary ---
:1955 Author Organization [facility] Address [address] [place] [address] Support Name Relationship Address Phone Andria Stephens Unavailable Unavailable 03/19 Pt Decline Unavailable Unavailable Unavailable Care Team Providers Name Role Phone Needs Pcp, Assignment Primary Care Provider Reason for Visit Reason Onset Date Comments Refill 05/22/2017 Encounter Details Date Type Department Care Team Description 05/22/2017 Refill [facility] [address] MBBS Refill Endocrinology [address] [place] [address] [place], [place] [address] [phone] Social History Tobacco Use Types Packs/Day Years [...] may substitute Basaglar as needed basedon insurance RAL SCHEDULER documented in this encounter Plan of Treatment Not on filedocumented as of this encounter Visit Diagnoses Diagnosis DM type 2, uncontrolled, with neuropathy Type II or unspecified type diabetes pennie litus with neurological manifestations, uncontrolled Essential hypertension (HRC) Unspecified essential hypertension Dyslipidemia (HRC) Other and unspecified hyperlipidemia Vitamin D deficiency (HRC) Unspecified vitamin D deficiency documented in this encounter Care Teams President Educational [employer] Relationship Specialty Start Date End Date Needs Pcp, Assignment PCP - General 05/20/17 03/02/18 [place] [address] documented as of this encounter
--- OUTSIDE RECORDS SUMMARY | 2022-02-05 13:40 | XMS_ITS | Encounter Summary ---
:1955 Author Organization [facility] Address [address] [place] [address] Care Team Providers Name Role Phone Unavailable Primary Care Provider Unavailable Reason for Visit Reason Comments Abnormal Potassium Encounter Details Date Type Department Care Team Description 12/18/2021 Clinical Division of Kleber Gardner [facility] Communication Nephrology and Desiree Gallardo, Hypertension in M.D., Ph.D. [place], [place] [address] [facility] [address] [place] [address] [phone] Social History Tobacco Use Types Packs/Day Years [...] CDT Caller is: patient Preferred Communication Method: [phone] Reason for call: Lab/Test Results: What results are they looking for? potassium When was the test completed? Dec 17 Where was the testing completed? [facility] Patient is wondering what the potassium was and if any recommendations? documented in this encounter Plan of Treatment Not on filedocumented as of this encounter Visit Diagnoses Not on filedocumented in this encounter
--- OUTSIDE RECORDS SUMMARY | 2022-02-05 13:40 | XMS_ITS | Encounter Summary ---
:1955 Author Organization [facility] Address [address], [place] [address] Support Name Relationship Address Phone Andria Stephens Unavailable Unavailable 03/19 Pt Decline Unavailable Unavailable Unavailable Care Team Providers Name Role Phone Needs Pcp, Assignment Primary Care Provider Encounter Details Date Type Department Care Team Description 05/20/2017 Lab Visit [facility] DM type 2, uncontrolled, wit h neuropathy (HRC); [address] [facility] Essential hypertension; [place] [address] Dyslipidemia; [phone] Vitamin D defic iency Social History Tobacco [...] 2, Res ults for this RECOMMENDED) PM WAFER FABRICATION OPERATOR uncontrolled, with procedure are in neuropathy (HRC) the results Essential section. hypertension Dyslipidemia Vitamin D deficiency GLUTAMIC ACID Routine 05/20/2017 12:29 DM type 2, Results fo r this DECARBOXYLASE ANTIBODY PM WAFER FABRICATION OPERATOR uncontrolled, with procedure are in neuropathy (HRC) the results Essential section. hypertension Dyslipidemia Vitamin D deficiency C-PEPTIDE, SERUM Routine 05/20/2017 12:29 DM type 2, Results for this PM WAFER FABRICATION OPERATOR uncontrolled, with procedure are in neuropathy (HRC) the results Essential section. hypertension Dyslipidemia Vitamin D deficiency VITAMIN D 25-HYDROXY, Routine 05/20/2017 12:29 DM type 2, Re sults for this TOTAL PM WAFER FABRICATION OPERATOR uncontrolled, with procedure are in neuropathy (HRC) the results Essential section. hypertension Dyslipidemia Vitamin D deficiency CREATININE / GFR Routine 05/20/2017 12:29 DM type 2, Results for this PM WAFER FABRICATION OPERATOR uncontrolled, with procedure are in neuropathy (HRC) the results Essential section. hypertension Dyslipidemia Vitamin D deficiency TSH, SENSITIVE Routine 05/20/2017 12:29 DM type 2, Results f or this PM WAFER FABRICATION OPERATOR uncontrolled, with procedure are in neuropathy (HRC) the results Essential section. hypertension Dyslipidemia Vitamin D deficiency VITAMIN B12 ONLY Routine 05/20/2017 12:29 DM type 2, Results for this PM WAFER FABRICATION OPERATOR uncontrolled, with procedure are in neuropathy (HRC) the results Essential section. hypertension Dyslipidemia Vitamin D deficiency GLUCOSE - FASTING > 8 Routine 05/20/2017 12:29 DM type 2, Re sults for this HRS FASTING PM WAFER FABRICATION OPERATOR uncontrolled, with procedure are in neuropathy (HRC) the results Essential section. hypertension Dyslipidemia Vitamin D deficiency documented in this encounter Results (ABNORMAL) Vitamin D (In house) (05/20/2017 12:29 PM WAFER FABRICATION OPERATOR) athologist Signature Vitamin D 25 Oh 18 (L) 20 - 80 PN SOFT ng/mL Comment: Deficiency = <20 Adequate ??= 20-29 Preferred = 30-50 Uncertain safety = 51-80 High = >80 Specimen Anatomical Collection Method Collection Time Receive d Time (Source) Location / / Volume Laterality 05/20/2017 12:29 05/20/2017 3:50 PM WAFER FABRICATION OPERATOR PM WAFER FABRICATION OPERATOR Narrative PN SOFT - 05/20/2017 6:25 PM WAFER FABRICATION OPERATOR Performed at [facility], [address] [place] [address] CLIA number [id number] Shama WALKER LAB_1 Performing Organization Address City/State/ZIP Code Phon e Number PN SOFT [address] [place] [address] [phone] (ABNORMAL) Vitamin B6 (8Hr Fast Recommended) (05/20/2017 12:29 PM WAFER FABRICATION OPERATOR) athologist Signature Vitamin B6 19.4 (L) 20.0 - PN SOFT 125.0 nmol/L Comment: INTERPRETIVE INFORMATION: Vitamin B6 (Py ridoxal 5-Phosphate) Pyridoxal 5'-phosphate measured in a spe cimen collected following an 8-hour or overnight fast ac curately indicates vitamin B6 nutritional status. Non-fasti ng specimen concentration reflects recent vitamin in take. Test developed and characteristics deter mined by [facility]. See Compliance Statement B : [email or web address] Performed by [facility], [address] [place] [address] [email or web address], Yosi Cabral MD - Lab . Director Specimen Anatomical Collection Method Collection Time Receive d Time (Source) Location / / Volume Laterality 05/20/2017 12:29 05/20/2017 3:49 PM WAFER FABRICATION OPERATOR PM WAFER FABRICATION OPERATOR Narrative PN SOFT - 05/23/2017 12:33 AM WAFER FABRICATION OPERATOR Performed at [facility] [address] [place] [address] CLIA number [id number] Shama WALKER LAB_1 Performing Organization Address City/[facility] Phon e Number PN SOFT [address] [place] [address] (ABNORMAL) Vitamin B-12 (05/20/2017 12:29 PM WAFER FABRICATION OPERATOR) athologist Signature Vitamin B12 168 (L) 213 - 816 PN SOFT pg/dL Specimen Anatomical Collection Method Collection Time Receive d Time (Source) Location / / Volume Laterality 05/20/2017 12:29 05/20/2017 3:50 PM WAFER FABRICATION OPERATOR PM WAFER FABRICATION OPERATOR Narrative PN SOFT - 05/20/2017 6:56 PM WAFER FABRICATION OPERATOR Performed at [address] [address] CLIA number [id number] Shama WALKER LAB_1 Performing Organization Address [facility] Phon e Number PN SOFT [address] [place] [address] (ABNORMAL) C-Peptide, Serum (05/20/2017 12:29 PM WAFER FABRICATION OPERATOR) athologist Signature C-Peptide 5.4 (H) 0.8 - 3.5 PN SOFT ng/mL Comment: INTERPRETIVE INFORMATION: C-Peptide, Ser um or Plasma Reference Interval applies to fasting sp ecimens. To convert to nmol/L, multiply by 0.33 Performed by [facility], [address] [place] [address],[place] [address] [email or web address], Yosi Cabral MD - Lab . Director Specimen Anatomical Collection Method Collection Time Receive d Time (Source) Location / / Volume Laterality 05/20/2017 12:29 05/20/2017 3:50 PM WAFER FABRICATION OPERATOR PM WAFER FABRICATION OPERATOR Narrative PN SOFT - 05/21/2017 5:14 PM WAFER FABRICATION OPERATOR Performed at [facility] [address] [place] [address] CLIA number [id number] Shama Sutton [facility] LAB_1 Performing Organization Address City/[facility]/ZIP Code Phon e Number PN SOFT [address] [place] [address] (ABNORMAL) Glucose (05/20/2017 12:29 PM WAFER FABRICATION OPERATOR) athologist Signature Lab Glucose 183 (H) 70 - 100 PN SOFT mg/dL Comment: The stated glucose range is for the fast ing state. Non-fasting glucose range is 70-180 mg/d L Specimen Anatomical Collection Method Collection Time Receive d Time (Source) Location / / Volume Laterality 05/20/2017 12:29 05/20/2017 PM WAFER FABRICATION OPERATOR 12:29 PM WAFER FABRICATION OPERATOR Narrative PN SOFT - 05/20/2017 2:39 PM WAFER FABRICATION OPERATOR Performed at [facility], [address] [place] [address] CLIA number [id number] Shama Sutton [facility] LAB_1 Performing Organization Address [facility] Phon e Number PN SOFT [address] [place] [address] Glutamic Acid Decarboxylase Antibody (05/20/2017 12:29 PM WAFER FABRICATION OPERATOR) Analysis Performed At Patho logist Time [...] the context of clinical symptoms. Performed by [facility], [address] [place] [address] [email or web address], Yosi Carbal MD - Lab . Director Specimen Anatomical Collection Method Collection Time Receive d Time (Source) Location / / Volume Laterality 05/20/2017 12:29 05/20/2017 3:50 PM WAFER FABRICATION OPERATOR PM WAFER FABRICATION OPERATOR Narrative PN SOFT - 05/22/2017 7:09 PM WAFER FABRICATION OPERATOR Performed at [facility] [address] [facility] [place] [address] CLIA number [id number] Shama Fox Lesley WALKER LAB_1 Performing Organization Address [facility] Phon e Number PN SOFT [address] [place] [address] TSH (05/20/2017 12:29 PM WAFER FABRICATION OPERATOR) P athologist Signature Thyroid 1.51 0.30 - PN SOFT Stimulating 4.50 Hormone uIU/mL Specimen Anatomical Collection Method Collection Time Receive d Time (Source) Location / / Volume Laterality 05/20/2017 12:29 05/20/2017 3:50 PM WAFER FABRICATION OPERATOR PM WAFER FABRICATION OPERATOR Narrative PN SOFT - 05/20/2017 5:12 PM WAFER FABRICATION OPERATOR Performed at [address] [address] CLIA number [id number] Shama Fox Lesley WALKER LAB_1 Performing Organization Address [facility] Phon e Number PN SOFT [address] [place] [address] (ABNORMAL) Creatinine (05/20/2017 12:29 PM WAFER FABRICATION OPERATOR) Analysis Performed At Patho logist Time [...] / Volume Laterality 05/20/2017 12:29 05/20/2017 PM WAFER FABRICATION OPERATOR 12:29 PM WAFER FABRICATION OPERATOR Narrative PN SOFT - 05/20/2017 2:39 PM WAFER FABRICATION OPERATOR Performed at [facility], [address] [place] [address] CLIA number [id number] Shama WALKER LAB_1 Performing Organization Address City/State/ZIP Code Phon e Number PN CARMELITA [address] [place] [address] [phone] documented in this encounter Visit Diagnoses Diagnosis DM type 2, uncontrolled, with neuropathy Type II or unspecified type diabetes pennie litus with neurological manifestations, uncontrolled Essential hypertension (HRC) Unspecified essential hypertension Dyslipidemia (HRC) Other and unspecified hyperlipidemia Vitamin D deficiency (HRC) Unspecified vitamin D deficiency documented in this encounter Care Teams Drawing Operator Relationship Specialty Start Date End Date Needs Pcp, Assignment PCP - General 05/20/17 03/02/18 [place] [address] documented as of this encounter
--- OUTSIDE RECORDS SUMMARY | 2022-02-05 13:40 | XMS_ITS | Encounter Summary ---
:1955 Author Organization [facility] Address [address] [place] [address] Care Team Providers Name Role Phone Unavailable Primary Care Provider Unavailable Encounter Details Date Type Department Care Team Description 12/30/2021 Orders Only Division of Nephrology and Desiree Vann, Hypertension in [place], [place], Ph.D. [address] [place] [phone] (Wo rk) Social History Tobacco Use Types Packs/Day Years Used Date Smoking Tobacco: Never Assessed Sex Assigned at Date Recorded Not on file documented as of this encounter Plan of Treatment Not on filedocumented as of this encounter Visit Diagnoses Not on filedocumented in this encounter
--- OUTSIDE RECORDS SUMMARY | 2022-02-05 13:40 | XMS_ITS | Encounter Summary ---
:1955 Author Organization [facility] Address [address] [place] [address] Care Team Providers Name Role Phone Unavailable Primary Care Provider Unavailable Encounter Details Date Type Department Care Team Description 12/30/2021 Clinical Communication Division of Nephrology Kleber Gallardo, and Hypertension in Albert Ramírez, [place], [place] Ph.D. [address] [facility] [address] [place] [address] [phone] Social History Tobacco Use Types Packs/Day Years [...]
--- OUTSIDE RECORDS SUMMARY | 2022-02-05 13:40 | XMS_ITS | Encounter Summary ---
:1955 Author Organization [facility] Address [address] [place] [address] Care Team Providers Name Role Phone Unavailable Primary Care Provider Unavailable Encounter Details Date Type Department Care Team Description 12/27/2021 Orders Only Division of Nephrology and Desiree Vann, Hypertension in [place], [place], Ph.D. [address] [place] [phone] (Wo rk) Social History Tobacco Use Types Packs/Day Years Used Date Smoking Tobacco: Never Assessed Sex Assigned at Date Recorded Not on file documented as of this encounter Plan of Treatment Not on filedocumented as of this encounter Visit Diagnoses Not on filedocumented in this encounter
--- OUTSIDE RECORDS SUMMARY | 2022-02-05 13:40 | XMS_ITS | Encounter Summary ---
:1955 Author Organization [employer] Address [address] [place] [address] Support Name Relationship Address Phone Andria Stephens Unavailable Unavailable 03/19 Pt Decline Unavailable Unavailable Unavailable Care Team Providers Name Role Phone Needs Pcp, Assignment Primary Care Provider Reason for Visit Reason Comments Diabetes Encounter Details Date Type Department Care Team Description 05/20/2017 Initial Consult Shama Ramirez DM type 2, uncontrolled, with neuropathy (HRC) (Primary Dx); Endocrinology DENISE Fox Essential hypertension; [address] [address] ANA ROSA ZAYAS Dyslipidemia; [place] [address] BLVD Vitamin D deficiency [phone] [place], [place] [address] Social History Tobacco Use Types Packs/Day Years Used Date Smoking Tobacco: Never Smokeless Tobacco: Never Alcohol Use Standard Drinks/Week Comments No 0 (1 standard drink = 0.6 oz pure alcoho l) Sex Assigned at Date Recorded Not on file documented as of this encounter Last Filed Vital Signs Vital Sign Reading Time Taken Comments Blood Pressure 112/58 05/20/2017 11:34 AM AMBULATORY CARE NURSE Pulse 76 05/20/2017 11:34 AM AMBULATORY CARE NURSE Temperature - - Respiratory Rate - - Oxygen Saturation - - Inhaled Oxygen Concentration - - Weight 89.8 kg (198 lb) 05/20/2017 11:34 AM AMBULATORY CARE NURSE Height 188 cm (6' 2) 05/20/2017 11:34 AM AMBULATORY CARE NURSE Body Mass Index 25.42 05/20/2017 11:34 AM AMBULATORY CARE NURSE documented in this encounter Progress Notes Shama Sutton MBBS - 05/20/2017 11:30 AM CST Ana Rosa Zayas [facility] Department of Endocrinology, Diabetes and [...] >50% was spent on counseling. DENISE Otto Payroll Auditor LATORY CARE NURSE documented in this encounter Plan of Treatment Not on filedocumented as of this encounter Procedures Procedure Name Priority Date/Time Associated Comments Diagnosis POCT GLYCOSYLATED Routine 05/20/2017 3:35 PM DM type 2, Resu lts for this HEMOGLOBIN (HGB A1C) AMBULATORY CARE NURSE uncontrolled, with p rocedure are in neuropathy (HRC) the results Essential section. hypertension Dyslipidemia Vitamin D deficiency documented in this encounter Results (ABNORMAL) POCT glycosylated hemoglobin (Hb A1C) (05/20/2017 3:35 PM AMBULATORY CARE NURSE) P athologist Signature Hemoglobin A1C, 9.6 (A) 4 - 5.6 % PN POCT POC Cartridge Lot# [id number] PN POCT Specimen (Source) Anatomical Collection Method Collection Time Re ceived Time Location / / Volume Laterality Blood specimen 05/20/2017 3:35 PM (specimen) AMBULATORY CARE NURSE Shama WALKER PN POINT OF CARE TESTS Performing Organization Address City/State/ZIP Code Phon e Number POCT PN POCT (ABNORMAL) Vitamin D (In house) (05/20/2017 12:29 PM AMBULATORY CARE NURSE) P athologist Signature Vitamin D 25 Oh 18 (L) 20 - 80 PN SOFT ng/mL Comment: Deficiency = <20 Adequate ??= 20-29 Preferred = 30-50 Uncertain safety = 51-80 High = >80 Specimen Anatomical Collection Method Collection Time Receive d Time (Source) Location / / Volume Laterality 05/20/2017 12:29 05/20/2017 3:50 PM AMBULATORY CARE NURSE PM AMBULATORY CARE NURSE Narrative PN SOFT - 05/20/2017 6:25 PM AMBULATORY CARE NURSE Performed at [facility], [address] [place] [address] CLIA number [id number] Shama Sutton NIRMAL LAB_1 Performing Organization Address City/State/ZIP Code Phon e Number PN SOFT [address] [place] [address] (ABNORMAL) Vitamin B6 (8Hr Fast Recommended) (05/20/2017 12:29 PM AMBULATORY CARE NURSE) athologist Signature Vitamin B6 19.4 (L) 20.0 - PN SOFT 125.0 nmol/L Comment: INTERPRETIVE INFORMATION: Vitamin B6 (Py ridoxal 5-Phosphate) Pyridoxal 5'-phosphate measured in a spe cimen collected following an 8-hour or overnight fast ac curately indicates vitamin B6 nutritional status. Non-fasti ng specimen concentration reflects recent vitamin in take. Test developed and characteristics deter mined by [facility]. See Compliance Statement B : [employer]/CS Performed by [facility], [address] [place] [address] [email or web address], Yosi Cabral MD - Lab . Director Specimen Anatomical Collection Method Collection Time Receive d Time (Source) Location / / Volume Laterality 05/20/2017 12:29 05/20/2017 3:49 PM AMBULATORY CARE NURSE PM AMBULATORY CARE NURSE Narrative PN SOFT - 05/23/2017 12:33 AM AMBULATORY CARE NURSE Performed at [facility] [address] [place] [address] CLIA number [id number] Shama Miltonmike WALKER LAB_1 Performing Organization Address City/[facility] Phon e Number PN SOFT [address] [place] [address] (ABNORMAL) Vitamin B-12 (05/20/2017 12:29 PM AMBULATORY CARE NURSE) athologist Signature Vitamin B12 168 (L) 213 - 816 PN SOFT pg/dL Specimen Anatomical Collection Method Collection Time Receive d Time (Source) Location / / Volume Laterality 05/20/2017 12:29 05/20/2017 3:50 PM AMBULATORY CARE NURSE PM AMBULATORY CARE NURSE Narrative PN SOFT - 05/20/2017 6:56 PM AMBULATORY CARE NURSE Performed at [facility], [address] [place] [address] CLIA number [id number] Shama Sutton [facility] LAB_1 Performing Organization Address [facility] Phon e Number PN SOFT [address] [place] [address] (ABNORMAL) C-Peptide, Serum (05/20/2017 12:29 PM AMBULATORY CARE NURSE) P athologist Signature C-Peptide 5.4 (H) 0.8 - 3.5 PN SOFT ng/mL Comment: INTERPRETIVE INFORMATION: C-Peptide, Ser um or Plasma Reference Interval applies to fasting sp ecimens. To convert to nmol/L, multiply by 0.33 Performed by [facility], [address] [place] [address] [email or web address], Yosi Cabral MD - Lab . Director Specimen Anatomical Collection Method Collection Time Receive d Time (Source) Location / / Volume Laterality 05/20/2017 12:29 05/20/2017 3:50 PM AMBULATORY CARE NURSE PM AMBULATORY CARE NURSE Narrative PN SOFT - 05/21/2017 5:14 PM AMBULATORY CARE NURSE Performed at [facility] [address] [place] [address] CLIA number [id number] Shama Samal WALKER LAB_1 Performing Organization Address City/[facility] Phon e Number PN SOFT [address] [place] [address] (ABNORMAL) Glucose (05/20/2017 12:29 PM AMBULATORY CARE NURSE) P athologist Signature Lab Glucose 183 (H) 70 - 100 PN SOFT mg/dL Comment: The stated glucose range is for the fast ing state. Non-fasting glucose range is 70-180 mg/d L Specimen Anatomical Collection Method Collection Time Receive d Time (Source) Location / / Volume Laterality 05/20/2017 12:29 05/20/2017 PM AMBULATORY CARE NURSE 12:29 PM AMBULATORY CARE NURSE Narrative PN SOFT - 05/20/2017 2:39 PM AMBULATORY CARE NURSE Performed at [facility], [address] [place] [address] CLIA number [id number] Shama Sutton [facility] LAB_1 Performing Organization Address [facility] Phon e Number PN SOFT [address] [place] [address] Glutamic Acid Decarboxylase Antibody (05/20/2017 12:29 PM AMBULATORY CARE NURSE) Analysis Performed At Patho [facility]ist Time Signature [...] the context of clinical symptoms. Performed by [facility], [address] [place] [address] [email or web address], Yosi Cabral MD - Lab . Director Specimen Anatomical Collection Method Collection Time Receive d Time (Source) Location / / Volume Laterality 05/20/2017 12:29 05/20/2017 3:50 PM AMBULATORY CARE NURSE PM AMBULATORY CARE NURSE Narrative PN SOFT - 05/22/2017 7:09 PM AMBULATORY CARE NURSE Performed at [facility] [address] [place] [address] CLIA number [id number] Shama Fox Lesley [facility] LAB_1 Performing Organization Address City/[facility] Phon e Number PN SOFT [address] [place] [address] TSH (05/20/2017 12:29 PM AMBULATORY CARE NURSE) P athologist Signature Thyroid 1.51 0.30 - PN SOFT Stimulating 4.50 Hormone uIU/mL Specimen Anatomical Collection Method Collection Time Receive d Time (Source) Location / / Volume Laterality 05/20/2017 12:29 05/20/2017 3:50 PM AMBULATORY CARE NURSE PM AMBULATORY CARE NURSE Narrative PN SOFT - 05/20/2017 5:12 PM AMBULATORY CARE NURSE Performed at [facility], [address] [place] [address] CLIA number [id number] Shama Dominique Lesley WALKER LAB_1 Performing Organization Address [facility] Phon e Number PN SOFT [address] [place] [address] (ABNORMAL) Creatinine (05/20/2017 12:29 PM AMBULATORY CARE NURSE) Analysis Performed At [facility] Time Signature Creatinine 1.20 (H) 0.73 - [...] / Volume Laterality 05/20/2017 12:29 05/20/2017 PM AMBULATORY CARE NURSE 12:29 PM AMBULATORY CARE NURSE Narrative PN SOFT - 05/20/2017 2:39 PM AMBULATORY CARE NURSE Performed at [facility], [address] [place] [address] CLIA number [id number] Shama Dominique Lesley WALKER LAB_1 Performing Organization Address [facility] Phon e Number PN SOFT [address] [place] [address] documented in this encounter Visit Diagnoses Diagnosis [...] deficiency documented in this encounter Care Teams Backer Up Relationship Specialty Start Date End Date Needs Pcp, Assignment PCP - General 05/20/17 03/02/18 [facility] [place] [address] documented as of this encounter
--- OUTSIDE RECORDS SUMMARY | 2022-02-05 13:40 | XMS_ITS | Encounter Summary ---
:1955 Author Organization [facility] Address [address] [place] [address] Care Team Providers Name Role Phone Unavailable Primary Care Provider Unavailable Encounter Details Date Type Department Care Team Description 12/27/2021 Clinical Communication Division of Nephrology Kleber Gallardo, and Hypertension in Albert Ramírez, [place], [place] Ph.D. [address] [facility] [address] [place] [address] [phone] Social History Tobacco Use Types Packs/Day Years [...]
[2022-02-05 16:17] LABS: Albumin* 3.7 g/dL (3.3-5.0); Chloride* 105 mmol/L (96-114); Potassium* 4.6 mmol/L (3.6-5.1); Sodium* 139 mmol/L (135-149)
[2022-02-05 16:20] LABS: Blood Urea Nitrogen* 36 mg/dL (7-30); Carbon Dioxide* 24 mmol/L (20-32); Creatinine* 1.8 mg/dL (0.5-1.5); Estimated Glomerular Filt Rate 41 ml/min; Glucose* 233 mg/dL (60-115)
[2022-02-05 16:21] LABS: Calcium* 8.4 mg/dL (8.4-10.6); Phosphorus* 3.6 mg/dL (2.5-4.5)
== END 2022-02-05 13:32 | disposition home or self-care (01) ==
PROVIDERS: PCP Internal Medicine; Visit Provider Internal Medicine Nephrology
DX: N18.9 Chronic kidney disease, unspecified (principal)
CPT/HCPCS: 80069

== ENCOUNTER 2022-04-16 13:35 | Outpatient (CLI) | payer MEDICARE, SELFPAY ==
[2022-04-16 15:54] LABS: Chloride* 106 mmol/L (96-114)
[2022-04-16 15:55] LABS: Albumin* 3.9 g/dL (3.3-5.0); Potassium* 4.7 mmol/L (3.6-5.1); Sodium* 142 mmol/L (135-149)
[2022-04-16 15:57] LABS: Carbon Dioxide* 28 mmol/L (20-32); Estimated Glomerular Filt Rate 36 ml/min
[2022-04-16 15:58] LABS: Blood Urea Nitrogen* 40 mg/dL (7-30); Calcium* 9.1 mg/dL (8.4-10.6); Glucose* 214 mg/dL (60-115); Phosphorus* 4.7 mg/dL (2.5-4.5)
[2022-04-16 15:59] LABS: Creatinine Urine 112.5 mg/dL
[2022-04-16 19:04] LABS: Microalbumin Creatinine Ratio 2080 mg/g (0-30); Microalbumin Urine 235 mg/dL
== END 2022-04-16 13:36 | disposition home or self-care (01) ==
LOC: NFLDREF 13:35
PROVIDERS: PCP Internal Medicine; Visit Provider Internal Medicine Nephrology
DX: N18.9 Chronic kidney disease, unspecified (principal); E11.9 Type 2 diabetes mellitus without complications; I10 Essential (primary) hypertension
CPT/HCPCS: 80069; 82043; 82570; 87086

== ENCOUNTER 2022-05-07 14:22 | Outpatient (CLI) | payer MEDICARE, SELFPAY ==
[2022-05-07 15:42] LABS: Chloride* 106 mmol/L (96-114); Potassium* 4.4 mmol/L (3.6-5.1); Sodium* 141 mmol/L (135-149)
[2022-05-07 15:45] LABS: Blood Urea Nitrogen* 36 mg/dL (7-30); Carbon Dioxide* 28 mmol/L (20-32); Creatinine* 1.6 mg/dL (0.5-1.5); Estimated Glomerular Filt Rate 47 ml/min; Glucose* 219 mg/dL (60-115)
[2022-05-07 15:46] LABS: Calcium* 8.7 mg/dL (8.4-10.6); Phosphorus* 3.8 mg/dL (2.5-4.5)
[2022-05-07 15:49] LABS: Creatinine Urine 119.7 mg/dL
[2022-05-07 19:59] LABS: Microalbumin Creatinine Ratio 5020 mg/g (0-30); Microalbumin Urine 602 mg/dL
== END 2022-05-07 14:23 | disposition home or self-care (01) ==
PROVIDERS: PCP Internal Medicine; Visit Provider Internal Medicine Nephrology
DX: E87.5 Hyperkalemia (principal); I10 Essential (primary) hypertension; N18.9 Chronic kidney disease, unspecified
CPT/HCPCS: 80069; 82043; 82570

== ENCOUNTER 2022-06-11 07:45 | Outpatient (CLI) | payer MEDICARE, SELFPAY | END 2022-06-11 07:46 | disposition home or self-care (01) | LOC: NFLDREF 06-13 02:14 | PROVIDERS: PCP Internal Medicine; Referring Provider Internal Medicine; Visit Provider Internal Medicine Nephrology | DX: N25.89 Other disorders resulting from impaired renal tubular function (principal); N18.9 Chronic kidney disease, unspecified; E87.5 Hyperkalemia; I10 Essential (primary) hypertension | CPT/HCPCS: 80069 ==

== ENCOUNTER 2022-06-25 12:54 | Outpatient (CLI) | payer MEDICARE, SELFPAY | END 2022-06-25 12:55 | disposition home or self-care (01) | LOC: NFLDREF 06-26 03:43 | PROVIDERS: PCP Internal Medicine; Referring Provider Internal Medicine; Visit Provider Internal Medicine | DX: E13.9 Other specified diabetes mellitus without complications (principal); N18.9 Chronic kidney disease, unspecified; E11.9 Type 2 diabetes mellitus without complications; E55.9 Vitamin D deficiency, unspecified; I10 Essential (primary) hypertension; E78.5 Hyperlipidemia, unspecified | CPT/HCPCS: 82043; 82570 ==

== ENCOUNTER 2022-10-16 07:53 | Outpatient (CLI) | payer MEDICARE, SELFPAY | END 2022-10-16 07:54 | disposition home or self-care (01) | LOC: NFLDREF 13:15 | PROVIDERS: PCP Internal Medicine; Referring Provider Internal Medicine; Visit Provider Internal Medicine Nephrology | DX: N18.9 Chronic kidney disease, unspecified (principal) | CPT/HCPCS: 80048; 82043; 82570 ==

== ENCOUNTER 2022-11-12 07:55 | Outpatient (CLI) | payer MEDICARE, SELFPAY | END 2022-11-12 07:56 | disposition home or self-care (01) | LOC: NFLDREF 11-13 11:45 | PROVIDERS: PCP Internal Medicine; Referring Provider Internal Medicine; Visit Provider Internal Medicine | DX: E13.9 Other specified diabetes mellitus without complications (principal); E78.5 Hyperlipidemia, unspecified; E55.9 Vitamin D deficiency, unspecified; I10 Essential (primary) hypertension; N18.9 Chronic kidney disease, unspecified; E87.5 Hyperkalemia | CPT/HCPCS: 80048; 80061; 82043; 82570; 84550; 87086 ==

== ENCOUNTER 2023-02-23 08:09 | Outpatient (CLI) | payer MEDICARE, SELFPAY | END 2023-02-23 08:10 | disposition home or self-care (01) | LOC: NFLDREF 11:23 | PROVIDERS: PCP Internal Medicine; Referring Provider Internal Medicine; Visit Provider Internal Medicine | DX: E78.5 Hyperlipidemia, unspecified (principal); E11.9 Type 2 diabetes mellitus without complications; E87.5 Hyperkalemia; I10 Essential (primary) hypertension | CPT/HCPCS: 80048; 80053; 80061; 80069; 82043; 82570 ==

== ENCOUNTER 2023-08-17 07:55 | Outpatient (CLI) | payer MEDICARE, SELFPAY ==
--- OUTSIDE RECORDS SUMMARY | 2023-08-21 19:35 | XMS_ITS | Encounter Summary ---
Author Organization [facility] Address [address] [place] [address] Care Team Providers Care Senior Tax Accountant Name Role Phone Unavailable Primary Care Provider Unavailabl e Reason for Visit * Appointment Request (Routine) - Closed Specialty Diagnoses / Procedures Referred By Madeleine t Referred To Contact Nephrology and Hypertension Referral ID Status Reason Start Date Expiration Date Visits Re quested Visits Authorized [id number] Closed 07/09/2023 07/08/2024 1 1 Encounter Details Date Type Department Care Team (Latest Contact Info) Description 08/19/2023 1:30 PM CDT External Outreach Division of Nephrology and Hypertension in [place], [place] [address] [place] [phone] Desiree Phillips M.D., Ph.D. [address] [place] [phone] Chronic Kidney Disease (CKD), Stage 3b Glomerular Filtration Rate (GFR) 30 To 44 (HCC) (Primary Dx); Hypertension Essential Primary; Proteinuria; Hyperkalemia Social History Tobacco Use Types Packs/Day Years Used Date Smoking Tobacco: Never Assessed Nutrition Answer Date Recorded Nutrition: EVOO Fat Source Unknown 12/06 Nutrition: Servings of Fruits/Vegetables per Day Not on file 12/06/2021 Dental Answer Date Recorded Dental: Regular Dentist Unknown 12/07/19 Sex and Gender Information Value Date Recorded Sex Assigned at Not on file Gender Identity Not on file Sexual Orientation Not on file documented as of this encounter Progress Notes * Desiree Phillips M.D., Ph.D. - 08/19/2023 1:30 PM CDT SUBJECTIVE REASON FOR CONSULT Follow up CKD stage 3B and hyperkalemia management. [facility] Outreach Visit Location: [facility] HISTORY OF PRESENT ILLNESS Mr. Heaton is a 68 y.o. man with long-standing history of diabetes, on insulin, off metformin. A1C went from 10 to 7.9 to 7.3. Prior history of hyperkalemia as high as 7.1. At that time his lisinopril was discontinued (he was taking lisinopril 20 mg on a daily basis), now it has been restarted after adding Lokelma. He follows a low salt and low potassium diet. He comes today to follow up. He checks his blood pressure regularly at home, and it has been ranging in the 120s/70s. Currently on lisinopril 20 mg daily- and Jardiance 10 mg daily. He started kerendia but it is expensive, he did not renew it. Overall, he feels well and does not have any current concerns. Patient has not noticed any lightheadedness, dizziness, vision changes, diaphoresis, chest pain, difficulty breathing, or edema. Patient has not noticed any changes in urinary habits. No hesitancy tourinate, no difficulty to urinate. OBJECTIVE VITAL SIGNS Blood pressure 127/79. Pulse 87 PHYSICAL EXAMINATION General: No acute distress, breathing comfortably. Extremities: Full range of motion. Normal gait. No edema in lower extremities Neuro: No focal deficits. Alert and oriented X 4. Skin: Warm. No rashes. Psych: Answers questions appropriately. No signs of anxiety or depression noted. DIAGNOSTICS Labs: I have reviewed available labs in detail with patient. ASSESSMENT / PLAN #1 CKD stage 3A-B in the setting of diabetes #2 Hypertension management #3 Hyperkalemia management #4 Proteinuria Patient comes for follow up. His hyperkalemia is well controlled with Lokelma 10 mg twice per week.Today potassium is borderline high at 5.3. No changes in Lokelma. 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 As his potassium reached normal levels, we will continue the use of K binder twice per week. CKD is likely associated with long-standing diabetes and hypertension. Currently at baseline Cr. 1.8 mg/dL, his creatinine fluctuates between 1.6-2 mg/dL. We discussed about the importance of controlling his blood pressure and proteinuria. BP at goal, nochanges in therapy today. Continue lisinopril 20 mg daily and Jardiance 10 mg daily. For proteinuria, it has significantly improved from 5 g down to 400 mg per day. He continues on Jardiance 10 mg daily. This medication helps to control HTN and proteinuria. Continue glipizide 2.5 mg BID with meals for hyperglycemia plus insulin, managed by Dr. Adam, his PCP. Return to clinic in 6 months Carmen Gallardo M.D., Ph.D. documented in this encounter Plan of Treatment Not on file documented as of this encounter Visit Diagnoses Diagnosis Chronic Kidney Disease (CKD), Stage 3b Glomerular Filtration Rate (GFR) 30 To 44 (HCC)- Primary Hypertension Essential Primary Proteinuria Hyperkalemia documented in this encounter
--- OUTSIDE RECORDS SUMMARY | 2023-08-21 19:35 | XMS_ITS | Referral Summary ---
Author Organization [facility] Address [address] [place] [address] Care Team Providers Care Correctional Officer Lieutenant Name Role Phone Unavailable Primary Care Provider Unavailabl e Source Comments Patient records contain information from all sites at [facility]. For routine questions regarding patient records, call [phone] during business hours, M-F 8:00 AM - 5:00 PM Central Time. Record requests for emergency care only can be directed to [phone] at any time.[facility] Encounters Date Type Department Care Team Description 08/19/2023 Refill Division of Nephrology and Hypertension in [place], [place] [address] [place] [address] Desiree Phillips M.D., Ph.D. Med Refill 08/19/2023 1:30 PM CDT External Outreach Division of Nephrology and Hypertension in [place], [place] [address] [place] [address] Desiree Phillips M.D., Ph.D. Chronic Kidney Disease (CKD), Stage 3b Glomerular Filtration Rate (GFR) 30 To 44 (HCC) (Primary Dx); Hypertension Essential Primary; Proteinuria; Hyperkalemia from Last 3 Months Medications Medication Sig Dispensed Refills Start Date End Date Status finerenone (KERENDIA) 10 mg tablet Take 1 tablet (10 mg total) by mouth daily. 30 tablet 11 08/20/2022 Active glipiZIDE (GLUCOTROL) 5 mg tablet Take 0.5 tablets (2.5 mg total) by mouth 2 (two) times a day before breakfast and dinner. 90 tablet 3 11/26/2022 Active empagliflozin (Jardiance) 10 mg tablet Take 1 tablet (10 mg total) by mouth every morning before breakfast. 90 tablet 3 02/25/2023 4 Active sodium zirconium cyclosilicate (LOKELMA) 10 gram powder in packet packet Take 10 g by mouth 3 (three) times a week. 36 packet 3 02/25/2023 4 Active lisinopriL (PRINIVIL,ZESTRIL) 20 mg tablet take one tablet by mouth one time daily 90 tablet 08/21/2023 Active lisinopriL (PRINIVIL,ZESTRIL) 20 mg tablet Take 1 tablet (20 mg total) by mouth daily. 90 tablet 3 07/29/2022 4 Discontinued Active Problems Problem Noted Date Diagnosed Date Hypertension Essential Primary 01/22/2022 Hyperkalemia 01/22/2022 Chronic Kidney Disease (CKD) , Stage 3b Glomerular Filtration Rate (GFR) 30 To 44 01/22/2022 Social History Tobacco Use Types Packs/Day Years [...] on file Sexual Orientation Not on file Plan of Treatment Not on file
--- OUTSIDE RECORDS SUMMARY | 2023-08-21 19:35 | XMS_ITS ---
Author Organization [facility] Address [address] [place] [address] Care Team Providers Care Passenger Flagman Name Role Phone Unavailable Unavailable Unavailable Surgery Details Not on file Complications Check Surgery Details section. Procedure Estimated Blood Loss Check Surgery Details section. Procedure Findings Check Surgery Details section. Procedure Specimens Taken Check Surgery Details section.
--- OUTSIDE RECORDS SUMMARY | 2023-08-21 19:35 | XMS_ITS | Clinical Summary ---
Author Organization [facility] Address [address] [place] [address] Support Name Relationship Address Phone Andria Stephens Emergency Contact Unknown [phone] 03/19 Pt Decline Emergency Contact Unknown Al castillo Care Team Providers Care Pipeline Systems Operator Name Role Phone Anoop Adam MD Primary Care Provider [phone] Source Comments You are receiving this document as you are listed as the primary care provider,follow-up provider, or the patient has been referred to you for consultation.This is in compliance with the Medicare and[facility] EHR Incentive Program,which states Providers who transition their patient to another setting of careor provider of care or refers their patient to another provider of care shouldprovide summary care record for each transition of care or referral. [facility] Allergies No known active allergies Medications Medication Sig Dispensed Refills Start Date End Date Status aspirin 81 MG tabletIndications:D M type 2, uncontrolled, with neuropathy,Essentia l hypertension (HRC),Dyslipidemia (HRC),Vitamin D deficiency (HRC) Take 81 mg by mouth daily. Active naproxen sodium (ANAPROX) 220 MG tabletIndications:D M type 2, uncontrolled, with neuropathy,Essentia l hypertension (HRC),Dyslipidemia (HRC),Vitamin D deficiency (HRC) Take 220 mg by mouth two times a day with meals. Active simvastatin (ZOCOR) 20 MG tabletIndications:D M type 2, uncontrolled, with neuropathy,Essentia l hypertension (HRC),Dyslipidemia (HRC),Vitamin D deficiency (HRC) Take 20 mg by mouth daily at bedtime. Active lisinopril (ZESTRIL) 20 MG tabletIndications:D M type 2, uncontrolled, with neuropathy,Essentia l hypertension (HRC),Dyslipidemia (HRC),Vitamin D deficiency (HRC) Take 20 mg by mouth daily. Active blood glucose (ONE TOUCH TEST STRIPS) test stripIndications:DM type 2, uncontrolled, with neuropathy,Essentia l hypertension (HRC),Dyslipidemia (HRC),Vitamin D deficiency (HRC) Use to test daily. Use as directed. Pharmacy dispense brand based on insurance. Active insulin glargine (LANTUS) 100 UNIT/ML injectionIndication s:DM type 2, uncontrolled, with neuropathy,Essentia l hypertension (HRC),Dyslipidemia (HRC),Vitamin D deficiency (HRC) Inject 30 Units subcutaneously every evening. Pharmacy may substitute Basaglar as needed based on insurance 30 mL 3 05/22/2017 Active liraglutide (,,VICTOZA) 18 MG/3ML SOPN injectionIndication s:Type 2 diabetes mellitus with proliferative retinopathy, with long-term current use of insulin, macular edema presence unspecified, unspecified laterality, unspecified proliferative retinopathy* (HRC),Essential hypertension (HRC),Dyslipidemia (HRC),Vitamin D deficiency (HRC) 1.8 mg daily 27 mL 3 01/12/2018 Active metFORMIN XR (GLUCOPHAGE XR) 500 MG 24 hour release tabletIndications:T ype 2 diabetes mellitus with proliferative retinopathy, with long-term current use of insulin, macular edema presence unspecified, unspecified laterality, unspecified proliferative retinopathy* (HRC),Essential hypertension (HRC),Dyslipidemia (HRC),Vitamin D deficiency (HRC) Take 2 Tablets by mouth two times a day. 360 Tablet 3 01/12/2018 Active insulin pen needle (BD PEN NEEDLE DARSHANA U/F) 32G X 4 MM Inject 1 Each subcutaneously two times a day. 200 Each 3 03/08/2018 Active Active Problems Problem Noted Date Diagnosed Date Controlled type 2 diabetes m ellitus with proliferative retinopathy of both eyes, with long-term current use of insulin 07/22/2017 Type 2 diabetes mellitus wit h proliferative retinopathy, with long-term current use of insulin 07/22/2017 Essential hypertension 05/20/2017 Dyslipidemia 05/20/2017 Vitamin D deficiency 05/20/2017 Resolved Problems Problem Noted Date Diagnosed Date Resolved Date DM type 2, uncontrolled, with neuropathy 05/20/2017 07/22/2017 Immunizations Name Administration Dates Next Due Influenza IIV4 (Quadrivalent) 0.5mL (16973) 12/28 Social History Tobacco Use Types Packs/Day Years Used Date Smoking Tobacco: Never Smokeless Tobacco: Never Alcohol Use Standard Drinks/Week Comments No 0 (1 standard drink = 0.6 oz pur e alcohol) Sex and Gender Information Value Date Recorded Sex Assigned at Not on file Gender Identity Not on file Sexual Orientation Not on file Last Filed Vital Signs [...] Last Done Comments Colon Cancer Screening Plan Due 1955 Diabetes: Eye Exam 1955 Diabetes: Foot Exam 1955 Diabetes: Lipid Panel 1955 Diabetes: Urine Microalbumin 1955 Hep C Screening (Preventive Services) 1955 PSA Screening Discussion 1955 Adult Preventive Visit 1973 Pneumococcal 65+ Yrs (2 - PCV) 01/04/2011 01/04/2010 Zoster/Shingles (2 of 3) 06/12/2016 04/17/2016 Diabetes: HGBA1C 04/14/2018 01/12/2018, , 07/22/2017, Additional history exists Diabetes: Creatinine 05/20/2018 05/20/2017 DTaP/Tdap/Td (2 - Tdap) 12/08/2019 12/07/2009 COVID-19 Vaccine (3 season) 2022 07/03/2020, 06/12/2020 Influenza (Season Ended) 2023 020, 03/11/2019, 01/12/2018, Additional history exists HepA Aged Out No longer eligi ble based on patient's age to complete this topic HepB Aged Out No longer eligi ble based on patient's age to complete this topic Hib Aged Out No longer eligi ble based on patient's age to complete this topic IPV (Polio) Aged Out No longer eligi ble based on patient's age to complete this topic MCV4 Aged Out No longer eligi ble based on patient's age to complete this topic Procedures Procedure Name Priority Date/Time Associated Diagnosis Comments POCT GLYCOSYLATED HEMOGLOBIN (HGB A1C) Routine 01/12/2018 10:42 AM CDT Type 2 diabetes mellitus with proliferative retinopathy, with long-term current use of insulin, macular edema presence unspecified, unspecified laterality, unspecified proliferative retinopathy* (HRC) Essential hypertension Dyslipidemia Vitamin D deficiency CREATININE / GFR Routine 05/20/2017 12:2 9 PM MEDIA CONSULTANT OUTSIDE SALES DM type 2, uncontrolled, with neuropathy (HRC) Essential hypertension Dyslipidemia Vitamin D deficiency from Last 3 Months or Most Recently Relevant to Health Maintenance Results * (ABNORMAL) POCT glycosylated hemoglobin (Hb A1C) (01/12/2018 10:42 AM CDT) Hemoglobin A1C, POC 6.6(A) 4 - 5.6 % PN POCT Cartridge Lot# [id number] PN POCT Blood specimen (specimen) 01/12/2018 10:42 AM CDT Shama WALKER PN POINT OF CARE TESTS PN POCT * (ABNORMAL) Creatinine (05/20/2017 12:29 PM MEDIA CONSULTANT OUTSIDE SALES) Creatinine Serum 1.20(H) 0.73 - 1.18 mg/dL PN SOFT Est GFR Am >60 >60 mL/min/1.7 3m2 PN SOFT Est GFR Non-Afr Am >60 >60 mL/min/1.7 3m2 PN SOFT Comment: Normal>60, moderate decrease 30 - 59, severe decrease 15 - 29, renal failure <15 mL/min/1.73 m2 NOTE: ??Choose the eGFR result above appropriate for the race of the patient. 05/20/2017 12:2 9 PM MEDIA CONSULTANT OUTSIDE SALES 05/20/2017 12:29 PM MEDIA CONSULTANT OUTSIDE SALES Narrative PN SOFT - 05/20/2017 2:39 PM MEDIA CONSULTANT OUTSIDE SALES Performed at [facility], [address] [place] [address] CLIA number [id number] [facility]_1 PN SOFT [address] [place] [address] from Last 3 Months or Most Recently Relevant to Health Maintenance Care Teams Pipeline Systems Operator Relationship Specialty Start Date End Date Anoop Adam MD [address] [place] [address] PCP - General 03/03/18
--- OUTSIDE RECORDS SUMMARY | 2023-08-21 19:35 | XMS_ITS | Clinical Summary ---
Author Organization [facility] Address [address] [place] [address] Care Team Providers Care Fashion Coordinator Name Role Phone Unavailable Primary Care Provider Unavailabl e Source Comments Patient records contain information from all sites at [facility]. For routine questions regarding patient records, call [phone] during business hours, M-F 8:00 AM - 5:00 PM Central Time. Record requests for emergency care only can be directed to [phone] at any time.[facility] Medications Medication Sig Dispensed Refills Start Date End Date Status finerenone (KERENDIA) 10 mg tablet Take 1 tablet (10 mg total) by mouth daily. 30 tablet 11 08/20/2022 Active glipiZIDE (GLUCOTROL) 5 mg tablet Take 0.5 tablets (2.5 mg total) by mouth 2 (two) times a day before breakfast and dinner. 90 tablet 3 11/26/2022 4 Active empagliflozin (Jardiance) 10 mg tablet Take [...] Filtration Rate (GFR) 30 To 44 01/22/2022 Encounters Date Type Department Care Team Description 08/19/2023 1:30 PM CDT External Outreach Division of Nephrology and Hypertension in [place], [place] [address] [place] [address] Desiree Phillips M.D., Ph.D. Chronic Kidney Disease (CKD), Stage 3b Glomerular Filtration Rate (GFR) 30 To 44 (HCC) (Primary Dx); Hypertension Essential Primary; Proteinuria; Hyperkalemia 08/19/2023 Refill Division of Nephrology and Hypertension in [place], [place] [address] [place] [address] Desiree Phillips M.D., Ph.D. Med Refill from Last 3 Months Social History Tobacco [...] Orientation Not on file Plan of Treatment Health Maintenance Due Date Last Done Comments CT Colonography 1955 Cologuard 1955 Colonoscopy 1955 Colorectal Cancer Screening 1955 Creatinine Level (Kidney Fun ction Test) 1955 FIT 1955 Fasting Glucose for Diabetes Screening 1955 Hepatitis C Screening 1955 Office Visit for Blood Press ure Check / Re-check 1955 Potassium Level 1955 Sodium Level 1955 Zoster Vaccines (1 of 2) 06/12/2016 04/17/2016 DTaP,Tdap,and Td Vaccines (2 - Td or Tdap) 12/08/2019 12/07/2009 Pneumococcal vaccine (65+ ye ars) (2 of 2 - PCV) 2020 01/04/2010 Depression Screening (Annual PHQ-2) 03/30/2023 Fall Risk Screen (Annual) 03/30/2023 COVID-19 Vaccine (2022-2 4 season) 2023 01/30/2023, 02/01/2021, 07/03/2020, Additional history exists Influenza Vaccine Completed 01/30/2023, , 02/13/2021, Additional history exists
--- OUTSIDE RECORDS SUMMARY | 2023-08-21 19:35 | XMS_ITS | Encounter Summary ---
Author Organization [facility] Address [address] [place] [address] Care Team Providers Care Candle Wrapper Name Role Phone Unavailable Primary Care Provider Unavailabl e Reason for Visit * Reason Comments Med Refill Encounter Details Date Type Department Care Team (Late st Contact Info) Description 08/19/2023 Refill Division of Nephrology and Hypertension in [place], [place] [address] [place] [phone] Desiree Phillips M.D., Ph.D. [address] [place] [phone] Med Refill Social History Tobacco Use Types Packs/Day Years [...] documented as of this encounter Visit Diagnoses Not on filedocumented in this encounter
== END 2023-08-17 07:56 | disposition home or self-care (01) ==
LOC: NFLDREF 08-21 19:34
PROVIDERS: PCP Internal Medicine; Referring Provider Internal Medicine; Visit Provider Internal Medicine Nephrology
DX: E13.9 Other specified diabetes mellitus without complications (principal); E87.5 Hyperkalemia; N18.9 Chronic kidney disease, unspecified
CPT/HCPCS: 80069; 82043; 82570

== ENCOUNTER 2023-09-23 14:21 | Outpatient (CLI) | payer MEDICARE, SELFPAY ==
--- OUTSIDE RECORDS SUMMARY | 2023-09-23 14:23 | XMS_ITS ---
Author Organization [facility] Address [address] [place] [address] Care Team Providers Care Primary School Teacher Name Role Phone Unavailable Unavailable Unavailable Surgery Details Not on file Complications Check Surgery Details section. Procedure Estimated Blood Loss Check Surgery Details section. Procedure Findings Check Surgery Details section. Procedure Specimens Taken Check Surgery Details section.
--- OUTSIDE RECORDS SUMMARY | 2023-09-23 14:23 | XMS_ITS | Referral Summary ---
Author Organization [facility] Address [address] [place] [address] Care Team Providers Care Project Program Manager Name Role Phone Unavailable Primary Care Provider Unavailabl e Source Comments Patient records contain information from all sites at [facility]. For routine questions regarding patient records, call [phone] during business hours, M-F 8:00 AM - 5:00 PM Central Time. Record requests for emergency care only can be directed to [phone] at any time.[facility] Encounters Date Type Department Care Team Description 08/19/2023 Refill Division of Nephrology and Hypertension in [place], [place] [address] [place] [address] Desiree Phillips M.D., Ph.D. Med Refill 08/19/2023 1:30 PM CDT External Outreach Division of Nephrology and Hypertension in [place], [place] [address] [place] [address] Desiree Phillips M.D., Ph.D. Chronic Kidney Disease [...] breakfast and dinner. 90 tablet 3 11/26/2022 11/26/2023 Active empagliflozin (Jardiance) 10 mg tablet Take 1 tablet (10 mg total) by mouth every morning before breakfast. 90 tablet 3 02/25/2023 02/25/2024 Active sodium zirconium cyclosilicate (LOKELMA) 10 gram powder in packet packet Take 10 g by mouth 3 (three) times a week. 36 packet 3 02/25/2023 02/25/2024 Active lisinopriL (PRINIVIL,ZESTRIL) 20 mg tablet take one tablet by mouth one time daily 90 tablet 08/21/2023 Active Active Problems Problem Noted Date Diagnosed [...]
--- OUTSIDE RECORDS SUMMARY | 2023-09-23 14:23 | XMS_ITS | Clinical Summary ---
Author Organization [facility] Address [address] [place] [address] Care Team Providers Care Medical Stenographer Name Role Phone Unavailable Primary Care Provider Unavailabl e Source Comments Patient records contain information from all sites at [facility]. For routine questions regarding patient records, call [phone] during business hours, M-F 8:00 AM - 5:00 PM Central Time. Record requests for emergency care only can be directed to [phone] at any time.[facility] Medications Medication Sig Dispensed Refills Start [...] Outreach Division of Nephrology and Hypertension in [place], [place] [address] [place] [address] Desiree Phillips M.D., Ph.D. Chronic Kidney Disease (CKD), Stage 3b Glomerular Filtration Rate (GFR) 30 To 44 (HCC) (Primary Dx); Hypertension Essential Primary; Proteinuria; Hyperkalemia 08/19/2023 Refill Division of Nephrology and Hypertension in [place], [place] [address] [place] [address] Desiree Phillips M.D., Ph.D. Med Refill from [...] Fall Risk Screen (Annual) 03/30/2023 COVID-19 Vaccine (5 - 2022-2 4 season) 2023 01/30/2023, 02/01/2021, 07/03/2020, Additional history exists Influenza Vaccine Completed 01/30/2023, , 02/13/2021, Additional history exists
--- OUTSIDE RECORDS SUMMARY | 2023-09-23 14:23 | XMS_ITS | Clinical Summary ---
Author Organization [facility] Address [address] [place] [address] Support Name Relationship Address Phone Andria Stephens Emergency Contact Unknown [phone] 03/19 Pt Decline Emergency Contact Unknown Al castillo Care Team Providers Care Stone Driller Name Role Phone Anoop Adam MD Primary Care Provider [phone] Source Comments You are receiving this document as you are listed as the primary care provider,follow-up provider, or the patient has been referred to you for consultation.This is in compliance with the Medicare and[facility] EHR Incentive Program,which states Providers who transition their patient to another setting of careor provider of care or refers their patient to another provider of care shouldprovide summary care record for each transition of care or referral. [facility] Allergies No known active allergies Medications Medication [...] Dates Next Due Influenza IIV4 (Quadrivalent) 0.5mL (91970) 12/28 Social History Tobacco Use Types Packs/Day [...] / GFR Routine 05/20/2017 12:2 9 PM CLASSIFIED COPY CONTROL CLERK DM type 2, uncontrolled, with neuropathy (HRC) [...] POCT * (ABNORMAL) Creatinine (05/20/2017 12:29 PM CLASSIFIED COPY CONTROL CLERK) Creatinine Serum 1.20(H) 0.73 - 1.18 mg/dL PN SOFT Est GFR Am >60 >60 mL/min/1.7 3m2 PN SOFT Est GFR Non-Afr Am >60 >60 mL/min/1.7 3m2 PN SOFT Comment: Normal>60, moderate decrease 30 - 59, severe decrease 15 - 29, renal failure <15 mL/min/1.73 m2 NOTE: ??Choose the eGFR result above appropriate for the race of the patient. 05/20/2017 12:2 9 PM CLASSIFIED COPY CONTROL CLERK 05/20/2017 12:29 PM CLASSIFIED COPY CONTROL CLERK Narrative PN SOFT - 05/20/2017 2:39 PM CLASSIFIED COPY CONTROL CLERK Performed at [facility], [address] [place] [address] CLIA number [id number] [facility] PN SOFT [address] [place] [address] from Last 3 Months or Most Recently Relevant to Health Maintenance Care Teams Stone Driller Relationship Specialty Start Date End Date Anoop Adam MD [address] [place] [address] PCP - General 03/03/18
--- OUTSIDE RECORDS SUMMARY | 2023-09-23 14:23 | XMS_ITS | Encounter Summary ---
Author Organization [facility] Address [address] [place] [address] Care Team Providers Care Hostage Negotiator Name Role Phone Unavailable Primary Care Provider Unavailabl e Reason for Visit * Appointment Request (Routine) - Closed Specialty Diagnoses / Procedures Referred By Madeleine t Referred To Contact Nephrology and Hypertension Referral ID Status Reason Start Date Expiration Date Visits Re quested Visits Authorized [id number] Closed 07/09/2023 07/08/2024 1 1 Encounter Details Date Type Department Care Team (Latest Contact Info) Description 08/19/2023 1:30 PM CDT External Outreach Division of Nephrology and Hypertension in [place], [place] [address] [place] [phone] Desiree Phillips M.D., Ph.D. [address] [place] [phone] Chronic Kidney Disease (CKD), Stage 3b Glomerular [...] up CKD stage 3B and hyperkalemia management. [facility] Outreach Visit Location: [facility] HISTORY OF PRESENT ILLNESS Mr. Heaton [...]
--- OUTSIDE RECORDS SUMMARY | 2023-09-23 14:23 | XMS_ITS | Encounter Summary ---
Author Organization [facility] Address [address] [place] [address] Care Team Providers Care Industrial Roofer Helper Name Role Phone Unavailable Primary Care Provider Unavailabl e Reason for Visit * Reason Comments Med Refill Encounter Details Date Type Department Care Team (Late st Contact Info) Description 08/19/2023 Refill Division of Nephrology and Hypertension in [place], [place] [address] [place] [phone] Desiree Phillips M.D., Ph.D. [address] [place] [phone] Med Refill Social History Tobacco Use Types [...]
== END 2023-09-23 14:22 | disposition home or self-care (01) ==
LOC: NFLDREF 14:22
PROVIDERS: PCP Internal Medicine; Visit Provider Internal Medicine
DX: Z12.5 Encounter for screening for malignant neoplasm of prostate (principal)
CPT/HCPCS: G0103

== ENCOUNTER 2024-02-11 09:58 | Outpatient (CLI) | payer MEDICARE, SELFPAY ==
--- OUTSIDE RECORDS SUMMARY | 2024-02-11 10:00 | XMS_ITS | Clinical Summary ---
Author Organization [facility] Address [address] [place] [address] Care Team Providers Care Bobbin Sorter Name Role Phone Unavailable Primary Care Provider Unavailabl e Source Comments Patient records contain information from all sites at [facility]. For routine questions regarding patient records, call [phone] during business hours, M-F 8:00 AM - 5:00 PM Central Time. Record requests for emergency care only can be directed to [phone] at any time.[facility] Medications finerenone (KERENDIA) 10 mg tablet Take 1 tablet (10 mg total) by mouth daily. 30 tablet 11 3 Active glipiZIDE (GLUCOTROL) 5 mg tablet Take 0.5 tablets (2.5 mg total) by mouth 2 (two) times a day before breakfast and dinner. 90 tablet 3 3 Active empagliflozin (Jardiance) 10 mg tablet Take 1 tablet (10 mg total) by mouth every morning before breakfast. 90 tablet 3 3 02/25/20 24 Active sodium zirconium cyclosilicate (LOKELMA) 10 gram powder in packet packet Take 10 g by mouth 3 (three) times a week. 36 packet 3 3 02/25/20 24 Active lisinopriL 20 mg tablet take one tablet by mouth one time daily 90 tablet 4 Active Active Problems Problem Noted Date Diagnosed Date Hypertension Essential Primary 01/22/2022 Hyperkalemia 01/22/2022 Chronic Kidney Disease (CKD) , Stage 3b Glomerular Filtration Rate (GFR) 30 To 44 01/22/2022 Encounters Date Type Department Care Team Description 12/28/2023 - 12/28/2023 8:42 PM CDT Emergency [facility] [address] [place] [phone] Discharge Disposition: ED Dismiss - Never Arrived from Last 3 Months Social History Tobacco Use Types Packs/Day Years Used Date Smoking Tobacco: Never Assessed Dental Answer Date Recorded Dental: Regular Dentist Unknown 12/07/19 22 Sex and Gender Information Value Date Recorded Sex Assigned at Not on file 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 Gender Identity Not on file Sexual Orientation Not on file Plan of Treatment Health Maintenance Due Date Last Done Comments CT Colonography 1955 Cologuard 1955 Colonoscopy 1955 Colorectal Cancer Screening 1955 Creatinine Level (Kidney Function Test) 1955 FIT 1955 Fasting Glucose for Diabetes Screening 1955 Hepatitis C Screening 1955 Office Visit for Blood Pressure Check / Re-check 1955 Potassium Level 1955 Sodium Level 1955 Zoster Vaccines (1 of 2) 06/12/2016 04/17/2016 DTaP,Tdap,and Td Vaccines (2 - Td or Tdap) 12/08/2019 12/07/2009 Pneumococcal vaccine (65+ years) (2 of 2 - PCV) 2020 01/04/2010 Depression Screening (Annual PHQ-2) 03/30/2023 Fall Risk Screen (Annual) 03/30/2023 COVID-19 Vaccine ( season) 2023 01/30/2023, 02/01/2021, 07/03/2020, Additional history exists Influenza Vaccine (#1) 2023 , 01/10/2022, 02/13/2021, Additional history exists IPV Vaccines Aged Out No longer eligi ble based on patient's age to complete this topic Insurance [facility]
--- OUTSIDE RECORDS SUMMARY | 2024-02-11 10:01 | XMS_ITS | Encounter Summary ---
Author Organization [facility] Address [address] [place] [address] Care Team Providers Care Karate Instructor Name Role Phone Unavailable Primary Care Provider Unavailabl e Reason for Visit * Reason Comments Med Refill Encounter Details Date Type Department Care Team (Late st Contact Info) Description 11/05/2023 Refill Division of Nephrology and Hypertension in [place], [place] [address] [place] [phone] Desiree Phillips M.D., Ph.D. 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
--- OUTSIDE RECORDS SUMMARY | 2024-02-11 10:01 | XMS_ITS | Referral Summary ---
Author Organization [facility] Address [address] [place] [address] Care Team Providers Care Tv Technician Name Role Phone Unavailable Primary Care Provider Unavailabl e Source Comments Patient records contain information from all sites at [facility]. For routine questions regarding patient records, call [phone] during business hours, M-F 8:00 AM - 5:00 PM Central Time. 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
--- OUTSIDE RECORDS SUMMARY | 2024-02-11 10:01 | XMS_ITS | Encounter Summary ---
Author Organization [facility] Address [address] [place] [address] Care Team Providers Care Software Development Project Manager Name Role Phone Unavailable Primary Care Provider Unavailabl e Encounter Details Date Type Department Care Team (Late st Contact Info) Description 12/28/2023 - 12/28/2023 8:42 PM CDT Emergency [facility] [address] [place] [phone] Discharge Disposition: ED Dismiss - Never Arrived Social History Tobacco Use Types Packs/Day Years Used Date Smoking Tobacco: Never Assessed Dental Answer Date Recorded Dental: Regular Dentist Unknown 12/07/19 22 Sex and Gender Information Value Date Recorded Sex Assigned at Not on file 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 90 tablet 3 02/25/2023 4 lisinopriL 20 mg tablet take one tablet by mouth one time daily 90 tablet 11/10/2023 sodium zirconium cyclosilicate (LOKELMA) 10 gram powder in packet packet Take 10 g by mouth 3 (three) times a week. 36 packet 3 02/25/2023 4 documented as of this encounter Plan of Treatment Not on file documented as of this encounter Visit Diagnoses Not on filedocumented in this encounter
--- OUTSIDE RECORDS SUMMARY | 2024-02-11 10:01 | XMS_ITS | Clinical Summary ---
Author Organization [facility] Address [address] [place] [address] Support Name Relationship Address Phone Andria Stephens Emergency Contact Unknown [phone] 03/19 Pt Decline Emergency Contact Unknown Al castillo Care Team Providers Care Airplane Cleaner Name Role Phone Anoop Adam MD Primary Care Provider [phone] Source Comments You are receiving this document as you are listed as the primary care provider,follow-up provider, or the patient has been referred to you for consultation.This is in compliance with the Medicare and[facility] EHR Incentive Program,which states Providers who transition their patient to another setting of careor provider of care or refers their patient to another provider of care shouldprovide summary care record for each transition of care or referral. [facility] Allergies No known active allergies Medications [...] Dates Next Due Influenza IIV4 (Quadrivalent) 0.5mL (21197) 12/28 Social History Tobacco Use Types Packs/Day [...] (2 - Tdap) 12/08/2019 12/07/2009 COVID-19 Vaccine ( season) 2023 07/03/2020, 06/12/2020 Influenza (#1) 2023 03/01/2020, 02/27, 01/12/2018, Additional history exists RSV (1 - 1-dose 75+ series) 2030 HepA Aged Out No longer eligi ble based on patient's age to complete this topic HepB Aged Out No longer eligi ble based on patient's age to complete this topic Hib Aged Out No longer eligi ble based on patient's age to complete this topic IPV (Polio) Aged Out No longer eligi ble based on patient's age to complete this topic RSV Aged Out No longer eligi ble based [...] / GFR Routine 05/20/2017 12:2 9 PM INFORMATION CLERK DM type 2, uncontrolled, with neuropathy [...] POCT * (ABNORMAL) Creatinine (05/20/2017 12:29 PM INFORMATION CLERK) Creatinine Serum 1.20(H) 0.73 - 1.18 mg/dL PN SOFT Est GFR Am >60 >60 mL/min/1.7 3m2 PN SOFT Est GFR Non-Afr Am >60 >60 mL/min/1.7 3m2 PN SOFT Comment: Normal>60, moderate decrease 30 - 59, severe decrease 15 - 29, renal failure <15 mL/min/1.73 m2 NOTE: ??Choose the eGFR result above appropriate for the race of the patient. 05/20/2017 12:2 9 PM INFORMATION CLERK 05/20/2017 12:29 PM INFORMATION CLERK Narrative PN SOFT - 05/20/2017 2:39 PM INFORMATION CLERK Performed at [facility], [address] [place] [address] CLIA number [id number] [facility] [address] [place] [address] from Last 3 Months or Most Recently Relevant to Health Maintenance Care Teams Airplane Cleaner Relationship Specialty Start Date End Date Anoop Adam MD [address] [place] [address] PCP - General 03/03/18
--- OUTSIDE RECORDS SUMMARY | 2024-02-11 10:01 | XMS_ITS ---
Author Organization [facility] Address [address] [place] [address] Care Team Providers Care Fusion Operator Name Role Phone Unavailable Unavailable Unavailable Surgery Details Not on file Complications Check Surgery Details section. Procedure Estimated Blood Loss Check Surgery Details section. Procedure Findings Check Surgery Details section. Procedure Specimens Taken Check Surgery Details section.
== END 2024-02-11 09:59 | disposition home or self-care (01) ==
LOC: NFLDREF 09:59
PROVIDERS: PCP Internal Medicine; Visit Provider Internal Medicine
DX: E13.22 Other specified diabetes mellitus with diabetic chronic kidney disease (principal); N18.32 Chronic kidney disease, stage 3b; R82.90 Unspecified abnormal findings in urine
CPT/HCPCS: 80069; 82043; 82570; 87086

== ENCOUNTER 2024-05-02 08:20 | Outpatient (CLI) | payer MEDICARE, SELFPAY | END 2024-05-02 08:21 | disposition home or self-care (01) | LOC: NFLDREF 05-04 01:33 | PROVIDERS: PCP Internal Medicine; Referring Provider Internal Medicine; Visit Provider Internal Medicine Nephrology | DX: E87.5 Hyperkalemia (principal); E78.5 Hyperlipidemia, unspecified; E10.22 Type 1 diabetes mellitus with diabetic chronic kidney disease; I12.9 Hypertensive chronic kidney disease with stage 1 through stage 4 chronic kidney disease, or unspecified chronic kidney disease; N18.9 Chronic kidney disease, unspecified | CPT/HCPCS: 80048; 80061 ==

== ENCOUNTER 2024-08-05 07:35 | Outpatient (CLI) | payer MEDICARE, SELFPAY | END 2024-08-05 07:36 | disposition home or self-care (01) | LOC: NFLDREF 08-06 11:23 | PROVIDERS: PCP Internal Medicine; Referring Provider Internal Medicine; Visit Provider Internal Medicine Nephrology | DX: N18.9 Chronic kidney disease, unspecified (principal); E87.5 Hyperkalemia; E55.9 Vitamin D deficiency, unspecified; I12.9 Hypertensive chronic kidney disease with stage 1 through stage 4 chronic kidney disease, or unspecified chronic kidney disease; E11.22 Type 2 diabetes mellitus with diabetic chronic kidney disease; R80.9 Proteinuria, unspecified | CPT/HCPCS: 80069; 82043; 82570; 87086 ==

== ENCOUNTER 2024-12-02 07:35 | Outpatient (CLI) | payer MEDICARE, SELFPAY | END 2024-12-02 07:36 | disposition home or self-care (01) | LOC: NFLDREF 12-07 10:14 | PROVIDERS: PCP Internal Medicine; Referring Provider Internal Medicine; Visit Provider Internal Medicine | DX: E78.5 Hyperlipidemia, unspecified (principal); E87.5 Hyperkalemia; N18.9 Chronic kidney disease, unspecified; I12.9 Hypertensive chronic kidney disease with stage 1 through stage 4 chronic kidney disease, or unspecified chronic kidney disease; E11.22 Type 2 diabetes mellitus with diabetic chronic kidney disease; Z12.5 Encounter for screening for malignant neoplasm of prostate | CPT/HCPCS: 80053; 80061; 84100; G0103 ==

== ENCOUNTER 2025-02-01 08:18 | Outpatient (CLI) | payer MEDICARE, SELFPAY | END 2025-02-01 08:19 | disposition home or self-care (01) | LOC: NFLDREF 02-06 01:32 | PROVIDERS: PCP Internal Medicine; Referring Provider Internal Medicine; Visit Provider Internal Medicine Nephrology | DX: N18.30 Chronic kidney disease, stage 3 unspecified (principal) | CPT/HCPCS: 80069; 82043; 82570 ==

== ENCOUNTER 2025-02-21 13:36 | Outpatient (CLI) | payer MEDICARE, SELFPAY ==
[2025-02-21] MEDS: PERFLUTREN LIPID MICROSPHERES 2 ML VIAL IVP (14:49)
[2025-02-21 15:00] VITALS: BP 166/88; PULSE 77; RESP 16
--- NOTE | 2025-02-21 15:05 | W.PM.STED ---
Stress Test Note Date Date Seen: 02/21/25 Date of test: 02/21/25 Providers Primary care provider: Anoop Adam Stress test physician: Radha Sims Stress Test Note Stress test ordered: Stress Echo Indication for test: Chest pain, underlying diabetes. Stress test medicine: Definity Results discussion: Resting EKG: Sinus rhythm, 88 beats per minute. Some artifact. Resting blood pressure: 140/78 Stress test: Patient consented on the ordered stress test of treadmill exercise stress echo. He does agree to proceed, standard Siddhartha protocol followed. Patient did require definity for imaging. Patient exercised to 4 minutes 41 seconds, needing to stop due to feeling dyspneic. He did not feel he could go on, he was just meeting his target rate. This was equivalent to 6.6 Mets. He had a maximum heart rate of 131 beats per minute which was 102% of a calculated target of 128. He had a maximal blood pressure of 176/66, given him a rate pressure product of 23,056. He did have ST segment depression in inferior and lateral leads suggestive of ischemia. He did have occasional PVCs. At 1 minute 13 seconds of recovery, patient had two 3 beat runs ventricular tachycardia but was asymptomatic. He did not have any chest pain during any of this. Preliminary echo images are potentially positive. Did share with the patient that there were concerning changes with the EKG, had concerns that this was a positive test but need to await the final echo images to be read by Cardiology to couple this for a full formal diagnostic. Impression: Subjectively negative, objectively positive EKG portion of this stress test, ST segment depression noted in inferolateral leads and two 3 beat runs asymptomatic ventricular tachycardia noted. Follow up suggested: Patient is discharged from the stress test in stable condition. Await echo images to couple this for a full formal diagnostic. Did contact his primary via phone Dr. Adam and updated him on the preliminary positive stress test. He is going to contact the patient in the morning, he will plan on getting him into a just medicines. Did update [facility] Dr. Garcia. He states timing with the appointment next week in clinic at this point should be adequate. Agrees with activity restrictions inpatient was firmly advised no strenuous activity which does include shoveling snow.
== END 2025-02-21 15:02 | disposition home or self-care (01) ==
PROVIDERS: PCP Internal Medicine; Visit Provider Internal Medicine Nephrology
DX: R07.9 Chest pain, unspecified (principal); I67.82 Cerebral ischemia
CPT/HCPCS: 93016; 93325; 93351; Q9957